=== PATIENT | female | born 1950 | race Caucasian/White ===

== ENCOUNTER → 2022-09-20 | Outpatient (CLI) | payer MEDICARE, SELFPAY ==
[2022-09-22 13:08] LABS: Hepatitis B Core Ab Total Negative (Negative); QNTFERON TB Mitogen Value > 10.00 IU/mL (.); QNTFERON TB Nil Value 0.07 IU/mL (.); QNTFERON TB1+ Ag Value 0.07 IU/mL (.); QNTFERON TB2+ Ag Value 0.08 IU/mL (.); QNTIFERON TB Positive Criteria Negative (Negative)
== END | disposition home or self-care (01) ==
LOC: LAB 13:35
PROVIDERS: PCP Family Medicine; Visit Provider Physician Assistant Medical
DX: L40.0 Psoriasis vulgaris (principal); L40.59 Other psoriatic arthropathy; R53.82 Chronic fatigue, unspecified; L82.1 Other seborrheic keratosis; Z79.899 Other long term (current) drug therapy
CPT/HCPCS: 36415; 86480; 86704

== ENCOUNTER → 2023-09-21 | Outpatient (CLI) | payer MEDICARE, SELFPAY ==
[2023-09-25 12:09] LABS: QNTFERON TB Mitogen Value > 10.00 IU/mL (.); QNTFERON TB Nil Value 0.46 IU/mL (.); QNTFERON TB1+ Ag Value 0.02 IU/mL (.); QNTFERON TB2+ Ag Value 0.02 IU/mL (.); QNTIFERON TB Positive Criteria Negative (Negative)
== END | disposition home or self-care (01) ==
LOC: MTLAB 14:55
PROVIDERS: PCP Family Medicine; Referring Provider Physician Assistant Medical; Visit Provider Physician Assistant Medical
DX: L40.0 Psoriasis vulgaris (principal); Z79.899 Other long term (current) drug therapy; L57.0 Actinic keratosis
CPT/HCPCS: 36415; 86480

== ENCOUNTER → 2024-09-24 | Outpatient (CLI) | payer MEDICARE, SELFPAY ==
--- OUTSIDE RECORDS SUMMARY | 2024-09-24 20:02 | XMS RPT_ITS | CCD ---
Author Organization [facility] Care Team Providers Care Sports Official Name Role Phone Brandon Lowery Unavailable Unavailable Brandon Lowery Unavailable Unavailable Brandon Lowery Unavailable Unavailable Brandon Lowery Unavailable Unavailable Brandon Lowery Unavailable Unavailable Brandon Lowery Unavailable Unavailable Brandon Lowery Unavailable Unavailable Brandon Lowery Unavailable [phone] Brandon Lowery Primary Care Provider Unava ilable Man Brady Unavailable [phone] Brandon Lowery Primary Care Provider Brandon Lowery Primary Care Provider Issac Bray Unavailable Man Brady Unavailable Issac Bray Unavailable Brandon Lowery DO Primary Care Provider Man Brady MD Unavailable Issac Bray MD Unavailable Brandon Lowery DO Primary Care Provider Man Brady MD Unavailable Issac Bray MD Unavailable Brandon Lowery DO Primary Care Provider Jose Antonio GARAY MD, Harold Andrew Unavailable Issac Bray MD Unavailable Tiffani Chisholm MD Unavailable Tiffani Chisholm MD Unavailable [phone] Sebastián DENNEY Brandon Dennise Primary Care Provider Jose Antonio GARAY MD, Man Douglas Unavailable Issac Bray MD Unavailable Tiffani Chisholm MD Unavailable JAYLEN ISAAC Attending Unavailabl e SEBASTIÁNBRANDON Primary Care Unavailable ELAN ANGELO Attending Unavailable COLTON UMAÑA Attending Unavailable BRANDON LOWERY Primary Care Unavailable Edward LINDSEY-C, Rubio Ramey Unavailable Nini Meza CNP Unavailable Vestchristina DENNEY Brandon Dennise Primary Care Provider Jose Antonio GARAY MD, Man Douglas Unavailable Gocornelius LINDSEY-CRubio Unavailable [phone] Nini Meza CNP Unavailable [phone] Issac Bray MD Unavailable Tiffani Chisholm MD Unavailable Sebastián DENNEYBrandone Unavailable [phone] Kimani Simon MD Unavailable [phone] Edward KELLERCRubio Unavailable Rubio Kiran Referring Unavailable Rubio Kiran Attending Unavailable Radhames Loweryel Primary Care Unavailable SEBASTIÁN BRANDON KEVIN Primary Care Unavailable ETELVINA EDGE Attending Unavailable ETELVINA EDGE Referring Unavailable KIMANI SIMON Attending Unavailable SEBASTIÁN BRANDONSHANTA BROWN Primary Care Unavailable KIMANI SIMON Referring Unavailable CORI MARQUEZ Attending Unavailab le SEBASTIÁN, BRANDON KEVIN Primary Care Unavailable CORI MARQUEZ Admitting Unavailab francisca LOWERY, BRANDON KEVIN Primary Care Unavailable ETELVINA EDGE Referring Unavailable ETELVINA EDGE Attending Unavailable SEBASTIÁN, BRANDON KEVIN Primary Care Unavailable ETELVINA EDGE Attending Unavailable ETELVINA EDGE AEvelyn Referring Unavailable SEBASTIÁN, BRANDON KEVIN Primary Care Unavailable ETELVINA EDGE Attending Unavailable ETELVINA EDGE Referring Unavailable BRANDON LOWERY Referring Unavailable RADHAMES LOWERYEL KEVIN Admitting Unavailable SEBASTIÁN BRANDON KEVIN Primary Care Unavailable ETELVINA EDGE Attending Unavailable BRANDON LOWERY Attending Unavailable SEBASTIÁN BRANDON KEVIN Primary Care Unavailable CORI MARQUEZ Attending Unavailab francisca LOWERY BRANDON KEVIN Primary Care Unavailable RADHAMES LOWERYEL KEVIN Primary Care Unavailable KIMANI SIMON Attending Unavailable BRANDON LOWERY Attending Unavailable RADHAMES LOWERYEL KEVIN Primary Care Unavailable BRANDON LOWERY Attending Unavailable SEBASTIÁN BRANDON KEVIN Primary Care Unavailable Allergies Allergy Classification Reported Allergen(s) Allergy Type Date of Onset Reaction(s) Facility [facility]io[facility] (6 sources) HYDROcodone Drug Allergy 10-29-[address] [facility] (20 sources) HYDROcodone; Translations: [HYDROCODONE] Drug Allergy 10-29-[address] [facility] Medications Current Medications Medication Drug Class(es) Dates Sig (Normalized) Sig (Original) acetaminophen 300 mg / codeine phosphate 30 mg oral tablet (16 sources) Opioid Agonist Start: 12-27-2018 End: 01-03-2019 take 1 tablet by mouth every six hours as needed for pain acetaminophen-code ine (Tylenol-Codeine #3) 300-30 mg per tablet Indications: Status post left hip replacement Take 1 (one) tablet by mouth every 6 (six) hours as needed for pain 7 days . 20 tablet 0 12/27/2018 01/03/2019 Active Start: 11-22-2018 End: 12-02-2018 take 1 tablet by mouth once as needed for pain, then take 2 tablets by mouth every four to six hours as needed for pain acetaminophen-codeine (TYLENOL-CODEINE #3) 300-30 mg per tablet Indications: Status post left hip replacement Take 1 (one) tablet to 2 (two) tablets by mouth every 4 to 6 hours as needed for pain . 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 30 tablet 0 11/16/2018 11/23/2018 Start: 11-15-2018 End: 11-16-2018 take 1-2 tablets by mouth every six hours as needed acetaminophen-codeine (TYLENOL #3) 300-30 mg per tablet 1-2 tablet Start: 09-13-2015 End: 12-12-2016 take 1-2 tablets by mouth every four hours as needed for pain acetaminophen-codeine (TYLENOL #3) 300-30 mg per tablet Take 1-2 tablets by mouth every 4 (four) hours as needed for pain. 0 09/13/2015 12/12/2016 Discontinued (Patient's Request) alendronic acid 70 mg oral tablet (12 sources) Bisphosphonate Start: 08-06-2023 alendronate (FOSAMAX) 70 MG tablet Take 1 (one) tablet (70 mg total) by mouth every 7 days . 08/06/2023 Active amoxicillin 500 mg oral capsule (2 sources) Penicillin-class Antibacterial Start: 03-12-2019 End: 03-22-2019 take 1 capsule by mouth three times daily amoxicillin (AMOXIL) 500 MG capsule Indications: Acute non-recurrent maxillary sinusitis Take 1 (one) capsule (500 mg total) by mouth 3 (three) times a day for 10 days . 30 capsule 0 03/12/2019 03/22/2019 Active Start: 12-17-2018 amoxicillin (A MOXIL) 500 MG capsule TAKE 4 CS PO 1 HOUR BEFORE DENTAL APPOINTMENT 1 12/17/2018 Active amoxicillin 875 mg / clavulanate 125 mg oral tablet (1 source) Penicillin-class Antibacterial Start: 12-07-2022 take 1 tablet by mouth twice daily amoxicillin-clavulanate (AUGMENTIN) 875-125 mg per tablet Indications: Bronchitis Take 1 (one) tablet by mouth 2 (two) times a day . 20 tablet 0 12/07/2022 Active aspirin 325 mg delayed release oral tablet (20 sources) Platelet Aggregation Inhibitor, Nonsteroidal Anti-inflammatory Drug Start: 11-14-2018 End: 12-15-2018 take 1 tablet by mouth twice daily aspirin 325 MG EC tablet Take 1 (one) tablet (325 mg total) by mouth 2 (two) times a day . 60 tablet 0 11/15/2018 12/15/2018 Active End: 10-29-2018 take 1 tablet by mouth once daily aspirin 81 MG EC tablet Take 81 mg by mouth daily 0 10/29/2018 Discontinued atorvastatin 40 mg oral tablet (10 sources) HMG-CoA Reductase Inhibitor Start: 08-14-2023 End: 08-13-2024 atorvastatin (LIPITOR) 40 MG tablet Indications: Hypercholesterolemia TAKE 1 TABLET DAILY 90 tablet 3 07/07/2024 Active azithromycin 250 mg oral tablet (5 sources) Macrolide Antimicrobial Start: 01-09-2023 End: 08-13-2023 azithromycin (Zithromax Z-Roc) 250 MG tablet Indications: Subacute cough Take 2 tablets the first day and one daily for four days. With the same meal. . 6 tablet 0 01/09/2023 08/13/2023 Discontinued benzonatate 200 mg oral capsule (12 sources) Non-narcotic Antitussive Start: 02-18-2024 take 1 capsule by mouth three times daily as needed for cough benzonatate (TESSALON) 200 MG capsule Take 1 (one) capsule (200 mg total) by mouth 3 (three) times a day as needed for cough . 30 capsule 3 02/18/2024 Active Start: 01-09-2023 End: 08-13-2023 take 1 capsule by mouth three times daily as needed for cough benzonatate (TESSALON) 200 MG capsule Indications: Subacute cough Take 1 (one) capsule (200 mg total) by mouth 3 (three) times a day as needed for cough . 30 capsule 3 01/09/2023 08/13/2023 Discontinued Start: 12-07-2022 End: 2023 take 1 capsule by mouth three times daily as needed benzonatate (TESSALON) 100 MG capsule Indications: Bronchitis Take 1 (one) capsule (100 mg total) by mouth 3 (three) times a day as needed . 42 capsule 1 12/07/2022 2023 Active Start: 03-12-2019 End: 03-19-2019 take 1 capsule by mouth three times daily as needed for cough benzonatate (TESSALON) 200 MG capsule Indications: Acute non-recurrent maxillary sinusitis Take 1 (one) capsule (200 mg total) by mouth 3 (three) times a day as needed for cough . 20 capsule 0 03/12/2019 03/19/2019 Active cephalexin 500 mg oral capsule (1 source) Cephalosporin Antibacterial Start: 07-22-2018 End: 08-01-2018 take 1 capsule by mouth twice daily cephALEXin (KEFLEX) 500 MG capsule Take 1 (one) capsule (500 mg total) by mouth 2 (two) times a day for 10 days . 20 capsule 0 07/22/2018 08/01/2018 Active Flucelvax Quad 60 McG (15 McG X 4)/0.5 Ml Im Suspension (1 source) Start: 11-23-2017 take 1 mL by intramuscular injection every twenty-four hours as needed FLUCELVAX QUAD injection Inject 1 mL into the shoulder, thigh, or buttocks once as needed. 11/23/2017 Active fluorometholone 1 mg/ml ophthalmic suspension (19 sources) Corticosteroid Start: 04-01-2020 End: 08-11-2021 fluorometholone (FML) 0.1 % ophthalmic suspension 12 hr guaiFENesin 600 mg extended release oral tablet (1 source) Start: 12-07-2022 End: 01-06-2023 take 2 tablets by mouth twice daily guaiFENesin (MUCINEX) 600 mg 12 hr tablet Indications: Bronchitis Take 2 (two) tablets (1,200 mg total) by mouth 2 (two) times a day . 120 tablet 0 12/07/2022 01/06/2023 Active hydroCHLOROthiazide 12.5 mg oral tablet (20 sources) Thiazide Diuretic Start: 04-11-2019 End: 06-02-2024 hydroCHLOROthiazide 12.5 MG tablet TAKE 1 TABLET DAILY 90 tablet 3 06/02/2024 Active Start: 08-07-2015 End: 11-16-2018 take 12.5 mg by mouth once daily 12.5 mg, Oral, Daily, First dose on [facility] 11/14/18 at 1200 Lactobacillus acidophilus (20 sources) take 1 capsule by mo uth once daily in the evening Lactobacillus acidophilus (PROBIOTIC ORAL) Take 1 capsule by mouth daily Digestive Advantage PM . Active take 1 capsule by mo uth once daily in the evening Lactobacillus acidophilus (PROBIOTIC ORA L) Take 1 capsule by mouth daily Digestive Advantage PM . 0 Active Lactobacillus ac idophilus (PROBIOTIC ORAL) Take by mouth Digestive Advantage PM . 0 Suspended Lactobacillus ac idophilus (PROBIOTIC ORAL) Take by mouth Digestive Advantage PM . 0 Active latanoprost 0.05 mg/ml ophthalmic solution (20 sources) Prostaglandin Analog Start: 04-24-2017 End: 11-16-2018 take 1 drop(s) into the eye(s) once daily latanoprost (XALATAN) 0.005 % ophthalmic solution Administer 1 (one) drop to both eyes nightly . 04/24/2017 Active Start: 04-24-2017 take 1 drop(s) into the eye(s) once latanoprost (XALATAN) 0.005 % ophthalmic solution Administer 1 drop to both eyes nightly . 04/24/2017 Active Start: 04-24-2017 latanoprost (X ALATAN) 0.005 % ophthalmic solution End: 06-01-2017 LATANOPROST OPHT Apply 1 ethan p to eye 0 06/01/2017 Discontinued (Duplicate order (Suppress CancelRx Message to Pharmacy)) End: 06-01-2017 LATANOPROST OPHT Apply 1 ethan p to eye 06/01/2017 Discontinued LATANOPROST OPHT Apply 1 drop to eye Active levothyroxine sodium 0.1 mg oral tablet (20 sources) l-Thyroxine Start: 01-02-2020 End: 10-22-2023 levothyroxine (SYNTHROID, LEVOTHROID) 100 MCG tablet Indications: Hypothyroidism, unspecified type TAKE 1 TABLET DAILY 90 tablet 3 10/22/2023 Active Start: 09-10-2019 take 1 tablet by nati th once daily in the morning levothyroxine (SYNTHROID, LEVOTHROID) 125 MCG tablet Indications: Hypothyroidism, unspecified type Take 1 (one) tablet (125 mcg total) by mouth every morning . 90 tablet 3 09/10/2019 Active Start: 05-22-2019 levothyroxine (SYNTHROID, LEVOTHROID) 137 MCG tablet Indications: Hypothyroidism, unspecified type TAKE 1 TABLET DAILY 90 tablet 3 05/22/2019 Active Start: 11-14-2018 End: 11-16-2018 take 137 ug by mouth once daily 137 mcg, Oral, Daily, First dose on [facility] 11/14/18 at 1200 For patients on continuous tube feed: Hold TF from 1 hr before until 1 hr after each dose. TF rate may need adjustment to meet caloric needs. Start: 05-27-2018 levothyroxine (SYNTHROID, LEVOTHROID) 137 MCG tablet Indications: Hypothyroidism, unspecified type TAKE 1 TABLET DAILY 90 tablet 3 05/27/2018 Active Start: 06-01-2017 End: 06-01-2017 take 1 tablet by mouth once daily levothyroxine (SYNTHROID, LEVOTHROID) 137 MCG tablet Indications: Hypothyroidism, unspecified type Take 1 (one) tablet (137 mcg total) by mouth once daily. 90 tablet 3 06/01/2017 Active take 137 ug by mouth once daily levothyroxine (SYNTHROID, LEVOTHROID) 150 MCG tablet Take 137 mcg by mouth daily Active lidocaine 0.05 mg/mg topical ointment (6 sources) Antiarrhythmic, Amide Local Anesthetic Start: 12-31-2023 End: 08-15-2024 lidocaine (XYLOCAINE) 5 % ointment Apply as directed 15 to 30 minutes before bowel movements and up to twice daily additionally as needed for pain . 35.44 g 3 12/31/2023 08/15/2024 Discontinued melatonin 1 mg oral tablet (14 sources) take 1 tablet by mouth once daily melatonin 1 mg Tab Take 1 (one) tablet (1 mg total) by mouth nightly . Active End: 12-12-2016 take 1 tablet by mouth once daily melatonin 3 mg Tab Take 3 mg by mouth nightly. 0 12/12/2016 Discontinued (Patient's Request) multivitamin (THERAGRAN) per tablet (20 sources) take 1 tablet by nati th once daily multivitamin (THERAGRAN) per tablet Take 1 (one) tablet by mouth daily NOON . Active take 1 tablet by mouth once guy y multivitamin (THERAGRAN) per tablet Take 1 (one) tablet by mouth daily NOON . 0 Suspended take 1 tablet by mouth once guy y multivitamin (THERAGRAN) per tablet Take 1 (one) tablet by mouth daily NOON . 0 Active take 1 tablet by mouth once guy y multivitamin (THERAGRAN) per tablet Take 1 (one) tablet by mouth daily . 0 Active take 1 tablet by mouth once guy y multivitamin (THERAGRAN) per tablet Take 1 tablet by mouth daily 0 Active take 1 tablet by mouth once guy y multivitamin (THERAGRAN) per tablet Take 1 tablet by mouth daily Active Multivitamin Tablet (3 sources) take 1 tablet by mouth once daily multivitamin (THERAGRAN) per tablet Take 1 tablet by mouth daily Active pantoprazole 20 mg delayed release oral tablet (14 sources) Proton Pump Inhibitor Start: 9 End: 9 take 1 tablet by mouth once daily pantoprazole (PROTONIX) 20 MG tablet Take 1 (one) tablet (20 mg total) by mouth daily . 30 tablet 0 11/15/2018 12/15/2018 Active predniSONE 20 mg oral tablet (2 sources) Start: 3 End: 3 take 1 tablet by mouth once daily predniSONE (DELTASONE) 20 MG tablet Indications: Bronchitis Take 1 (one) tablet (20 mg total) by mouth daily for 5 days . 5 tablet 0 12/07/2022 12/12/2022 Active Start: 06-19-2022 End: 06-19-2022 take 1 tablet by mouth once daily predniSONE (DELTASONE) 50 MG tablet Take 1 (one) tablet (50 mg total) by mouth daily for 10 days . 10 tablet 0 06/19/2022 06/19/2022 Discontinued risankizumab-rzaa (Skyrizi) 150 mg/mL Pen (20 sources) risankizumab-rza a (Skyrizi) 150 mg/mL Pen Inject under the skin Once every 90 days Last dose 04/19/2022 . Active risankizumab-rza a (Skyrizi) 150 mg/mL Pen Inject under the skin Once every 90 days Last dose 04/19/2022 . 0 Suspended risankizumab-rza a (Skyrizi) 150 mg/mL Pen Inject under the skin Once every 90 days Last dose 04/19/2022 . 0 Active risankizumab-rza a (Skyrizi) 150 mg/mL Pen Inject under the skin . 0 Active Vitamin B Complex (20 sources) take 1 tablet by nati th once daily b complex vitamins tablet Take 1 (one) tablet by mouth daily NOON . Active take 1 tablet by mouth once guy y b complex vitamins tablet Take 1 (one) tablet by mouth daily NOON . 0 Suspended take 1 tablet by mouth once guy y b complex vitamins tablet Take 1 (one) tablet by mouth daily NOON . 0 Active Completed/Discontinued Medications Medication Drug Class(es) Dates Sig (Normalized) Sig (Original) acetaminophen 325 mg oral tablet (20 sources) Start: 11-15-2018 End: 11-25-2018 take 2 tablets by mouth every four hours acetaminophen (TYLENOL) 325 MG tablet Take 2 (two) tablets (650 mg total) by mouth every 4 (four) hours for 10 days . 60 tablet 0 11/15/2018 11/25/2018 Start: 11-14-2018 End: 11-16-2018 take 650 mg by mouth every four hours 650 mg, Oral, Every 4 hours scheduled, First dose on [facility] 11/14/18 at 1200 Start: 08-27-2015 End: 11-16-2018 take 2 tablets by mouth every six hours as needed acetaminophen (TYLENOL) 325 MG tablet Take 650 mg by mouth every 6 (six) hours as needed . 0 08/27/2015 11/16/2018 Discontinued (Stop Taking at Discharge) apremilast 30 mg oral tablet (12 sources) Start: 03-26-2017 End: 10-16-2018 take 1 tablet by mouth every other day OTEZLA 30 mg Tab Take 1 tablet by mouth every other day. 0 03/26/2017 10/16/2018 Discontinued (Patient's Request) calcium chloride 0.0014 meq/ml / potassium chloride 0.004 meq/ml / sodium chloride 0.103 meq/ml / sodium lactate 0.028 meq/ml injectable solution (4 sources) Start: 12-31-2018 End: 12-31-2018 lactated Ringers infusion Start: 11-15-2018 End: 11-15-2018 lactated ringers bolus 1,000 mL Start: 11-14-2018 End: 11-15-2018 take 100 mL intravenous route every hour 100 mL/hr, Intravenous, Continuous, Starting [facility] 11/14/18 at 1100 Saline lock once tolerating oral intake without nausea Start: 11-14-2018 End: 11-14-2018 lactated Ringers infusion ceFAZolin 1000 mg injection (1 source) Cephalosporin Antibacterial Start: 11-14-2018 End: 11-14-2018 take 1000 mg intravenous route every six hours 1,000 mg, Intravenous, at 100 mL/hr, Every 6 hours, First dose on [facility] 11/14/18 at 0900, For 3 doses, PACU to Post Procedure Starting In pacu. Indication (POST PROCEDURE): Ortho cholecalciferol 0.025 mg oral tablet (2 sources) Vitamin D End: 12-12-2016 take 1 tablet by mouth once daily cholecalciferol, vitamin D3, 1,000 unit tablet Take 1,000 Units by mouth daily 0 12/12/2016 Discontinued (Patient's Request) cyclobenzaprine hydrochloride 10 mg oral tablet (2 sources) Muscle Relaxant Start: 09-13-2015 End: 12-12-2016 take 1 tablet by mouth three times daily as needed for muscle spasms cyclobenzaprine (FLEXERIL) 10 MG tablet Take 10 mg by mouth 3 (three) times a day as needed for muscle spasms. 0 09/13/2015 12/12/2016 Discontinued (Patient's Request) dexamethasone (DECADRON) 1 mL, triamcinolone acetonide (KENALOG-40) 40 mg/mL 1 mL (3 sources) Start: 07-25-2018 End: 07-30-2018 dexamethasone (DECADRON) 1 mL, triamcinolone acetonide (KENALOG-40) 40 mg/mL 1 mL Start: 09-20-2017 End: 09-24-2017 dexamethasone (DECADRON) 1 m L, triamcinolone acetonide (KENALOG-40) 40 mg/mL 1 mL Start: 06-04-2017 End: 06-04-2017 dexamethasone (DECADRON) 1 m L, triamcinolone acetonide (KENALOG-40) 40 mg/mL 1 mL Docusate (2 sources) End: 12-12-2016 DOCUSATE SODIUM (COLACE ORAL ) Take by mouth as needed 0 12/12/2016 Discontinued (Patient's Request) End: 12-12-2016 DOCUSATE SODIUM (COLACE ORAL ) Take by mouth as needed 12/12/2016 Discontinued docusate sodium 50 mg / sennosides, prison 8.6 mg oral tablet (1 source) Start: 11-14-2018 End: 11-16-2018 take 1 tablet by mouth twice daily 1 tablet, Oral, 2 times daily, First dose on [facility] 11/14/18 at 1200 NOT for abdominal surgery patients. Hold for loose stools. Do Not Crush or Chew if administering orally due to bitter taste. May be crushed if given via tube. esomeprazole 40 mg delayed release oral capsule (9 sources) Proton Pump Inhibitor Start: 08-04-2021 End: 08-22-2022 take 1 capsule by mouth once daily before breakfast esomeprazole (NEXIUM) 40 MG capsule Indications: Gastroesophageal reflux disease, unspecified whether esophagitis present Take 1 (one) capsule (40 mg total) by mouth every morning before breakfast . 90 capsule 3 08/22/2021 04/12/2022 Discontinued FLUCELVAX QUAD injection (1 source) Start: 11-23-2017 End: 06-03-2018 inject 1 mL by intramuscular injection every twenty-four hours as needed FLUCELVAX QUAD injection Inject 1 mL into the shoulder, thigh, or buttocks once as needed. 0 11/23/2017 06/03/2018 Discontinued 50 ml gentamicin 1.6 mg/ml injection (1 source) Start: 11-14-2018 End: 11-14-2018 gentamicin IVPB 80 mg in 50 ml (premix) 1 ml ketorolac tromethamine 15 mg/ml injection (1 source) Nonsteroidal Anti-inflammator y Drug, Cyclooxygenase Inhibitor Start: 11-14-2018 End: 11-16-2018 15 mg, Intravenous, Every 6 hours scheduled, First dose on Sun11/14/18 at 1200, For 48 hours loratadine 10 mg oral tablet (20 sources) Start: 11-14-2018 End: 11-16-2018 10 mg, Oral, As needed, allergies, Starting [facility] 11/14/18 at 1009 End: 08-09-2020 LORATADINE (CLARITIN ORAL) T rashmi by mouth as needed 0 08/09/2020 Discontinued LORATADINE (CLAR ITIN ORAL) Take by mouth as needed 0 Active LORATADINE (CLAR ITIN ORAL) Take by mouth as needed Active LORATADINE (CLAR ITIN ORAL) Take by mouth as needed Active magnesium hydroxide 80 mg/ml oral suspension (1 source) Start: 11-14-2018 End: 11-16-2018 take 2400 mg by mouth once daily as needed for constipation 2,400 mg (30 mL), Oral, Daily PRN, constipation, contipation, Starting [facility] 11/14/18 at 1009 multivitamin (THERAGRAN) per tablet 1 tablet (1 source) Start: 11-14-2018 End: 11-16-2018 take 1 tablet by mouth once daily 1 tablet, Oral, Daily, First dose on [facility] 11/14/18 at 1200 naloxone (NARCAN) injection 0.1 mg (1 source) Start: 11-14-2018 End: 11-16-2018 naloxone (NARCAN) injection 0.1 mg naproxen 375 mg oral tablet (20 sources) Nonsteroidal Anti-inflammatory Drug End: 04-12-2022 take 1 tablet by mouth twice daily as needed naproxen (NAPROSYN) 375 MG tablet Take 1 (one) tablet (375 mg total) by mouth 2 (two) times a day as needed . 0 04/12/2022 Discontinued ondansetron 4 mg oral tablet (14 sources) Serotonin-3 Receptor Antagonist Start: 11-16-2018 End: 12-16-2018 take 1 tablet by mouth once daily as needed for nausea ondansetron (ZOFRAN) 4 MG tablet Take 1 (one) tablet (4 mg total) by mouth daily as needed for nausea . 10 tablet 0 11/16/2018 12/16/2018 Discontinued (Therapy completed) Start: 11-14-2018 End: 11-16-2018 take 4 mg intravenous route every six hours as needed 4 mg, Intravenous, Every 6 hours PRN, nausea, vomiting, Starting [facility] 11/14/18 at 1009 Start: 09-13-2015 End: 12-12-2016 take 1 tablet by mouth every six hours as needed for nausea ondansetron (ZOFRAN) 4 MG tablet Take 4 mg by mouth every 6 (six) hours as needed for nausea. 0 09/13/2015 12/12/2016 Discontinued (Patient's Request) polyethylene glycol [id number] [id number] mg powder for oral solution (8 sources) Osmotic Laxative Start: 11-15-2018 End: 11-22-2018 polyethylene glycol (MIRALAX) 17 gram powder Take 17 (seventeen) g by mouth daily for 7 days . 255 g 0 11/15/2018 11/22/2018 regadenoson (LEXISCAN) 0.4 mg/5 mL injection - ADS Override Pull (1 source) Start: 10-23-2018 End: 10-23-2018 regadenoson (LEXISCAN) 0.4 mg/5 mL injection - ADS Override Pull sertraline 50 mg oral tablet (20 sources) Serotonin Reuptake Inhibitor Start: 11-14-2018 End: 11-16-2018 take 50 mg by mouth once daily 50 mg, Oral, Daily, First dose on [facility] 11/14/18 at 1200 take 1 tablet by nati th once daily in the evening sertraline (ZOLOFT) 25 MG tablet Take 1 (one) tablet (25 mg total) by mouth daily PM . Active take 0.5 tablet by mouth once da idris sertraline (ZOLOFT) 50 MG tablet Take 0.5 (one-half) tablet (25 mg total) by mouth daily . 0 Active sertraline (ZOLO FT) 50 MG tablet Take 25 mg by mouth daily . 0 Active Sodium Chloride (1 source) Start: 11-14-2018 End: 11-16-2018 sodium chloride (PF) (NS) flush 5 mL technetium (Tc-99m) tetrofosmin (Tc-MYOVIEW) injection 8-25 millicurie (1 source) Start: 10-23-2018 End: 10-23-2018 technetium (Tc-99m) tetrofosmin (Tc-MYOVIEW) injection 8-25 millicurie 24 hr tolterodine tartrate 2 mg extended release oral capsule (1 source) Cholinergic Muscarinic Antagonist Start: 11-14-2018 End: 11-16-2018 take 4 mg by mouth once daily 4 mg, Oral, Daily, First dose on [facility] 11/14/18 at 1200 DO NOT CRUSH OR CHEW. 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 30 tablet 0 11/15/2018 11/22/2018 Start: 11-14-2018 End: 11-15-2018 take 50-100 mg by mouth every six hours as needed traMADol (ULTRAM) tablet 50-100 mg tranexamic acid 650 mg oral tablet (1 source) Antifibrinolytic Agent Start: 11-14-2018 End: 11-14-2018 tranexamic acid (LYSTEDA) tablet 1,950 mg Start: 11-14-2018 End: 11-14-2018 tranexamic acid (LYSTEDA) ta blet 1,950 mg triamcinolone acetonide 40 mg/ml injectable suspension (2 sources) Corticosteroid Start: 12-12-2016 End: 12-12-2016 triamcinolone acetonide (KENALOG-40) injection 20 mg 20 mg, Intra-articular, Once, 12/12/16 at 1915, For 1 dose, [facility] [place] [id number] Given 12/12/2016 18:27 EDT 20 mg Start: 12-12-2016 End: 12-12-2016 triamcinolone acetonide (SHAISTA ALOG-40) injection 20 mg 24 hr trospium chloride 60 mg extended release oral capsule (20 sources) Cholinergic Muscarinic Antagonist Start: 08-27-2018 End: 12-31-2018 take 1 capsule by mouth once daily trospium 60 mg Cp24 Take 1 (one) capsule (60 mg total) by mouth daily . 30 capsule 2 08/27/2018 12/31/2018 Discontinued vitamin b12 1 mg oral tablet (2 sources) Vitamin B12 End: 12-12-2016 take 1 tablet by mouth once daily cyanocobalamin (B-12) 1000 MCG tablet Take 1,000 mcg by mouth daily 0 12/12/2016 Discontinued (Patient's Request) Problems Active Problems Problem Classification Problem Date Documented Date Episodic/Chronic Chronic obstructive pulmonary disease and bronchiectasis (1 source) Bronchitis; Translations: [Bronchitis, not specified as acute or chronic] 12-07-2022 Episodic Complications of surgical procedures or medical care (4 sources) Prolapse of vaginal vault after hysterectomy; Translations: [Prolapse of vaginal vault after hysterectomy] Chronic Disorders of lipid metabolism (4 sources) Hypercholesterolemia; Translations: [Pure hypercholesterolemia, unspecified] Onset: 08-15-2024 07-07-2024 Chronic Esophageal disorders (5 sources) Gastroesophageal reflux disease; Translations: [Gastro-esophageal reflux disease without esophagitis] Chronic Essential hypertension (20 sources) Essential hypertension; Translations: [Hypertensive disorder] Onset: 06-03-2018 06-03-2018 Chronic Fracture of lower limb (4 sources) Closed fracture of distal fibula ; Translations: [Closed fracture of ankle] Episodic Genitourinary symptoms and ill-defined conditions (5 sources) Urge incontinence of urine; Translations: [Overflow incontinence of urine] Chronic Genitourinary symptoms and ill-defined conditions (4 sources) Retention of urine; Translations: [H/O: urinary disease] Episodic Hypertension with complications and secondary hypertension (20 sources) Hypertensive heart disease without heart failure; Translations: [Cardiomegaly - hypertensive] Onset: 02-24-2015 02-24-2015 Chronic Immunizations and screening for infectious disease (1 source) Patient encounter status; Translations: [Encounter for immunization] Episodic Mood disorders (20 sources) Depressive disorder; Translations: [Depression] Onset: 06-07-2022 06-07-2022 Chronic Other aftercare (2 sources) Surgical follow-up; Translations: [Encounter for surgical aftercare following surgery on the digestive system] 07-04-2022 Episodic Other connective tissue disease (20 sources) History of total hip arthroplasty; Translations: [Presence of left artificial hip joint] Onset: 11-14-2018 11-14-2018 Chronic Other connective tissue disease (1 source) Swelling of lower limb; Translations: [Other specified soft tissue disorders] Episodic Other diseases of bladder and urethra (4 sources) Bladder muscle dysfunction - overactive; Translations: [OAB (overactive bladder)] Chronic Other inflammatory condition of skin (1 source) Psoriasis vulgaris; Translations: [Psoriasis vulgaris] Onset: 10-04-2023 Chronic Other injuries and conditions due to external causes (3 sources) At low risk for fall; Translations: [History of falling] 08-07-2022 Episodic Other lower respiratory disease (1 source) Cough; Translations: [Subacute cough] 01-09-2023 Episodic Other lower respiratory disease (5 sources) Dyspnea on exertion; Translations: [Other forms of dyspnea] 08-13-2023 Episodic Other nutritional; endocrine; and metabolic disorders (20 sources) Obese class I; Translations: [Obesity, unspecified] Onset: 06-07-2022 06-07-2022 Chronic Residual codes; unclassified (3 sources) Pain; Translations: [Pain] Episodic Screening and history of mental health and substance abuse codes (1 source) Tobacco use and exposure - finding; Translations: [Personal history of nicotine dependence] Episodic Thyroid disorders (20 sources) Hypothyroidism; Translations: [Hypothyroidism, unspecified] Onset: 03-30-2014 04-24-2017 Chronic Unclassified (20 sources) Arthritis of left hip; Translations: [Arthritis of left hip] Onset: 08-12-2018 08-12-2018 Unclassified (3 sources) Patient encounter status; Translations: [Routine general medical examination at a health care facility] Unclassified (2 sources) History of repair of hip joint; Translations: [Status post left hip replacement] Unclassified (3 sources) Closed fracture of left ankle; Translations: [Closed fracture of left ankle, initial encounter] Urinary tract infections (1 source) Urinary tract infectious disease; Translations: [Urinary tract infection without hematuria, site unspecified] Episodic Past or Other Problems Problem Classification Problem Date Documented Date Episodic/Chronic Abdominal hernia (20 sources) Gastroesophageal reflux disease with hiatal hernia; Translations: [Diaphragmatic hernia without obstruction or gangrene] Onset: 3 Episodic Abdominal pain (1 source) Upper abdominal pain; Translations: [Pain of upper abdomen] Episodic Mood disorders (8 sources) Mood disorders Onset: 3 Resolved: 5 04-12-2022 Nonspecific chest pain (19 sources) Chest pain; Translations: [Chest pain, unspecified] Onset: 3 Resolved: 3 07-25-2022 Episodic Osteoarthritis (20 sources) Unilateral primary osteoarthritis, left hip; Translations: [Arthritis of left hip] Onset: 9 Resolved: 1 08-12-2018 Chronic Other connective tissue disease (20 sources) Trochanteric bursitis; Translations: [Trochanteric bursitis, left hip] Onset: 8 Resolved: 1 06-04-2017 Episodic Other gastrointestinal disorders (20 sources) Heartburn; Translations: [Heartburn] Onset: 3 Resolved: 3 04-26-2022 Episodic Other gastrointestinal disorders (20 sources) Excessive belching; Translations: [Eructation] Onset: 3 Resolved: 3 04-26-2022 Episodic Other gastrointestinal disorders (20 sources) Dysphagia; Translations: [Dysphagia, pharyngoesophageal phase] Onset: 3 04-26-2022 Episodic Other gastrointestinal disorders (20 sources) Abdominal bloating; Translations: [Abdominal distension (gaseous)] Onset: 3 Resolved: 3 04-26-2022 Episodic Other lower respiratory disease (20 sources) Dyspnea; Translations: [Shortness of breath] Onset: 3 Resolved: 3 04-26-2022 Episodic Other lower respiratory disease (4 sources) Other forms of dyspnea; Translations: [Other forms of dyspnea] Onset: 4 Episodic Other nervous system disorders (20 sources) Ataxia; Translations: [Ataxia, unspecified] Onset: 6 Resolved: 1 05-19-2015 Episodic Other upper respiratory disease (20 sources) Hoarse; Translations: [Dysphonia] Onset: 3 Resolved: 3 04-26-2022 Episodic Other upper respiratory infections (20 sources) Acute maxillary sinusitis; Translations: [Acute maxillary sinusitis, unspecified] Onset: 0 Resolved: 1 03-12-2019 Episodic Residual codes; unclassified (20 sources) Family history of cancer of colon; Translations: [Family history of malignant neoplasm of digestive organs] Onset: 9 12-16-2018 Episodic Residual codes; unclassified (4 sources) Family history of malignant neoplasm of digestive organs; Translations: [Family history of malignant neoplasm of digestive organs] Onset: 9 Episodic Unclassified (4 sources) Onset: 4 Resolved: 5 08-06-2023 Results Test Name Value Interpretation Reference Range Facility CBC (INCLUDES DIFF/PLT)on Basophils (Bld) [#/Vol] 0.048 10*3/uL Normal 0-200 [facility] Comment on above: Performed By: #### 6 399 #### [facility] [place] [address] [employer] Worker: Michael Wheeler MD Basophils/100 WBC (Bld) 0.8 % Normal [facility] Comment on above: Performed By: #### 6 399 #### [facility] [place] [address] [employer] Worker: Michael Wheeler MD Eosinophils (Bld) [#/Vol] 0.45 10*3/uL Normal 15-500 [facility] Comment on above: Performed By: #### 6 399 #### [facility] [address] [place] [address] [employer] Worker: Michael Wheeler MD Eosinophils/100 WBC (Bld) 7.5 % Normal [facility] Comment on above: Performed By: #### 6 399 #### [facility] [place] [address] [employer] Worker: Michael Wheeler MD Erythrocyte distribution width (RBC) [Ratio] 13.1 % Normal 11.0-15.0 [facility] Comment on above: Performed By: #### 6 399 #### [facility] [place] [address] [employer] Worker: Michael Wheeler MD Hematocrit (Bld) [Volume fraction] 44.7 % Normal 35.0-45.0 [facility] Comment on above: Performed By: #### 6 399 #### [facility] [place] [address] [employer] Worker: Michael Wheeler MD Hemoglobin (Bld) [Mass/Vol] 14.4 g/dL Normal 11.7-15.5 [facility] Comment on above: Performed By: #### 6 399 #### [facility] [place] [address] [employer] Worker: Michael Wheeler MD Lymphocytes (Bld) [#/Vol] 1.374 10*3/uL Normal 850-3900 [facility] Comment on above: Performed By: #### 6 399 #### [facility] [place] [address] [employer] Worker: Michael Wheeler MD Lymphocytes/100 WBC (Bld) 22.9 % Normal [facility] Comment on above: Performed By: #### 6 399 #### [facility] [place] [address] [employer] Worker: Michael Wheeler MD MCH (RBC) [Entitic mass] 30.3 pg Normal 27.0-33.0 [facility] Comment on above: Performed By: #### 6 399 #### [facility] [place] [address] [employer] Worker: Michael Wheeler MD MCHC (RBC) [Mass/Vol] 32.2 g/dL Normal 32.0-36.0 [facility] Comment on above: Result Comment: For adults, a slight decrease in the calculated MCHC value (in the range of 30 to 32 g/dL) is most likely not clinically significant; however, it should be interpreted with caution in correlation with other red cell parameters and the patient's clinical condition. Performed By: #### 6 399 #### [facility] [place] [address] [employer] Worker: Michael Wheeler MD MCV (RBC) [Entitic vol] 93.9 fL Normal 80.0-100.0 [facility] Comment on above: Performed By: #### 6 399 #### [facility] [place] [address] [employer] Worker: Michael Wheeler MD Monocytes (Bld) [#/Vol] 0.636 10*3/uL Normal 200-950 [facility] Comment on above: Performed By: #### 6 399 #### [facility] [place] [address] [employer] Worker: Michael Wheeler MD Monocytes/100 WBC (Bld) 10.6 % Normal [facility] Comment on above: Performed By: #### 6 399 #### [facility] [place] [address] [employer] Worker: Michael Wheeler MD Neutrophils (Bld) [#/Vol] 3.492 10*3/uL Normal 9929-6759 [facility] Comment on above: Performed By: #### 6 399 #### [facility] [place] [address] [employer] Worker: Michael Wheeler MD Neutrophils/100 WBC (Bld) 58.2 % Normal [facility] Comment on above: Performed By: #### 6 399 #### [facility] of [address] [place] [address] [employer] Worker: Michael Wheeler MD Platelet mean volume (Bld) [Entitic vol] 10.1 fL Normal 7.5-12.5 [facility] Comment on above: Performed By: #### 6 399 #### [facility] [place] [address] [employer] Worker: Michael Wheeler MD Platelets (Bld) [#/Vol] 279 10*3/uL Normal 140-400 [facility] Comment on above: Performed By: #### 6 399 #### [facility] [place] [address] [employer] Worker: Michael Wheeler MD RBC (Bld) [#/Vol] 4.76 10*6/uL Normal 3.80-5.10 [facility] Comment on above: Performed By: #### 6 399 #### [facility] of [address], [address] [place] [address] [employer] Worker: Michael Wheeler MD WBC (Bld) [#/Vol] 6.0 10*3/uL Normal 3.8-10.8 [facility] Comment on above: Performed By: #### 6 399 #### [facility] [place] [address] [employer] Worker: Michael Wheeler MD COMPREHENSIVE METABOLIC PANE L W/ANION GAPon 08-16-2024 Albumin [Mass/Vol] 4.4 g/dL Normal 3.6-5.1 [facility] Comment on above: Performed By: #### 1 6782, 59467 #### [facility] [place] [address] [employer] Worker: Michael Wheeler MD ALP [Catalytic activity/Vol] 122 U/L Normal 37-153 [facility] Comment on above: Performed By: #### 1 022, 54729 #### [facility] [place] [address] [employer] Worker: Michael Wheeler MD ALT [Catalytic activity/Vol] 24 U/L Normal 6-29 [facility] Comment on above: Performed By: #### 1 485, 85236 #### [facility] [place] [address] [employer] Worker: Michael Wheeler MD AST [Catalytic activity/Vol] 29 U/L Normal 10-35 [facility] Comment on above: Performed By: #### 1 485, 80483 #### [facility] [place] [address] [employer] Worker: Michael Wheeler MD Bilirubin [Mass/Vol] 0.4 mg/dL Normal 0.2-1.2 [facility] Comment on above: Performed By: #### 1 485, 79541 #### [facility] [place] [address] [employer] Worker: Michael Wheeler MD Calcium [Mass/Vol] 9.3 mg/dL Normal 8.6-10.4 [facility] Comment on above: Performed By: #### 1 485, 63056 #### [facility] [place] [address] [employer] Worker: Michael Wheeler MD Chloride [Moles/Vol] 104 mmol/L Normal 98-110 [facility] Comment on above: Performed By: #### 1 485, 14811 #### [facility] [place] [address] [employer] Worker: Michael Wheeler MD CO2 [Moles/Vol] 29 mmol/L Normal 20-32 [facility] Comment on above: Performed By: #### 1 485, 31126 #### [facility] [place] [address] [employer] Worker: Michael Wheeler MD Creatinine [Mass/Vol] 0.80 mg/dL Normal 0.60-1.00 [facility] Comment on above: Performed By: #### 1 485, 25975 #### [facility] [place] [address] [employer] Worker: Michael Wheeler MD ELECTROLYTE BALANCE 8 mmol/L (calc) Normal 7-17 [facility] Comment on above: Performed By: #### 1 437, 22498 #### [facility] [place] [address] [employer] Worker: Michael Wheeler MD GFR/1.73 sq M.predicted among non-blacks MDRD (S/P/Bld) [Vol rate/Area] 77 mL/min/{1.73_m2} Normal > OR = 60 [facility] Comment on above: Performed By: #### 1 370, 02581 #### [facility] [place] [address] [employer] Worker: Michael Wheeler MD Glucose [Mass/Vol] 111 mg/dL High 65-99 [facility] Comment on above: Result Comment: Fasting reference interval For someone without known diabetes, a glucose value between 100 and 125 mg/dL is consistent with prediabetes and should be confirmed with a follow-up test. Performed By: #### 1 038, 83997 #### [facility] [place] [address] [employer] Worker: Michael Wheeler MD Potassium [Moles/Vol] 4.1 mmol/L Normal 3.5-5.3 [facility] Comment on above: Performed By: #### 1 564, 30046 #### [facility] [place] [address] [employer] Worker: Michael Wheeler MD Protein [Mass/Vol] 7.1 g/dL Normal 6.1-8.1 [facility] Comment on above: Performed By: #### 1 237, 44151 #### [facility] [place] [address] [employer] Worker: Michael Wheeler MD Sodium [Moles/Vol] 141 mmol/L Normal 135-146 [facility] Comment on above: Performed By: #### 1 527, 23014 #### [facility] [address], [address] [place] [address] [employer] Worker: Michael Wheeler MD Urea nitrogen [Mass/Vol] 18 mg/dL Normal 7-25 [facility] Comment on above: Performed By: #### 1 485, 75709 #### [facility] [place] [address] [employer] Worker: Michael Wheeler MD LIPID PANEL WITH REFLEX TO D IRECT LDLon 08-16-2024 Cholesterol [Mass/Vol] 140 mg/dL Normal <200 [facility] Comment on above: Performed By: #### 1 485, 49799 #### [facility] [place] [address] [employer] Worker: Michael Wheeler MD Cholesterol in HDL [Mass/Vol] 66 mg/dL Normal > OR = 50 [facility] Comment on above: Performed By: #### 1 949, 62877 #### [facility] [place] [address] [employer] Worker: Michael Wheeler MD Cholesterol in LDL [Mass/Vol] 57 mg/dL Normal [facility] Comment on above: Result Comment: Refe rence range: <100 Desirable range <100 mg/dL for primary prevention; <70 mg/dL for patients with CHD or diabetic patients with > or = 2 CHD risk factors. LDL-C is now calculated using the Jacobo calculation, which is a validated novel method providing better accuracy than the Friedewald equation in the estimation of LDL-C. Alfred ADAM et al. ADDI. 2013;310(19): 0594-8330 (http://education.Marbles: [employer].Ion Torrent/faq/ZMO635) Performed By: #### 1 7532, 94981 #### [facility] [place] [address] [employer] Worker: Michael Wheeler MD Cholesterol.total/Ch olesterol in HDL [Mass ratio] 2.1 {ratio} Normal <5.0 [facility] Comment on above: Performed By: #### 1 4852, 11508 #### [facility] [address], [address] [place] [address] [employer] Worker: Michael Wheeler MD NON HDL CHOLESTEROL 74 mg/dL (calc) Normal <130 [facility] Comment on above: Result Comment: For patients with diabetes plus 1 major ASCVD risk factor, treating to a non-HDL-C goal of <100 mg/dL (LDL-C of <70 mg/dL) is considered a therapeutic option. Performed By: #### 1 4852, 32574 #### [facility] [address], [address] [place] [address] [employer] Worker: Michael Wheeler MD Triglyceride [Mass/Vol] 83 mg/dL Normal <150 [facility] Comment on above: Performed By: #### 1 4852, 23194 #### [facility] [place] [address] [employer] Worker: Michael Wheeler MD TSH W/REFLEX TO FT4on 2024 TSH W/REFLEX TO FT4 2.52 mIU/L Normal 0.40-4.50 [facility] Comment on above: Performed By: #### 3 6127 #### [facility] [place] [address] [employer] Worker: Michael Wheeler MD XR ESOPHAGUS/SWALLOW STUDYon 12-18-2023 XR ESOPHAGUS/SWALLOW STUDY EXAMINATION: XR ESOPHAGUS/SWALLOW STUDY HISTORY: ORDERING SYSTEM PROVIDED HISTORY: sensation of heartburn, belching, early satiety; s/p Linx, TECHNOLOGIST PROVIDED HISTORY: Illness/Other Reason for exam: sensation of heartburn, belching, early satiety; s/p Linx Encounter Type: Subsequent/Follow-up Additional signs and symptoms: . Fluoro dose in mGy: 46.59 ORDERING SYSTEM PROVIDED DIAGNOSIS CODES: COMPARISON: None. TECHNIQUE: RADIATION EXPOSURE: Fluoro dose in Ka,r mGy: 46.59 Esophageal swallow study. The patient was administered barium contrast, barium coated marshmallow and barium coated bagel pieces. Images were obtained in the standing position. FINDINGS: LINX reflux management ring in place. Single swallow of barium contrast shows adequate passage through the esophagus and GE channel with no esophageal dilatation. Trials with both the marshmallow and bagel consistencies showed the majority of the food material to be retained within the nondilated esophagus after the initial swallows. With subsequent dry swallows, most of the food material passes through the esophagus. Small amount of residual within the distal esophagus clears with a liquid barium wash. Swallowing views of the pharynx and cervical esophagus in AP and lateral projections showed adequate passage of the contrast with no esophageal webs or diverticula. There are postoperative changes of posterior cervical decompression and fusion C3 through C6. IMPRESSION: 1. Adequate passage of liquid barium through the esophagus. 2. Majority of the food material was retained within the esophagus following the initial swallows but subsequently cleared with additional dry swallows and single liquid barium wash. [employer] Workstation ID: [id number] Dictated by: RAAD IBARRA on SunDec 18, 2023 11:05:21 AM EDT Transcribed by: AIDE SOTELO on SunDec 18, 2023 11:21:19 AM EDT Finalized by: RAAD IBARRA on SunDec 18, 2023 1:03:51 PM EDT Normal [facility] Comment on above: Order Comment: Monte mallow and bagel Injury/Trauma or Illness?:Illness/Other How long have you had these symptoms (acute/chronic)?:Unknown Reason for exam?:sensation of heartburn, belching, early satiety; s/p Linx Type of Exam?:Subsequent/Follow-up Additional signs and symptoms?:. Fluoro time in minutes:2.26 Fluoro dose in mGy?:46.59 Quantiferon TB-Gold+on 09-24 QFT MITOGEN FERNANDA > 10.00 Normal . [facility] Comment on above: Performed By: #### L [id number] #### [facility] [address] [place], [address] QFT NIL VALUE 0.46 IU/mL Normal . [facility] Comment on above: Performed By: #### L [id number] #### [facility] [address] [place], [address] QFT TB GOLD+ Comment Normal . [facility] Comment on above: Result Comment: Anthony tiFERON-TB Gold Plus is a qualitative indirect test for M tuberculosis infection (including disease) and is intended for use in conjunction with risk assessment, radiography, and other medical and diagnostic evaluations. The QuantiFERON-TB Gold Plus result is determined by subtracting the Nil value from either TB antigen (Ag) value. The Mitogen tube serves as a control for the test. Performed By: #### L [id number] #### [facility] [address] [place], [place], [id number] (132) QFT TB POS CRIT Negative Normal Negative [facility] Comment on above: Result Comment: No r esponse to M tuberculosis antigens detected. Infection with M tuberculosis is unlikely, but high risk individuals should be considered for additional testing (ATS/IDSA/CDC Clinical Practice Guidelines, 2017). The reference range is an Antigen minus Nil result of <0.35 IU/mL. The specimen received for QuantiFERON testing was incubated by the ordering institution. Specific procedures outlined in our Directory of Services and in the package insert for the QuantiFERON Gold (In Tube) test must be followed to enable for proper stimulation of cells for the production of interferon gamma. Chemiluminescence immunoassay methodology Performed at: [facility] [id number] Instrumentation And Controls Designer: Jorge Alberto Rodney PhD, Phone: [phone] Performed By: #### L [id number] #### [facility] [address] [place], [place], [phone] ([phone] QFT TB1+ AG FERNANDA 0.02 IU/mL Normal . [facility] Comment on above: Performed By: #### L [id number] #### [facility] [address] [place], [place], [id number] (260) QFT TB2+ AG FERNANDA 0.02 IU/mL Normal . [facility] Comment on above: Performed By: #### L [id number] #### [facility] [address] [place], [place], [id number] ([phone] NM MYOCARDIAL PERFUSION SING LE - STRESS ONLYon 09-17-2023 NM MYOCARDIAL PERFUSION SINGLE - STRESS ONLY Patient Info Name: SANDY PRADHAN Age: 73 years : 1950 Gender: Female Ht: 155 cm Wt: 71 kg BSA: 1.78 m2 HR: 63 bpm Exam Date: 09/17/2023 9:30 AM Patient Status: Outpatient BP unable to obtain due to: Other Any Known Allergies: Hydrocodone Plater [employer] Panels: Liudmila Kimble RT(N), SARA LARIOS, Amaury Kimble RT(N), NCT Exam Type: NM MYOCARDIAL PERFUSION SINGLE - STRESS ONLY Study Info Indications - Dyspnea Nuclear Physician: Ion Barron MD Referring Physician: SEBASTIÁN; [id number] Primary Nurse: Ismael Dodson RN Supervising Stress Physician: Ion Barron MD BMI: 29.64 kg/m2 Summary 1. Overall this is a normal pharmacologic stress SPECT myocardial perfusion imaging study. 2. No abnormal ST/T wave changes with injection of Lexiscan. 3. SPECT images demonstrate homogeneous tracer distribution throughout the myocardium. 4. The stress nuclear myocardial perfusion imaging was normal. No resting imaging was performed. 5. Overall left ventricular systolic function was normal without regional wall motion abnormalities. Gated SPECT imaging reveals normal myocardial wall thickening. Post stress left ventricular ejection fraction is normal, 64 %. Left ventricular cavity size is normal. 6. Overall low-risk study based on SCAI criteria (<1% predicted annual cardiac mortality). History/Risk Factors Hypertension: Yes Dyslipidemia: Yes Myocardial Infarction ([place]): No Renal Disease: Yes Date of Last Tobacco Use: 02/02/1999 Diabetes Mellitus: No COPD: No Tobacco Use: Former Family History: Coronary Artery Disease History/Risk Factors Patient off home medications prior to study. Asthma: NO Caffeine in Last 24 Hours: No Seizure Disorder: No Prior Interventions Pacemaker: No PCI: No CABG: No ICD: No Radiopharmaceutical: Tc-99m Tetrofosmin Administration Site: IV - right antecubital Administered By: Liudmila Kimble RT(N), SARA LARIOS Camera Used: Midokura D-SPECT Image Protocol Protocol: Selective Stress Only Stress Radiopharmaceutical Dose: 6.5 mCi Imaging Date AND Time: 09/17/2023 11:00 AM Patient Position: upright and supine Injection to Imaging Time: 60 min Total Radiation Dose: 1.4 mSv Injection Date AND Time: 09/17/2023 10:00 AM Procedure(s): Gated SPECT images acquired upright and supine post Tetrofosmin injection at peak stress. Resting images were not required. [facility] [email or web address] application was utilized for processing and interpretation. SPECT Results Perfusion Findings SPECT images demonstrate homogeneous tracer distribution throughout the myocardium. The stress nuclear myocardial perfusion imaging was normal. No resting imaging was performed. Summed Stress Score: 0 Functional Results ---- Name Value Normal ---- Stress ---- Stress LV Ejection Fraction 64 % 55-70 Stress LV End Diastolic Volume Index 36.40 ml/m2 Stress LV End Systolic Volume Index 10.60 ml/m2 Stress LV End Diastolic Volume 50.00 ml Stress LV End Systolic Volume 18.00 ml Nuclear Stress Myocardial Mass 105.00 g Functional Findings Overall left ventricular systolic function was normal without regional wall motion abnormalities. Gated SPECT imaging reveals normal myocardial wall thickening. Post stress left ventricular ejection fraction is normal, 64 %. Left ventricular cavity size is normal. Stress ECG Details Protocol: LEXISCAN Rest HR: 62 bpm Peak HR: 86 bpm Peak Sys BP: 136 mmHg Max Pred HR: 147 bpm % Max Pred HR: 59 % Target HR: 125 bpm Max RPP: 11,696 bpm*mmHg Target HR Summary: Appropriate Heart Rate Response to Lexiscan Termination Reason: At the end of vasodilator infusion Cardiac Symptoms: None Total Time: 5 min : 0 sec Peak Mcleod BP: 54 mmHg Total Dose: 0.4 mg Resting ECG Normal sinus rhythm cannot rule out anterior infarct age undetermined. Stress ECG No abnormal ST/T wave changes with injection of Lexiscan. Arrhythmias No arrhythmias were observed during the examination. Exercise Tolerance Unable to exercise due to difficulty walking. Stress Summary Normal stress electrocardiogram. Report Signatures MPI SPECT Finalized by Marlon Barron MD on 09/17/2023 12:03 PM Stress Finalized by Marlon Barron MD on 09/17/2023 12:03 PM Dictated by: ION BARRON on SunSep 17, 2023 12:05:18 PM EDT Transcribed by: ION BARRON on SunSep 17, 2023 12:05:18 PM EDT Finalized by: ION BARRON on SunSep 17, 2023 12:05:18 PM EDT Normal [facility] Comment on above: Order Comment: Injur y/Trauma or Illness?:Illness/Other How long have you had these symptoms (acute/chronic)?:Unknown Reason for exam?:kiran Type of Exam?:Unknown Additional signs and symptoms?:kiran ECG 12 Leadon 08-31-[address] [facility] P [facility] P-R Interval [facility] Q-T Interval [facility] Q-T Interval (corrected) [facility] QRS Duration [facility] QTC Calculation (Bezet) [facility] R [facility] T [facility] Ventricular Rate [facility] th Result approved by Etelvina Edge MD on 08/31/23 [facility] CBC Auto Differentialon 08-03 Basophils (Bld) [#/Vol] 0.04 10*3/uL [facility] Basophils/100 WBC (Bld) 0.6 % [facility] Eosinophils (Bld) [#/Vol] 0.18 10*3/uL [facility] Eosinophils/100 WBC (Bld) 2.9 % [facility] Erythrocyte distribution width (RBC) [Entitic vol] 13.1 % 11.6 - 14.8 % [facility] Hematocrit (Bld) [Volume fraction] 43.5 % 36.0 - 46.0 % [facility] Hemoglobin (Bld) [Mass/Vol] 14.5 g/dL 12.0 - 16.0 g/dL [facility] Immature granulocytes (Bld) [#/Vol] 0.02 10*3/uL [facility] Immature granulocytes/100 WBC (Bld) 0.30 % [facility] Comment on above: The IG parameter is the percentage of metamyelocytes, myelocytes and promyelocytes. An immature granulocyte count (IG) of 1% or more suggests the possibility of infection, an IG count of 3% is very likely related to an infection. Lymphocytes (Bld) [#/Vol] 1.47 10*3/uL [facility] Lymphocytes/100 WBC (Bld) 23.8 % [facility] MCH (RBC) [Entitic mass] 30.3 pg 26.0 - 34.[address] [facility] MCHC (RBC) [Mass/Vol] 33.3 g/dL 31.0 - 37.0 g/dL [facility] MCV (RBC) [Entitic vol] 91.0 fL 80.0 - 100.[address] [facility] Monocytes (Bld) [#/Vol] 0.56 10*3/uL [facility] Monocytes/100 WBC (Bld) 9.1 % [facility] Neutrophils (Bld) [#/Vol] 3.91 10*3/uL [facility] Neutrophils/100 WBC (Bld) 63.3 % [facility] Nucleated RBC (Bld) [#/Vol] 0.00 10*3/uL [facility] Nucleated RBC/100 WBC (Bld) [Ratio] 0.0 % [facility] Platelet mean volume (Bld) [Entitic vol] 10.0 fL 9.4 - 12.[address] [facility] Platelets (Bld) [#/Vol] 308 10*3/uL [facility] RBC (Bld) [#/Vol] 4.78 10*6/uL [facility] WBC (Bld) [#/Vol] 6.18 10*3/uL [facility] Comprehensive metabolic 2000 panelon 08-13-2023 Albumin [Mass/Vol] 4.6 g/dL 3.2 - 5.2 g/dL [facility] ALP [Catalytic activity/Vol] 127 U/L 40 - 150 U/L [facility] ALT [Catalytic activity/Vol] 17 U/L 0-35 U/L [facility] Anion gap [Moles/Vol] 17 mmol/L 10 - 20 mmol/L [facility] AST [Catalytic activity/Vol] 24 U/L 0-35 U/L [facility] Bilirubin [Mass/Vol] 0.4 mg/dL 0.0 - 1 .3 mg/dL [facility] Calcium [Mass/Vol] 9.5 mg/dL 8.4 - 10. 2 mg/dL [facility] Chloride [Moles/Vol] 102 mmol/L 98 - 10 8 mmol/L [facility] Creatinine [Mass/Vol] 0.89 mg/dL 0.60 - 1.10 mg/dL [facility] GFR/1.73 sq M.predicted CKD-EPI (S/P/Bld) [Vol rate/Area] 69 - PINF [facility] Comment on above: Estimated GFR was ca lculated using the 2020 CKD-EPI creatinine equation. Glucose [Mass/Vol] 102 mg/dL High 65 - 99 mg/dL [facility] HCO3 [Moles/Vol] 26 mmol/L 21 - 32 mmol/L [facility] Potassium [Moles/Vol] 4.3 mmol/L 3.5 - 5.1 mmol/L [facility] Protein [Mass/Vol] 7.4 g/dL 6.0 - 8.0 g/dL [facility] Sodium [Moles/Vol] 141 mmol/L 135 - 145 mmol/L [facility] Urea nitrogen [Mass/Vol] 14 mg/dL 8 - 25 mg/dL [facility] Urea nitrogen/Creatinine [Mass ratio] 15.7 mg/mg 10.0 - 20.0 [facility] Labor[facility] y Services has implemented the eGFR calculation approach that does not have a coefficient for race that conforms to the NKF-ASN Task Force Recommendations. [facility] Lipid 1996 panelon 4 Cholesterol [Mass/Vol] 221 mg/dL High 100 - 199 mg/dL [facility] Cholesterol in HDL [Mass/Vol] 62 mg/dL 40 - 59 mg/dL [facility] Cholesterol in LDL [Mass/Vol] 136 mg/dL High 10 - 130 mg/dL [facility] Comment on above: National Cholesterol Education Program Guidelines: LDL Cholesterol Optimal: <100 mg/dL Near Optimal/above Optimal: 100-129 mg/dL Borderline High: 130-159 mg/dL High: 160-189 mg/dL Very High: greater than or equal to 190 mg/dL Cholesterol non HDL [Mass/Vol] 159 mg/dL [facility] Comment on above: National Cholesterol Education Program Guidelines: NON HDL Cholesterol Desirable: <130 mg/dL Borderline High: 130-159 mg/dL High: 160-189 mg/dL Very High: > or = 190 mg/dL Cholesterol.total/Ch olesterol in HDL [Mass ratio] 3.6 {ratio} ratio [facility] Comment on above: Female Cholesterol/H DL Ratio: Average risk: 4.4 1/2 average risk: 3.3 2 x average risk: 7.1 Triglyceride [Mass/Vol] 116 mg/dL 30 - 150 mg/dL [facility] No Panel Informationon 08-12 Interpretation and review of laboratory results Abnormal [facility] TSH DL <= 0.005 mIU/L Qnon 0 08-13-2023 Interpretation and review of laboratory results Normal [facility] TSH Qn 3.25 m[IU]/L [facility] XR ANKLE LEFT 3+ VIEWS (TONEY NGUYEN)on 06-04-2020 No change in alignme nt of partially healed distal fibular fracture. PRL/lab Workstation ID: [id number] [facility] EXAMINATION: XR ANKL E LEFT 3+ VIEWS (STANDARD) 06/04/2020 9:52 AM HISTORY: ORDERING SYSTEM PROVIDED HISTORY: Closed fracture of left ankle, initial encounter, TECHNOLOGIST PROVIDED HISTORY: Injury/Trauma Reason for exam: F\\U LT ANKLE FX DOI:04/20/20 Cancer History: u Surgery, RadiationHistory: u Encounter Type: Subsequent/Follow-up Mechanism of injury: fall ORDERING SYSTEM PROVIDED DIAGNOSIS CODES: S82.892A Closed fracture of left ankle, initial encounter COMPARISON: 04/23/2020. FINDINGS: Standing three views. Partially healed distal fibular fracture is unchanged in alignment. Separation of visible fracture fragments does not exceed 1 mm. Ankle mortise is normally. [facility] Interface, Rad In Fu ji Speechq - 06/04/2020 12:46 PM EDT EXAMINATION: XR ANKLE LEFT 3+ VIEWS (STANDARD) 06/04/2020 9:52 AM HISTORY: ORDERING SYSTEM PROVIDED HISTORY: Closed fracture of left ankle, initial encounter, TECHNOLOGIST PROVIDED HISTORY: Injury/Trauma Reason for exam: F\\U LT ANKLE FX DOI:04/20/20 Cancer History: u Surgery, RadiationHistory: u Encounter Type: Subsequent/Follow-up Mechanism of injury: fall ORDERING SYSTEM PROVIDED DIAGNOSIS CODES: S82.892A Closed fracture of left ankle, initial encounter COMPARISON: 04/23/2020. FINDINGS: Standing three views. Partially healed distal fibular fracture is unchanged in alignment. Separation of visible fracture fragments does not exceed 1 mm. Ankle mortise is normally. IMPRESSION: No change in alignment of partially healed distal fibular fracture. PRL/lab Workstation ID: [id number] [facility] Otheron 04-23-2020 Nondisplaced distal fibular fracture with associated lateral ankle swelling. Workstation ID: [id number] [facility] EXAMINATION: XR ANKL E LEFT 2 VIEWS 04/23/2020 9:49 am HISTORY: ORDERING SYSTEM PROVIDED HISTORY: pain, TECHNOLOGIST PROVIDED HISTORY: Injury/Trauma Reason for exam: left ankle pain Cancer History: u Surgery, RadiationHistory: u Encounter Type: Initial Mechanism of injury: fall on ice ORDERING SYSTEM PROVIDED DIAGNOSIS CODES: R52 Pain COMPARISON: Ankle radiographs from 04/20/2020. PROCEDURE: Standing AP, and oblique radiographs of the left ankle. No lateral view submitted. FINDINGS: Soft tissue swelling about the left ankle most notably laterally. Nondisplaced distal fibular fracture extending above the joint line. No discrete periosteal reaction or callus formation at this time. The medial malleolar clear space is not widened. The talar dome is intact. [facility] Interface, Rad In Fu ji Speechq - 04/23/2020 12:01 PM EST EXAMINATION: XR ANKLE LEFT 2 VIEWS 04/23/2020 9:49 am HISTORY: ORDERING SYSTEM PROVIDED HISTORY: pain, TECHNOLOGIST PROVIDED HISTORY: Injury/Trauma Reason for exam: left ankle pain Cancer History: u Surgery, RadiationHistory: u Encounter Type: Initial Mechanism of injury: fall on ice ORDERING SYSTEM PROVIDED DIAGNOSIS CODES: R52 Pain COMPARISON: Ankle radiographs from 04/20/2020. PROCEDURE: Standing AP, and oblique radiographs of the left ankle. No lateral view submitted. FINDINGS: Soft tissue swelling about the left ankle most notably laterally. Nondisplaced distal fibular fracture extending above the joint line. No discrete periosteal reaction or callus formation at this time. The medial malleolar clear space is not widened. The talar dome is intact. IMPRESSION: Nondisplaced distal fibular fracture with associated lateral ankle swelling. Workstation ID: [id number] [facility] XR ANKLE LEFT 3+ VIEWS (TONEY DAREstella)on 04-20-2020 Acute minimally displaced oblique fractures of the distal left fibula with significant adjacent soft tissue swelling. Workstation ID: [id number] [facility] EXAMINATION: XR ANKL E LEFT 3+ VIEWS (STANDARD) 04/20/2020 4:10 pm HISTORY: ORDERING SYSTEM PROVIDED HISTORY: fall; ankle pain, TECHNOLOGIST PROVIDED HISTORY: Injury/Trauma Reason for exam: Lt ankle pain. fell on ice 4 hrs ago Cancer History: u Surgery, RadiationHistory: u Encounter Type: Initial Mechanism of injury: fall ORDERING SYSTEM PROVIDED DIAGNOSIS CODES: COMPARISON: None FINDINGS: Acute mild displaced oblique fractures of the distal left fibula is seen. Joint alignment is normal. The ankle mortise appears grossly intact on the images provided. Significant soft tissue swelling is seen about the lateral ankle. [facility] Interface, Rad In Fu ji Speechq - 04/20/2020 4:24 PM EST EXAMINATION: XR ANKLE LEFT 3+ VIEWS (STANDARD) 04/20/2020 4:10 pm HISTORY: ORDERING SYSTEM PROVIDED HISTORY: fall; ankle pain, TECHNOLOGIST PROVIDED HISTORY: Injury/Trauma Reason for exam: Lt ankle pain. fell on ice 4 hrs ago Cancer History: u Surgery, RadiationHistory: u Encounter Type: Initial Mechanism of injury: fall ORDERING SYSTEM PROVIDED DIAGNOSIS CODES: COMPARISON: None FINDINGS: Acute mild displaced oblique fractures of the distal left fibula is seen. Joint alignment is normal. The ankle mortise appears grossly intact on the images provided. Significant soft tissue swelling is seen about the lateral ankle. IMPRESSION: Acute minimally displaced oblique fractures of the distal left fibula with significant adjacent soft tissue swelling. Workstation ID: [id number] [facility] Basic Metabolic Panelon - Anion gap [Moles/Vol] 10 mmol/L 10 - 20 mmol/L [facility] Calcium [Mass/Vol] 8.5 mg/dL 8.4 - 10. 2 mg/dL [facility] Chloride [Moles/Vol] 108 mmol/L 98 - 10 8 mmol/L [facility] Creatinine [Mass/Vol] 0.84 mg/dL 0.6 - 1.2 mg/dL [facility] GFR/1.73 sq M predicted among non-blacks MDRD (S/P/Bld) [Vol rate/Area] The eGFR should be used for monitoring renal function only and not for medication dosing. [facility] GFR/1.73 sq M.predicted CKD-EPI (S/P/Bld) [Vol rate/Area] 72 >=60 mL/min/1.[address] [facility] Glucose [Mass/Vol] 97 mg/dL 65 - 99 mg/dL [facility] HCO3 [Moles/Vol] 29 mmol/L 21 - 32 mmol/L [facility] Interpretation and review of laboratory results Normal [facility] Potassium [Moles/Vol] 4.5 mmol/L 3.5 - 5.1 mmol/L [facility] Sodium [Moles/Vol] 142 mmol/L 135 - 145 mmol/L [facility] Urea nitrogen [Mass/Vol] 14 mg/dL 8 - 25 mg/dL [facility] Urea nitrogen/Creatinine [Mass ratio] 16.7 mg/mg [facility] Hemoglobin and Hematocriton 11-16-2018 Hematocrit (Bld) [Volume fraction] 32.3 % Low 36 - 46 % [facility] Hemoglobin (Bld) [Mass/Vol] 10.1 g/dL Low 12 - 16 g/dL [facility] Interpretation and review of laboratory results Abnormal [facility] Basic Metabolic Panelon 11-03 Anion gap [Moles/Vol] 11 mmol/L 10 - 20 mmol/L [facility] Calcium [Mass/Vol] 8.6 mg/dL 8.4 - 10. 2 mg/dL [facility] Chloride [Moles/Vol] 106 mmol/L 98 - 10 8 mmol/L [facility] Creatinine [Mass/Vol] 0.84 mg/dL 0.6 - 1.2 mg/dL [facility] GFR/1.73 sq M predicted among non-blacks MDRD (S/P/Bld) [Vol rate/Area] The eGFR should be used for monitoring renal function only and not for medication dosing. [facility] GFR/1.73 sq M.predicted CKD-EPI (S/P/Bld) [Vol rate/Area] 72 >=60 mL/min/1.[address] [facility] Glucose [Mass/Vol] 117 mg/dL High 65 - 99 mg/dL [facility] HCO3 [Moles/Vol] 25 mmol/L 21 - 32 mmol/L [facility] Interpretation and review of laboratory results Abnormal [facility] Potassium [Moles/Vol] 4.1 mmol/L 3.5 - 5.1 mmol/L [facility] Sodium [Moles/Vol] 138 mmol/L 135 - 145 mmol/L [facility] Urea nitrogen [Mass/Vol] 17 mg/dL 8 - 25 mg/dL [facility] Urea nitrogen/Creatinine [Mass ratio] 20.2 mg/mg High [facility] Hemoglobin and Hematocriton 11-15-2018 Hematocrit (Bld) [Volume fraction] 31.1 % Low 36 - 46 % [facility] Hemoglobin (Bld) [Mass/Vol] 10.5 g/dL Low 12 - 16 g/dL [facility] Interpretation and review of laboratory results Abnormal [facility] TISSUE EXAMon 11-15-2018 Case Report Surgical Pathology Report Case: [id number] Authorizing Provider: Issac Bray MD Collected: 11/14/2018 07:58 AM Ordering Location: [facility] Peri Received: 11/14/2018 12:23 PM Pathologist: Dionte Sheffield MD Specimen: Femoral Head, Left, Left Femoral Head [facility] Clinical information [id number] yMD UaRFRah4owSLJdcFAoKjBs MzNcZnRuYmpcdWMxXGRlZm Cye9bav014oHInk9hnDVFt ZaG3iMBgWOWulIDvI063z4 srw2ilgiOaaEX1WQDgIBR2 TVxozaLypbB9CHthaZTaCt Y3NKgjkiRbFDuutfUyqnUn Tbb7WSMgF536WWI1wPyyq1 enCHW3SKZxCUDmVmOyOx3d mFSzV107CDYwPAYJHCLerC h3ZWRndaKrtjPvbHWTf635 N218n5sjYJPxdtLjkCdFei pox6zzM354ROKjhUGtamHp QqVeEDYyfRWhhSZ6NQLzVD 4ibrkrZpFjQJ6pemscWxNs FR4fmdb8MKT7TAtgSPStWj J1XLAjpYGjLAWhxEmlPUuk m337UVL4CXlzm6aqu5qbxQ ItRlu3FTIaZgVoMarkTYym o6Hbv2ceMENhhn1nQMP8hP CjwUeeb4M7jUTlRWVppPXt kpRlFJAeHvI1XEoxVP0hxv 42AIDqMCI2yi7vfEVmfGit thQpuOWgQNbbE3KlMJTue8 37VLVxF1OfKBHjw5T9tlOp MaZqZVSxgHZ5dxI0BYKtXI z4bJRtgdG2pfDesWNzK7uc eW27DdWyfNHyJ6NscY35Qe NwePRiL6XfcH5oXJIeCM5g inspo6vfHTE3CNtrBBFpKE N9ZfLfXSFwx0AcmufiMPKd q5BtL7QqiIyqZ32vtSguZ5 6sNTXbeGecmK2egSsyyH5y ZjBcZnMyNFxxbFxwbGFpbl xmMFxmczIwXGxhbmcxMDMz HCweL4gjKiBuYZNjaFutGH kho1MaDBJaJURcLyQkIZX8 qOEicWgxAF4lMEduNrFgpB lwXHBhcn0= [facility] Pathology report final diagnosis Narrative u8qpnTMvKAWmxAGaHxSfVM LgBDUup0hyBLJyjUFlMfYc MzNcZnRuYmpcdWMxXGRlZm Bbp3tse796uXAhj3drGMGc UjI0xXZcMROtqCVgK417LK SfDCmsn9zlt4TrRMCrwZBd f0Q1QVUWtupowAu6lLisE5 7ak0S9GqsuV2oqXUQcUBKb B1XrSV6dKSCaVyg7OKL7QV O4AZWyMPJzK6HnXR5fJNPi fJBxLVcegkWtGfK8GRetHQ TtCmY9XMNfvQHkRRrwT120 MYX2bBgjx1zcVGJ9XCRmAJ ZeScRqBw4ssDLuI628FZEt XOQXBJJpfUg3DRNcikXcjq QdfQMSg023A263t5vvGWHi icXraRlIhrhlv0ovJ396GZ BhcGVydzEyMjQwXHBhcGVy qAC6BUTiFZ4ualpvZsPjVO 6bqaxcEjXwOT6umjx6NSI1 LTamBLAtVmY0VFFfwACmFT VlqIavQGyvw123EOB4VNbp z1jba8gizCHxHeu9HIHpTx VvGpwaZRvff2Cis4fbKVZj qt5kIKB5gYBpqTusl5P6gS UxXGRudGJsbnNiZGJcZmV0 DKakKX6vhr70RECzBFW2wj 5ybGNccGdicmRyaGVhZFxw Q3EtWVBrg080VUFkO1DpEV Tya3G6ivByFaPuJWKypKX8 uyT1LPJrLMk5pICatwP8vx ShaJFcL6zihV41CuEchHWw X7EspJ01NdSwkYAnT3NqmR 2yIUGqUM7hyjelz4koFDD1 GUgcYKIqUBA2GwTyLIEls2 ZpioptBGOvi4CoL8HhkYqb H96ymDqwY08iTXWobFppaK 5rjEmjcY5cAkUmIjUuJYeh bFxwbGFpblxmMVxmczIwXG xlyhmkAXBwBEjiS8khAbTl NEGsuLtmCFvow6OyPKMyGI XbJmrxnzYrEQFdSD1oBNxh bGFpblxmMVxmczIwXGxhbm nbTELaOHklM5tePvErMPEs qPujTAnxd0HsXQCsSCMcDx xmczIwXGJccHJvdGVjdHtc BuknhIW0MJeaWovpiZ3rmQ RKGBYYSctILwhychZhDX3H JGXCClAXCI52UoHbDGY0VN wwfXtcZmxkcnNsdCBcJzFj bN6ifPgzxD4rOmKbNgXlRA jaKM6yESKeO3eldDOwXHCi ORJdH8vyXlYmuW2yzNkgFI kdAiOiPcRjXTnyZLEnb0Fj L0YgEUxtJRCMCGD3LEZ4d5 OghYYpfxEisz0afBCraCx8 XHBsYWluXGYxXGZzMjBcbG FuZzEwMzNcaGljaFxmMVxk NbAsOLOaHYmhW7gtUoAnX7 GdVPTcCjCdIurcfr33WVF4 m1ypoQKyJEgfQvajdLRsul Q7ZEtXIJLFXDcFCvSzPM6p GWkIV0BASiL8SeVdZZO3AK wwfXtcZmxkcnNsdCBcJzFj eD4izRzrxW1iKxNwSzEuRE mlUA3zNUJbK0zfhYJpXFCi COBqE1jfKfFfkV4oyHslET xmczIwXHBhclxsaTcyMFxw yKOhuyvhPJhmqyH1CONyLM luXGYxXGZzMjBcbGFuZzEw MzNcaGljaFxmMVxkYmNoXG DpOAfuJ7fvPjUqNlDgJJCH g7UdsLAdrSXiAZI5gVEbrZ gjf5T1VBwfyZvlfSG8lT3a j2dsNvSfuB1sqP8sqzGqr9 3aiJM6FK46JRiltXwcRHXe TM7awoE9aOJvLHuoeA85VK Aqm3Evx4QuWPSmWJlvYCVj XGZzMjJcbGFuZzEwMzNcaG ljaFxmMVxkYmNoXGYxXGxv F5tfObGcJ8WpTNKqTkRlqC FyXGxpMFxwbGFpblxmMFxm haN7YIWnQVurKNNnERCfQx BcbGFuZzEwMzNcaGljaFxm TCqpXvAnYQWcJCilS6voFm FcZnMyMFxwYXJcdiBTTUFS ILdIN8NsKCAXNMGSDSZsYx ZNYR8vHtHfMQV9KJ79FHv8 EDPCOOXHYNuSXF2TKNLBBZ IGBH9ERaMaU1xHEAXQPuMl RSJWXNUXJGXpRhANFG8nP7 lMRENBUkRfTUVUQURBVEFf ZN7RWIDUODELLU1JSRGQD9 9MKOQOGBAXA8BLX7oZDFBv k0NPlSYhyDW1NwGyHATieW QSSKOAEPtAMMMTMp8XBCUT XQVHMO6BSkAiO8SLPM9JVw 7GDGCIWNGQLC1TPQcDFuJz L9KELN5PSf6YJTOBELWRDZ 3ONzArSNMFT3MIRjLPZ3sr QQGQTBCOMICeHsXVWQ1xDR AVMD0UTPGXJZZAK20EJHRX GSPBK8LRKY3= [facility] Pathology report gross observation Narrative d8hkeYEvKCQgzYTkDtSkVL SnVDVot7dgGYCyiJQgPkUd MzNcZnRuYmpcdWMxXGRlZm Ijk7xuu510oLLbp4imCQGe DpQ8eULrNGMupIAoG550BS YhZCzab1hgx1GoIURtiYPg y7P8YEWNxxgkoVo4qChiX6 7uu4L9FnzbZ6mkWKUnUSIl C2HpXR0lOUCgQdv7OWV2BE G3IBUfGHD1UZkadkVbflWd Kho4UTRiV5ezBZOkIWqzAA RpTVboeJIkGQR9uNmfd3R4 bGVzaGVldHtcZjBcZnMyMi UUc5TkYOu3fEddE9WrZJJm WiX2wOKdDNKbSOgdFAJvEX ZxdfU3oB97QIdwdcS0dQTl o1Mmb23hh918rK5dkMQiGI B4VDLgSXEcoROzTOIvUWY1 HNWhlOWmS1o3KrQjxRTwS5 Z2FmJobPFpL5SbZAWeAD3u njqiLTM0UNwlTBNqDKY2Qi EcAFXnp5PyqwpbOK6kK6Wa g5K9aF9ylHPxOHTdjMBtKu AfCVQnfg3qaKHqDIvud6Kf MVP0bnY0aSVjlBJsYTJuTZ 23Nzzem5BuTtzpAFB3GDCa rdTge7Vnz7fpXfFlmjVwV7 xgI3JaFYMxEHJjOUNmKdHe mhLhl7Ynw1WkyCFvvWg9j7 ueVUFkLGJppAjuc1vuSDI2 JEUeX2D8cHZoe6jkCVgvCN GpsZL9xxghHTgyVFFgomZ0 eeeeFIeaBAQkcWR9liW0DW EihTVsE6KquK5uILCjQRxw ZYPetag4IuRcKt7seAZppG Efy2NgoYVwNGooC67sq667 CHCgdjNtQ7szbPDdhskarQ XtobhhTYnorsN1JCDfFCBp YWluXGYxXGZzMjBcbGFuZz EwMzNcaGljaFxmMVxkYmNo TVYaWUsvS2fmRuXwSqOxCN MNABOvmQXpJIYjkmQzi1Vx DGsebiJeUZNhgXXoMFK5f4 BltWHibWSoSWM1bTVtfEah k3C5IvDbjjOoOSAheG6wOY phrAPqZRZ7aZEmJEU7wZLd aPNpHGXsxE6xFBkigxCbtp 7jOFpfWGJrpH1lFHxboMUt AXAdcZTftPEqoYXns0YkUX ItNK29AZmeRK99NPwpFw87 IGNtLCBhbmQgdGhlIHBvcn Ghz06ng9DqIXF6PYUsVJBz PdSlw1AroOCmSROsPB8iAZ D5jtGbJIIhN28xlK7bcRWf K6HzYFVtGLGnJvWkM22fiQ 9dXKibmRN6UVYaCWEnm54i WYHuWCKksSJlEYBfSP0zED YzUEPqCK7nwrInKWtzZNNs IHRoZXJlIGFyZSBleHRlbn ShpcBmXPUtSUAdzLgbxL8x EiHtBvQsKNqxAC4dMOAkF8 zqyHOsARSqEIYxZ2hmEeEz gO0enToiCBksLwHtJzExOY AgXHBsYWluXGYxXGZzMjBc bGFuZzEwMzNcaGljaFxmMV bvPzZaZCRrHYukK8kwAgGv ZnMyMCBvZlxwbGFpblxmMV xmczIwXGxhbmcxMDMzXGhp I4yjYaCeTFUuzLpgNAjsq5 NoXGYxXGNmMlxmczIwICBc nHpzkS0jGlYxEvFjAWsfFE 5gHFKlK6mlbVKvWIUlHJVc J7enTyFmyQ0ekGybRWqrzj IwIGNhcnRpbGFnZSBlYnVy fpL9zL7zVVNaXSQil9GdwE OdoY7wNIEcwxVkz2G5CM1z lGd8TUOoPXMpIVobDC19aB KyEIVeFDIoAGKmQA6jmwKr VQ1mC9gngSGvhZ59ISJ6CL lpvMzjnBMvMGNiFPIlC7Db l2SfFrIdY6O4ghMpRHYCCW FkRHFlohIxwGi5UEOcFBW3 gA8exeMtgsWrs4LgqQd3tV ZpWSZhriSmpWV6n7njK1by KIB4LY7zKi8ppI66aV4xEC EyiFIqwU9fSR3wFEJfQ8Wd T6grsRUczXunbs6cZCBnoy xwYXIgSFcvYXJqIFxwYXJc eYRrLNfpz5MwCEJ2XG9bdj E2vF1qFDUhkdSqgi0oYMEz mZriLHOtt6JeUUvsBHtsz4 IxjQIhDH9jGjC7UWpuCZXf gcVeTNT7HL19FQDDIZ3lTa diiNThHY2EJHK7DDApMMAn cn0= [facility] Pathology report microscopic observation Narrative Other stain m7mvaAWqBFMrfXKjRyDqBR AiISXte0wyMZCywCKsKhGl MzNcZnRuYmpcdWMxXGRlZm Jar1qfi404fMCwj6pdEFIc QoL2oLClNGHnqUOpX999FF RcEVsxs3wll0AcAJSwkMCp e0E7FBHAqxwnuBf9gGrkV1 3xx1Y6XojwG2igTCKfXZMt V7PtAU7sFGEcSzf6ELY2JM Y1YIIvUCGvQ8TxBA8jXFUo kHBjHTo4b8feuArdMFApLM J5l6qiEMjbkcLaMG3ppl8p pLk3x2rndyLoUHCkTNDffE NNGEMsV6ZynBxiGe0znXa4 qHtyNpomSFK8Jos9VX1cet 11gew5aAkpDTVbfjbmMeZ1 JNghCXXpjauqBZv9ZPplTD UwnPE8HWNpoYIaX8RrHMGm SS5kbhr8GHM4THbsASWsYc H5CXOaoYWmIDSnsWejLRen c427OXC9VgSfCJ4kU0Ljv1 Y9fL8xkVBvCCFwsEBcKdQp NIVkjg3ewUSsKNmol0FaHU E5dvE4mJPiaJUeEPIlMR76 Vvxar6YrHzfpJRG2LNUfap Eui7Ssd2ktQfDqeiJqL1gd E3HtRGTvJNQuQIHuBtRtrm Lar5Axq7FstAMriQu5q7bf MPMiQXPwdLqld1ebDTK1LY NbN0L7nOSeo6fnOOciEJJs wZX1uzM5LCPokRGvY3DmtD 9nEYHsSU5jbeo3w1gdDOA4 QFvvXMBfLbM6ykU2KCBnmC EgCIVjtDyiPOifn660TUK8 XsLvMXPiu5KiV2NxwMicQ4 8uuZcvM20fWNHfzLejqX7x bLntpW1gDaWqZeJuREfbhI xwbGFpblxmMVxmczIwXGxh kwrhUWZmDDkbI9jnEgAmOJ GerKsxJGdtz3NcKRDkXBCi GnVsCAccbr0yA52pkBHqQX txsMhiGZLkb23osPMfcSDt Ym4hvNCkEqvjVSP8 [facility] XR Hip Left 2-3 Views (Marialuisa richardson)on 11-14-2018 Interface, Rad In ji Speech - 11/14/2018 4:19 PM EDT EXAMINATION: 2 STANDARD INTRAOPERATIVE VIEWS OF THE LEFT HIP, 11/14/2018 COMPARISON: Left hip, 08/06/2018. HISTORY: DR Morales/ KAMALA Injury/Trauma or Illness?:Illness/Other ARTHOPLASTY DR Yane WRAY Injury/Trauma or Illness?:Illness/Other How long have you had these symptoms (acute/chronic)?:Chron ic Reason for exam?:left hip replacement in OR with portable for chronic left hip pain History of cancer?:u M16.12 Arthritis of left hipARTHOPLASTY IMPRESSION: 1. New left total hip prostheses are present with open surgical wound seen laterally with some adjacent postoperative edema. A hemostatic overlies the right lower hemipelvic region. 2. No acute osseous abnormality. 3. Intermediate interpretation was not requested. GJT/pji Workstation ID: [id number] [facility] EXAMINATION: 2 STANDARD INTRAOPERATIVE VIEWS OF THE LEFT HIP, 11/14/2018 COMPARISON: Left hip, 08/06/2018. HISTORY: DR Yane WRAY Injury/Trauma or Illness?:Illness/Other ARTHOPLASTY DR Yane WRAY Injury/Trauma or Illness?:Illness/Other How long have you had these symptoms (acute/chronic)?:Chron ic Reason for exam?:left hip replacement in OR with portable for chronic left hip pain History of cancer?:u M16.12 Arthritis of left [address]TH[address]LASTY [facility] 1. New left total hi p prostheses are present with open surgical wound seen laterally with some adjacent postoperative edema. A hemostatic overlies the right lower hemipelvic region. 2. No acute osseous abnormality. 3. Intermediate interpretation was not requested. GJT/pji Workstation ID: [id number] [facility] CT Hip Left Without Contrast on 10-29-2018 There is severe degenerative throughout is in the left hip joint with prominent degenerative subchondral cysts in the superior margin of the left femoral head and adjacent acetabulum, also seen on hip x-rays 08/06/2018. PD/trn Workstation ID: [id number] [facility] EXAMINATION: CT HIP LEFT WITHOUT CONTRAST HISTORY: ORDERING SYSTEM PROVIDED HISTORY: Arthritis of left hip, TECHNOLOGIST PROVIDED HISTORY: Illness/Other Reason for exam: pre op scan for left hip replacement Encounter Type: Ongoing Additional signs and symptoms: pre op scan for left hip replacement ORDERING SYSTEM PROVIDED DIAGNOSIS CODES: M16.12 Arthritis of left hip COMPARISON: Hip x-rays 08/06/2018. TECHNIQUE: Dose reduction techniques were achieved by using automated exposure control and/or adjustment of mA and/or kV according to patient size and/or use of iterative reconstruction technique. Coronal and sagittal MIP (maximum intensity projection) images were performed. Multiplanar reformatted images of the pelvis and knees. FINDINGS: There is severe degenerative arthritis in the left hip joint with prominent degenerative subchondral cysts in the superior margin of the left femoral head and adjacent acetabulum. There is at least moderate osteoarthritis in the right hip joint. Limited images through the knees demonstrate bilateral total knee arthroplasties. Advanced facet arthropathy in the lower lumbar spine noted. SI joint degeneration seen. [facility] Interface, Rad In Fu ji Speechq - 10/29/2018 3:55 PM EDT EXAMINATION: CT HIP LEFT WITHOUT CONTRAST HISTORY: ORDERING SYSTEM PROVIDED HISTORY: Arthritis of left hip, TECHNOLOGIST PROVIDED HISTORY: Illness/Other Reason for exam: pre op scan for left hip replacement Encounter Type: Ongoing Additional signs and symptoms: pre op scan for left hip replacement ORDERING SYSTEM PROVIDED DIAGNOSIS CODES: M16.12 Arthritis of left hip COMPARISON: Hip x-rays 08/06/2018. TECHNIQUE: Dose reduction techniques were achieved by using automated exposure control and/or adjustment of mA and/or kV according to patient size and/or use of iterative reconstruction technique. Coronal and sagittal MIP (maximum intensity projection) images were performed. Multiplanar reformatted images of the pelvis and knees. FINDINGS: There is severe degenerative arthritis in the left hip joint with prominent degenerative subchondral cysts in the superior margin of the left femoral head and adjacent acetabulum. There is at least moderate osteoarthritis in the right hip joint. Limited images through the knees demonstrate bilateral total knee arthroplasties. Advanced facet arthropathy in the lower lumbar spine noted. SI joint degeneration seen. IMPRESSION: There is severe degenerative throughout is in the left hip joint with prominent degenerative subchondral cysts in the superior margin of the left femoral head and adjacent acetabulum, also seen on hip x-rays 08/06/2018. PD/trn Workstation ID: [id number] [facility] 10-23-2018 Nuclear Report ____ Patient: LORNE Elizabeth Med Rec#: [id number] (Age): 1950(68y) Height: 153.7(cm)/60(in Study Date: 10/23/2018 Weight: 69.4(kg)/153(lb Room#: BSA: 1.68 Type: Outpatient Loc: Sex: F ____ Indications: -Pre-op Cardiovascular Exam - Checklists: -Patient verbally identified self -Consent signed and placed in chart -Procedure verified and explained to patient -Medication Reconciliation completed. -Discharge instructions given Nuclear Cardiology Conclusion: Overall intermediate-risk study based on SCAI criteria (1-3% predicted annual cardiac mortality). Normal stress regadenoson myocardial perfusion study. Normal LV size. Global left ventricular systolic function was normal, with an EF of 59%. Stress ECG Conclusion: Normal pharmacologic Regadenoson Stress Test with no ECG changes consistent with ischemia. HR Response to stress: normal BP response to stress: normal The patient experienced no chest pain. The test was terminated due to completion of vasodilator infusion. Baseline ECG: Normal ECG. Pharmacologic Protocol: - Regadenoson 0.4mg IV Bolus was given over 10-20 seconds. - Tolerated Medication Infusion. Stress ECG : No ST-segment depression under pharmacologic stress. Recovery ECG: No significant ST changes. No chest pain. Rare PVC. Normal blood pressure response. Hemodynamics REST STRESS RECOVERY SBP 154 mmHg 196 mmHg 173 mmHg DBP 86 mmHg 83 mmHg 80 mmHg HR 68 bpm 97 bpm 84 bpm %MPHR 63 % Imaging Protocol: This was a gated SPECT myocardial perfusion imaging study. A stress only imaging protocol was followed using Tc-99m tetrofosmin (Myoview) injected intravenously. For the stress portion of the study, 8.6 mCi was administered at 10/23/2018 08:07:21. Stress imaging was performed at 09:10:00. Perfusion Interpretation: Stress nuclear myocardial perfusion imaging was normal. No rest imaging was performed. The stress nuclear myocardial perfusion imaging was normal. No resting imaging was performed. Wall Motion Interpretation: The patient's calculated post stress LVEF was 59%. Gated imaging under post-stress conditions demonstrated normal wall motion. Nuclear Doctor Interpreted Study and Electronically signed at 10/23/2018 10:21:18 by: Africa Fernandez MD, PI [facility] Interface, Rad In Heartlab Xper Echopacs - 10/23/2018 10:22 AM EDT Nuclear Report ____ Patient: LORNE Elizabeth [facility] Rec#: [id number] (Age): 1950(68y) Height: 153.7(cm)/60(in Study Date: 10/23/2018 Weight: 69.4(kg)/153(lb Room#: BSA: 1.68 Type: Outpatient Loc: Sex: F ____ Indications: -Pre-op Cardiovascular Exam - Checklists: -Patient verbally identified self -Consent signed and placed in chart -Procedure verified and explained to patient -Medication Reconciliation completed. -Discharge instructions given Nuclear Cardiology Conclusion: Overall intermediate-risk study based on SCAI criteria (1-3% predicted annual cardiac mortality). Normal stress regadenoson myocardial perfusion study. Normal LV size. Global left ventricular systolic function was normal, with an EF of 59%. Stress ECG Conclusion: Normal pharmacologic Regadenoson Stress Test with no ECG changes consistent with ischemia. HR Response to stress: normal BP response to stress: normal The patient experienced no chest pain. The test was terminated due to completion of vasodilator infusion. Baseline ECG: Normal ECG. Pharmacologic Protocol: - Regadenoson 0.4mg IV Bolus was given over 10-20 seconds. - Tolerated Medication Infusion. Stress ECG : No ST-segment depression under pharmacologic stress. Recovery ECG: No significant ST changes. No chest pain. Rare PVC. Normal blood pressure response. Hemodynamics REST STRESS RECOVERY SBP 154 mmHg 196 mmHg 173 mmHg DBP 86 mmHg 83 mmHg 80 mmHg HR 68 bpm 97 bpm 84 bpm %MPHR 63 % Imaging Protocol: This was a gated SPECT myocardial perfusion imaging study. A stress only imaging protocol was followed using Tc-99m tetrofosmin ([employer]) injected intravenously. For the stress portion of the study, 8.6 mCi was administered at 10/23/2018 08:07:21. Stress imaging was performed at 09:10:00. Perfusion Interpretation: Stress nuclear myocardial perfusion imaging was normal. No rest imaging was performed. The stress nuclear myocardial perfusion imaging was normal. No resting imaging was performed. Wall Motion Interpretation: The patient's calculated post stress LVEF was 59%. Gated imaging under post-stress conditions demonstrated normal wall motion. Nuclear Doctor Interpreted Study and Electronically signed at 10/23/2018 10:21:18 by: Africa Fernandez MD, RVPI [facility] ECG 12-LEADon 10-16-[address] [facility] P [place] [facility] P-R Interval [facility] Q-T Interval [facility] Q-T Interval (corrected) [facility] QRS Duration [facility] QTC Calculation (Be[facility]) [facility] T [facility] Ventricular Rate [facility] ORT LARGE JOINT ARTHROCEN TESISon 07-30-2018 Janneth Castaneda NP 07/30/2018 10:45 AM LG Jt Injection/Arthrocentes is: L greater trochanteric bursa Performed by: Marycruz Mistry CNP Authorized by: Marycruz Mistry CNP CPT 65816 - Large Joint Arthrocentesis: Consent given by: Patient Time out: Immediately prior to the procedure a time out was called Physician or proceduralist has discussed critical or nonroutine steps, procedure duration and anticipated blood loss: Yes Supporting Documentation: Indications: Pain Procedure Details: Location: Hip Site: L greater trochanteric bursa Prep: patient was prepped and draped in usual sterile fashion Needle size: 22 G Approach: Lateral Medications: 1 mL dexamethasone 4 mg/mL, 1 mL triamcinolone acetonide 40 mg/mL Anesthetic used: Bupivacaine 0.5% and Lidocaine 1% Anesthetic amount (mL): 4 Patient tolerance: Patient tolerated the procedure well with no immediate complications [facility] POC Urinalysis Dipstick,Non- autoon 07-16-2018 Bilirubin Ql (U) Negative Negative [facility] Glucose Ql (U) Negative Normal, Negative mg/dL [facility] Hemoglobin Ql (U) Negative Negative [facility] Interpretation and review of laboratory results Abnormal [facility] Ketones Ql (U) Negative Negative mg/dL [facility] Leukocyte esterase Test strip Ql (U) ++ Abnormal Negative [facility] Nitrite Ql (U) Negative Negative [facility] pH (U) 5.0 [pH] [facility] Protein Ql (U) Negative Negative mg/dL [facility] Specific gravity Relative Density (U) 1.015 [facility] Urobilinogen Qn (U) Negative <2.0, 0. 2, Normal, Negative, 1.0, 2.0, <1.0 mg/dL [facility] URINALYSISon 07-16-2018 Bacteria Auto Ql (U) Few Abnormal None Se en /hpf [facility] Bilirubin Ql (U) Negative Negative [facility] Clarity Refractometry automated Nom (U) Hazy Abnormal Clear [facility] Color Nom (U) Yellow Colorless, Yellow [facility] Glucose Automated test strip mass conc (U) Negative Negative mg/dL [facility] Hemoglobin Automated test strip Ql (U) Negative Negative [facility] Interpretation and review of laboratory results Abnormal [facility] Ketones mass conc (U) Negative Negative mg/dL [facility] Leukocyte clumps Auto #/area (Urine sed) Rare Abnormal None Seen /hpf [facility] Leukocyte esterase Automated test strip Ql (U) Large Abnormal Negative [facility] Nitrite Automated test strip Ql (U) Negative Negative [facility] pH (U) 6.0 [pH] [facility] Protein mass conc (U) Negative Negative mg/dL [facility] RBC Auto #/area (Urine sed) <1 [facility] Specific gravity Relative Density (U) 1.011 [facility] Urobilinogen mass conc (U) <2.0 <2.0 mg/dL [facility] WBC Auto #/area (Urine sed) [address] [facility] Microscopic examination is performed on all urinalysis samples and only positive findings are reported. The test for blood on the chemical analytic portion of urinalysis may also be positive due to hemoglobinuria and myoglobinuria and if red blood cells are present they are quantified by microscopic examination. [facility] Joint Injection/Arthrocentes alejandro 09-20-2017 Joint Injection/Arthrocent esis Marycruz Mistry CNP 09/24/2017 1:06 PM LG Jt Injection/Arthrocentes is Performed by: MARYCRUZ MISTRY Authorized by: MARYCRUZ MISTRY CPT 92783 - Large Joint Arthrocentesis: Consent given by: Patient Time out: Immediately prior to the procedure a time out was called Timeout performed at: 09/24/2017 10:13 AM Physician or proceduralist has discussed critical or nonroutine steps, procedure duration and anticipated blood loss: Yes Supporting Documentation: Indications: Pain Procedure Details: Location: Hip Site: L greater trochanteric bursa Prep: patient was prepped and draped in usual sterile fashion Needle size: 22 G Approach: Lateral Medications: 1 mL dexamethasone 4 mg/mL, 1 mL triamcinolone acetonide 40 mg/mL Anesthetic used: Bupivacaine 0.5% and Lidocaine 1% Anesthetic amount (mL): 4 Patient tolerance: Patient tolerated the procedure well with no immediate complications Invalid Interpretation Code [facility] Joint Injection/Arthrocentes alejandro 06-04-2017 Joint Injection/Arthrocent esis Marycruz Mistry CNP 06/04/2017 12:40 PM LG Jt Injection/Arthrocentes is Performed by: MARYCRUZ MISTRY Authorized by: MARYCRUZ MISTRY CPT 45947 - Large Joint Arthrocentesis: Consent given by: Patient Time out: Immediately prior to the procedure a time out was called Timeout performed at: 06/04/2017 8:52 AM Physician or proceduralist has discussed critical or nonroutine steps, procedure duration and anticipated blood loss: Yes Supporting Documentation: Indications: Pain Procedure Details: Location: Hip Site: L greater trochanteric bursa Needle size: 22 G Approach: Lateral Medications: 1 mL dexamethasone 4 mg/mL, 1 mL triamcinolone acetonide 40 mg/mL Anesthetic used: Bupivacaine 0.5% and Lidocaine 1% Anesthetic amount (mL): 4 Patient tolerance: Patient tolerated the procedure well with no immediate complications Invalid Interpretation Code [facility] Metabolic Pane caron 06-01-2017 Alanine aminotransferase (ALT) 36 U/L Normal 14-65 [facility] Comment on above: Result Comment: This test result might be falsely depressed or falsely elevated onsamples drawn from patients taking Sulfasalazine and Sulfapyridine.Venipuncture should occur prior to taking either of these drugs. Performed By: #### L IPID, TSH, CMET ####Unless otherwise noted, all testing performed by [address] [phone]: [id number] Director: Garrick Gracia M.D. Albumin 4.2 g/dL Normal 3.2-5.2 [facility] Comment on above: Performed By: #### L IPID, TSH, CMET ####Unless otherwise noted, all testing performed by [address] [phone]: [id number] Director: Garrick Gracia M.D. Alkaline phosphatase (ALP) 146 U/L Normal 40-150 [facility] Comment on above: Performed By: #### L IPID, TSH, CMET ####Unless otherwise noted, all testing performed by [address] [phone]: [id number] Director: Garrick Gracia M.D. Aspartate aminotransferase (AST) 28 U/L Normal 0-45 [facility] Comment on above: Result Comment: This test result might be falsely depressed or falsely elevated onsamples drawn from patients taking Sulfasalazine and Sulfapyridine.Venipuncture should occur prior to taking either of these drugs. Performed By: #### L IPID, TSH, CMET ####Unless otherwise noted, all testing performed by [place] [phone]: [id number] Director: Garrick Gracia M.D. Bilirubin mass conc 0.3 mg/dL Normal 0.3-1.2 [facility] Comment on above: Performed By: #### L IPID, TSH, CMET ####Unless otherwise noted, all testing performed by [place] [phone]: [id number] Director: Garrick Gracia M.D. Calcium 9.4 mg/dL Normal 8.4-10.2 [facility] Comment on above: Performed By: #### L IPID, TSH, CMET ####Unless otherwise noted, all testing performed by [address] [phone]: [id number] Director: Garrick Gracia M.D. Chloride 105 mmol/L Normal 98-108 [facility] Comment on above: Performed By: #### L IPID, TSH, CMET ####Unless otherwise noted, all testing performed by [address] [phone]: [id number] Director: Garrick Gracia M.D. CO2 30 mmol/L Normal 21-32 [facility] Comment on above: Performed By: #### L IPID, TSH, CMET ####Unless otherwise noted, all testing performed by [address] [phone]: [id number] Director: Garrick Gracia M.D. Creatinine 0.75 mg/dL Normal 0.60-1.20 [facility] Comment on above: Performed By: #### L IPID, TSH, CMET ####Unless otherwise noted, all testing performed by [place] [phone]: [id number] Director: Garrick Gracia M.D. eGFR (black) mL/min/{1.73_m2} Normal [facility] Comment on above: Result Comment: Afri can [place] GFR Calc Performed By: #### L ALBERTO CONNORS, CMET ####Unless otherwise noted, all testing performed by [address]: [id number] Director: Garrick Gracia M.D. eGFR (non-black) mL/min/{1.73_m2} Normal [facility] Comment on above: Result Comment: Non- GFR CalceGFR is an estimated Glomerular Filtration Rate based on the valueof the patient's serum creatinine. In outpatients, eGFR should be usedas a helpful tool in screening for CKD. In inpatients or patients withacute renal failure, eGFR represents the GFR at the moment of the drawand should be used with caution. Performed By: #### L IPID, TSH, CMET ####Unless otherwise noted, all testing performed by [address] [phone]: [id number] Director: Garrick Gracia M.D. Glucose 103 mg/dL High 70 - 99 mg/dL [facility] Glucose mass conc 103 mg/dL High 70-99 [facility] Comment on above: Result Comment: This test result might be falsely depressed or falsely elevated onsamples drawn from patients taking Sulfasalazine and Sulfapyridine.Venipuncture should occur prior to taking either of these drugs. Performed By: #### L IPID, TSH, CMET ####Unless otherwise noted, all testing performed by [address] [phone]: [id number] Director: Garrick Gracia M.D. Interpretation and review of laboratory results Abnormal Invalid Interpretation Code [facility] Potassium 4.5 mmol/L Normal 3.5-5.1 [facility] Comment on above: Performed By: #### L IPID, TSH, CMET ####Unless otherwise noted, all testing performed by [address] [phone]: [id number] Director: Garrick Gracia M.D. Protein 7.3 g/dL Normal 6.0-8.0 [facility] Comment on above: Performed By: #### L IPID, TSH, CMET ####Unless otherwise noted, all testing performed by [address] [phone]: [id number] Director: Garrick Gracia M.D. Sodium 140 mmol/L Normal 135-145 [facility] Comment on above: Performed By: #### L IPID, TSH, CMET ####Unless otherwise noted, all testing performed by [address] [phone]: [id number] Director: Garrick Gracia M.D. Urea nitrogen 14 mg/dL Normal 8-25 [facility] Comment on above: Performed By: #### L IPID, TSH, CMET ####Unless otherwise noted, all testing performed by [address] [phone]: [id number] Director: Garrick Gracia M.D. Urine, bilirubin presence 0.3 mg/dL Invalid Interpretation Code 0.3 - 1.2 mg/dL [facility] Lipid Panelon 06-01-2017 Cholesterol 183 mg/dL Normal 100-199 [facility] Comment on above: Performed By: #### L IPID, TSH, CMET ####Unless otherwise noted, all testing performed by [place] [phone]: [id number] Director: Garrick Gracia M.D. Cholesterol in LDL mass conc 99 mg/dL Normal 10-150 [facility] Comment on above: Performed By: #### L IPID, TSH, CMET ####Unless otherwise noted, all testing performed by [place] [phone]: [id number] Director: Garrick Gracia M.D. Cholesterol in VLDL mass conc 20 mg/dL Normal 5-40 [facility] Comment on above: Performed By: #### L IPID, TSH, CMET ####Unless otherwise noted, all testing performed by [phone]: [id number] Director: Garrick Gracia M.D. Cholesterol to HDL Ratio 2.8 {ratio} Low 3.2-5.0 [facility] Comment on above: Result Comment: Funmilayo espinosa Coronary Heart Disease Risk Factor (CHDRF):Average risk= 4.41/2 Average risk= 3.32 times Average risk= 7.1 Performed By: #### L IPID, TSH, CMET ####Unless otherwise noted, all testing performed by [address] [phone]: [id number] Director: Garrick Gracia M.D. HDL Cholesterol 65 mg/dL High 40-59 [facility] Comment on above: Performed By: #### L IPID, TSH, CMET ####Unless otherwise noted, all testing performed by [address] [phone]: [id number] Director: Garrick Gracia M.D. LDL Cholesterol 99 mg/dL Invalid Interpretation Code 10 - 150 mg/dL [facility] Triglyceride 98 mg/dL Normal 25-120 [facility] Comment on above: Performed By: #### L IPID, TSH, CMET ####Unless otherwise noted, all testing performed by [address] [phone]: [id number] Director: Garrick Gracia M.D. VLDL 20 mg/dL Invalid Interpretation Code 5 - 40 mg/dL [facility] TSHon 06-01-2017 Thyroid stimulating hormone (TSH) 1.69 uIU/mL Invalid Interpretation Code 0.320 - 5.000 [facility] Thyrotropin Qn 1.69 uIU/mL Normal 0.320-5.000 [facility] Comment on above: Result Comment: Samp les from patients routinely receiving high dose biotin therapy(100-300 mg/day) may show falsely decreased results. Please correlateclinically. Performed By: #### L IPID, TSH, CMET ####Unless otherwise noted, all testing performed by [address] [phone]: [id number] Director: Garrick Gracia M.D. Vital Signs Date Time Vital Sign Value Performing Clinician [facility] 08-15-2024 06:59-0400 Body height 154.9 cm Brandon Lowery DO Work Phone: [facility] 08-15-2024 06:59-0400 Body mass index (BMI) [Ratio] 29.48 kg/m2 Brandon Vest Work Phone: [facility] 08-15-2024 06:59-0400 Body temperature 98.4 [degF] Brandon Sebastián Work Phone: [facility] 08-15-2024 06:59-0400 Body weight 70.76 kg Brandon Gonsalveswell Work Phone: [facility] 08-15-2024 06:59-0400 Diastolic blood pressure 64 mm[Hg] Brandon Sebastián DO Work Phone: [facility] 08-15-2024 06:59-0400 Heart rate 65 /min Brandon Lowery DO Work Phone: [facility] 08-15-2024 06:59-0400 SaO2% (BldA) [Mass fraction] 95 % Brandon Lowery DO Work Phone: [facility] 08-15-2024 06:59-0400 Systolic blood pressure 130 mm[Hg] Brandon Lowery DO Work Phone: [facility] 12-31-2023 13:26-0400 Body height 154.9 cm Cori Marquez MD Work Phone: [facility] 12-31-2023 13:26-0400 Body mass index (BMI) [Ratio] 30.04 kg/m2 Cori Marquez MD Work Phone: [facility] [facility] 12-31-2023 13:26-0400 Body weight 72.12 kg Cori Marquez MD Work Phone: [facility] 12-31-2023 13:26-0400 Diastolic blood pressure 84 mm[Hg] Cori Marquez MD Work Phone: [facility] 12-31-2023 13:26-0400 Heart rate 76 /min Cori Marquez MD Work Phone: [facility] 12-31-2023 13:26-0400 SaO2% (BldA) [Mass fraction] 96 % Cori Marquez MD Work Phone: [facility] 12-31-2023 13:26-0400 Systolic blood pressure 144 mm[Hg] Cori Marquez MD Work Phone: [facility] 08-31-2023 11:25-0400 Diastolic blood pressure 77 mm[Hg] Etelvina Edge MD Work Phone: [facility] 08-31-2023 11:25-0400 Heart rate 65 /min Etelvina Edge MD Work Phone: [facility] 08-31-2023 11:25-0400 Systolic blood pressure 137 mm[Hg] Etelvina Edge MD Work Phone: [facility] 08-31-2023 11:23-0400 Body height 154.9 cm Etelvina Edge MD Work Phone: [facility] 08-31-2023 11:23-0400 Body mass index (BMI) [Ratio] 29.66 kg/m2 Etelvina Edge MD Work Phone: [facility] 08-31-2023 11:23-0400 Body weight 71.22 kg Etelvina Edge MD Work Phone: [facility] 08-31-2023 11:23-0400 SaO2% (BldA) [Mass fraction] 95 % Etelvina Edge MD Work Phone: [facility] 08-13-2023 07:37-0400 Body height 154.9 cm Brandon Lowery DO Work Phone: [facility] 08-13-2023 07:37-0400 Body mass index (BMI) [Ratio] 29.49 kg/m2 Brandon Lowery DO Work Phone: [facility] 08-13-2023 07:37-0400 Body temperature 97.7 [degF] Brandon Lowery DO Work Phone: [facility] 08-13-2023 07:37-0400 Body weight 70.81 kg Brandon Gonsalveswell DO Work Phone: [facility] 08-13-2023 07:37-0400 Diastolic blood pressure 70 mm[Hg] Brandon Gonsalveswell DO Work Phone: [facility] 08-13-2023 07:37-0400 Heart rate 80 /min Brandon Sebastián DO Work Phone: [facility] 08-13-2023 07:37-0400 Respiratory rate 16 /min Brandon Vest DO Work Phone: [facility] 08-13-2023 07:37-0400 SaO2% (BldA) [Mass fraction] 97 % Brandon Gonsalveswell DO Work Phone: [facility] 08-13-2023 07:37-0400 Systolic blood pressure 122 mm[Hg] Brandon Sebastián DO Work Phone: [facility] 01-09-2023 07:17-0500 Body height 154.9 cm Brandon Lowery DO Work Phone: [facility] 01-09-2023 07:17-0500 Body mass index (BMI) [Ratio] 29.91 kg/m2 Brandon Gonsalveswell DO Work Phone: [facility] 01-09-2023 07:17-0500 Body temperature 98.2 [degF] Brandon Vest DO Work Phone: [facility] 01-09-2023 07:17-0500 Body weight 71.8 kg Brandon Gonsalveswell DO Work Phone: [facility] 01-09-2023 07:17-0500 Diastolic blood pressure 80 mm[Hg] Brandon Sebastián DO Work Phone: [facility] 01-09-2023 07:17-0500 Heart rate 72 /min Brandon Lowery DO Work Phone: [facility] 01-09-2023 07:17-0500 Respiratory rate 16 /min Brandon Lowery DO Work Phone: [facility] 01-09-2023 07:17-0500 Systolic blood pressure 132 mm[Hg] Brandon Lowery DO Work Phone: [facility] 12-07-2022 15:07-0400 Diastolic blood pressure 80 mm[Hg] Chas Huitron MD Work Phone: [facility] 12-07-2022 15:07-0400 Systolic blood pressure 160 mm[Hg] Chas Huitron MD Work Phone: [facility] 12-07-2022 14:38-0400 Body height 154.9 cm Chas Huitron MD Work Phone: [facility] 12-07-2022 14:38-0400 Body mass index (BMI) [Ratio] 29.53 kg/m2 Chas Huitron MD Work Phone: [facility] 12-07-2022 14:38-0400 Body temperature 97.7 [degF] Chas Huitron MD Work Phone: [facility] 12-07-2022 14:38-0400 Body weight 70.9 kg Chas Huitron MD Work Phone: [facility] 12-07-2022 14:38-0400 Heart rate 74 /min Chas Huitron MD Work Phone: [facility] 12-07-2022 14:38-0400 Respiratory rate 16 /min Chas Huitron MD Work Phone: [facility] 12-07-2022 14:38-0400 SaO2% (BldA) [Mass fraction] 98 % Chas Huitron MD Work Phone: [facility] 08-07-2022 14:03-0400 Body height 154.9 cm Brandon Lowery DO Work Phone: [facility] 08-07-2022 14:03-0400 Body mass index (BMI) [Ratio] 28.72 kg/m2 Brandon Lowery DO Work Phone: [facility] 08-07-2022 14:03-0400 Body temperature 97.59 [degF] Brandon Lowery DO Work Phone: [facility] 08-07-2022 14:03-0400 Body weight 68.95 kg Brandon Lowery DO Work Phone: [facility] 08-07-2022 14:03-0400 Diastolic blood pressure 82 mm[Hg] Brandon Lowery DO Work Phone: [facility] 08-07-2022 14:03-0400 Heart rate 63 /min Brandon Lowery DO Work Phone: [facility] 08-07-2022 14:03-0400 Respiratory rate 16 /min Brandon Lowery DO Work Phone: [facility] 08-07-2022 14:03-0400 SaO2% (BldA) [Mass fraction] 98 % Brandon Lowery DO Work Phone: [facility] 08-07-2022 14:03-0400 Systolic blood pressure 138 mm[Hg] Brandon Lowery DO Work Phone: [facility] 08-02-2022 09:09-0400 Body height 154.9 cm Kimani Simon MD Work Phone: [facility] 08-02-2022 09:09-0400 Body mass index (BMI) [Ratio] 28.91 kg/m2 Kimani Simon MD Work Phone: [facility] 08-02-2022 09:09-0400 Body weight 69.4 kg Kimani Simon MD Work Phone: [facility] 08-02-2022 09:09-0400 Diastolic blood pressure 84 mm[Hg] Kimani Smion MD Work Phone: [facility] 08-02-2022 09:09-0400 Heart rate 67 /min Kimani Simon MD Work Phone: [facility] 08-02-2022 09:09-0400 SaO2% (BldA) [Mass fraction] 94 % Kimani Simon MD Work Phone: [facility] 08-02-2022 09:09-0400 Systolic blood pressure 133 mm[Hg] Kimani Simon MD Work Phone: [facility] 07-04-2022 09:44-0400 Body height 154.9 cm Claudia Roa [employer]GER [employer] Work Phone: [facility] 07-04-2022 09:44-0400 Body mass index (BMI) [Ratio] 29.29 kg/m2 Claudia Janina [employer]GER [employer] Work Phone: [facility] 07-04-2022 09:44-0400 Body weight 70.31 kg Claudia Roa [employer]GER [employer] Work Phone: [facility] 07-04-2022 09:44-0400 Diastolic blood pressure 81 mm[Hg] Claudia Roa [employer] Work Phone: [facility] 07-04-2022 09:44-0400 Heart rate 67 /min Claudia Roa [employer]GER [employer] Work Phone: [facility] 07-04-2022 09:44-0400 SaO2% (BldA) [Mass fraction] 94 % Claudia Roa CNP Work Phone: [facility] 07-04-2022 09:44-0400 Systolic blood pressure 119 mm[Hg] Claudia Roa CNP Work Phone: [facility] 05-24-2022 11:19-0400 Body height 154.9 cm iKmani Simon MD Work Phone: [facility] 05-24-2022 11:19-0400 Body mass index (BMI) [Ratio] 30.04 kg/m2 Kimani Simon MD Work Phone: [facility] 05-24-2022 11:19-0400 Body weight 72.12 kg Kimani Simon MD Work Phone: [facility] 05-24-2022 11:19-0400 Diastolic blood pressure 79 mm[Hg] Kimani Simon MD Work Phone: [facility] 05-24-2022 11:19-0400 Heart rate 71 /min Kimani Simon MD Work Phone: [facility] 05-24-2022 11:19-0400 SaO2% (BldA) [Mass fraction] 91 % Kimani Simon MD Work Phone: [facility] 05-24-2022 11:19-0400 Systolic blood pressure 138 mm[Hg] Kimani Simon MD Work Phone: [facility] 04-12-2022 13:38-0500 Body height 154.9 cm Brandon Lowery DO Work Phone: [facility] 04-12-2022 13:38-0500 Body mass index (BMI) [Ratio] 29.74 kg/m2 Brandon Lowery DO Work Phone: [facility] 04-12-2022 13:38-0500 Body temperature 97.7 [degF] Brandon Lowery DO Work Phone: [facility] 04-12-2022 13:38-0500 Body weight 71.4 kg Brandon Sebastián DO Work Phone: [facility] 04-12-2022 13:38-0500 Diastolic blood pressure 80 mm[Hg] Brandon Lowery DO Work Phone: [facility] 04-12-2022 13:38-0500 Heart rate 73 /min Brandon Lowery DO Work Phone: [facility] 04-12-2022 13:38-0500 Respiratory rate 18 /min Brandon Lowery DO Work Phone: [facility] 04-12-2022 13:38-0500 SaO2% (BldA) [Mass fraction] 97 % Brandon Lowery DO Work Phone: [facility] 04-12-2022 13:38-0500 Systolic blood pressure 118 mm[Hg] Brandon Lowery DO Work Phone: [facility] 08-11-2021 08:03-0400 Body height 154.9 cm Brandon Lowery DO Work Phone: [facility] 08-11-2021 08:03-0400 Body mass index (BMI) [Ratio] 29.4 kg/m2 Brandon Lowery DO Work Phone: [facility] 08-11-2021 08:03-0400 Body temperature 98.01 [degF] Brandon Lowery DO Work Phone: [facility] 08-11-2021 08:03-0400 Body weight 70.58 kg Brandon Lowery DO Work Phone: [facility] 08-11-2021 08:03-0400 Diastolic blood pressure 86 mm[Hg] Brandon Lowery DO Work Phone: [facility] 08-11-2021 08:03-0400 Heart rate 62 /min Brandon Lowery DO Work Phone: [facility] 08-11-2021 08:03-0400 Respiratory rate 16 /min Brandon Lowery DO Work Phone: [facility] 08-11-2021 08:03-0400 Systolic blood pressure 120 mm[Hg] Brandon Lowery DO Work Phone: [facility] 08-04-2021 12:04-0400 Body height 154.9 cm Elicia Martinez [employer]GER [employer] Work Phone: [facility] 08-04-2021 12:04-0400 Body mass index (BMI) [Ratio] 29.12 kg/m2 Elicia Martinez [employer] Work Phone: [facility] 08-04-2021 12:04-0400 Body temperature 98.1 [degF] Elicia Martinez [employer]GER [employer] Work Phone: [facility] 08-04-2021 12:04-0400 Body weight 69.9 kg Elicia Martinez [employer] Work Phone: [facility] 08-04-2021 12:04-0400 Diastolic blood pressure 77 mm[Hg] Elicia Martinez [employer] Work Phone: [facility] 08-04-2021 12:04-0400 Heart rate 62 /min Elicia Martinez [employer] Work Phone: [facility] 08-04-2021 12:04-0400 Respiratory rate 14 /min Elicia Martinez [employer] Work Phone: [facility] 08-04-2021 12:04-0400 SaO2% (BldA) [Mass fraction] 95 % Elicia Martinez [employer] Work Phone: [facility] 08-04-2021 12:04-0400 Systolic blood pressure 123 mm[Hg] Elicia Martinez [employer]GER [employer] Work Phone: [facility] 12-07-2020 11:43-0400 Body height 154.9 cm Elicia Martinez [employer] Work Phone: [facility] 12-07-2020 11:43-0400 Body mass index (BMI) [Ratio] 28.27 kg/m2 Elicia Martinez [employer] Work Phone: [facility] 12-07-2020 11:43-0400 Body temperature 97.81 [degF] Elicia Martinez [employer] Work Phone: [facility] 12-07-2020 11:43-0400 Body weight 67.86 kg Elicia Martinez [employer] Work Phone: [facility] 12-07-2020 11:43-0400 Diastolic blood pressure 75 mm[Hg] Elicia Martinez [employer] Work Phone: [facility] 12-07-2020 11:43-0400 Heart rate 68 /min Elicia Martinez [employer] Work Phone: [facility] 12-07-2020 11:43-0400 SaO2% (BldA) [Mass fraction] 96 % Elicia Martinez [employer] Work Phone: [facility] 12-07-2020 11:43-0400 Systolic blood pressure 115 mm[Hg] Elicia Martinez [employer] Work Phone: [facility] 08-09-2020 08:01-0400 Body height 154.9 cm Brandon Lowery DO Work Phone: [facility] 08-09-2020 08:01-0400 Body mass index (BMI) [Ratio] 29.36 kg/m2 Brandon Lowery DO Work Phone: [facility] 08-09-2020 08:01-0400 Body temperature 97.81 [degF] Brandon Lowery DO Work Phone: [facility] 08-09-2020 08:01-0400 Body weight 70.49 kg Brandon Lowery DO Work Phone: [facility] 08-09-2020 08:01-0400 Diastolic blood pressure 70 mm[Hg] Brandon Lowery DO Work Phone: [facility] 08-09-2020 08:01-0400 Heart rate 80 /min Brandon Lowery DO Work Phone: [facility] 08-09-2020 08:01-0400 Respiratory rate 16 /min Brandon Lowery DO Work Phone: [facility] 08-09-2020 08:01-0400 Systolic blood pressure 130 mm[Hg] Brandon Lowery DO Work Phone: [facility] 07-19-2020 09:07-0400 Body height 154.9 cm Tiffani Chisholm MD Work Phone: [facility] 07-19-2020 09:07-0400 Body mass index (BMI) [Ratio] 29.1 kg/m2 Tiffani Chisholm MD Work Phone: [facility] 07-19-2020 09:07-0400 Body weight 69.85 kg Tiffani Chisholm MD Work Phone: [facility] 07-19-2020 09:07-0400 Diastolic blood pressure 85 mm[Hg] Tiffani Chisholm MD Work Phone: [facility] 07-19-2020 09:07-0400 Heart rate 78 /min Tiffani Chisholm MD Work Phone: [facility] 07-19-2020 09:07-0400 Systolic blood pressure 147 mm[Hg] Tiffani Chisholm MD Work Phone: [facility] 06-04-2020 09:43-0400 BMI (Body Mass Index) 29.1 kg/m2 Tiffani Chisholm [facility] 06-04-2020 09:43-0400 Body weight 69.[address] [facility] 06-04-2020 09:43-0400 BP Diastolic 73 mm[Hg] Tiffani Chisholm [facility] 06-04-2020 09:43-0400 BP Systolic 108 mm[Hg] Tiffani Chisholm [facility] 06-04-2020 09:43-0400 Height 154.[address] [facility] 06-04-2020 09:43-0400 Pulse (Heart Rate) 68 /min Tiffani Chisholm [facility] 04-23-2020 09:22-0500 BMI (Body Mass Index) 29.1 kg/m2 Tiffani Chisholm [facility] 04-23-2020 09:22-0500 Body weight 69.[address] [facility] 04-23-2020 09:22-0500 BP Diastolic 76 mm[Hg] Tiffani Chisholm [facility] 04-23-2020 09:22-0500 BP Systolic 143 mm[Hg] Tiffani Chisholm [facility] 04-23-2020 09:22-0500 Height 154.[address] [facility] 04-23-2020 09:22-0500 Pulse (Heart Rate) 77 /min Tiffani Chisholm [facility] 04-20-2020 16:03-0500 BMI (Body Mass Index) 29.1 kg/m2 Coltonkodi Umaña [facility] 04-20-2020 16:03-0500 Body Temperature 97.7 [degF] Colton Chasidy [facility] 04-20-2020 16:03-0500 Body weight 69.[address] [facility] 04-20-2020 16:03-0500 BP Diastolic 77 mm[Hg] Colton Rings [facility] 04-20-2020 16:03-0500 BP Systolic 160 mm[Hg] Colton Rings [facility] 04-20-2020 16:03-0500 Height 154.[address] [facility] 04-20-2020 16:03-0500 Pulse (Heart Rate) 80 /min Colton Chasidy [facility] 04-20-2020 16:03-0500 Pulse Oximetry 95 % Colton Chasidy [facility] 04-20-2020 16:03-0500 Respiratory Rate 16 /min Colton Umaña [facility] 09-01-2019 15:30-0400 BMI (Body Mass Index) 30.01 kg/m2 Brandon Lowery [facility] 09-01-2019 15:30-0400 Body Temperature 97.7 [degF] Brandon Lowery [facility] 09-01-2019 15:30-0400 Body weight 69.[address] [facility] 09-01-2019 15:30-0400 BP Diastolic 70 mm[Hg] Brandon Lowery [facility] 09-01-2019 15:30-0400 BP Systolic 124 mm[Hg] Brandon Lowery [facility] 09-01-2019 15:30-0400 Height 151.[address] [facility] 09-01-2019 15:30-0400 Pulse (Heart Rate) 76 /min Brandon Sebastián [facility] 09-01-2019 15:30-0400 Respiratory Rate 16 /min Brandon Vest [facility] 03-12-2019 17:20-0500 BP Diastolic 68 mm[Hg] [facility] 03-12-2019 17:20-0500 BP Systolic 150 mm[Hg] [facility] 03-12-2019 17:02-0500 BMI (Body Mass Index) 29.36 kg/m2 [facility] 03-12-2019 17:02-0500 Body Temperature 98.1 [degF] [facility] 03-12-2019 17:02-0500 Body weight 70.49 kg [facility] 03-12-2019 17:02-0500 Height 154.9 cm [facility] 03-12-2019 17:02-0500 Pulse (Heart Rate) 80 /min [facility] 03-12-2019 17:02-0500 Respiratory Rate 16 /min [facility] 12-31-2018 11:32-0400 BP Diastolic 69 mm[Hg] Cori Marquez [facility] 12-31-2018 11:32-0400 BP Systolic 110 mm[Hg] Cori [facility] 12-31-2018 11:30-0400 [facility] ([facility] Rate) 76 /[facility] 11:30-0400 Pulse Oximetry 98 % Cori [facility] 12-31-2018 11:30-0400 Respiratory Rate 12 /min [facility] 12-31-2018 11:11-0400 Body Temperature 97.2 [degF] [facility] 12-31-2018 09:57-0400 BMI (Body Mass Index) 27.59 kg/m2 [facility] 12-31-2018 09:57-0400 Body weight 66.22 kg [facility] 12-31-2018 09:57-0400 Height 154.9 cm [facility] 12-16-2018 10:21-0400 BMI (Body Mass Index) 29.25 kg/m2 [facility] 12-16-2018 10:21-0400 Body Temperature 98.1 [degF] [facility] 12-16-2018 10:21-0400 Body weight 70.22 kg [facility] 12-16-2018 10:21-0400 BP Diastolic 78 mm[Hg] [facility] 12-16-2018 10:21-0400 BP Systolic 125 mm[Hg] [facility] 12-16-2018 10:21-0400 Height 154.9 cm [facility] 12-16-2018 10:21-0400 Pulse (Heart Rate) 80 /min [facility] 12-16-2018 10:21-0400 Pulse Oximetry 96 % [facility] 11-28-2018 10:57-0400 BP Diastolic 72 mm[Hg] Jaylen Isaac [facility] 11-28-2018 10:57-0400 BP Systolic 126 mm[Hg] Jaylen Isaac [facility] 11-28-2018 10:57-0400 Respiratory Rate 18 /min Jaylen Isaac [facility] 11-26-2018 09:54-0400 Body Temperature 97.5 [degF] Marielos Stein [facility] 11-26-2018 09:54-0400 BP Diastolic 74 mm[Hg] Marielos Stein [facility] 11-26-2018 09:54-0400 BP Systolic 128 mm[Hg] Marielos Stein [facility] 11-26-2018 09:54-0400 Pulse (Heart Rate) 50 /min Marielos Stein [facility] 11-26-2018 09:54-0400 Pulse Oximetry 98 % Marielos Stein [facility] 11-26-2018 09:54-0400 Respiratory Rate 18 /min Marielos Stein [facility] 11-25-2018 09:31-0400 BP Diastolic 70 mm[Hg] Cori Rivera [facility] 11-25-2018 09:31-0400 BP Systolic 116 mm[Hg] Cori Rivera [facility] 11-25-2018 09:31-0400 Pulse (Heart Rate) 72 /min Cori Rivera [facility] 11-25-2018 09:31-0400 Pulse Oximetry 97 % Cori Rivera [facility] 11-21-2018 10:27-0400 Body Temperature 97.2 [degF] Marielos Stein [facility] 11-21-2018 10:27-0400 BP Diastolic 66 mm[Hg] Marielos Stein [facility] 11-21-2018 10:27-0400 BP Systolic 120 mm[Hg] Marielos Stein [facility] 11-21-2018 10:27-0400 Pulse (Heart Rate) 65 /min Marielos Stein [facility] 11-21-2018 10:27-0400 Pulse Oximetry 99 % Marielos Stein [facility] 11-21-2018 10:27-0400 Respiratory Rate 18 /min Marielos Stein [facility] 11-21-2018 09:37-0400 BP Diastolic 74 mm[Hg] Cori Rivera [facility] 11-21-2018 09:37-0400 BP Systolic 140 mm[Hg] Cori Rivera [facility] 11-21-2018 09:37-0400 Pulse (Heart Rate) 70 /min Cori Rivera [facility] 11-21-2018 09:37-0400 Pulse Oximetry 97 % oCri Rivera [facility] 11-18-2018 11:08-0400 Body Temperature 97.9 [degF] [facility] 11:08-0400 BP Diastolic 72 mm[Hg] Vivian [facility] 11-18-2018 11:08-0400 BP Systolic 118 mm[Hg] Vivian [facility] 11-18-2018 11:08-0400 Pulse (Heart Rate) 69 /min Vivian [facility] 11-18-2018 11:08-0400 Pulse Oximetry 92 % [facility] 11-17-2018 12:02-0400 Body Temperature 98.8 [degF] Jaylen Isaac [facility] 11-17-2018 12:02-0400 BP Diastolic 65 mm[Hg] Jaylen Isaac [facility] 11-17-2018 12:02-0400 BP Systolic 116 mm[Hg] Jaylen Isaac [facility] 11-17-2018 12:02-0400 Pulse (Heart Rate) 72 /min Jaylen Isaac [facility] 11-17-2018 12:02-0400 Pulse Oximetry 96 % Jaylen Isaac [facility] 11-17-2018 12:02-0400 Respiratory Rate 18 /min Jaylen Isaac [facility] 11-16-2018 14:33-0400 Respiratory Rate 16 /min Issac Bray [facility] 11-15-2018 23:03-0400 Body Temperature 98.1 [degF] Issac Bray [facility] 11-15-2018 23:03-0400 BP Diastolic 70 mm[Hg] Issac Bray [facility] 11-15-2018 23:03-0400 BP Systolic 128 mm[Hg] Issac Bray [facility] 11-15-2018 23:03-0400 Pulse (Heart Rate) 76 /min Issac Bray [facility] 11-15-2018 23:03-0400 Pulse Oximetry 90 % Issac Bray [facility] 11-14-2018 05:56-0400 BMI (Body Mass Index) 28.66 kg/m2 Issac Bray [facility] 11-14-2018 05:56-0400 Body weight 68.[address] [facility] 11-14-2018 05:56-0400 Height 154.[address] [facility] 10-23-2018 15:01-0400 Body Temperature 98.29 [degF] [facility] 10-23-2018 15:01-0400 BP Diastolic 82 mm[Hg] Jak [facility] 10-23-2018 15:01-0400 BP Systolic 152 mm[Hg] Jak [facility] 10-23-2018 15:01-0400 Pulse (Heart Rate) 70 /min Jak [facility] 10-23-2018 15:01-0400 Respiratory Rate 18 /min Jak [facility] 10-23-2018 08:05-0400 BMI (Body Mass Index) 29.38 kg/m2 [facility] 10-23-2018 08:05-0400 Body [facility]2018 08:05-0400 BP Diastolic 86 mm[Hg] [facility] 10-23-2018 08:05-0400 BP Systolic 154 mm[Hg] [facility] 10-23-2018 08:05-0400 Height 153.7 cm [facility] 10-23-2018 08:05-0400 Pulse (Heart Rate) 68 /min [facility] 10-16-2018 09:54-0400 BP Diastolic 83 mm[Hg] [facility] 10-16-2018 09:54-0400 BP Systolic 149 mm[Hg] [facility] 10-16-2018 09:51-0400 BMI (Body Mass Index) 29.39 kg/m2 [facility] 10-16-2018 09:51-0400 Body weight 69.4 kg [facility] 10-16-2018 09:51-0400 Height 153.7 cm [facility] 10-16-2018 09:51-0400 Pulse (Heart Rate) 65 /min [facility] 10-16-2018 09:51-0400 Pulse Oximetry 95 % [facility] 08-27-2018 15:48-0400 Body Temperature 98.01 [degF] [facility] 08-27-2018 15:48-0400 BP Diastolic 82 mm[Hg] [facility] 08-27-2018 15:48-0400 BP Systolic 166 mm[Hg] [facility] 08-27-2018 15:48-0400 Pulse (Heart Rate) 68 /min [facility] 08-27-2018 15:48-0400 Respiratory Rate 18 /min [facility] 08-07-2018 15:07-0400 Body Temperature 98.49 [degF] [facility] 08-07-2018 15:07-0400 BP Diastolic 80 mm[Hg] [facility] 08-07-2018 15:07-0400 BP Systolic 134 mm[Hg] [facility] 08-07-2018 15:07-0400 Pulse (Heart Rate) 68 /min [facility] 08-07-2018 15:07-0400 Respiratory Rate 18 /min [facility] 08-06-2018 15:16-0400 BMI (Body Mass Index) 29 kg/m2 Issac Bray [facility] 08-06-2018 15:16-0400 Height 153.[address] [facility] 08-06-2018 15:16-0400 Weight 68.[address] [facility] 07-16-2018 11:03-0400 BMI (Body Mass Index) 29 kg/m2 Jak [facility] 07-16-2018 11:03-0400 Body Temperature 98.2 [degF] [facility] 07-16-2018 11:03-0400 BP Diastolic 82 mm[Hg] [facility] 07-16-2018 11:03-0400 BP Systolic 164 mm[Hg] [facility] 07-16-2018 11:03-0400 Height 153.7 cm [facility] 07-16-2018 11:03-0400 Pulse (Heart Rate) 74 /min [facility] 07-16-2018 11:03-0400 Respiratory Rate 20 /min [facility] 07-16-2018 11:03-0400 Weight 68.49 kg Jak [facility] 06-03-2018 08:13-0400 BMI (Body Mass Index) 28.12 kg/m2 Brandon Lowery [facility] 06-03-2018 08:13-0400 Body Temperature 97.81 [degF] Brandon Lowery [facility] 06-03-2018 08:13-0400 BP Diastolic 80 mm[Hg] Brandon Lowery [facility] 06-03-2018 08:13-0400 BP Systolic 110 mm[Hg] Brandon Lowery [facility] 06-03-2018 08:13-0400 Height 154.[address] [facility] 06-03-2018 08:13-0400 Pulse (Heart Rate) 64 /min Brandon Lowery [facility] 06-03-2018 08:13-0400 Respiratory Rate 16 /min Brandon Lowery [facility] 06-03-2018 08:13-0400 Weight 67.[address] [facility] 06-04-2017 12:41-0400 BMI (Body Mass Index) 27.59 kg/m2 Marycruz Mistry [facility] 06-04-2017 12:41-0400 Height 154.[address] [facility] 06-04-2017 12:41-0400 Weight 66.[address] [facility] 06-01-2017 08:57-0400 BP Diastolic 72 mm[Hg] Brandon Lowery [facility] 06-01-2017 08:57-0400 BP Systolic 138 mm[Hg] Brandon Lowery [facility] 06-01-2017 08:57-0400 Pulse (Heart Rate) 75 /min Brandon Lowery [facility] 06-01-2017 08:41-0400 BMI (Body Mass Index) 27.74 kg/m2 Brandon Lowery [facility] 06-01-2017 08:41-0400 Body Temperature 97.5 [degF] Brandon Lowery [facility] 06-01-2017 08:41-0400 Height 154.[address] [facility] 06-01-2017 08:41-0400 Respiratory Rate 17 /min Brandon Lowery [facility] 06-01-2017 08:41-0400 Weight 66.59 kg Brandon [facility] 12-12-2016 14:58-0400 BMI (Body Mass Index) 27.78 kg/m2 Issac Bray [facility] Work Phone: 12-12-2016 14:58-0400 Height 154.[address] [facility] Work Phone: 12-12-2016 14:58-0400 Weight 66.[address] [facility] Work Phone: Encounters Encounter Date Encounter Type Care Provider Facility Start: 08-18-2024 End: 08-18-2024 Follow-up encounter Brandon Lowery DO Work Phone: [facility] Comment on above: TSH with Reflex Free T4, Comprehensive Metabolic Panel, Lipid Panel, CBC Auto Differential Start: 08-15-2024 End: 08-15-2024 Office outpatient visit 15 minutes Brandon Lowery DO Work Phone: [facility] Comment on above: Hypertension, essent ial (Primary Dx); Routine general medical examination at a health care facility; Hypercholesterolemia; Hypothyroidism, unspecified type Start: 08-15-2024 End: 08-15-2024 Patient encounter status Brandon Lowery DO Work Phone: [facility] Work Phone: Start: 08-15-2024 End: 08-15-2024 ambulatory BRANDON LOWERY [facility] Start: 08-15-2024 End: 08-15-2024 Encounter for general adult medical examination without abnormal findings BRANDON LOWERY [facility] Start: 07-07-2024 End: 07-07-2024 Refill Brandon Lowery DO Work Phone: [facility] Comment on above: Hypercholesterolemia Start: 06-02-2024 End: 06-02-2024 Refill Brandon Lowery DO Work Phone: [facility] Start: 03-10-2024 ambulatory BRANDONSHANTA LOWERY [facility] [place] Start: 02-18-2024 End: 02-18-2024 Refill Brandon Lowery DO Work Phone: [facility] Start: 01-23-2024 End: 01-23-2024 ambulatory [facility] Start: 01-02-2024 End: 01-02-2024 Documentation procedure Maya Fontaine RN [facility] Comment on above: Linx card Start: 12-31-2023 End: 12-31-2023 Office outpatient new 30 minutes Cori Marquez MD Work Phone: [facility] Comment on above: Family history of co caron cancer (Primary Dx) Start: 12-31-2023 End: 12-31-2023 ambulatory [facility] Start: 12-27-2023 End: 12-27-2023 ambulatory BRANDON LOWERY [facility] Start: 12-18-2023 End: 12-18-2023 ambulatory [facility] Start: 10-22-2023 End: 10-22-2023 Refill Brandon Lowery DO Work Phone: [facility] Comment on above: Hypothyroidism, unsp ecified type Start: 09-25-2023 ambulatory BRANDONSHANTA LOWERY [facility] Start: 09-21-2023 End: 09-21-2023 ambulatory Rubio LINDSEY Facility:[facility] Start: 09-17-2023 End: 09-17-2023 ambulatory BRANDONSHANTA LOWERY [facility] Start: 08-31-2023 End: 08-31-2023 Office outpatient new 45 minutes Brandon Lowery DO Work Phone: [facility] Comment on above: KIRAN (dyspnea on exer tion) (Primary Dx); Dyspnea on exertion Start: 08-31-2023 End: 08-31-2023 ambulatory BRANDON KEVIN LOWERY [facility] Start: 08-13-2023 End: 08-13-2023 Office outpatient visit 15 minutes Brandon Lowery DO Work Phone: [facility] Comment on above: Dyspnea on exertion (Primary Dx); Routine general medical examination at a health care facility; Hypertension, essential; Hypothyroidism, unspecified type Start: 08-13-2023 End: 08-13-2023 Patient encounter status Brandon Lowery DO Work Phone: [facility] Work Phone: Start: 06-08-2023 Refill Brandon Lowery DO Work Phone: [facility] Start: 01-09-2023 End: 01-09-2023 Office outpatient visit 25 minutes Brandon Lowery DO Work Phone: [facility] Comment on above: Subacute cough (Prim mary carmen Dx) Start: 12-07-2022 End: 12-07-2022 Office outpatient visit 15 minutes Chas Huitron MD Work Phone: [facility] Comment on above: Bronchitis (Primary Dx) Start: 10-25-2022 Refill Brandon Lowery DO Work Phone: [facility] Comment on above: Hypothyroidism, unsp ecified type Start: 08-07-2022 End: 08-07-2022 Patient encounter procedure Brandon Lowery DO Work Phone: [facility] Comment on above: Routine general medi david examination at a health care facility (Primary Dx); Hypothyroidism, unspecified type; Hypertension, essential; At low risk for fall Start: 08-07-2022 End: 08-07-2022 Patient encounter status Brandon Lowery DO Work Phone: [facility] Work Phone: Start: 08-02-2022 End: 08-02-2022 Postop follow up visit related to original px Kimani Simon MD Work Phone: [facility] Comment on above: Postoperative follow -up (Primary Dx) Start: 07-04-2022 End: 07-04-2022 Postop follow up visit related to original px Claudia Pruett Zaidaon MANAGER [employer] Work Phone: [facility] Comment on above: Encounter for surgic al aftercare following surgery of digestive system (Primary Dx) Start: 06-19-2022 Orders Only Claudia Pruett Mitra hagen MANAGER [employer] Work Phone: [facility] Start: 06-13-2022 Refill Brandon Lowery DO Work Phone: [facility] Start: 06-07-2022 End: 08-07-2022 Preprocedural examination done Brandon Lowery DO Work Phone: [facility] Start: 05-24-2022 End: 05-24-2022 Office outpatient visit 25 minutes Kimani Simon MD Work Phone: [facility] Comment on above: Hiatal hernia with G ERD without esophagitis (Primary Dx) Start: 04-12-2022 End: 04-12-2022 Office outpatient visit 25 minutes Brandon Lowery DO Work Phone: [facility] Comment on above: Gastroesophageal ref lux disease, unspecified whether esophagitis present (Primary Dx) Start: 12-05-2021 Orders Only Brandon Lowery DO Work Phone: [facility] Comment on above: Hypothyroidism, unsp ecified type Start: 12-05-2021 Refill Elicia willett MANAGER [employer] Work Phone: [facility] Comment on above: Hypothyroidism, unsp ecified type Start: 08-22-2021 Refill Annie Soto MA [facility] Comment on above: Gastroesophageal ref lux disease, unspecified whether esophagitis present Start: 08-11-2021 End: 08-11-2021 Patient encounter procedure Brandon Kevin Lowery DO Work Phone: [facility] Comment on above: Routine general medi david examination at a health care facility (Primary Dx); Hypothyroidism, unspecified type; Hypertension, essential; General medical exam; Personal history of tobacco use Start: 08-11-2021 End: 08-11-2021 Patient encounter status Brandon Kevin Lowery DO Work Phone: [facility] Start: 08-04-2021 End: 08-04-2021 Office outpatient visit 25 minutes Elicia Martinez MANAGER [employer] Work Phone: [facility] Comment on above: Gastroesophageal ref lux disease, unspecified whether esophagitis present (Primary Dx) Start: 06-28-2021 Refill Brandonshanta Gonsalveswell DO Work Phone: [facility] Start: 12-09-2020 Refill Brandonshanta Brown Sebastián DO Work Phone: [facility] Comment on above: Hypothyroidism, unsp ecified type Start: 12-07-2020 End: 12-07-2020 Office outpatient visit 15 minutes Elicia Martinez MANAGER [employer] Work Phone: [facility] Comment on above: Encounter for vaccin ation (Primary Dx); Leg swelling Start: 08-09-2020 End: 08-09-2020 Patient encounter procedure Brandon Kevin Lowery DO Work Phone: [facility] Comment on above: Routine general medi david examination at a health care facility (Primary Dx); Hypothyroidism, unspecified type; Hypertension, essential Start: 08-09-2020 End: 08-09-2020 Patient encounter status Brandon Lowery DO Work Phone: [facility] Start: 07-19-2020 End: 07-19-2020 Office outpatient visit 15 minutes Tiffani Chisholm MD Work Phone: [facility] Comment on above: Closed fracture of l eft ankle with routine healing, subsequent encounter (Primary Dx) Start: 07-13-2020 End: 07-13-2020 Orders Only Tiffani Chisholm MD Work Phone: [facility] Comment on above: Closed fracture of l eft ankle with routine healing, subsequent encounter (Primary Dx) Start: 07-04-2020 End: 07-04-2020 Refill Brandon Lowery DO Work Phone: [facility] Start: 06-04-2020 End: 06-04-2020 Subsequent hospital visit by physician Tiffani Chisholm Work Phone: [facility] Comment on above: Arrived Start: 06-04-2020 End: 06-04-2020 Office outpatient visit 15 minutes Tiffani Chisholm Work Phone: [facility] Comment on above: Closed fracture of l eft ankle with routine healing, subsequent encounter (Primary Dx) Start: 06-01-2020 End: 06-01-2020 Orders Only Tiffani Chisholm Work Phone: [facility] Comment on above: Closed fracture of l eft ankle, initial encounter (Primary Dx) Start: 04-23-2020 End: 04-23-2020 Orders Only Tiffani Chisholm Work Phone: [facility] Comment on above: Pain (Primary Dx) Pain Start: 04-23-2020 End: 04-23-2020 Office outpatient new 30 minutes Tiffani Chisholm Work Phone: [facility] Comment on above: Closed fracture of l eft ankle, initial encounter (Primary Dx) Start: 04-20-2020 End: 04-20-2020 Emergency department patient visit Colton Umaña Work Phone: [facility] Comment on above: Closed torus fractur e of distal end of left fibula, initial encounter (Primary Dx) Start: 11-20-2019 End: 11-20-2019 Office outpatient visit 10 minutes Issac Hernan Bray Work Phone: [facility] Comment on above: Status post left hip replacement (Primary Dx) Start: 09-01-2019 End: 09-01-2019 Office outpatient visit 25 minutes Brandon Lowery Work Phone: [facility] Comment on above: Hypertension, essent ial (Primary Dx); Hypothyroidism, unspecified type; At low risk for fall Start: 03-12-2019 End: 03-12-2019 Office outpatient visit 25 minutes America Rios Work Phone: [facility] Comment on above: Acute non-recurrent maxillary sinusitis (Primary Dx) Start: 12-31-2018 End: 12-31-2018 Subsequent hospital visit by physician Cori Marquez Work Phone: [facility] Comment on above: Family history of co caron cancer Start: 12-27-2018 End: 12-27-2018 Postop follow up visit related to original px Issac Hernan Bray Work Phone: [facility] Comment on above: Status post left hip replacement (Primary Dx) Start: 12-16-2018 End: 12-16-2018 Office outpatient new 30 minutes Cori Marquez Work Phone: [facility] Comment on above: Family history of co caron cancer (Primary Dx); Pain of upper abdomen; Heartburn Start: 11-28-2018 End: 11-28-2018 Home visit Jaylen Isaac [facility] Comment on above: SN HH OASIS DISCHARG E Start: 11-26-2018 End: 11-26-2018 Home visit Marielos Stein [facility] Comment on above: BUS AIDE HH ROUTINE Start: 11-25-2018 End: 11-25-2018 Home visit [facility] Comment on above: MAJOR CASE DETECTIVE ROUTINE VISIT Start: 11-21-2018 End: 11-21-2018 Documentation procedure Brittaney Chung [facility] Start: 11-21-2018 End: 11-21-2018 Home visit [facility] Comment on above: MAJOR CASE DETECTIVE ROUTINE VISIT BUS AIDE HH ROUTINE Start: 11-18-2018 End: 11-18-2018 Home visit Vivian Garcial [facility] Comment on above: PT INITIAL EVALUATIO N Transition Of Care ( chart review) Start: 11-18-2018 End: 11-18-2018 Patient encounter procedure Fanta Mor Bang [facility] Start: 11-17-2018 End: 11-28-2018 ambulatory JAYLEN ISAAC [facility] Start: 11-17-2018 End: 11-17-2018 Home visit [place] Isaac [facility] Comment on above: SN HH OASIS START OF CARE Start: 11-16-2018 End: 11-16-2018 Home visit Jaylen J Isaac [facility] Comment on above: SN OASIS START OF CARE Start: 11-14-2018 End: 11-14-2018 [facility] Start: 11-14-2018 End: 11-16-2018 Evaluation and management of inpatient Issac Bray Work Phone: [facility] Comment on above: Status post total re placement of left hip (Primary Dx); Arthritis of left hip; Arthritis of left hip Start: 10-29-2018 End: 10-29-2018 Subsequent hospital visit by physician Issac Bray Work Phone: [facility] CT Scan Comment on above: Arthritis of left hi p Start: 10-23-2018 End: 10-23-2018 Office outpatient visit 15 minutes Jak Pepe Work Phone: [facility] Comment on above: Urge incontinence (P rimary Dx); OAB (overactive bladder); History of urinary retention; Prolapse of vaginal vault after hysterectomy Start: 10-23-2018 End: 10-23-2018 Subsequent hospital visit by physician Anders Melo Work Phone: [facility] Comment on above: Arrived Preop cardiovascular exam Start: 10-16-2018 End: 10-16-2018 Office outpatient new 45 minutes Issac Bray Work Phone: [facility] Comment on above: Preop cardiovascular exam (Primary Dx); Arthritis of left hip; Hypertension, unspecified type Start: 08-27-2018 End: 08-27-2018 Office outpatient visit 15 minutes Jak Pepe Work Phone: 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 Comment on above: History of urinary r etention (Primary Dx); Urge incontinence; OAB (overactive bladder); Prolapse of vaginal vault after hysterectomy Start: 08-06-2018 End: 08-06-2018 Office outpatient visit 10 minutes Issac Bray Work Phone: [facility] Comment on above: Arthritis of left hi p (Primary Dx) Start: 07-30-2018 End: 07-30-2018 Patient encounter procedure Marycruz Mistry Work Phone: [facility] Comment on above: Greater trochanteric bursitis of left hip (Primary Dx) Start: 07-16-2018 End: 07-16-2018 Office outpatient new 60 minutes Jak Urbinastephon Pepe Work Phone: [facility] Comment on above: Urinary tract infect ion without hematuria, site unspecified (Primary Dx); Overflow stress urinary incontinence in female; Prolapse of vaginal vault after hysterectomy; Urinary retention; Urge incontinence; OAB (overactive bladder) Start: 06-03-2018 End: 06-03-2018 Periodic preventive med est patient 65yrs& older Brandon Lowery Work Phone: [facility] Comment on above: Routine general medi david examination at a health care facility (Primary Dx); Hypertension, essential; Hypothyroidism, unspecified type Start: 12-31-2017 Patient encounter procedure Brandon D Sebastián Facility:[facility] Start: 12-12-2017 End: 12-12-2017 Patient encounter Brandon Gonsalveswell Work Phone: [facility] Start: 09-24-2017 End: 09-24-2017 Patient encounter Marycruz Mistry Work Phone: [facility] Start: 06-04-2017 Patient encounter Marycruz hearn Work Phone: [facility] Start: 06-01-2017 Patient encounter procedure Brandon D Sebastián Facility:[facility] Start: 06-01-2017 End: 06-01-2017 Ambulatory Brandon Lowery Work Phone: [facility] Start: 06-01-2017 Patient encounter Brandon Brown Sebastián Work Phone: [facility] Start: 04-30-2017 Patient encounter procedure Brandon D Sebastián Facility:[facility] Start: 12-12-2016 End: 12-12-2016 Postop follow up visit related to original px Issac Bray Work Phone: [facility] Comment on above: Arthritis of left hi p (Primary Dx) Start: 04-12-2016 Refill Halima Davison lorie MANAGER [employer]CING Work Phone: [facility] Comment on above: Medication Refill Start: 09-28-2014 End: 09-29-[address] [facility] Procedures Date Procedure Procedure Detail Performing Clinician Start: 08-15-2024 Lipid 1996 panel - S shen or Plasma Brandon Lowery DO Work Phone: Start: 02-29-2024 Mammography Brandon vasquez DO Work Phone: Start: 01-23-2024 Colonoscopy Brandon vasquez DO Work Phone: Start: 12-27-2023 Follow-up visit Follow-up KIMANI SIMON Start: 08-31-2023 Ecg routine ecg w/le ast 12 lds w/i&r Etelvina Edge MD Work Phone: Start: 08-13-2023 Comprehensive metabo lic panel Brandon Lowery DO Work Phone: Start: 08-13-2023 Lipid panel Brandon Billings DO Work Phone: Start: 08-13-2023 Lipid 1996 panel - S shen or Plasma Brandon Gonsalveswell DO Work Phone: Start: 02-21-2023 Mammography Brandon vasquez DO Work Phone: Start: 10-03-2022 Microscopic observat ion [Identifier] in Cervix by Cyto stain Brandon Gonsalveswell DO Work Phone: Start: 08-07-2022 Lipid 1996 panel - S shen or Plasma Brandon Sebastián DO Work Phone: Start: 04-12-2022 Adult depression scr eening assessment Brandon Gonsalveswell DO Work Phone: Start: 02-20-2022 Mammography Elicia givens MANAGER [employer] Work Phone: Start: 08-12-2021 Lipid 1996 panel - S shen or Plasma Annie Soto MA Start: 02-14-2021 Mammography Brandon vasquez DO Work Phone: Start: 12-07-2020 Adult depression scr eening assessment Elicia Martinez MANAGER [employer]ING Work Phone: Start: 08-09-2020 Lipid 1996 panel - S shen or Plasma Elicia Martinez MANAGER [employer] Work Phone: Start: 06-04-2020 X-ray of left ankle Zulma kitty Ureña Exten Work Phone: Start: 04-23-2020 Radiologic examinati on ankle 2 views Tiffaniidris Frankse Exten Work Phone: Start: 04-20-2020 X-ray of left ankle Rangel hakar Rings Work Phone: Start: 02-12-2020 Mammography Colton Juares ingmary beth Start: 09-02-2019 Lipid 1996 panel - S shen or Plasma Issac Bray Start: 03-12-2019 Adult depression scr eening assessment America Rios Start: 02-10-2019 Mammography America stephens Start: 12-31-2018 End: 12-31-2018 Colonoscopy Cori Elijah Jonah elizabeth Work Phone: Start: 12-31-2018 Endoscopy of esophagus Cori Nava Donell Work Phone: Start: 11-16-2018 Basic metabolic 2000 panel - Serum or Plasma Issac Bray Work Phone: Start: 11-16-2018 Hemoglobin and Hemat ocrit panel - Blood Issac Bray Work Phone: Start: 11-15-2018 Basic metabolic 2000 panel - Serum or Plasma Issacjosé luis Bray Work Phone: Start: 11-15-2018 Hemoglobin and Hemat ocrit panel - Blood Issac Hernan Alex Work Phone: Start: 11-14-2018 Radex hip unilateral with pelvis 2-3 views Issac Bray Work Phone: Start: 11-14-2018 Procedure on tissue specimen Issac Bray Work Phone: Start: 11-14-2018 End: 11-14-2018 ARTHROPLASTY HIP ROBOTIC Issacjosé luis omalley Work Phone: Start: 10-29-2018 Ct lower extremity w /o contrast material Issacjosé luis Bray Work Phone: Start: 10-23-2018 Myocardial spect sin gle study at rest or stress Anders Kameron Work Phone: Start: 10-16-2018 12 lead ECG Anders Si ngla Work Phone: Start: 07-30-2018 Arthrocentesis Marycruzyobani Villela Work Phone: Start: 07-16-2018 Urinalysis macro (di pstick) panel - Urine Jak Pepe Work Phone: Start: 07-16-2018 Urinalysis Jak Pepe Work Phone: Start: 06-03-2018 Adult depression scr eening assessment Issac Bray Start: 06-03-2018 Lipid 1996 panel - S shen or Plasma Jak Pepe Start: 05-29-2018 Microscopic observat ion [Identifier] in Cervix by Cyto stain Jak Sarah Start: 01-28-2018 Mammography Brandon vasquez Start: 06-01-2017 Lipid 1996 panel - S shen or Plasma Brandon Lowery Plan of Treatment Date Care Activity Detail Author Start: 01-22-2029 Screening for malignant neoplasm of colon [facility] Start: 12-31-2028 Screening for malignant neoplasm of colon [facility] Start: 10-03-2025 Screening for malignant neoplasm of cervix Pap Smear [facility] Start: 08-20-2025 End: 08-20-2025 Patient encounter procedure 08/20/2025 7:00 AM EDT Office Visit [facility] [address] [place] [address] Brandon Lowery DO [address] [place] [address] [facility] Start: 08-15-2025 Depression screening using PHQ-9 (Patient Health Questionnaire 9) score Depression Screening/Follow-Up (PHQ-2/9) [facility] Start: 08-15-2025 Lipid panel Lipid Panel [facility] Start: 08-13-2025 Fall risk assessment Falls Risk Assessment [facility] Start: 02-28-2025 Screening for malignant neoplasm of breast Mammogram [facility] Start: 08-15-2024 End: 08-15-2024 Patient encounter procedure 08/15/2024 7:00 AM EDT Office Visit [facility] [address] [place] [address] Brandon Lowery DO [address] [place] [address] [facility] Start: 08-12-2024 Lipid panel Lipid Panel [facility] Start: 08-12-2024 Medicare Wellness Visit Medicare Wellness Visit [facility] Start: 08-05-2024 Fall risk assessment Falls Risk Assessment [facility] Start: 06-14-2024 COVID-19 Vaccine ( season) COVID-19 [address] () [facility] Start: 02-22-2024 Screening for malignant neoplasm of breast Mammogram [facility] Start: 01-23-2024 End: 01-23-2024 Admission to same day surgery center 01/23/2024 8:50 AM EST - 01/23/2024 9:35 AM EST Surgery [facility] [address] [place] [id number] Cori Marquez MD [address] [place] [address] COLONOSCOPY [facility] Comment on above: COLONOSCOPY Start: 01-23-2024 End: 01-23-2024 Colonoscopy flx dx w/collj spec when pfrmd COLONOSCOPY Family history of colon cancer 01/23/2024 8:50 AM EST [facility] Start: 01-23-2024 Subsequent hospital visit by physician 01/23/2024 8:50 AM EST Hospital Encounter [facility] [address] [place] [id number] Cori Marquez MD [address] [place] [address] [facility] Start: 01-01-2024 Screening for malignant neoplasm of colon [facility] Start: 11-04-2023 Influenza vaccination Influenza Vaccine (#1) [facility] Start: 10-08-2023 Administration of herpes zoster vaccine Zoster Vaccines (3 of 3) [facility] Start: 10-04-2023 History and physical examination, annual for health maintenance Wellness Visit [facility] Start: 09-17-2023 End: 09-17-2023 Patient encounter procedure 09/17/2023 10:[address] [facility] [address] [place] [address] Etelvina Edge MD [address] [place] [address] [facility] Start: 09-17-2023 End: 09-17-[address] [facility] Start: 08-13-2023 End: 08-13-2023 Patient encounter procedure 08/13/2023 7:30 AM EDT Office Visit [facility] [address] [place] [address] Brandon Lowery DO [address] [place] [address] [facility] Start: 08-08-2023 History and physical examination, annual for health maintenance Wellness Visit [facility] Start: 08-08-2023 Lipid panel Lipid Panel [facility] Start: 08-07-2023 Fall risk assessment Falls Risk Assessment [facility] Start: 05-31-2023 COVID-19 Vaccine () COVID-19 Vaccine () [facility] Start: 04-12-2023 Depression screening using PHQ-9 (Patient Health Questionnaire 9) score [facility] Comment on above: Postponed from 12/07/2021 (Per Other [facility] Practice Guidelines) Start: 02-20-2023 Screening for malignant neoplasm of breast Mammogram [facility] Start: 11-03-2022 COVID-19 Vaccine ( season) COVID-19 Vaccine () [facility] Start: 11-03-[address] [facility] Start: 08-16-2022 End: 08-16-2022 Patient encounter procedure 08/16/2022 Office Visit Primary Care Brandon Lowery DO [address] [place] [address] [facility] Start: 08-12-2022 Lipid panel Lipid Panel [facility] Start: 08-11-2022 History and physical examination, annual for health maintenance Wellness Visit [facility] Start: 08-08-2022 Fall risk assessment Falls Risk Assessment [facility] Start: 08-07-2022 End: 08-07-[address] [facility] Start: 08-02-2022 End: 08-02-2022 Patient encounter procedure 08/02/2022 9:15 AM EDT Office Visit [facility] [address] [facility] [address] [place] [address] Kimani Simon MD [address] [address] [facility] Start: 07-04-2022 End: 07-04-2022 Patient encounter procedure 07/04/2022 9:45 AM EDT Office Visit [facility] [address] [facility] [address] [facility] [address] [place] [address] Claudia Roa, MANAGER [employer]ATE[employer]CING [facility] [address] [address] [facility] Start: 06-19-2022 End: 06-19-2022 Admission to same day surgery center 06/19/2022 9:51 AM EDT - 06/19/2022 11:54 AM EDT Surgery [facility] [address] [place] [address] Kimani Simon MD [address] [address] REPAIR HERNIA HIATAL WITH MESH AND LINX SPHINCTER AUGMENTATION ROBOTIC [facility] Comment on above: REPAIR HERNIA HIATAL WITH MESH AND LINX SPHINCTER AUGMENTATION ROBOTIC XI Start: 06-19-2022 End: 06-19-2022 REPAIR HERNIA HIATAL WITH SPHINCTER AUGMENTATION ROBOTIC XI [facility] Start: 06-19-2022 Subsequent hospital visit by physician 06/19/2022 9:51 AM EDT Hospital Encounter [facility] [address] [place] [address] Kimani Simon MD [address] [place] [address] [facility] Start: 06-06-2022 End: 06-06-2022 Patient encounter procedure 06/06/2022 Office Visit Pre-Admission Testing [facility] Preadmission Testing Start: 04-12-2022 End: 04-12-2022 Patient encounter procedure 04/12/2022 Office Visit Primary Care Brandon Lowery, [address] [place] [address] [facility] Start: 02-14-2022 Screening for malignant neoplasm of breast Mammogram [facility] Start: 12-07-2021 Depression screening using PHQ-9 (Patient Health Questionnaire 9) score Depression Screening (PHQ-2/9) [facility] Start: 12-07-2021 Fall risk assessment Falls Risk Assessment [facility] Start: 11-03-2021 Influenza vaccination Sequential Influenza Vaccine (#1) [facility] Start: 08-12-2021 End: 08-12-2021 Patient encounter procedure 08/12/2021 Office Visit Primary Care [facility] Start: 08-11-2021 End: 08-11-[address] [facility] Start: 08-09-2021 Administration of herpes zoster vaccine Zoster Vaccines (2 of 3) [facility] Comment on above: Postponed from 05/24/2014 (Insurance / F inancial) Start: 08-09-2021 History and physical examination, annual for health maintenance Wellness Visit [facility] Start: 08-09-2021 Lipid [address] Lipid Panel [facility] Start: 08-09-2021 Tetanus vaccination Tetanus: Every 10yrs [facility] Comment on above: Postponed from 1950 (Patient Refus ed) Start: 08-03-2021 Fall risk assessment Falls Risk Assessment [facility] Start: 05-29-2021 Screening for malignant neoplasm of cervix PAP SMEAR [facility] Start: 05-03-2021 COVID-19 Vaccine (4 - Booster for Moderna series) COVID-19 Vaccine (4 - Booster for Moderna series) [facility] Start: 02-28-2021 COVID-19 Vaccine (4 - Booster for Moderna series) COVID-19 Vaccine (4 - Booster for Moderna series) [facility] Start: 02-11-2021 Screening for malignant neoplasm of breast Mammogram [facility] Start: 02-11-[address] [facility] Start: 11-19-2020 Fall risk assessment Falls Risk Assessment [facility] Start: 11-03-2020 Influenza vaccination Sequential Influenza Vaccine (Season Ended) [facility] Start: 09-01-2020 Fasting lipid profile Lipid Panel [facility] Start: 09-01-2020 Lipid [address] Lipid Panel [facility] Start: 08-31-2020 Fall risk assessment Falls Risk Assessment [facility] Start: 08-10-2020 Depression screening using PHQ-9 (Patient Health Questionnaire 9) score Depression Screening (PHQ9) [facility] Comment on above: Postponed from 03/12/2020 (Patient Refus ed) Start: 08-09-2020 End: 08-09-2020 Office Visit 08/09/2020 Office Visit Primary Care Brandon Lowery, [address] [place] [address] [phone] [facility] Start: 07-19-2020 End: 07-19-2020 Office Visit 07/19/2020 Office Visit Orthopedic Surgery Tiffani Chisholm MD [address] [place] [address] [phone] [facility] Start: 06-04-2020 End: 06-04-2020 Office Visit 06/04/2020 Office Visit Orthopedic Surgery Tiffani Chisholm MD [address] [facility] [place] [address] [phone] [facility] Start: 05-04-2020 COVID-19 Vaccine (2 - Moderna 2-dose series) COVID-19 Vaccine (2 - Moderna 2-dose series) [facility] Start: 05-04-2020 COVID-19 Vaccine (2 of 2 - Moderna series) COVID-19 Vaccine (2 of 2 - Moderna series) [facility] Start: 03-12-2020 Administration of herpes zoster vaccine Zoster Vaccines (2 of 3) [facility] Comment on above: Postponed from 05/24/2014 (Patient Refus ed) Start: 03-12-2020 Depression screening using PHQ-9 (Patient Health Questionnaire 9) score DEPRESSION SCREENING (PHQ9) [facility] Start: 03-12-2020 Fall risk assessment Falls Risk [facility] Start: 03-02-2020 Tetanus vaccination Tetanus: Every 10yrs [facility] Comment on above: Postponed from 1950 (Insurance / F inancial) Start: 02-11-2020 Screening mammography [facility] Start: 11-18-2019 End: 11-18-2019 Office Visit 11/18/2019 Office Visit Sports Medicine Issac Bray MD [address] [place] [address] [phone] [facility] Start: 11-15-2019 Screening for substance abuse SUBSTANCE ABUSE SCREENING (AUDIT-C) [facility] Start: 11-04-2019 Influenza vaccination Sequential Influenza Vaccine (#1) [facility] Start: 11-04-2019 Influenza vaccination given Sequential Influenza Vaccine (#1) [facility] Start: 06-15-2019 Tetanus vaccination TETANUS EVERY [address] [facility] Comment on above: Postponed from 1950 (Patient Ill T moi) Start: 06-09-2019 End: 06-09-2019 Office Visit 06/09/2019 Office Visit Primary Care Brandon Lowery, [address] [place] [address] [phone] [facility] Start: 06-04-2019 Depression screening using PHQ-9 (Patient Health Questionnaire 9) score DEPRESSION SCREENING (PHQ9) [facility] Start: 06-04-2019 Fasting lipid profile Lipid Panel [facility] Start: 06-04-2019 History and physical examination, annual for health maintenance Wellness Visit [facility] Start: 02-04-2019 End: 02-04-2019 Office Visit 02/04/2019 Office Visit Urogynecology Sravanthi Dick PA-C [address] [place] [address] [address] [facility] Start: 01-28-2019 Protein mass conc Mammogram [facility] Start: 01-28-[address] [facility] Start: 12-31-2018 End: 12-31-2018 Hospital Encounter [facility] Comment on above: Family history of colon cancer COLONOSCOPY Start: 12-27-2018 End: 12-27-2018 Follow-Up 12/27/2018 Follow-Up Sports Medicine Issac rBay MD [address] [place] [address] [phone] [facility] Start: 12-16-2018 End: 12-16-2018 Office Visit 12/16/2018 Office Visit General Surgery Cori Marquez MD [address] [place] [address] [phone] [facility] Start: 11-29-2018 End: 11-29-2018 Follow-Up 11/29/2018 Follow-Up Sports Medicine Issac Bray MD [address] [place] [address] [phone] [facility] Start: 11-28-2018 End: 11-28-2018 Appointment [facility] Start: 11-26-2018 End: 11-26-2018 Home Care Visit 11/26/2018 Home Care Visit Home Health Services Jaylen Isaac RN [facility] Start: 11-25-2018 End: 11-25-2018 Home Care Visit 11/25/2018 Home Care Visit Home Health Services Cori Rivera PTA [facility] Start: 11-21-2018 End: 11-21-2018 Home Care Visit 11/21/2018 Home Care Visit Home Health Services Jaylen Isaac RN [facility] Start: 11-14-2018 End: 11-14-[address] [facility] Comment on above: Arthritis of left hip Left Total Hip Repla cement Robotic Start: 11-05-2018 End: 11-05-2018 Surgical Consult 11/05/2018 Surgical Consult Sports Medicine Issac Bray MD [address] [place] [address] [phone] [facility] Start: 11-03-2018 Influenza vaccination given SEQUENTIAL INFLUENZA VACCINE (#1) [facility] Start: 10-29-2018 End: 10-29-2018 Office Visit [facility] Preadmission Testing Start: 10-23-2018 End: 10-23-[address] [facility] Start: 10-16-2018 End: 10-16-2018 Office Visit 10/16/2018 Office Visit Cardiology Issac Bray MD [address] [place] [address] [phone] America Lutz MD [address] [place] [address] [phone] [facility] Start: 09-23-[address] [facility] Start: 09-23-2018 Screening for malignant neoplasm of colon Colorectal Cancer Screening: Colonoscopy [facility] Start: 08-27-2018 End: 08-27-2018 Office Visit 08/27/2018 Office Visit Urogynecology Jak Pepe MD [address] [place] [address] [place] [address] [phone] [facility] Start: 08-07-2018 End: 08-07-2018 Office Visit 08/07/2018 Office Visit Urogynecology Jak Pepe MD [address] [place] [address] [place] [address] [phone] [facility] Start: 08-06-2018 End: 08-06-2018 Office Visit 08/06/2018 Office Visit Sports Medicine Issac Bray MD [address] [place] [address] [phone] [facility] Start: 07-22-2018 End: 07-22-2018 Office Visit 07/22/2018 Office Visit Sports Medicine Issac Bray MD [address] [place] [address] [phone] [facility] Start: 06-03-2018 End: 06-03-[address] [facility] Start: 06-01-2018 Fall risk assessment Steadi Fall Risk Assessment [facility] Start: 06-01-2018 Fasting lipid profile LIPID PANEL [facility] Start: 12-31-2017 End: 12-31-2017 Ambulatory 12/31/2017 Clinical Support Sports Medicine Marycruz Mistry, MANAGER STRATE[employer]OURCING [address] [place] [address] [phone] [facility] Start: 11-03-2017 Influenza vaccination SEQUENTIAL INFLUENZA VACCINE (#1) [facility] Start: 06-04-2017 Ambulatory 06/04/2017 Office Visit Sports Marycruz Frazier CNP [address] [place] [address] [phone] [facility] Start: 04-24-2017 Pneumococcal vaccination PNEUMOCOCCAL VACCINE AGE 65+ (2 of 2 - PPSV23) [facility] Start: 11-03-2016 Influenza vaccination SEQUENTIAL INFLUENZA VACCINE (#1) [facility] Work Phone: Start: 2015 Fall risk assessment Steadi Fall Risk Assessment [facility] Start: 2015 Pneumococcal vaccination PNEUMOCOCCAL VACCINE AGE 65+ (1 of 2 - PCV13) [facility] Work Phone: Start: 05-24-2014 Administration of herpes zoster vaccine [facility] Start: 2010 Zoster vacc, sc ZOSTER VACCINE [facility] Work Phone: Start: 01-05-2000 Administration of herpes zoster vaccine ZOSTER VACCINES (1 of 2) [facility] Start: 01-05-2000 Screening for malignant neoplasm of colon [facility] Start: 01-05-2000 ZOSTER VACCINES (1 of 2) ZOSTER VACCINES (1 of 2) [facility] Start: 1962 Adolescent depression screening assessment Depression Screening (PHQ9) [facility] Start: 1962 Depression screening using PHQ-9 (Patient Health Questionnaire 9) score Depression Screening (PHQ9) [facility] Start: 01-05-1960 Urine screening for protein Urine Microalbumin [facility] Start: 1950 Fall risk assessment Falls Risk Assessment [facility] Start: 1950 Screening for malignant neoplasm of colon [facility] Start: 1950 HEPATITIS C SCREENING HEPATITIS C SCREENING [facility] Work Phone: Start: 1950 Scre[address]oscopy [address]COPY [facility] Work Phone: Start: 1950 Screening for osteoporosis DEXA SCAN [facility] Work Phone: Start: 1950 End: [address] [facility] Bacteria identified Aer cx Nom (Unsp spec) Urine Aerobic Culture Routine Urinary tract infection without hematuria, site unspecified 07/16/2018 12:[address] [facility] Complete blood count with white cell differential, automated CBC Auto Differential Lab Panel Routine Gastroesophageal reflux disease, unspecified whether esophagitis present Ordered: 04/12/2022 [facility] Comment on above: Ordered: 04/12/2022 Complete blood count with white cell differential, automated CBC Auto Differential Lab Panel Routine Hypertension, essential Ordered: 08/13/2023 [facility] Comment on above: Ordered: 08/13/2023 Complete blood count with white cell differential, automated CBC Auto Differential Lab Panel Routine Hypertension, essential 08/15/2024 7:[address] [facility] End: 04-12-2023 Complete blood count with white cell differential, manual CBC and Differential Lab Routine Gastroesophageal reflux disease, unspecified whether esophagitis present 1 Occurrences starting 04/12/2022 until 04/12/2023 [facility] Comment on above: 1 Occurrences starting 04/12/2022 until 04/12/2023 End: 08-12-2024 Complete blood count with white cell differential, manual CBC and Differential Lab Routine Hypertension, essential 1 Occurrences starting 08/13/2023 until 08/12/2024 [facility] Comment on above: 1 Occurrences starting 08/13/2023 until 08/12/2024 Complete blood count with white cell differential, manual CBC and Differential Lab Routine Hypertension, essential 08/15/2024 7:[address] [facility] End: 08-31-2020 Comprehensive metabolic 2000 panel Comprehensive Metabolic Panel Lab Routine Hypertension, essential 1 Occurrences starting 09/01/2019 until 08/31/2020 [facility] Comment on above: 1 Occurrences starting 09/01/2019 until 08/31/2020 End: 08-09-2021 Comprehensive metabolic 2000 panel - Serum or Plasma Comprehensive Metabolic Panel Lab Routine Hypertension, essential 1 Occurrences starting 08/09/2020 until 08/09/2021 [facility] Comment on above: 1 Occurrences starting 08/09/2020 until 08/09/2021 End: 08-11-2022 Comprehensive metabolic 2000 panel - Serum or Plasma Comprehensive Metabolic Panel Lab Routine Hypertension, essential 1 Occurrences starting 08/11/2021 until 08/11/2022 [facility] Work Phone: Comment on above: 1 Occurrences starting 08/11/2021 until 08/11/2022 End: 04-12-2023 Comprehensive metabolic 2000 panel - Serum or Plasma Comprehensive Metabolic Panel Lab Routine Gastroesophageal reflux disease, unspecified whether esophagitis present 1 Occurrences starting 04/12/2022 until 04/12/2023 [facility] Work Phone: Comment on above: 1 Occurrences starting 04/12/2022 until 04/12/2023 End: 08-12-2024 Comprehensive metabolic 2000 panel - Serum or Plasma Comprehensive Metabolic Panel Lab Routine Hypertension, essential 1 Occurrences starting 08/13/2023 until 08/12/2024 [facility] Work Phone: Comment on above: 1 Occurrences starting 08/13/2023 until 08/12/2024 Comprehensive metabolic 2000 panel - Serum or Plasma Comprehensive Metabolic Panel Lab Routine Hypertension, essential 08/15/2024 7:[address] [facility] Comprehensive metabolic panel [AGGREGATE] [facility] Comment on above: Ordered: 06/03/[address] [facility] Comment on above: Ordered: 06/03/2018 End: 08-31-2020 Lipid 1996 panel Lipid Panel Lab Routine Hypertension, essential 1 Occurrences starting 09/01/2019 until 08/31/2020 [facility] Comment on above: 1 Occurrences starting 09/01/2019 until 08/31/2020 End: 08-09-2021 Lipid 1996 panel - Serum or Plasma Lipid Panel Lab Routine Hypertension, essential 1 Occurrences starting 08/09/2020 until 08/09/2021 [facility] Comment on above: 1 Occurrences starting 08/09/2020 until 08/09/2021 End: 08-11-2022 Lipid 1996 panel - Serum or Plasma Lipid Panel Lab Routine Hypertension, essential 1 Occurrences starting 08/11/2021 until 08/11/2022 [facility] Comment on above: 1 Occurrences starting 08/11/2021 until 08/11/2022 End: 08-08-2023 Lipid 1996 panel - Serum or Plasma Lipid Panel Lab Routine Hypertension, essential 1 Occurrences starting 08/07/2022 until 08/08/2023 [facility] Work Phone: Comment on above: 1 Occurrences starting 08/07/2022 until 08/08/2023 End: 08-12-2024 Lipid 1996 panel - Serum or Plasma Lipid Panel Lab Routine Hypertension, essential 1 Occurrences starting 08/13/2023 until 08/12/2024 [facility] Comment on above: 1 Occurrences starting 08/13/2023 until 08/12/2024 Lipid 1996 panel - Serum or Plasma Lipid Panel Lab Routine Hypercholesterolemia 08/15/2024 7:[address] [facility] Lipid panel Lipid Panel Rout ine Hypertension, benign Ordered: 06/01/2017 [facility] End: 10-17-2019 Radionuclide myocardial perfusion study NM Myocardial Perfusion Multiple SPECT Imaging Routine Preop cardiovascular exam 1 Occurrences starting 10/16/2018 until 10/17/2019 [facility] Comment on above: 1 Occurrences starting 10/16/2018 until 10/17/2019 REPAIR HERNIA HIATAL WITH SPHINCTER AUGMENTATION ROBOTIC XI REPAIR HERNIA HIATAL WITH SPHINCTER AUGMENTATION ROBOTIC XI Hiatal hernia with GERD without esophagitis [facility] End: 08-30-2024 SPECT Heart perfusion NM Myocardial Perfusion Multiple SPECT Imaging Routine Dyspnea on exertion 1 Occurrences starting 08/31/2023 until 08/30/2024 [facility] Work Phone: Comment on above: 1 Occurrences starting 08/31/2023 until 08/30/2024 End: 08-09-2021 Thyrotropin [Units/volume] in Serum or Plasma TSH Lab Routine Hypothyroidism, unspecified type 1 Occurrences starting 08/09/2020 until 08/09/2021 [facility] Comment on above: 1 Occurrences starting 08/09/2020 until 08/09/2021 End: 08-11-2022 Thyrotropin [Units/volume] in Serum or Plasma TSH with Reflex Free T4 Lab Routine Hypothyroidism, unspecified type 1 Occurrences starting 08/11/2021 until 08/11/2022 [facility] Comment on above: 1 Occurrences starting 08/11/2021 until 08/11/2022 End: 08-08-2023 Thyrotropin [Units/volume] in Serum or Plasma TSH with Reflex Free T4 Lab Routine Hypothyroidism, unspecified type 1 Occurrences starting 08/07/2022 until 08/08/2023 [facility] Comment on above: 1 Occurrences starting 08/07/2022 until 08/08/2023 End: 08-12-2024 Thyrotropin [Units/volume] in Serum or Plasma TSH with Reflex Free T4 Lab Routine Hypothyroidism, unspecified type 1 Occurrences starting 08/13/2023 until 08/12/2024 [facility] Comment on above: 1 Occurrences starting 08/13/2023 until 08/12/2024 Thyrotropin [Units/volume] in Serum or Plasma TSH with Reflex Free T4 Lab Routine Hypothyroidism, unspecified type 08/15/2024 7:[address] [facility] Work Phone: Thyrotropin Qn TSH Routine Hypo thyroidism, unspecified type Ordered: 06/03/2018 [facility] Comment on above: Ordered: 06/03/2018 TSH TSH Routine Hypo thyroidism, unspecified type Ordered: 06/01/2017 [facility] End: 08-31-2020 TSH Qn TSH Lab Routine Hypothyroidism, unspecified type 1 Occurrences starting 09/01/2019 until 08/31/2020 [facility] Comment on above: 1 Occurrences starting 09/01/2019 until 08/31/2020 End: 06-01-2021 X-ray of left ankle XR Ankle Left 3+ Views (Standard) Imaging Routine Closed fracture of left ankle, initial encounter 1 Occurrences starting 06/01/2020 until 06/01/2021 [facility] Comment on above: 1 Occurrences starting 06/01/2020 until 06/01/2021 End: 07-13-2021 X-ray of left ankle XR Ankle Left 3+ Views (Standard) Imaging Routine Closed fracture of left ankle with routine healing, subsequent encounter 1 Occurrences starting 07/13/2020 until 07/13/2021 [facility] Comment on above: 1 Occurrences starting 07/13/2020 until 07/13/2021 Immunizations Immunization Date Immunization Notes Care Provider Hugo charles 01-30-2023 Respiratory Syncytia l Virus Vaccine, Adjuvanted (Arexvy/RSV), Historical Brandon Sebastián DO Work Phone: [facility] 12-05-2022 Influenza IIV4 high dose 65 and Older Chas Huitron MD Work Phone: [facility] 12-05-2022 influenza virus vacc ine, unspecified formulation Brandon Sebastián DO Work Phone: [facility] 01-03-2021 Moderna SARS-CoV-2 Vaccination Brandon Sebastián DO Work Phone: [facility] 12-07-2020 Influenza IIV4 high dose 65 and Older Brandonshanta Lowery DO Work Phone: [facility] 12-07-2020 influenza, high dose seasonal, preservative-free Elicia Martinez MANAGER [employer]ING Work Phone: [facility] [facility] 12-07-2020 flu vacc [id number] 5yr up,-PF (FLUZONE HIGH-DOSE) syringe Elicia Martinez MANAGER STRATEGIC SOURCING Work Phone: [facility] Work Phone: 05-03-2020 Moderna SARS-CoV-2 Vaccination Brandon Gonsalveswell DO Work Phone: [facility] 04-06-2020 Moderna SARS-CoV-2 Vaccination Brandon Gonsalveswell DO Work Phone: [facility] 12-22-2019 Influenza IIV4 high dose 65 and Older Brandon Lowery DO Work Phone: [facility] 12-22-2019 influenza, high dose seasonal, preservative-free Brandon Lowery DO Work Phone: [facility] 12-11-2018 Seasonal trivalent influenza vaccine, adjuvanted, preservative free America Rios [facility] 11-23-2017 Influenza, injectabl e, Madin Giulia Canine Kidney, quadrivalent with preservative Brandon Lowery [facility] 11-13-2017 influenza, seasonal, injectable Brandon Lowery [facility] 01-01-2017 influenza, injectabl e, quadrivalent, preservative [facility]2016 pneum[facility]a te [facility], 13 [facility]ent [facility]2015 pneumococcal polysaccharide vaccine, [address] [facility] 03-29-2014 zoster vaccine, live Jak Dillardkaron [facility] 12-17-2012 influenza virus vacc ine, unspecified formulation Brandon Lowery [facility] 12-29-2011 influenza virus vacc ine, whole virus [facility] 12-23-2010 influenza virus vacc ine, whole virus Brandon [facility] 03-03-2009 novel influenza-H1N1 -09, preservative-free, injectable Brandon [facility] Payers Date Payer Category Payer Self-pay 2021 Medicare PPO [employer] MEDICARE P STEVEN (PPO) [id number] 2021 Private Health Insurance [id number] 2019 Medicare [id number] 2019 Medicare [id number] 2015 Medicare MEDICARE MEDICAR E PART A xxxxxxxxxxx 2015-Present [place] xxxxxxxxxxx [id number] 2015 Medicare [id number] [id number]. [id number] 2015 Medicare [id number] 2013 Unknown [id number] 2013 Unknown MMO MED MUTUAL S UPERMED PPO [id number] 2013-[address] [place] [address] [id number]. [id number] 2013 Unknown [id number] 1950 Unknown [id number] 2.16.840.1.651215.3.579.2. 903 1950 Unknown [id number] 2.16.840.1.275411.3.579.2. 900 1950 Unknown [id number] 2.16.840.1.280934.3.579.2. 902 1950 Unknown [id number] 2.16.840.1.046674.3.579.2. 903 1950 Unknown [id number] 2.16.840.1.468305.3.579.2. 903 1950 Unknown [id number] 2.16.840.1.244288.3.579.2. 903 1950 Unknown [id number] 2.16.840.1.953935.3.579.2. 903 1950 Unknown [id number] 2.16.840.1.785595.3.579.2. 903 1950 Unknown [id number] 2.16.840.1.145557.3.579.2. 903 1950 Unknown [id number] 2.16.840.1.382709.3.579.2. 903 1950 Unknown [id number] 2.16.840.1.520936.3.579.2. 903 1950 Unknown [id number] 2.16.840.1.023872.3.579.2. 903 1950 Unknown [id number] 2.16.840.1.910049.3.579.2. 903 1950 Unknown [id number] 2..840.1.904219.3.579.2. 903 1950 Unknown [id number] 2..840.1.521716.3.579.2. 903 Medicare xxxxxxxxxx 2..[id number] Medicare [id number] Unknown [id number] 2..840.1.124110.3.579.2. 462 Social History Date Type Detail Facility Start: 06-04-2017 End: 12-31-2023 Tobacco smoking status NVIS Former smoker [facility] Start: 02-02-1969 End: 02-02-1999 History of tobacco use Current smoker [facility] Work Phone: Start: 02-02-1969 End: 02-02-1999 History of tobacco use Cigarette Smoker [facility] Start: 06-04-2017 End: 04-12-2022 Cigarettes smoked current (pack per day) - Reported [facility] Start: 1950 Sex Assigned At Not on file [facility] Work Phone: Start: 06-03-2018 End: 04-12-2022 History SDOH Social Connections Get Together 2 [facility] Start: 06-03-2018 End: 04-12-2022 History SDOH Food Worry 1 [facility] Start: 10-23-2018 End: 08-15-2024 Alcohol intake Current non-drinker of alcohol (finding) [facility] Start: 07-25-2021 End: 08-02-2022 Exposure to SARS-CoV-2 (event) Not sure [facility] Start: 11-20-2019 End: 12-31-2023 Tobacco use and exposure Never used [facility] Start: 08-11-2021 History SDOH Alcohol Std Drinks 0 [facility] Start: 04-12-2022 History SDOH Financial 4 [facility] Start: 12-07-2020 End: 04-12-2022 Social connection and isolation panel [facility] Frequency of Communication with Friends and Family Not on file [facility] How often to you hav e a drink containing alcohol? Never [facility] How hard is it for y ou to pay for the very basics like food, housing, medical care, and heating Not very hard [facility] (I/We) worried wheth er (my/our) food would run out before (I/we) got money to buy more. Never true [facility] Start: 11-27-2017 Gender identity Identifies as female gender (finding) [facility] Start: 11-27-2017 Sexual orientation Heterosexual (finding) [facility] Medical Equipment Procedure Code Equipment Code Equipment Origin al Text Equipment Identifier Dates Cup 46mm Cluster Abreu Trident Psl - [id number], [id number] FDA Start: 11-14-2018 Insert 32mm Szd 10deg Trident X3 - [id number], [id number] FDA Start: 11-14-2018 Stem 127deg Sz2 Fem Accolade Ii - [id number], [id number] FDA Start: 11-14-2018 Head 32mm/-4 Fem V40 Biolox Delta - [id number], [id number] FDA Start: 11-14-2018 Junior Cf Capsule [id number], [id number]_[facility] FDA Start: 05-09-2022 Comment on above: Description: Placed at 28 Mesh 7 X 10cm Resorbable Phasix St - Sna ()[id number](21)[id number], [id number]_[facility] FDA Start: 06-19-2022 Band 16 Esophage al Magnetic - Sna [id number](21)[id number], [id number]_[facility] FDA Start: 06-19-2022 Clinical Notes 04-12-2016 to 08-18-2024 Telephone Encounter - Catherine Lainez CMA - 08/18/2024 6:55 AM EDTTelephone Encounter - Catherine Lainez CMA - 08/18/2024 6:55 AM EDTBBrandon teran DO - 08/18/2024 6:48 AM EDT Note Date & Type Note Facility 08-18-2024 Telephone encounter Note Sent my chart message with results. [facility] 08-18-2024 Miscellaneous Notes Sent my chart message with results. documented in this encounter [facility] 08-18-2024 Note Cbc,cmp,lipids and t hyroid are normal thanks. AUTHENTICATED BY BRANDON LOWERY, ON 08/18/2024 06:48:15 [facility] 08-18-2024 History of Present illness Narrative Cbc,cmp,lipids and thyroid are normal thanks. documented in this encounter [facility] 08-15-2024 Instructions Brandon Lowery DO - 08/15/2024 7:21 AM EDT Images from the original note were not included. Thank you for choosing our office for your Medicare Wellness Visit. Below you will find the plans we discussed today for your future medical treatments. Please keep this plan in a visible location so you can refer to it often and let our office know if you have any questions. 5-Year Plan Health Maintenance Topic Date Due Tetanus: Every 10yrs Never done COVID-19 Vaccine ( season) 2024 Medicare Wellness Visit 08/12/2024 Lipid Panel 08/12/2024 Depression Screening/Follow-Up (PHQ-2/9) 08/16/2024 (Originally 04/12/2023) Mammogram 02/28/2025 Falls Risk Assessment 08/13/2025 Pap Smear 10/03/2025 Colorectal Cancer Screening/Monitoring 01/22/2029 Hepatitis C Screening Completed Respiratory Syncytial Virus Immunization: Risk, 60-74 Risk, or 75+ Completed Pneumococcal Vaccine: Age 50+ Completed Dexa Scan Completed Zoster Vaccines Completed Influenza Vaccine Completed Learning About Living Munoz What is a living will? A living will, also called a declaration, is a legal form. It tells your family and your doctor your wishes when you can't speak for yourself. It's used by the health professionals who will treat you as you near the end of your life or if you get seriously hurt or ill. If you put your wishes in writing, your loved ones and others will know what kind of care you want. They won't need to guess. This can ease your mind and be helpful to others. And you can change or cancel your living will at any time. A living will is not the same as an estate or property will. An estate will explains what you want to happen with your money and property after you . How do you use it? Keep these facts in mind about how a living will is used. Your living will is used only if you can't speak or make decisions for yourself. Most often, one or more doctors must certify that you can't speak or decide for yourself before your living will takes effect. If you get better and can speak for yourself again, you can accept or refuse any treatment. It doesn't matter what you said in your living will. Some states may limit your right to refuse treatment in certain cases. For example, you may need to clearly state in your living will that you don't want artificial hydration and nutrition, such as being fed through a tube. Is a living will a legal document? A living will is a legal document. Each state has its own laws about living munoz. And a living will may be called something else in your state. Here are some things to know about living munoz. You don't need an workers compensation defense attorney to complete a living will. But legal advice can be helpful if your state's laws are unclear. It can also help if your health history is complicated or your family can't agree on what should be in your living will. You can change your living will at any time. Some people find that their wishes about end-of-life care change as their health changes. If you make big changes to your living will, complete a new form. If you move to another state, make sure that your living will is legal in the state where you now live. In most cases, doctors will respect your wishes even if you have a form from a different state. You might use a universal form that has been approved by many states. This kind of form can sometimes be filled out and stored online. Your digital copy will then be available wherever you have a connection to the internet. The doctors and nurses who need to treat you can find it right away. Your state may offer an online registry. This is another place where you can store your living will online. It's a good idea to get your living will notarized. This means using a person called a Bringme to watch two people sign, or witness, your living will. What should you know when you create a living will? Here are some questions to ask yourself as you make your living will. Do you know enough about life support methods that might be used? If not, talk to your doctor so you know what might be done if you can't breathe on your own, your heart stops, or you can't swallow. What things would you still want to be able to do after you receive life-support methods? Would you want to be able to walk? To speak? To eat on your own? To live without the help of machines? Do you want certain pentecostal practices performed if you become very ill? If you have a choice, where do you want to be cared for? In your home? At a hospital or senior living? If you have a choice at the end of your life, where would you prefer to ? At home? In a hospital or senior living? Somewhere else? Would you prefer to be buried or cremated? Do you want your organs to be donated after you ? What should you do with your living will? Make sure that your family members and your health care agent have copies of your living will (also called a declaration). Give your doctor a copy of your living will. Ask to have it kept as part of your medical record. If you have more than one doctor, make sure that each one has a copy. Put a copy of your living will where it can be easily found. For example, some people may put a copy on their refrigerator door. If you are using a digital copy, be sure your doctor, family members, and health care agent know how to find and access it. Where can you learn more? Scan the Langtice code or Log into your personal health record on [email or web address] Ratings /inside.asp?mode=crr and enter K356 in the [employer] Library Search box and click the green Search button to learn more about "Learning About Living Munoz." Current as of: May 04, 2023 Content Version: 14.4 Locappy. Care instructions adapted under license by your healthcare professional. If you have questions about a medical condition or this instruction, always ask your healthcare professional. [employer] disclaims any warranty or liability for your use of this information. Learning About Being Physically Active What is physical activity? Being physically active means doing any kind of activity that gets your body moving. The types of physical activity that can help you get fit and stay healthy include: Aerobic or "cardio" activities. These make your heart beat faster and make you breathe harder, such as brisk walking, riding a bike, or running. They strengthen your heart and lungs and build up your endurance. Strength training activities. These make your muscles work against, or "resist," something. Examples include lifting weights or doing push-ups. These activities help tone and strengthen your muscles and bones. Stretches. These let you move your joints and muscles through their full range of motion. Stretching helps you be more flexible. Reaching a balance between these three types of physical activity is important because each one contributes to your overall fitness. What are the benefits of being active? Being active is one of the best things you can do for your health. It helps you to: Feel stronger and have more energy to do all the things you like to do. Focus better at school or work. Feel, think, and sleep better. Reach and stay at a healthy weight. Lose fat and build lean muscle. Lower your risk for serious health problems, including diabetes, heart attack, high blood pressure, and some cancers. Keep your heart, lungs, bones, muscles, and joints strong and healthy. How can you make being active part of your life? Start slowly. Make it your long-term goal to get at least 30 minutes of exercise on most days of the week. Walking is a good choice. You also may want to do other activities, such as running, swimming, cycling, or playing tennis or team sports. Pick activities that you like--ones that make your heart beat faster, your muscles stronger, and your muscles and joints more flexible. If you find more than one thing you like doing, do them all. You don't have to do the same thing every day. Get your heart pumping every day. Any activity that makes your heart beat faster and keeps it at that rate for a while counts. Here are some great ways to get your heart beating faster: Go for a brisk walk, run, or hike. Go for a swim or bike ride. Take an online exercise class or dance. Play a game of touch football, basketball, or soccer. Play tennis, pickleball, or racquetball. Climb stairs. Even some autism specialist can be aerobic. Just do them at a faster pace. Raking or mowing the lawn, sweeping the garage, and vacuuming and cleaning your home all can help get your heart rate up. Strengthen your muscles during the week. You don't have to lift heavy weights or grow big, bulky muscles to get stronger. Doing a few simple activities that make your muscles work against, or "resist," something can help you get stronger. Aim for at least twice a week. For example, you can: Do push-ups or sit-ups, which use your own body weight as resistance. Lift weights or dumbbells or use stretch bands at home or in a gym or community center. Stretch your muscles often. Stretching will help you as you become more active. It can help you stay flexible and loosen tight muscles. It can also help improve your balance and posture and can be a great way to relax. Be sure to stretch the muscles you'll be using when you work out. It's best to warm your muscles slightly before you stretch them. Walk or do some other light aerobic activity for a few minutes. Then start stretching. When you stretch your muscles: Do it slowly. Stretching is not about going fast or making sudden movements. Don't push or bounce during a stretch. Hold each stretch for at least 15 to 30 seconds, if you can. You should feel a stretch in the muscle, but not pain. Breathe out as you do the stretch. Then breathe in as you hold the stretch. Don't hold your breath. If you're worried about how more activity might affect your health, have a checkup before you start. Follow any special advice your doctor gives you for getting a smart start. Where can you learn more? Scan the QR code or Log into your personal health record on [email or web address]/[email or web address] Ratings /inside.asp?mode=crr and enter W332 in the [employer] Library Search box and click the green Search button to learn more about "Learning About Being Physically Active." Current as of: October 03, 2023 Content Version: 14.4 Locappy. Care instructions adapted under license by your healthcare professional. If you have questions about a medical condition or this instruction, always ask your healthcare professional. [employer] disclaims any warranty or liability for your use of this information. During your visit today, you were counseled about Advance Care Planning. Please visit this website for forms: [email or web address] documented in this encounter [facility] 08-15-2024 History of Present illness Narrative Images from the original note were not included. 08/15/2024 6:00 AM PHQ-9 Review Little interest or pleasure in doing things 0 Feeling down, depressed, or hopeless 0 PHQ-2 Total Score 0 Rationale: Overweight (Findings) BMIDiscussed elevated Body Mass Index (BMI): Advised regular exercise.Discussed elevated Body Mass Index (BMI): Advised healthy and appropriate diet.Subjective: Sandy Pradhan is a 74 y.o. female here for a Medicare Annual Wellness Visit. HPI 74 yo with htn/hypothyroid here for yearly wellness, labs. Taking care of getting weaker ankles no falls. Psoriasis under control with [facility] at [facility]. Bp well controlled hydrochlorothiazide 12.5 daily, synthroid 100, zoloft daily helps,. Review of Systems Constitutional: Negative for chills, fever and unexpected weight change. HENT: Negative for ear pain, rhinorrhea, sinus pain and voice change. Eyes: Negative for discharge and redness. Respiratory: Negative for apnea, cough, chest tightness and shortness of breath. Cardiovascular: Negative for chest pain and palpitations. Gastrointestinal: Negative for abdominal pain, blood in stool and constipation. Endocrine: Negative for cold intolerance and heat intolerance. Genitourinary: Negative for dysuria and frequency. Musculoskeletal: Negative for joint swelling. Skin: Negative for color change and pallor. Allergic/Immunologic: Negative for food allergies. Neurological: Positive for weakness (ankles). Negative for dizziness, tremors and seizures. Hematological: Negative for adenopathy. Psychiatric/Behavioral: Negative for behavioral problems and sleep disturbance. Reviewed by Provider: Care Team Patient Care Team: Brandon Lowery DO as PCP - General (Family Medicine) Man Brady II, MD as Consulting Physician (Ophthalmology) Rubio Leon PA-C (Physician Pony Edger) Nini Meza CNP as Nurse Practitioner (Obstetrics/Gynecology) Kimani Simon MD as Consulting Physician (General Surgery) Pharmacy / Equipment Co. (DME) [facility] - [address] [address] [facility] #[facility] - [place], [place] - [address] [facility] [address] [facility] [id number] Medicare Risk Assessment Do you have an Advanced Directive (Living Will and/or Durable Power of Auto Body Worker for Health Care)? If not, would you like more information about Advanced Directives?: (Patient-Rptd) Yes What is your exercise level?: (Patient-Rptd) None What is your diet?: (Patient-Rptd) Regular Can you prepare your own meals?: (Patient-Rptd) Yes Do you have trouble with finding transportation?: (Patient-Rptd) No Because of any health problems, do you need the help of another person with your personal care needs? (For example, eating, bathing, dressing, or getting around the house.): (Patient-Rptd) No Does your home have any of the following?: (!) (Patient-Rptd) Throw Rugs Does your home have grab bars in bathrooms or handrails on stairs and steps?: (Patient-Rptd) Both grab bars in the bathroom and Handrails on the stairs During the past four weeks, how would you rate your health in general?: (Patient-Rptd) Very Good Whether or not you use a hearing aid, do you think you have a hearing problem or do others think you have a hearing problem?: (Patient-Rptd) No Whether or not you use glasses or contacts, do you have difficulty driving, watching television, reading, or doing any of your daily activities because of your eyesight?: (Patient-Rptd) No In the past six months, have you had an unexplained weight loss of 10 pounds or more?: (Patient-Rptd) No Do you take your medications as prescribed?: (Patient-Rptd) I do not miss doses of my medications During the past four weeks, how much have you been bothered by emotional problems such as feeling anxious, depressed, irritable, sad, or downhearted and blue?: (!) (Patient-Rptd) Moderately During the past four weeks, has your physical and emotional health limited your social activites with family, friends, neighbors, or groups? : (Patient-Rptd) Slightly Provider/Supplier Name and Specialty: (Patient-Rptd) Nini Lopez ([facility]), Rubio Leon ([facility]), Dr. Borja ([facility]) Falls Risk Assessment Is Patient Ambulatory?: (Patient-Rptd) Y Fell in past year: (Patient-Rptd) 0 (No) Unsteady when walks: (Patient-Rptd) 1 (Yes) Worried about falling: (Patient-Rptd) 1 (Yes) Advised to use cane/walker?: (Patient-Rptd) 0 (No) Holds onto furniture/johnston: (Patient-Rptd) 0 (No) Uses hands to stand up from a chair: (Patient-Rptd) 1 (Yes) Trouble stepping onto curb: (Patient-Rptd) 0 (No) Rushes to toilet: (Patient-Rptd) 0 (No) Lost feeling in feet: (Patient-Rptd) 0 (No) Medicine makes me light-headed: (Patient-Rptd) 0 (No) Medicine for sleep or mood: (Patient-Rptd) 1 (Yes) Often feel sad/depressed: (Patient-Rptd) 1 (Yes) Patient Self Risk Assessment Score: (Patient-Rptd) 5 Have you had your vision checked in the past 12 months?: (Patient-Rptd) Yes Medicare Mini Cog Step 1: Three Word Registration Version Used: Version 5: Captain, Garden, Picture Step 2: Clock Drawing Step 2 score: Normal clock - 2 points Clock has all numbers placed in the correct sequence & position (e.g., 12, 3, 6 and 9 are in anchor positions) with no missing or duplicate numbers. Hands are pointing to the 11 & 2 (11:10). Hand length is not scored. Step 3: Three Word Recall Say: What were the three words I asked you to remember? : Captain, Garden, Picture Record patient's answers to the right: Captain, Garden, Picture Step 3: Three Word Recall Score: 3 Words Recalled Total score = Word Recall score + Clock Draw score A cut point of <3 on the Mini-Cog has been validated for dementia screening, but many individuals with clinically meaningful cognitive impairment will score higher. A cut point of <4 may indicate a need for further evaluation of cognitive status.: 5 5-Year Plan: Health Maintenance Topic Date Due Tetanus: Every 10yrs Never done COVID-19 Vaccine ( season) 2024 Medicare Wellness Visit 08/12/2024 Lipid Panel 08/12/2024 Depression Screening/Follow-Up (PHQ-2/9) 08/16/2024 (Originally 04/12/2023) Mammogram 02/28/2025 Falls Risk Assessment 08/13/2025 Pap Smear 10/03/2025 Colorectal Cancer Screening/Monitoring 01/22/2029 Hepatitis C Screening Completed Respiratory Syncytial Virus Immunization: Risk, 60-74 Risk, or 75+ Completed Pneumococcal Vaccine: Age 50+ Completed Dexa Scan Completed Zoster Vaccines Completed Influenza Vaccine Completed Immunization History Administered Date(s) Administered H1N1 Inj Preservative Free 03/03/2009 INFLUENZA IIV3 65+YO FLUAD [id number] 12/11/2018 INFLUENZA IIV4 6MO OR > FLUARIX/FLUZONE/AFLURIA [id number] 01/01/2017 INFLUENZA QUAD 4YO OR >FLUCELVAX QUAD [id number] 11/23/2017 Influenza IIV4 high dose 65 and Older 12/22/2019, 12/07/2020, 12/05/2022 Influenza Whole 12/23/2010, 12/29/2011 Influenza, Unspecified 12/17/2012 Moderna Bivalent Booster:6-11 YRS 0.25mL; 12+YRS 0.5mL 12/01/2021 Moderna COVID-19 vaccine ( 12 years or older) 01/30/2023, 12/15/2023 Moderna SARS-CoV-2 Vaccination 04/06/2020, 05/03/2020, 01/03/2021 Pneumococcal Conjugate 13-Valent (Prevnar 13) 04/24/2016 Pneumococcal Polysaccharide (Pneumovax 23) 01/07/2015 Respiratory Syncytial Virus Vaccine, Adjuvanted (Arexvy/RSV), Historical 01/30/2023 Zoster (Zostavax) 03/29/2014 Objective: BP 130/64 (BP Location: Left arm, Patient Position: Sitting, BP Cuff Size: Adult) Pulse 65 Temp 98.4 F (36.9 C) (Oral) Ht 5' 1" Wt 70.8 kg (156 lb) SpO2 95% BMI 29.48 kg/m Hearing/Vision Screen No results found. Physical Exam Vitals reviewed. Constitutional: Appearance: Normal appearance. She is well-developed. She is not ill-appearing. HENT: Head: Normocephalic and atraumatic. Right Ear: Tympanic membrane, ear canal and external ear normal. Left Ear: Tympanic membrane, ear canal and external ear normal. Nose: Nose normal. Mouth/Throat: Mouth: Mucous membranes are moist. Eyes: Extraocular Movements: Extraocular movements intact. Conjunctiva/sclera: Conjunctivae normal. Pupils: Pupils are equal, round, and reactive to light. Cardiovascular: Rate and Rhythm: Normal rate and regular rhythm. Heart sounds: Normal heart sounds. No murmur heard. Pulmonary: Effort: Pulmonary effort is normal. Breath sounds: Normal breath sounds. No wheezing. Chest: Chest wall: No tenderness. Abdominal: General: Bowel sounds are normal. Palpations: Abdomen is soft. There is no mass. Tenderness: There is no abdominal tenderness. There is no guarding or rebound. Musculoskeletal: General: No tenderness or deformity. Cervical back: Normal range of motion and neck supple. Lymphadenopathy: Cervical: No cervical adenopathy. Skin: General: Skin is warm and dry. Findings: No rash. Neurological: Mental Status: She is alert and oriented to person, place, and time. Mental status is at baseline. Deep Tendon Reflexes: Reflexes are normal and symmetric. Psychiatric: Mood and Affect: Mood normal. Behavior: Behavior normal. Thought Content: Thought content normal. Judgment: Judgment normal. Assessment/Plan: Diagnoses and all orders for this visit: Routine general medical examination at a health care facility. Shots for age, area agency on aging as community resource, yearly eye, hearing evaluation, mammogram yearly and dexascan every 2 yrs care gaps reviewed. Power of workers compensation defense attorney, living munoz. Hypercholesterolemia - Lipid Panel Hypertension, essential cont same stable - Comprehensive Metabolic Panel - CBC and Differential Hypothyroidism, unspecified type cont same ankle/extensor leg exercises taught. - TSH with Reflex Free T4 Vaccination counseling provided but patient/guardian declined. Discussed elevated Body Mass Index (BMI): Advised regular exercise. Discussed elevated Body Mass Index (BMI): Advised healthy and appropriate diet. Rationale: Overweight (Findings) BMI No follow-ups on file. Patient Instructions (the written plan) and additional handouts provided to the patient with their After Visit Summary. Brandon Lowery DO [place] [phone] documented in this encounter [facility] 02-18-2024 Telephone encounter Note Patient was returning a call about her . While on the phone patient stated that she had a prescription of Tessalon on file at the pharmacy and she went to refill it and was told the office cancelled it. I informed patient that what probably happened was the medication was marked as not taking and removed from chart. Then it automatically cancelled at the pharmacy. Patient would like a prescription on file at the pharmacy to fill as needed. Med qued up [facility] 02-18-2024 Miscellaneous Notes Patient was returning a call about her . While on the phone patient stated that she had a prescription of Tessalon on file at the pharmacy and she went to refill it and was told the office cancelled it. I informed patient that what probably happened was the medication was marked as not taking and removed from chart. Then it automatically cancelled at the pharmacy. Patient would like a prescription on file at the pharmacy to fill as needed. Med qued up documented in this encounter [facility] 01-02-2024 History of Present illness Narrative Linx replacement card mailed to patient per her request. documented in this encounter [facility] 12-31-2023 Note [facility] [address] ([address]) [facility] [address] [facility] [id number] Patient: Sandy Pradhan Age: 73 y.o. Race: [1] Chief Complaint: Chief Complaint Patient presents with Colonoscopy 1. Family history of colon cancer Case Request Operating Room: COLONOSCOPY Date: 12/31/23 Physicians: Brandon Lowery DO (Family); No ref. provider found (Referring) HPI: This 73-year-old female whose father had colorectal cancer last underwent colonoscopy 5 years ago and repeat is recommended to her. She has noticed the caliber of her stool changed after her hiatal hernia repair last year and has remained narrow since. Now, for about 2 weeks, she has pain with sitting or walking that begins with bowel movements. She has started stool softeners. YES NO [] [x] Change in bowel habits? [] [x] Constipation [] [x] Diarrhea? [] [x] Blood in stool? [] [x] Mucus in your stool? [x] [] Decrease in caliber of your stool? [] [x] Heme positive stool [] [x] Have you recently been diagnosed with anemia by your family doctor? [] [x] Do you have any family members with a history of Colon Cancer? Past Histories: Allergies: Hydrocodone Patient's Medications New Prescriptions No medications on file Previous Medications ALENDRONATE (FOSAMAX) 70 MG TABLET Take 1 (one) tablet (70 mg total) by mouth every 7 days . ATORVASTATIN (LIPITOR) 40 MG TABLET Take 1 (one) tablet (40 mg total) by mouth daily . B COMPLEX VITAMINS TABLET Take 1 (one) tablet by mouth daily NOON . HYDROCHLOROTHIAZIDE 12.5 MG TABLET TAKE 1 TABLET DAILY LACTOBACILLUS ACIDOPHILUS (PROBIOTIC ORAL) Take 1 capsule by mouth daily Digestive Advantage PM . LATANOPROST (XALATAN) 0.005 % OPHTHALMIC SOLUTION Administer 1 (one) drop to both eyes nightly . LEVOTHYROXINE (SYNTHROID, LEVOTHROID) 100 MCG TABLET TAKE 1 TABLET DAILY MELATONIN 1 MG TAB Take 1 (one) tablet (1 mg total) by mouth nightly . MULTIVITAMIN (THERAGRAN) PER TABLET Take 1 (one) tablet by mouth daily NOON . RISANKIZUMAB-RZAA (SKYRIZI) 150 MG/ML PEN Inject under the skin Once every 90 days Last dose 04/19/2022 . SERTRALINE (ZOLOFT) 25 MG TABLET Take 1 (one) tablet (25 mg total) by mouth daily PM . 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 Hypothyroidism Hypertension, essential Status post total replacement of left hip Family history of colon cancer Pharyngoesophageal dysphagia Hiatal hernia with GERD without esophagitis Depression Obesity (BMI 30.0-34.9) Past Medical History: Diagnosis Date Acute non-recurrent maxillary sinusitis 03/12/2019 Anxiety Arthritis of left hip 08/12/2018 Added automatically from request for surgery [id number] Ataxia 05/19/2015 Bleeding gums Bloating 04/26/2022 Added automatically from request for surgery [id number] Bone spur C3-C6 posterior decompression and fusion 08/24/15 Bronchitis Bursitis of left hip [address] Bray last shot 09/2017 Cataract Chest pain 07/25/2022 Chronic kidney disease Constipation Degenerative disc disease, cervical C3-C6 posterior decompression and fusion 08/24/15 Depression meds Difficulty walking Fibroids SANTY / BSO Gaseous regurgitation 04/26/2022 Added automatically from request for surgery [id number] GERD (gastroesophageal reflux disease) Glaucoma Greater trochanteric bursitis of left hip 06/04/2017 Heartburn 04/26/2022 Added automatically from request for surgery [id number] History of burning pain in leg burning in legs/knees giving out, s/p MRI 03/2015 Hoarseness 04/26/2022 Added automatically from request for surgery [id number] Hypertension Hypothyroid Impaired vision Insomnia meds Kidney stone Leg weakness Osteoarthritis of knees, bilateral to have b/l knee replacement Pre-op examination 06/07/2022 Psoriasis 12/2013 Trillium Creeck on [place] Shortness of breath 04/26/2022 Added automatically from request for surgery [id number] Tooth infection Weakness of both arms Past Surgical History: Procedure Laterality Date APPENDECTOMY ARTHROPLASTY HIP ROBOTIC DINO Left 11/14/2018 Procedure: Left Total Hip Replacement Robotic; Surgeon: Issac Bray MD; Location: [facility] OR; Service: Ortho-Robotics BREAST REDUCTION BREAST SURGERY 08/2014 CARPAL TUNNEL RELEASE Left 04/14/2014 Alex COLONOSCOPY 11/18/2013 normal....Donell COLONOSCOPY N/A 12/31/2018 Normal...Donell EGD N/A 12/31/2018 Procedure: ESOPHAGOGASTRODUODENOSCOPY; Surgeon: Cori Marquez MD; Location: [facility]; Service: General Surgery EGD N/A 05/09/2022 Procedure: ESOPHAGOGASTRODUODENOSCOPY WITH BIOPSY AND JUNIOR; Surgeon: Kimani Simon MD; Location: Endo; Service: General Surgery ESOPHAGEAL MANOMET (more content not included)... [facility] [place] 12-31-2023 History of Present illness Narrative [facility] [address] (11) [facility] [address] [facility] [phone] Patient: Sandy Pradhan Age: 73 y.o. Race: [1] Chief Complaint: Chief Complaint Patient presents with Colonoscopy 1. Family history of colon cancer Case Request Operating Room: COLONOSCOPY Date: 12/31/23 Physicians: Brandon Lowery DO (Family); No ref. provider found (Referring) HPI: This 73-year-old female whose father had colorectal cancer last underwent colonoscopy 5 years ago and repeat is recommended to her. She has noticed the caliber of her stool changed after her hiatal hernia repair last year and has remained narrow since. Now, for about 2 weeks, she has pain with sitting or walking that begins with bowel movements. She has started stool softeners. YES NO [] [x] Change in bowel habits? [] [x] Constipation [] [x] Diarrhea? [] [x] Blood in stool? [] [x] Mucus in your stool? [x] [] Decrease in caliber of your stool? [] [x] Heme positive stool [] [x] Have you recently been diagnosed with anemia by your family doctor? [] [x] Do you have any family members with a history of Colon Cancer? Past Histories: Allergies: Hydrocodone Patient's Medications New Prescriptions No medications on file Previous Medications ALENDRONATE (FOSAMAX) 70 MG TABLET Take 1 (one) tablet (70 mg total) by mouth every 7 days . ATORVASTATIN (LIPITOR) 40 MG TABLET Take 1 (one) tablet (40 mg total) by mouth daily . B COMPLEX VITAMINS TABLET Take 1 (one) tablet by mouth daily NOON . HYDROCHLOROTHIAZIDE 12.5 MG TABLET TAKE 1 TABLET DAILY LACTOBACILLUS ACIDOPHILUS (PROBIOTIC ORAL) Take 1 capsule by mouth daily Digestive Advantage PM . LATANOPROST (XALATAN) 0.005 % OPHTHALMIC SOLUTION Administer 1 (one) drop to both eyes nightly . LEVOTHYROXINE (SYNTHROID, LEVOTHROID) 100 MCG TABLET TAKE 1 TABLET DAILY MELATONIN 1 MG TAB Take 1 (one) tablet (1 mg total) by mouth nightly . MULTIVITAMIN (THERAGRAN) PER TABLET Take 1 (one) tablet by mouth daily NOON . RISANKIZUMAB-RZAA (SKYRIZI) 150 MG/ML PEN Inject under the skin Once every 90 days Last dose 04/19/2022 . SERTRALINE (ZOLOFT) 25 MG TABLET Take 1 (one) tablet (25 mg total) by mouth daily PM . 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 Hypothyroidism Hypertension, essential Status post total replacement of left hip Family history of colon cancer Pharyngoesophageal dysphagia Hiatal hernia with GERD without esophagitis Depression Obesity (BMI 30.0-34.9) Past Medical History: Diagnosis Date Acute non-recurrent maxillary sinusitis 03/12/2019 Anxiety Arthritis of left hip 08/12/2018 Added automatically from request for surgery [id number] Ataxia 05/19/2015 Bleeding gums Bloating 04/26/2022 Added automatically from request for surgery [id number] Bone spur C3-C6 posterior decompression and fusion 08/24/15 Bronchitis Bursitis of left hip [address] Bray last shot 09/2017 Cataract Chest pain 07/25/2022 Chronic kidney disease Constipation Degenerative disc disease, cervical C3-C6 posterior decompression and fusion 08/24/15 Depression meds Difficulty walking Fibroids SANTY / BSO Gaseous regurgitation 04/26/2022 Added automatically from request for surgery [id number] GERD (gastroesophageal reflux disease) Glaucoma Greater trochanteric bursitis of left hip 06/04/2017 Heartburn 04/26/2022 Added automatically from request for surgery [id number] History of burning pain in leg burning in legs/knees giving out, s/p MRI 03/2015 Hoarseness 04/26/2022 Added automatically from request for surgery [id number] Hypertension Hypothyroid Impaired vision Insomnia meds Kidney stone Leg weakness Osteoarthritis of knees, bilateral to have b/l knee replacement Pre-op examination 06/07/2022 Psoriasis 12/2013 Trillium Creeck on [place] Shortness of breath 04/26/2022 Added automatically from request for surgery [id number] Tooth infection Weakness of both arms Past Surgical History: Procedure Laterality Date APPENDECTOMY ARTHROPLASTY HIP ROBOTIC DINO Left 11/14/2018 Procedure: Left Total Hip Replacement Robotic; Surgeon: Issac Bray MD; Location: [facility]; Service: Ortho-Robotics BREAST REDUCTION BREAST SURGERY 08/2014 CARPAL TUNNEL RELEASE Left 04/14/2014 Alex COLONOSCOPY 11/18/2013 normal....Donell COLONOSCOPY N/A 12/31/2018 Normal...Donell EGD N/A 12/31/2018 Procedure: ESOPHAGOGASTRODUODENOSCOPY; Surgeon: Cori Marquez MD; Location: [facility]; Service: General Surgery EGD N/A 05/09/2022 Procedure: ESOPHAGOGASTRODUODENOSCOPY WITH BIOPSY AND JUNIOR; Surgeon: Kimani Simon MD; Location: [facility]; Service: General Surgery ESOPHAGEAL MANOMETRY N/A 05/09/2022 Procedure: ESOPHAGEAL MANOMETRY; Surgeon: Kimani Simon MD; Location: [facility]; Service: General Surgery EYE SURGERY Bilateral 02/2021 Cataract JOINT REPLACEMENT 03/2013 and 11/2018 Knees and left hip KNEE REPLACEMENT PARTIAL (UNICOMPARTMENTAL KNEE) bilateral knees LAMINECTOMY DECOMPRESSION POSTERIOR CERVICAL WITH FUSION 2-3 LEVELS 08/24/2015 C3-C6 PROLONGED ACID REFLUX TEST 48H PH N/A 05/09/2022 Procedure: PROLONGED ACID REFLUX TEST 48H PH; Surgeon: Kimani Simon MD; Location: Endo; Service: General Surgery REPAIR HERNIA HIATAL WITH SPHINCTER AUGMENTATION ROBOTIC XI N/A 06/19/2022 Procedure: REPAIR HERNIA HIATAL WITH MESH AND LINX SPHINCTER AUGMENTATION ROBOTIC XI; Surgeon: Kimani Simon MD; Location: [facility] OR; Service: Gen-Robotics SKIN BIOPSY Benign TOTAL ABDOMINAL HYSTERECTOMY 04/13/2003 SANTY-BSO for uterine fibroids. TUBAL LIGATION Bilateral 1981 Social History Socioeconomic History Marital status: Tobacco Use Smoking status: Former Current packs/day: 0.00 Average packs/day: 1 pack/day for 30.0 years (30.0 ttl pk-yrs) Types: Cigarettes Start date: 02/02/1969 Quit date: 02/02/1999 Years since quittin.9 Smokeless tobacco: Never Vaping Use Vaping status: Never Used Substance and Sexual Activity Alcohol use: No Drug use: Never Sexual activity: Not Currently Social Drivers of Health Financial Resource Strain: Low Risk (04/12/2022) Overall Financial Resource Strain (CARDIA) Difficulty of Paying Living Expenses: Not very hard Food Insecurity: No Food Insecurity (04/12/2022) Hunger Vital Sign Worried About Running Out of Food in the Last Year: Never true Ran Out of Food in the Last Year: Never true Transportation Needs: No Transportation Needs (04/12/2022) PRAPARE - Transportation Lack of Transportation (Medical): No Lack of Transportation (Non-Medical): No Social Connections: Unknown (12/07/2020) Social Connection and Isolation Panel [NHANES] Frequency of Social Gatherings with Friends and Family: Once a week Data Unavailable Social History Tobacco Use Smoking Status Former Current packs/day: 0.00 Average packs/day: 1 pack/day for 30.0 years (30.0 ttl pk-yrs) Types: Cigarettes Start date: 02/02/1969 Quit date: 02/02/1999 Years since quittin.9 Smokeless Tobacco Never Social History Substance and Sexual Activity Alcohol Use No Social History Substance and Sexual Activity Drug Use Never Family History Problem Relation Age of Onset Stroke Mother Arthritis Father Other Father C DIFF Colorectal cancer Father Heart disease Paternal Uncle REVIEW OF SYSTEMS Pertinent positives and negatives are listed in HPI, PMSH, SH, ALL above and in "Details" below. The following systems were reviewed: [x] Const (fevers, chills, wt. loss, fatigue) [x] CV (HTN, CP, KIRAN, edema, DVT) [x] Resp (SOB, pleurisy, asthma, apnea) [x] GI (N, V, D, C, M, abd pain, appetite) [x] Musc (back pain, joint stiffness, gout) [x] Neuro (seizures, syncope, paralysis) [x] Psych (depression, anxiety) [x] Endo (hot/cold intol, polyuria[DM]) [x] Hem/Lymph (Anemia, LA, bleeding) [x] Allerg/Immun (seasonal, immuniz) [x] Eyes (diplopia, cataracts) [x] ENT/mouth (dysphagia, epistaxis) [x] (dysuria, hematuria) [x] Skin/Breast (moles, rash, lumps, nipple changes) Details: See scanned ROS Physical Exam: BP (!) 144/84 Pulse 76 Ht 5' 1" Wt 72.1 kg (159 lb) SpO2 96% BMI 30.04 kg/m Body mass index is 30.04 kg/m . HEENT: PERRLA EOMI MMM anicteric Neck: supple without thyromegaly or masses Cardiac: regular rate and rhythm without murmur Lungs: clear to auscultation Back: negative CVA tenderness Abdomen: normoactive bowel sounds, soft, nondistended, nontender, no masses, organomegaly, rebound, or guarding Extremities: no cyanosis, clubbing, or edema Neuro: awake, alert, oriented 3, normal affect, no focal deficits Assessment: Family history of colon cancer I am suspicious of an anal fissure. Plan: Colonoscopy The procedure, risks, and benefits were discussed with the patient in detail. The patient seemed to understand everything that we discussed, and agreed to proceed. She will start Metamucil twice daily and is already taking stool softeners. I will also prescribe Xylocaine ointment to be placed before bowel movements and as needed. 1. Family history of colon cancer Case Request Operating Room: COLONOSCOPY Orders Placed This Encounter Procedures Case Request Operating Room: COLONOSCOPY Cori Marquez MD documented in this encounter [facility] 12-27-2023 Note [facility] [place] PATIENT: Sandy Pradhan DATE / TIME: 12/27/23 1:15 PM POS: Office AGE: 73 y.o. : 1950 RACE: [1] SEX: female PCP: Brandon Lowery DO REFERRAL: No ref. provider found TOS: SUBJECTIVE: The patient returns for follow-up after undergoing a marshmallow and bagel esophagram. The results are as follows: FINDINGS: LINX reflux management ring in place. Single swallow of barium contrast shows adequate passage through the esophagus and GE channel with no esophageal dilatation. Trials with both the marshmallow and bagel consistencies showed the majority of the food material to be retained within the nondilated esophagus after the initial swallows. With subsequent dry swallows, most of the food material passes through the esophagus. Small amount of residual within the distal esophagus clears with a liquid barium wash. Swallowing views of the pharynx and cervical esophagus in AP and lateral projections showed adequate passage of the contrast with no esophageal webs or diverticula. There are postoperative changes of posterior cervical decompression and fusion C3 through C6. IMPRESSION: 1. Adequate passage of liquid barium through the esophagus. 2. Majority of the food material was retained within the esophagus following the initial swallows but subsequently cleared with additional dry swallows and single liquid barium wash. Overall the patient tells me that her esophageal dysphagia symptoms are relatively minor. She recognizes that if she slows down into her eating, chews well, and takes time between bites that she has significantly less dysphagia. OBJECTIVE: BP (!) 147/78 Pulse 80 Ht 5' 1" Wt 72 kg (158 lb 12.8 oz) SpO2 90% BMI 30.00 kg/m ASSESSMENT: Esophageal dysphagia status post LINX PLAN: I discussed pneumatic dilation versus observation. At this point the patient does not feel her dysphagia is severe enough to undergo procedure. She will call if her dysphagia worsens. At that time we would schedule her for a pneumatic dilation of her LINX. AUTHENTICATED BY KIMANI SIMON, ON 12/27/2023 13:18:20 [facility] 08-31-2023 Instructions Shahana Dominguez RN - 08/31/2023 11:40 AM EDT NUCLEAR MEDICINE CARDIAC STRESS TEST THIS IS A 3-4 HOUR TEST Instructions: Appointment Time: , ____/____/____ at ____:____ Prep: DO NOT Take your morning medications. Please bring your morning medications with you. NO CAFFEINE FOR 24 HOURS prior to your test. This includes drinks labeled decaffeinated. Nothing to eat 4 hours prior to your test. A small snack will be provided (crackers, granola bar, juice), or you may bring your own snack for after your stress test. You may drink fluids leading up to your test as long as they are caffeine-free. Decaffeinated drinks still contain some caffeine, please do not drink anything containing caffeine for 24 hours. NO SMOKING the day of your test. Wear comfortable shoes and clothing for exercising. Please wear short sleeves. No metal buttons or snaps. Procedure: Check-in/Registration. Please bring photo ID, insurance cards, and any physician orders. Test explained in detail and IV started. Stress test performed, nuclear medicine will be injected through your IV during the stress test. Stress test recovery period. Heart scan performed. The doctor will review the pictures of your heart and decide if more pictures are needed before you leave. If more are needed you will get another injection of nuclear medicine and this will take an additional hour. The total time for this test is 3-4 hours. There are medications that interfere with this test. You may be instructed to hold medications. If so that will be listed here: If you have any further questions please contact your care team or [phone]. How to contact your Care Team: Provider: Etelvina Edge MD Nurse: Shahana Dominguez RN BSN In case of an emergency please call 911. REFILLS: When in need for refills please call your care team or the office at [phone]. Please include medication name, pharmacy name, and specify 30-day or 90-day supply. Please check with your pharmacy within 24 hours of request for your refill. You must follow up as directed to continue current refills. Thank you! documented in this encounter [facility] 08-31-2023 Note OFFICE CONSULTATION NOTE [facility] [address] ([address]) [facility] [address] [facility] [phone] Physicians: Brandon Lowery DO (Family); Brandon Lowery DO (Referring) Subjective: Sandy Pradhan is a 73 y.o. female seen in the office today for Establish Care (Per Dr. Lowery for dyspnea on exertion) . HPI patient referred for KIRAN. When she walks up an incline she notices more. On level ground she can walk pretty much unlimited. Her weights been stable. She denies associated chest pains. No history of orthopnea. No history of edema. She has a calculated risk for atherosclerotic vascular disease 15% she was placed on Lipitor recently. Assessment/Plan dyspnea on exertion. She has had bilateral knee replacement and left hip replacement. She should have a stress study but doubts if she could walk on a treadmill and therefore a pharmacologic nuclear stress is ordered. ECG: Normal Reviewed personally No problem-specific Assessment & Plan notes found for this encounter. Follow Up Ordered: No follow-ups on file. Patient's Medications New Prescriptions No medications on file Previous Medications ALENDRONATE (FOSAMAX) 70 MG TABLET Take 1 (one) tablet (70 mg total) by mouth every 7 days . ATORVASTATIN (LIPITOR) 40 MG TABLET Take 1 (one) tablet (40 mg total) by mouth daily . B COMPLEX VITAMINS TABLET Take 1 (one) tablet by mouth daily NOON . HYDROCHLOROTHIAZIDE 12.5 MG TABLET TAKE 1 TABLET DAILY LACTOBACILLUS ACIDOPHILUS (PROBIOTIC ORAL) Take 1 capsule by mouth daily Digestive Advantage PM . LATANOPROST (XALATAN) 0.005 % OPHTHALMIC SOLUTION Administer 1 (one) drop to both eyes nightly . LEVOTHYROXINE (SYNTHROID, LEVOTHROID) 100 MCG TABLET TAKE 1 TABLET DAILY MELATONIN 1 MG TAB Take 1 (one) tablet (1 mg total) by mouth nightly . MULTIVITAMIN (THERAGRAN) PER TABLET Take 1 (one) tablet by mouth daily NOON . RISANKIZUMAB-RZAA (SKYRIZI) 150 MG/ML PEN Inject under the skin Once every 90 days Last dose 04/19/2022 . SERTRALINE (ZOLOFT) 25 MG TABLET Take 1 (one) tablet (25 mg total) by mouth daily PM . Modified Medications No medications on file Discontinued Medications No medications on file Histories: Past Medical History: Diagnosis Date Acute non-recurrent maxillary sinusitis 03/12/2019 Anxiety Arthritis of left hip 08/12/2018 Added automatically from request for surgery [id number] Ataxia 05/19/2015 Bleeding gums Bloating 04/26/2022 Added automatically from request for surgery [id number] Bone spur C3-C6 posterior decompression and fusion 08/24/15 Bronchitis Bursitis of left hip [address] Bray last shot 09/2017 Cataract Chest pain 07/25/2022 Chronic kidney disease Constipation Degenerative disc disease, cervical C3-C6 posterior decompression and fusion 08/24/15 Depression meds Difficulty walking Fibroids SANTY / BSO Gaseous regurgitation 04/26/2022 Added automatically from request for surgery [id number] GERD (gastroesophageal reflux disease) Glaucoma Greater trochanteric bursitis of left hip 06/04/2017 Heartburn 04/26/2022 Added automatically from request for surgery [id number] History of burning pain in leg burning in legs/knees giving out, s/p MRI 03/2015 Hoarseness 04/26/2022 Added automatically from request for surgery [id number] Hypertension Hypothyroid Impaired vision Insomnia meds Kidney stone Leg weakness Osteoarthritis of knees, bilateral to have b/l knee replacement Pre-op examination 06/07/2022 Psoriasis 12/2013 Trillium Creeck on Ozella Shortness of breath 04/26/2022 Added automatically from request for surgery [id number] Teeth problem Tooth infection Weakness of both arms Past Surgical History: Procedure Laterality Date APPENDECTOMY ARTHROPLASTY HIP ROBOTIC DINO Left 11/14/2018 Procedure: Left Total Hip Replacement Robotic; Surgeon: Issac Bray MD; Location: Main OR; Service: Ortho-Robotics BREAST REDUCTION BREAST SURGERY 08/2014 CARPAL TUNNEL RELEASE Left 04/14/2014 Alex COLONOSCOPY 11/18/2013 normal....Donell COLONOSCOPY N/A 12/31/2018 Procedure: COLONOSCOPY; Surgeon: Cori Marquez MD; Location: [facility] OR; Service: General Surgery EGD N/A 12/31/2018 Procedure: ESOPHAGOGASTRODUODENOSCOPY; Surgeon: Cori Marquez MD; Location: [facility] OR; Service: General Surgery EGD N/A 05/09/2022 Procedure: ESOPHAGOGASTRODUODENOSCOPY WITH BIOPSY AND JUNIOR; Surgeon: Kimani Simon MD; Location: Endo; Service: General Surgery ESOPHAGEAL MANOMETRY N/A 05/09/2022 Procedure: ESOPHAGEAL MANOMETRY; Surgeon: Kimani Simon MD; Location: Endo; Service: General Surgery EYE SURGERY Bilateral 02/2021 Cataract HERNIA REPAIR 06/19/2022 JOINT REPLACEMENT 03/2013 and 11/2018 Knees and hip KNEE REPLACEMENT PARTIA (more content not included)... [facility] 08-31-2023 History of Present illness Narrative OFFICE CONSULTATION NOTE [facility] [address]) [facility] [address] [facility] [id number] Physicians: Brandon Lowery DO (Family); Brandon Lowery DO (Referring) Subjective: Sandy Pradhan is a 73 y.o. female seen in the office today for Establish Care (Per Dr. Lowery for dyspnea on exertion) . HPI patient referred for KIRAN. When she walks up an incline she notices more. On level ground she can walk pretty much unlimited. Her weights been stable. She denies associated chest pains. No history of orthopnea. No history of edema. She has a calculated risk for atherosclerotic vascular disease 15% she was placed on Lipitor recently. Assessment/Plan dyspnea on exertion. She has had bilateral knee replacement and left hip replacement. She should have a stress study but doubts if she could walk on a treadmill and therefore a pharmacologic nuclear stress is ordered. ECG: Normal Reviewed personally No problem-specific Assessment & Plan notes found for this encounter. Follow Up Ordered: No follow-ups on file. Patient's Medications New Prescriptions No medications on file Previous Medications ALENDRONATE (FOSAMAX) 70 MG TABLET Take 1 (one) tablet (70 mg total) by mouth every 7 days . ATORVASTATIN (LIPITOR) 40 MG TABLET Take 1 (one) tablet (40 mg total) by mouth daily . B COMPLEX VITAMINS TABLET Take 1 (one) tablet by mouth daily NOON . HYDROCHLOROTHIAZIDE 12.5 MG TABLET TAKE 1 TABLET DAILY LACTOBACILLUS ACIDOPHILUS (PROBIOTIC ORAL) Take 1 capsule by mouth daily Digestive Advantage PM . LATANOPROST (XALATAN) 0.005 % OPHTHALMIC SOLUTION Administer 1 (one) drop to both eyes nightly . LEVOTHYROXINE (SYNTHROID, LEVOTHROID) 100 MCG TABLET TAKE 1 TABLET DAILY MELATONIN 1 MG TAB Take 1 (one) tablet (1 mg total) by mouth nightly . MULTIVITAMIN (THERAGRAN) PER TABLET Take 1 (one) tablet by mouth daily NOON . RISANKIZUMAB-RZAA (SKYRIZI) 150 MG/ML PEN Inject under the skin Once every 90 days Last dose 04/19/2022 . SERTRALINE (ZOLOFT) 25 MG TABLET Take 1 (one) tablet (25 mg total) by mouth daily PM . Modified Medications No medications on file Discontinued Medications No medications on file Histories: Past Medical History: Diagnosis Date Acute non-recurrent maxillary sinusitis 03/12/2019 Anxiety Arthritis of left hip 08/12/2018 Added automatically from request for surgery [id number] Ataxia 05/19/2015 Bleeding gums Bloating 04/26/2022 Added automatically from request for surgery [id number] Bone spur C3-C6 posterior decompression and fusion 08/24/15 Bronchitis Bursitis of left hip [address] Bray last shot 09/2017 Cataract Chest pain 07/25/2022 Chronic kidney disease Constipation Degenerative disc disease, cervical C3-C6 posterior decompression and fusion 08/24/15 Depression meds Difficulty walking Fibroids SANTY / BSO Gaseous regurgitation 04/26/2022 Added automatically from request for surgery [id number] GERD (gastroesophageal reflux disease) Glaucoma Greater trochanteric bursitis of left hip 06/04/2017 Heartburn 04/26/2022 Added automatically from request for surgery [id number] History of burning pain in leg burning in legs/knees giving out, s/p MRI 03/2015 Hoarseness 04/26/2022 Added automatically from request for surgery [id number] Hypertension Hypothyroid Impaired vision Insomnia meds Kidney stone Leg weakness Osteoarthritis of knees, bilateral to have b/l knee replacement Pre-op examination 06/07/2022 Psoriasis 12/2013 Trillium Creeck on [place] Shortness of breath 04/26/2022 Added automatically from request for surgery [id number] Teeth problem Tooth infection Weakness of both arms Past Surgical History: Procedure Laterality Date APPENDECTOMY ARTHROPLASTY HIP ROBOTIC DINO Left 11/14/2018 Procedure: Left Total Hip Replacement Robotic; Surgeon: Issac Bray MD; Location: [facility] OR; Service: Ortho-Robotics BREAST REDUCTION BREAST SURGERY 08/2014 CARPAL TUNNEL RELEASE Left 04/14/2014 Alex COLONOSCOPY 11/18/2013 normal....Donell COLONOSCOPY N/A 12/31/2018 Procedure: COLONOSCOPY; Surgeon: Cori Marquez MD; Location: [facility] OR; Service: General Surgery EGD N/A 12/31/2018 Procedure: ESOPHAGOGASTRODUODENOSCOPY; Surgeon: Cori Marquez MD; Location: [facility]; Service: General Surgery EGD N/A 05/09/2022 Procedure: ESOPHAGOGASTRODUODENOSCOPY WITH BIOPSY AND JUNIOR; Surgeon: Kimani Simon MD; Location: [facility]; Service: General Surgery ESOPHAGEAL MANOMETRY N/A 05/09/2022 Procedure: ESOPHAGEAL MANOMETRY; Surgeon: Kimani Simon MD; Location: [facility]; Service: General Surgery EYE SURGERY Bilateral 02/2021 Cataract HERNIA REPAIR 06/19/2022 JOINT REPLACEMENT 03/2013 and 11/2018 Knees and hip KNEE REPLACEMENT PARTIAL (UNICOMPARTMENTAL KNEE) bilateral knees LAMINECTOMY DECOMPRESSION POSTERIOR CERVICAL WITH FUSION 2-3 LEVELS 08/24/2015 C3-C6 PROLONGED ACID REFLUX TEST 48H PH N/A 05/09/2022 Procedure: PROLONGED ACID REFLUX TEST 48H PH; Surgeon: Kimani Simon MD; Location: Endo; Service: General Surgery REPAIR HERNIA HIATAL WITH SPHINCTER AUGMENTATION ROBOTIC XI N/A 06/19/2022 Procedure: REPAIR HERNIA HIATAL WITH MESH AND LINX SPHINCTER AUGMENTATION ROBOTIC XI; Surgeon: Kimani Simon MD; Location: [facility] OR; Service: Gen-Robotics SKIN BIOPSY Benign TOTAL ABDOMINAL HYSTERECTOMY 04/13/2003 SANTY-BSO for uterine fibroids. TUBAL LIGATION Bilateral 1981 Family History Problem Relation Age of Onset Stroke Mother Cancer Father Colon cancer Arthritis Father Other Father C DIFF Colorectal cancer Father Heart disease Paternal Uncle Social History Tobacco Use Smoking status: Former Current packs/day: 0.00 Average packs/day: 1 pack/day for 30.0 years (30.0 ttl pk-yrs) Types: Cigarettes Start date: 02/02/1969 Quit date: 02/02/1999 Years since quittin.5 Smokeless tobacco: Never Vaping Use Vaping status: Never Used Substance Use Topics Alcohol use: No Drug use: Never Allergies Allergen Reactions Hydrocodone GI Intolerance Review of Systems Constitutional: Negative. HENT: Negative. Eyes: Negative. Cardiovascular: Negative for palpitations. Respiratory: Negative. Endocrine: Negative. Skin: Negative. Musculoskeletal: Negative. Gastrointestinal: Negative. Genitourinary: Negative. Neurological: Negative. Psychiatric/Behavioral: Negative. All other systems reviewed and are negative. Overview of Problems Addressed: No problems updated. Objective: Vitals: There were no vitals taken for this visit. Physical Exam Constitutional: Appearance: Normal appearance. HENT: Head: Normocephalic and atraumatic. Nose: Nose normal. Eyes: Extraocular Movements: Extraocular movements intact. Pupils: Pupils are equal, round, and reactive to light. Cardiovascular: Rate and Rhythm: Normal rate and regular rhythm. Pulses: Normal pulses. Heart sounds: Normal heart sounds. Pulmonary: Effort: Pulmonary effort is normal. Breath sounds: Normal breath sounds. Abdominal: General: Abdomen is flat. Bowel sounds are normal. Palpations: Abdomen is soft. Musculoskeletal: General: Normal range of motion. Cervical back: Normal range of motion and neck supple. Skin: General: Skin is warm and dry. Neurological: General: No focal deficit present. Mental Status: She is alert and oriented to person, place, and time. Mental status is at baseline. 1. KIRAN (dyspnea on exertion) 2. Dyspnea on exertion Etelvina Edge MD 08/31/2023 Review of Systems Cardiovascular: Positive for dyspnea on exertion. All other systems reviewed and are negative. documented in this encounter [facility] 08-13-2023 Instructions Brandon Lowery DO - 08/13/2023 7:52 AM EDT Images from the original note were not included. Thank you for choosing our office for your Medicare Wellness Visit. Below you will find the plans we discussed today for your future medical treatments. Please keep this plan in a visible location so you can refer to it often and let our office know if you have any questions. 5-Year Plan Health Maintenance Topic Date Due Tetanus: Every 10yrs Never done Urine Microalbumin Never done Zoster Vaccines (2 of 3) 05/24/2014 COVID-19 Vaccine ( season) 2023 Wellness Visit 08/08/2023 Lipid Panel 08/08/2023 Mammogram 02/22/2024 Falls Risk Assessment 08/05/2024 Pap Smear 10/03/2025 Colorectal Cancer Screening/Monitoring 12/31/2028 Hepatitis C Screening Completed Pneumococcal Vaccine: Age 65+ Completed Dexa Scan Completed Influenza Vaccine Completed I recommend getting the new shingles vaccine (Shingrix) at the pharmacy - Medicare sometimes pays for it by only at the pharmacy. Be aware when scheduling that it more commonly causes side effects of fever, body aches, etc. for a day or so after, especially the second dose. Learning About Being Physically Active What is physical activity? Being physically active means doing any kind of activity that gets your body moving. The types of physical activity that can help you get fit and stay healthy include: Aerobic or "cardio" activities. These make your heart beat faster and make you breathe harder, such as brisk walking, riding a bike, or running. They strengthen your heart and lungs and build up your endurance. Strength training activities. These make your muscles work against, or "resist," something. Examples include lifting weights or doing push-ups. These activities help tone and strengthen your muscles and bones. Stretches. These let you move your joints and muscles through their full range of motion. Stretching helps you be more flexible. Reaching a balance between these three types of physical activity is important because each one contributes to your overall fitness. What are the benefits of being active? Being active is one of the best things you can do for your health. It helps you to: Feel stronger and have more energy to do all the things you like to do. Focus better at school or work. Feel, think, and sleep better. Reach and stay at a healthy weight. Lose fat and build lean muscle. Lower your risk for serious health problems, including diabetes, heart attack, high blood pressure, and some cancers. Keep your heart, lungs, bones, muscles, and joints strong and healthy. How can you make being active part of your life? Start slowly. Make it your long-term goal to get at least 30 minutes of exercise on most days of the week. Walking is a good choice. You also may want to do other activities, such as running, swimming, cycling, or playing tennis or team sports. Pick activities that you like--ones that make your heart beat faster, your muscles stronger, and your muscles and joints more flexible. If you find more than one thing you like doing, do them all. You don't have to do the same thing every day. Get your heart pumping every day. Any activity that makes your heart beat faster and keeps it at that rate for a while counts. Here are some great ways to get your heart beating faster: Go for a brisk walk, run, or hike. Go for a swim or bike ride. Take an online exercise class or dance. Play a game of touch football, basketball, or soccer. Play tennis, pickleball, or racquetball. Climb stairs. Even some autism specialist can be aerobic. Just do them at a faster pace. Raking or mowing the lawn, sweeping the garage, and vacuuming and cleaning your home all can help get your heart rate up. Strengthen your muscles during the week. You don't have to lift heavy weights or grow big, bulky muscles to get stronger. Doing a few simple activities that make your muscles work against, or "resist," something can help you get stronger. Aim for at least twice a week. For example, you can: Do push-ups or sit-ups, which use your own body weight as resistance. Lift weights or dumbbells or use stretch bands at home or in a gym or community center. Stretch your muscles often. Stretching will help you as you become more active. It can help you stay flexible and loosen tight muscles. It can also help improve your balance and posture and can be a great way to relax. Be sure to stretch the muscles you'll be using when you work out. It's best to warm your muscles slightly before you stretch them. Walk or do some other light aerobic activity for a few minutes. Then start stretching. When you stretch your muscles: Do it slowly. Stretching is not about going fast or making sudden movements. Don't push or bounce during a stretch. Hold each stretch for at least 15 to 30 seconds, if you can. You should feel a stretch in the muscle, but not pain. Breathe out as you do the stretch. Then breathe in as you hold the stretch. Don't hold your breath. If you're worried about how more activity might affect your health, have a checkup before you start. Follow any special advice your doctor gives you for getting a smart start. Where can you learn more? Log into your personal health record on [email or web address]://[email or web address].[email or web address] and enter W332 in the "Education" box to learn more about "Learning About Being Physically Active." Current as of: August 07, 2022 Content Version: 14.1 [email or web address]. Care instructions adapted under license by your healthcare professional. If you have questions about a medical condition or this instruction, always ask your healthcare professional. [email or web address] disclaims any warranty or liability for your use of this information. During your visit today, you were counseled about Advance Care Planning. Please visit this website for forms: [email or web address] documented in this encounter [facility] 08-13-2023 History of Present illness Narrative Rationale: Overweight (Findings) BMIDiscussed elevated Body Mass Index (BMI): Advised regular exercise.Discussed elevated Body Mass Index (BMI): Advised healthy and appropriate diet.Subjective: Sandy Pradhan is a 73 y.o. female here for a Medicare Annual Wellness Visit. HPI 73 yo with kiran with any incline, no chest pains,pnd/orthopnea/edema. Here for wellness, fasting labs. Getting shingles shot today and goes to [facility] for dexascan and mammograms. Review of Systems Constitutional: Negative for chills and fatigue. HENT: Negative for mouth sores and sinus pressure. Eyes: Negative for pain and visual disturbance. Respiratory: Positive for shortness of breath. Negative for cough. Cardiovascular: Negative for chest pain and palpitations. Endocrine: Negative for polydipsia, polyphagia and polyuria. Genitourinary: Negative for dysuria and hematuria. Musculoskeletal: Negative. Skin: Negative for rash. Neurological: Negative for dizziness and light-headedness. Hematological: Negative for adenopathy. Psychiatric/Behavioral: Negative for behavioral problems and self-injury. The patient is nervous/anxious (stable on zoloft from [facility]). Reviewed by Provider: Meds Care Team Patient Care Team: Brandon Lowery DO as PCP - General (Family Medicine) Man Brady II, MD as Consulting Physician (Ophthalmology) Rubio Leon PA-C (Physician Pony Edger) Nini Meza CNP as Nurse Practitioner (Obstetrics/Gynecology) Kimani Simon MD as Consulting Physician (General Surgery) Pharmacy / Equipment Co. (DME) [id number] [place], [place] - [address] [place] [address] AT [facility] [address] [facility] [address] [employer] [facility] [place], [place] [address] [facility] [address] [facility] [address] [facility] - [place], [place] - [address] [facility] [address] [facility] [address] Medicare Risk Assessment Do you have an Advanced Directive (Living Will and/or Durable Power of Auto Body Worker for Health Care)? If not, would you like more information about Advanced Directives?: Yes What is your exercise level?: Light (like stretching/slow walking) What is your diet?: Regular Can you prepare your own meals?: Yes Do you have trouble with finding transportation?: No Because of any health problems, do you need the help of another person with your personal care needs? (For example, eating, bathing, dressing, or getting around the house.): No Does your home have throw rugs, poor lighting or slippery bathtub or shower?: (!) Throw Rugs Does your home have grab bars in bathrooms or handrails on stairs and steps?: Both grab bars in the bathroom and Handrails on the stairs During the past four weeks, how would you rate your health in general?: Very Good Whether or not you use a hearing aid, do you think you have a hearing problem or do others think you have a hearing problem?: No Whether or not you use glasses or contacts, do you have difficulty driving, watching television, reading, or doing any of your daily activities because of your eyesight?: No In the past six months, have you had an unexplained weight loss of 10 pounds or more?: No Do you take your medications as prescribed?: I do not miss doses of my medications During the past four weeks, how much have you been bothered by emotional problems such as feeling anxious, depressed, irritable, sad, or downhearted and blue?: Slightly During the past four weeks, has your physical and emotional health limited your social activites with family, friends, neighbors, or groups? : Not at all Provider/Supplier Name and Specialty: Man Brady,ophthalmology; [facility] Falls Risk Assessment Is Patient Ambulatory?: Y Fell in past year: 0 (No) Unsteady when walks: 1 (Yes) Worried about fallin (No) Advised to use cane/walker?: 0 (No) Holds onto furniture/johnston: 0 (No) Uses hands to stand up from a chair: 0 (No) Trouble stepping onto curb: 1 (Yes) Rushes to toilet: 1 (Yes) Lost feeling in feet: 0 (No) Medicine makes me light-headed: 0 (No) Medicine for sleep or mood: 1 (Yes) Often feel sad/depressed: 1 (Yes) Patient Self Risk Assessment Score: 5 Have you had your vision checked in the past 12 months?: Yes Medicare Mini Cog Step 1: Three Word Registration Version Used: Version 4: Rommel Lowery Finger Step 2: Clock Drawing Step 2 score: Normal clock - 2 points Clock has all numbers placed in the correct sequence & position (e.g., 12, 3, 6 and 9 are in anchor positions) with no missing or duplicate numbers. Hands are pointing to the 11 & 2 (11:10). Hand length is not scored. Step 3: Three Word Recall Step 3: Three Word Recall Score: 3 Words Recalled Total score = Word Recall score + Clock Draw score A cut point of <3 on the Mini-Cog has been validated for dementia screening, but many individuals with clinically meaningful cognitive impairment will score higher. A cut point of <4 may indicate a need for further evaluation of cognitive status.: 5 5-Year Plan: Health Maintenance Topic Date Due Tetanus: Every 10yrs Never done Urine Microalbumin Never done Zoster Vaccines (2 of 3) 05/24/2014 COVID-19 Vaccine ( season) 2023 Wellness Visit 08/08/2023 Lipid Panel 08/08/2023 Mammogram 02/22/2024 Falls Risk Assessment 08/05/2024 Pap Smear 10/03/2025 Colorectal Cancer Screening/Monitoring 12/31/2028 Hepatitis C Screening Completed Pneumococcal Vaccine: Age 65+ Completed Dexa Scan Completed Influenza Vaccine Completed Immunization History Administered Date(s) Administered H1N1 Inj Preservative Free 03/03/2009 INFLUENZA IIV3 65+YO FLUAD [id number] 12/11/2018 INFLUENZA IIV4 6MO OR > FLUARIX/FLUZONE/AFLURIA [id number] 01/01/2017 INFLUENZA QUAD 4YO OR >FLUCELVAX QUAD [id number] 11/23/2017 Influenza IIV4 high dose 65 and Older 12/22/2019, 12/07/2020, 12/05/2022 Influenza Whole 12/23/2010, 12/29/2011 Influenza, Unspecified 12/17/2012 Moderna 3-24 COVID-19 vaccine 01/30/2023 Moderna Bivalent Booster:6-11 YRS 0.25mL; 12+YRS 0.5mL 12/01/2021 Moderna SARS-CoV-2 Vaccination 04/06/2020, 05/03/2020, 01/03/2021 Pneumococcal Conjugate 13-Valent (Prevnar 13) 04/24/2016 Pneumococcal Polysaccharide (Pneumovax 23) 01/07/2015 Respiratory Syncytial Virus Vaccine, Adjuvanted (Arexvy/RSV), Historical 01/30/2023 Zoster (Zostavax) 03/29/2014 Objective: BP 122/70 (BP Location: Left arm, Patient Position: Sitting, BP Cuff Size: Adult) Pulse 80 Temp 97.7 F (36.5 C) (Oral) Resp 16 Ht 5' 1" Wt 70.8 kg (156 lb 1.6 oz) SpO2 97% BMI 29.49 kg/m Hearing/Vision Screen No results found. Physical Exam Vitals reviewed. Constitutional: Appearance: Normal appearance. She is well-developed. She is not ill-appearing. HENT: Head: Normocephalic and atraumatic. Right Ear: Tympanic membrane, ear canal and external ear normal. Left Ear: Tympanic membrane, ear canal and external ear normal. Nose: Nose normal. Mouth/Throat: Mouth: Mucous membranes are moist. Pharynx: Oropharynx is clear. Eyes: Extraocular Movements: Extraocular movements intact. Conjunctiva/sclera: Conjunctivae normal. Pupils: Pupils are equal, round, and reactive to light. Cardiovascular: Rate and Rhythm: Normal rate and regular rhythm. Heart sounds: Normal heart sounds. No murmur heard. Pulmonary: Effort: Pulmonary effort is normal. Breath sounds: Normal breath sounds. No wheezing. Chest: Chest wall: No tenderness. Abdominal: Palpations: There is no mass. Tenderness: There is no rebound. Musculoskeletal: General: No tenderness or deformity. Cervical back: Normal range of motion and neck supple. Lymphadenopathy: Cervical: No cervical adenopathy. Skin: General: Skin is warm and dry. Neurological: Mental Status: She is alert and oriented to person, place, and time. Mental status is at baseline. Deep Tendon Reflexes: Reflexes are normal and symmetric. Psychiatric: Mood and Affect: Mood normal. Behavior: Behavior normal. Thought Content: Thought content normal. Judgment: Judgment normal. Assessment/Plan: Diagnoses and all orders for this visit: Routine general medical examination at a health care facility Power of workers compensation defense attorney, living munoz, yearly eye, hearing evaluation, [facility] agency on aging as community resource,. Yearly mammogram dexascan every couple years. Colonoscopy every [address] Marquez due to hx of family/dad/colon cancer. Hypertension, essential refer to dr. Lutz for KIRAN. - Comprehensive Metabolic Panel; Future - Lipid Panel; Future - CBC and Differential; Future Hypothyroidism, unspecified type - TSH with Reflex Free T4; Future Vaccination counseling provided but patient/guardian declined. Discussed elevated Body Mass Index (BMI): Advised regular exercise. Discussed elevated Body Mass Index (BMI): Advised healthy and appropriate diet. Rationale: Overweight (Findings) BMI No follow-ups on file. Patient Instructions (the written plan) and additional handouts provided to the patient with their After Visit Summary. Brandon Lowery DO [place] [phone] documented in this encounter [facility] 01-09-2023 History of Present illness Narrative Images from the original note were not included. HPI Non productive cough since November, no more chest discomfort, bp good at home now, no chest pains. Discharge summary below from 07/2022 reviewed advised to get out patient echo but is completely assymptomatic and no murmur on exam does not need echo. [facility] HISTORY AND PHYSICAL -- [facility] Patient Name: Sandy Pradhan : 1950 MR #: [id number] Admit Date: 07/24/2022 Physicians: Brandon Lowery DO (Family); No ref. provider found (Referring) Sandy Pradhan is a 72 y.o. female patient of Brandon Lowery DO with history of HTN , hiatal hernia status post recent repair also history of hypothyroidism and depression presented to [facility] with chest pain. Chest pain Will keep for observation Doubt CS Negative ECG and troponin Will check one more set Need consider recent hiatal hernia repair as the cause of pain HTN On hydrochlorothiazide Hypothyroidism On synthroid HH S/p robotic assisted laparoscopic hiatal hernia repair with mesh and LINX sphincter augmentation. Residence prior to admission: house or apartment Was patient transferred from outlying hospital or ED no hief Complaint chest pain History of Present Illness Sandy Pradhan is a 72 y.o. female patient of Brandon Loewry DO with history of HTN , hiatal hernia status post recent repair also history of hypothyroidism and depression presented to [facility] with chest pain. Patient states she was sitting watching TV around 9 PM last night when she had this sharp retrosternal pain rated at 7-8/10 radiate directly into her back lasted about 20 minutes and then resolved it was associated with some mild shortness of breath there was no dizziness palpitation there was no syncope there was no nausea or vomiting. She has no history of similar condition. She had a history of negative stress test 2019 and preoperative evaluation before an orthopedic surgery. Her blood pressures been high tonight but usually it is well controlled she only takes hydrochlorothiazide. The emergency room, she had stable vitals with temperature 98 heart rate 65 respirations 12 blood pressure 156/84 Troponin was 12 and EKG was normal sinus rhythm with no acute ischemic changes Procedure Orders EKG 12-lead [[id number]] ordered by Jacy More MD Signed Expand All Collapse All [facility] MED SURG ORTHOPEDICS ATTENDING NOTE: NAME: Sandy Pradhan CSN: [id number] 72 y.o. PCP: Brandon Lowery DO History: Chief Complaint: Chest Pain HPI: The history was obtained from the patient and spouse. Sandy is a 72 y.o. female with a history of hypertension and hiatal hernia repair with LINX procedure with Dr. Simon about a month ago who presents with a chief complaint of chest pain. She reports 20 minutes of sharp, central, nonradiating chest pain at 9:30 PM. It resolved spontaneously and is not currently present. There was some associated sweating. She took an antacid without immediate relief. She checked her blood pressure, and it was told to over 95, prompting the ER visit. She denies headache, vision changes, shortness of breath, or dizziness. Procedure Orders EKG 12-lead [[id number]] ordered by Jacy More MD Signed Expand All [facility] All [facility] MED SURG ORTHOPEDICS ATTENDING NOTE: NAME: Sandy Pradhan CSN: [id number] 72 y.o. PCP: Brandon Lowery DO History: Chief Complaint: Chest Pain HPI: The history was obtained from the patient and spouse. Sandy is a 72 y.o. female with a history of hypertension and hiatal hernia repair with LINX procedure with Dr. Simon about a month ago who presents with a chief complaint of chest pain. She reports 20 minutes of sharp, central, nonradiating chest pain at 9:30 PM. It resolved spontaneously and is not currently present. There was some associated sweating. She took an antacid without immediate relief. She checked her blood pressure, and it was told to over 95, prompting the ER visit. She denies headache, vision changes, shortness of breath, or dizziness. PMHx: Past Medical History: Diagnosis Date Acute non-recurrent maxillary sinusitis 03/12/2019 Anxiety Arthritis of left hip 08/12/2018 Added automatically from request for surgery [id number] Ataxia 05/19/2015 Bleeding gums Bone spur C3-C6 posterior decompression and fusion 08/24/15 Bronchitis Bursitis of left hip [address] Bray last shot 09/2017 Cataract Constipation Degenerative disc disease, cervical C3-C6 posterior decompression and fusion 08/24/15 Depression meds Difficulty walking Fibroids SANTY / BSO GERD (gastroesophageal reflux disease) Glaucoma Greater trochanteric bursitis of left hip 06/04/2017 History of burning pain in leg burning in legs/knees giving out, s/p MRI 03/2015 Hypertension Hypothyroid Impaired vision Insomnia meds Kidney stone Leg weakness Osteoarthritis of knees, bilateral to have b/l knee replacement Psoriasis 12/2013 Tr[facility] [place] on [place] Teeth problem Tooth infection Weakness of both arms PMSx: Past Surgical History: Procedure Laterality Date APPENDECTOMY ARTHROPLASTY HIP ROBOTIC DINO Left 11/14/2018 Procedure: Left Total Hip Replacement Robotic; Surgeon: Issac Bray MD; Location: Main OR; Service: Ortho-Robotics BREAST REDUCTION CARPAL TUNNEL RELEASE Left 04/14/2014 Alex COLONOSCOPY 11/18/2013 normal....Donell COLONOSCOPY N/A 12/31/2018 Procedure: COLONOSCOPY; Surgeon: Cori Marquez MD; Location: [facility] [place] OR; Service: General Surgery EGD N/A 12/31/2018 Procedure: ESOPHAGOGASTRODUODENOSCOPY; Surgeon: Cori Marquez MD; Location: [facility] [place] OR; Service: General Surgery EGD N/A 05/09/2022 Procedure: ESOPHAGOGASTRODUODENOSCOPY WITH BIOPSY AND JUNIOR; Surgeon: Kimani Simon MD; Location: Endo; Service: General Surgery ESOPHAGEAL MANOMETRY N/A 05/09/2022 Procedure: ESOPHAGEAL MANOMETRY; Surgeon: Kimani Simon MD; Location: Endo; Service: General Surgery EYE SURGERY Bilateral 02/2021 Cataract KNEE REPLACEMENT PARTIAL (UNICOMPARTMENTAL KNEE) bilateral knees LAMINECTOMY DECOMPRESSION POSTERIOR CERVICAL WITH FUSION 2-3 LEVELS 08/24/2015 C3-C6 PROLONGED ACID REFLUX TEST 48H PH N/A 05/09/2022 Procedure: PROLONGED ACID REFLUX TEST 48H PH; Surgeon: Kimani Simon MD; Location: Endo; Service: General Surgery REPAIR HERNIA HIATAL WITH SPHINCTER AUGMENTATION ROBOTIC XI N/A 06/19/2022 Procedure: REPAIR HERNIA HIATAL WITH MESH AND LINX SPHINCTER AUGMENTATION ROBOTIC XI; Surgeon: Kimani Simon MD; Location: Main OR; Service: Gen-Robotics SKIN BIOPSY Benign TOTAL ABDOMINAL HYSTERECTOMY 04/13/2003 SANTY-BSO for uterine fibroids. TUBAL LIGATION Bilateral 1981 FAM. Hx: Family History Problem Relation Age of Onset Stroke Mother Cancer Father Colon cancer Arthritis Father Other Father C DIFF Colorectal cancer Father Heart disease Paternal Uncle SOC. Hx: Social History Socioeconomic History Marital status: Tobacco Use Smoking status: Former Packs/day: 1.00 Years: 30.00 Pack years: 30.00 Types: Cigarettes Quit date: 02/02/1999 Years since quittin.4 Smokeless tobacco: Never Vaping Use Vaping Use: Never used Substance and Sexual Activity Alcohol use: No Drug use: Never Sexual activity: Not Currently Social Determinants of Health Financial Resource Strain: Low Risk (04/12/2022) Overall Financial Resource Strain (CARDIA) Difficulty of Paying Living Expenses: Not very hard Food Insecurity: No Food Insecurity (04/12/2022) Hunger Vital Sign Worried About Running Out of Food in the Last Year: Never true Ran Out of Food in the Last Year: Never true Transportation Needs: No Transportation Needs (04/12/2022) PRAPARE - Transportation Lack of Transportation (Medical): No Lack of Transportation (Non-Medical): No Social Connections: Unknown (12/07/2020) Social Connection and Isolation Panel [NHANES] Frequency of Social Gatherings with Friends and Family: Once a week MEDs: Previous Medications Medication Sig b complex vitamins tablet Take 1 (one) tablet by mouth daily NOON . hydroCHLOROthiazide (HYDRODIURIL) 12.5 MG tablet TAKE 1 TABLET DAILY Lactobacillus acidophilus (PROBIOTIC ORAL) Take by mouth Digestive Advantage PM . latanoprost (XALATAN) 0.005 % ophthalmic solution Administer 1 (one) drop to both eyes nightly . levothyroxine (SYNTHROID, LEVOTHROID) 100 MCG tablet Take 1 (one) tablet (100 mcg total) by mouth once daily . (Patient taking differently: Take 1 (one) tablet (100 mcg total) by mouth once daily AM .) multivitamin (THERAGRAN) per tablet Take 1 (one) tablet by mouth daily NOON . risankizumab-rzaa (Skyrizi) 150 mg/mL Pen Inject under the skin Once every 90 days Last dose 04/19/2022 . sertraline (ZOLOFT) 25 MG tablet Take 1 (one) tablet (25 mg total) by mouth daily PM . ALL: Allergies Allergen Reactions Hydrocodone GI Intolerance ROS: Review of Systems Constitutional: Positive for diaphoresis. Negative for chills, fever and unexpected weight change. HENT: Negative for sore throat, trouble swallowing and voice change. Eyes: Negative for pain, redness and visual disturbance. Respiratory: Negative for cough, shortness of breath and wheezing. Cardiovascular: Positive for chest pain. Negative for palpitations and leg swelling. Gastrointestinal: Negative for abdominal pain, constipation, diarrhea, nausea and vomiting. Genitourinary: Negative for dysuria, hematuria and urgency. Musculoskeletal: Negative for arthralgias and joint swelling. Skin: Negative for rash. Neurological: Negative for dizziness, seizures and headaches. All other systems reviewed and are negative. Positives and pertinent negatives as per HPI. All other systems were reviewed and are negative. Physical Exam: Patient Vitals for the past 24 hrs: BP Temp Temp src Pulse Resp SpO2 Height Weight 07/25/22 0830 -- -- -- -- 16 -- -- -- 07/25/22 0732 128/74 97.4 F (36.3 C) Oral 71 -- 94 % -- -- 07/25/22 0456 (!) 185/72 97.7 F (36.5 C) Oral 67 16 95 % -- -- 07/25/22 0455 -- -- -- -- 16 -- 5' 1" 68.5 kg (151 lb) 07/25/22 0430 136/88 -- -- 65 17 95 % -- -- 07/25/22 0400 137/71 -- -- 67 14 96 % -- -- 07/25/22 0330 (!) 148/76 -- -- 66 17 95 % -- -- 07/25/22 0300 (!) 158/75 -- -- 68 15 96 % -- -- 07/25/22 0230 (!) 171/83 -- -- 67 (!) 19 97 % -- -- 07/25/22 0200 (!) 164/83 -- -- 65 15 97 % -- -- 07/25/22 0100 (!) 143/63 -- -- 67 14 97 % -- -- 07/24/22 2330 (!) 156/84 -- -- 65 12 98 % -- -- 07/24/22 2243 -- 98 F (36.7 C) -- -- -- -- -- -- 07/24/22 2241 (!) 176/77 -- -- 71 17 97 % -- -- Physical Exam Vitals reviewed. Constitutional: Appearance: Normal appearance. She is well-developed. HENT: Head: Normocephalic and atraumatic. Nose: Nose normal. Mouth/Throat: Mouth: Mucous membranes are moist. Eyes: General: No scleral icterus. Pupils: Pupils are equal, round, and reactive to light. Pupils are equal. Right eye: Pupil is round. Left eye: Pupil is round. Cardiovascular: Rate and Rhythm: Normal rate and regular rhythm. Pulses: Normal pulses. Heart sounds: Normal heart sounds. No murmur heard. No friction rub. No gallop. Musculoskeletal: Cervical back: Neck supple. Right lower leg: No swelling or tenderness. Left lower leg: No swelling or tenderness. Pulmonary: Effort: Pulmonary effort is normal. Breath sounds: Normal breath sounds. Abdominal: General: Bowel sounds are normal. Palpations: Abdomen is soft. Abdomen is not rigid. There is no pulsatile mass. Tenderness: There is no abdominal tenderness. There is no guarding or rebound. Skin: General: Skin is warm and dry. Capillary Refill: Capillary refill takes less than 2 seconds. Neurological: Mental Status: She is alert and oriented to person, place, and time. Laboratory & Radiological Imaging (if done): Labs Reviewed CHEM 7 - Abnormal; Notable for the following components: Result Value Anion Gap 6 (*) Glucose 107 (*) eGFR 53 (*) All other components within normal limits Narrative: [facility] has implemented the eGFR calculation approach that does not have a coefficient for race that conforms to the NKF-ASN Task Force Recommendations. MAGNESIUM LEVEL - Normal CBC AND DIFFERENTIAL Narrative: The following orders were created for panel order CBC w/ Diff. Procedure Abnormality Status --------- ------ CBC Auto Differential[[id number]] Final result Please view results for these tests on the individual orders. TROPONIN TROPONIN TROPONIN CBC WITH AUTO DIFFERENTIAL XR Chest 1 View Final Result 3.2 cm tubular metallic object located at the lower chest midline region. Correlate clinically for external object versus foreign body versus postsurgical changes. Otherwise, no radiographic evidence for acute chest abnormality. Workstation ID: [id number] Procedures: EKG 12-lead Date/Time: 07/25/2022 4:29 AM Performed by: Jacy More MD Authorized by: Jacy More MD Interpreted by ED attending physician Rhythm: sinus rhythm BPM: 68 QRS axis: normal Clinical impression: normal ECG ED Course / Medical Decision Making: I did personally review Sandy's past medical history, surgical history, social history, as well as family history (when relevant). In this case, I also oversaw the her drug management by reviewing her medication list, allergy list, as well as the medications that I prescribed during the ED course and/or recommended as an out-patient (including possible OTC medications such as acetaminophen, NSAIDs , etc). 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 Hypothyroidism 03/30/2014 Hypertension, essential 06/03/2018 Status post total replacement of left hip 11/14/2018 Family history of colon cancer 12/16/2018 Heartburn 04/26/2022 Gaseous regurgitation 04/26/2022 Pharyngoesophageal dysphagia 04/26/2022 Bloating 04/26/2022 Hoarseness 04/26/2022 Shortness of breath 04/26/2022 Hiatal hernia with GERD without esophagitis 05/24/2022 Depression 06/07/2022 Obesity (BMI 30.0-34.9) 06/07/2022 Pre-op examination 06/07/2022 Resolved Ambulatory Problems Diagnosis Date Noted Ataxia 05/19/2015 Greater trochanteric bursitis of left hip 06/04/2017 Arthritis of left hip 08/12/2018 Acute non-recurrent maxillary sinusitis 03/12/2019 Past Medical History: Diagnosis Date Anxiety Bleeding gums Bone spur Bronchitis Bursitis of left hip 2017 Cataract Constipation Degenerative disc disease, cervical Difficulty walking Fibroids GERD (gastroesophageal reflux disease) Glaucoma History of burning pain in leg Hypertension Hypothyroid Impaired vision Insomnia Kidney stone Leg weakness Osteoarthritis of knees, bilateral Psoriasis 12/2013 Teeth problem Tooth infection Weakness of both arms ED MEDICATIONS GIVEN: Medications - No data to display After reviewing the items above, I did look at previous medical documentation, such as recent hospitalizations, office visits, and/or recent consultations with PCP/specialist. SDOH: Another factor that I considered in Sandy's care was her Social Determinants of Health (SDOH). During this ED encounter, she did NOT appear to have any significant issues identified. LAB TESTING: Ancillary lab testing: Chem-7 is normal. Magnesium is normal. CBC is normal. Troponin is negative. EKG is normal. RADIOLOGY: I did consider radiological studies for Sandy's care today: Chest x-ray demonstrates 3.2 cm tubular metallic object in the lower chest midline, consistent with a LINX device. DIFFERENTIAL DIAGNOSES: Some general clinical impressions that I considered included postoperative problem with hiatal hernia repair or LINX device, traumatic injury, acute coronary syndrome, musculoskeletal pain, aortic dissection, pneumonia, pulmonary embolism ED COURSE: I reviewed test results with the patient and her . Her heart score is 4. I spoke with the surgery RYAN for consult regarding the recent hiatal hernia repair with a LINX procedure. She did not feel the symptoms were related and thought that it would be appropriate to admit to medicine. I spoke with the hospitalist for admission. Patient remains pain-free at the time of admission. Vitals: 01/09/23 0717 BP: 132/80 Temp: 98.2 F (36.8 C) Pulse: 72 Resp: 16 PT WEIGHT Weight 01/09/2023 7:17 AM 158 lb 4.8 oz 12/07/2022 2:38 PM 156 lb 4.8 oz 08/07/2022 2:03 PM 152 lb 08/02/2022 9:09 AM 153 lb BP Readings from Last 4 Encounters: 01/09/23 132/80 12/07/22 (!) 160/80 08/07/22 138/82 08/02/22 133/84 Past Medical History: Diagnosis Date Acute non-recurrent maxillary sinusitis 03/12/2019 Anxiety Arthritis of left hip 08/12/2018 Added automatically from request for surgery [id number] Ataxia 05/19/2015 Bleeding gums Bloating 04/26/2022 Added automatically from request for surgery [id number] Bone spur C3-C6 posterior decompression and fusion 08/24/15 Bronchitis Bursitis of left hip [address] Bray last shot 09/2017 Cataract Chest pain 07/25/2022 Chronic kidney disease Constipation Degenerative disc disease, cervical C3-C6 posterior decompression and fusion 08/24/15 Depression meds Difficulty walking Fibroids SANTY / BSO Gaseous regurgitation 04/26/2022 Added automatically from request for surgery [id number] GERD (gastroesophageal reflux disease) Glaucoma Greater trochanteric bursitis of left hip 06/04/2017 Heartburn 04/26/2022 Added automatically from request for surgery [id number] History of burning pain in leg burning in legs/knees giving out, s/p MRI 03/2015 Hoarseness 04/26/2022 Added automatically from request for surgery [id number] Hypertension Hypothyroid Impaired vision Insomnia meds Kidney stone Leg weakness Osteoarthritis of knees, bilateral to have b/l knee replacement Pre-op examination 06/07/2022 Psoriasis 12/2013 [facility] [place] on [place] Shortness of breath 04/26/2022 Added automatically from request for surgery [id number] Teeth problem Tooth infection Weakness of both arms Past Surgical History: Procedure Laterality Date APPENDECTOMY ARTHROPLASTY HIP ROBOTIC DINO Left 11/14/2018 Procedure: Left Total Hip Replacement Robotic; Surgeon: Issac Bray MD; Location: Main OR; Service: Ortho-Robotics BREAST REDUCTION BREAST SURGERY 08/2014 CARPAL TUNNEL RELEASE Left 04/14/2014 Alex COLONOSCOPY 11/18/2013 normal....Donell COLONOSCOPY N/A 12/31/2018 Procedure: COLONOSCOPY; Surgeon: Cori Marquez MD; Location: [facility] [place] OR; Service: General Surgery EGD N/A 12/31/2018 Procedure: ESOPHAGOGASTRODUODENOSCOPY; Surgeon: Cori Marquez MD; Location: [facility] [place] [facility]; Service: General Surgery EGD N/A 05/09/2022 Procedure: ESOPHAGOGASTRODUODENOSCOPY WITH BIOPSY AND JUNIOR; Surgeon: Kimani Simon MD; Location: Endo; Service: General Surgery ESOPHAGEAL MANOMETRY N/A 05/09/2022 Procedure: ESOPHAGEAL MANOMETRY; Surgeon: Kimani Simon MD; Location: Endo; Service: General Surgery EYE SURGERY Bilateral 02/2021 Cataract HERNIA REPAIR 06/19/2022 JOINT REPLACEMENT 03/2013 and 11/2018 Knees and hip KNEE REPLACEMENT PARTIAL (UNICOMPARTMENTAL KNEE) bilateral knees LAMINECTOMY DECOMPRESSION POSTERIOR CERVICAL WITH FUSION 2-3 LEVELS 08/24/2015 C3-C6 PROLONGED ACID REFLUX TEST 48H PH N/A 05/09/2022 Procedure: PROLONGED ACID REFLUX TEST 48H PH; Surgeon: Kimani Simon MD; Location: Endo; Service: General Surgery REPAIR HERNIA HIATAL WITH SPHINCTER AUGMENTATION ROBOTIC XI N/A 06/19/2022 Procedure: REPAIR HERNIA HIATAL WITH MESH AND LINX SPHINCTER AUGMENTATION ROBOTIC XI; Surgeon: Kimani Simon MD; Location: Main OR; Service: Gen-Robotics SKIN BIOPSY Benign TOTAL ABDOMINAL HYSTERECTOMY 04/13/2003 SANTY-BSO for uterine fibroids. TUBAL LIGATION Bilateral 1981 Social History Socioeconomic History Marital status: Tobacco Use Smoking status: Former Packs/day: 1.00 Years: 30.00 Additional pack years: 0.00 Total pack years: 30.00 Types: Cigarettes Quit date: 02/02/1999 Years since quittin.9 Smokeless tobacco: Never Vaping Use Vaping Use: Never used Substance and Sexual Activity Alcohol use: No Drug use: Never Sexual activity: Not Currently Social Determinants of Health Financial Resource Strain: Low Risk (04/12/2022) Overall Financial Resource Strain (CARDIA) Difficulty of Paying Living Expenses: Not very hard Food Insecurity: No Food Insecurity (04/12/2022) Hunger Vital Sign Worried About Running Out of Food in the Last Year: Never true Ran Out of Food in the Last Year: Never true Transportation Needs: No Transportation Needs (04/12/2022) PRAPARE - Transportation Lack of Transportation (Medical): No Lack of Transportation (Non-Medical): No Social Connections: Unknown (12/07/2020) Social Connection and Isolation Panel [NHANES] Frequency of Social Gatherings with Friends and Family: Once a week Family History Problem Relation Age of Onset Stroke Mother Cancer Father Colon cancer Arthritis Father Other Father C DIFF Colorectal cancer Father Heart disease Paternal Uncle Current Outpatient Medications Medication Sig Dispense Refill b complex vitamins tablet Take 1 (one) tablet by mouth daily NOON . hydroCHLOROthiazide (HYDRODIURIL) 12.5 MG tablet TAKE 1 TABLET DAILY 90 tablet 3 Lactobacillus acidophilus (PROBIOTIC ORAL) Take 1 capsule by mouth daily Digestive Advantage PM . latanoprost (XALATAN) 0.005 % ophthalmic solution Administer 1 (one) drop to both eyes nightly . levothyroxine (SYNTHROID, LEVOTHROID) 100 MCG tablet TAKE 1 TABLET DAILY 90 tablet 3 multivitamin (THERAGRAN) per tablet Take 1 (one) tablet by mouth daily NOON . risankizumab-rzaa (Skyrizi) 150 mg/mL Pen Inject under the skin Once every 90 days Last dose 04/19/2022 . sertraline (ZOLOFT) 25 MG tablet Take 1 (one) tablet (25 mg total) by mouth daily PM . No current facility-administered medications for this visit. PHQ-9 Depression Screening No documentation. Goals None Review of Systems Constitutional: Negative for chills and fatigue. HENT: Negative for mouth sores and sinus pressure. Eyes: Negative for pain and visual disturbance. Respiratory: Positive for cough. Negative for shortness of breath. Cardiovascular: Negative for chest pain and palpitations. Endocrine: Negative for polydipsia, polyphagia and polyuria. Genitourinary: Negative for dysuria and hematuria. Skin: Negative for rash. Neurological: Negative for dizziness and light-headedness. Hematological: Negative for adenopathy. Psychiatric/Behavioral: Negative for behavioral problems and self-injury. Physical Exam Vitals reviewed. Constitutional: Appearance: Normal appearance. She is well-developed. She is not ill-appearing. HENT: Head: Normocephalic and atraumatic. Right Ear: Tympanic membrane, ear canal and external ear normal. Left Ear: Tympanic membrane, ear canal and external ear normal. Nose: Nose normal. Mouth/Throat: Mouth: Mucous membranes are moist. Pharynx: Oropharynx is clear. Eyes: Extraocular Movements: Extraocular movements intact. Conjunctiva/sclera: Conjunctivae normal. Pupils: Pupils are equal, round, and reactive to light. Cardiovascular: Rate and Rhythm: Normal rate and regular rhythm. Heart sounds: Normal heart sounds. No murmur heard. Pulmonary: Effort: Pulmonary effort is normal. Breath sounds: Normal breath sounds. No wheezing. Chest: Chest wall: No tenderness. Abdominal: Palpations: There is no mass. Tenderness: There is no rebound. Musculoskeletal: General: No tenderness or deformity. Cervical back: Normal range of motion and neck supple. Lymphadenopathy: Cervical: No cervical adenopathy. Skin: General: Skin is warm and dry. Neurological: Mental Status: She is alert and oriented to person, place, and time. Mental status is at baseline. Deep Tendon Reflexes: Reflexes are normal and symmetric. Psychiatric: Mood and Affect: Mood normal. Behavior: Behavior normal. Thought Content: Thought content normal. Judgment: Judgment normal. There are no diagnoses linked to this encounter. Diagnoses and all orders for this visit: Subacute cough - azithromycin (Zithromax Z-Roc) 250 MG tablet; Take 2 tablets the first day and one daily for four days. With the same meal. . - benzonatate (TESSALON) 200 MG capsule; Take 1 (one) capsule (200 mg total) by mouth 3 (three) times a day as needed for cough . Should resolve over next few wks let me know if changes. For any new medications prescribed today, patient was educated about indications for the medication, how to take the medication and potential side effects of the medications. documented in this encounter [facility] 12-07-2022 History of Present illness Narrative Images from the original note were not included. Patient ID: Sandy Pradhan is a 72 y.o. female here for follow-up visit. HPI / INTERVAL HISTORY: 2 weeks ago, started having cough. She and her were out with friends also had same symptoms about 3 weeks ago, and has had symptoms for the past 3 weeks. She is on Skyrizi which makes her a little susceptible to URI's. She has chest congestion and a hard cough which is worse in the evening. Maribell-[place] helps at night. Coughing up thick white phlegm. Hard to clear cough. Assessment/Plan: Problem List Items Addressed This Visit None Visit Diagnoses Bronchitis - Primary Augmentin x 10 days, 5 day prednisone burst. Tessalon, Mucinex. Relevant Medications benzonatate (TESSALON) 100 MG capsule guaiFENesin (MUCINEX) 600 mg 12 hr tablet predniSONE (DELTASONE) 20 MG tablet amoxicillin-clavulanate (AUGMENTIN) 875-125 mg per tablet Please see below for a more detailed discussion of the above assessment and plan items, including history and physical examination. Subjective PFSH: The following portions of the patient's history were reviewed and updated as appropriate: allergies, current medications, past family history, past medical history, past social history, past surgical history, and problem list. Past Medical History: Diagnosis Date Acute non-recurrent maxillary sinusitis 03/12/2019 Anxiety Arthritis of left hip 08/12/2018 Added automatically from request for surgery [id number] Ataxia 05/19/2015 Bleeding gums Bloating 04/26/2022 Added automatically from request for surgery [id number] Bone spur C3-C6 posterior decompression and fusion 08/24/15 Bronchitis Bursitis of left hip [address] Bray last shot 09/2017 Cataract Chest pain 07/25/2022 Chronic kidney disease Constipation Degenerative disc disease, cervical C3-C6 posterior decompression and fusion 08/24/15 Depression meds Difficulty walking Fibroids SANTY / BSO Gaseous regurgitation 04/26/2022 Added automatically from request for surgery [id number] GERD (gastroesophageal reflux disease) Glaucoma Greater trochanteric bursitis of left hip 06/04/2017 Heartburn 04/26/2022 Added automatically from request for surgery [id number] History of burning pain in leg burning in legs/knees giving out, s/p MRI 03/2015 Hoarseness 04/26/2022 Added automatically from request for surgery [id number] Hypertension Hypothyroid Impaired vision Insomnia meds Kidney stone Leg weakness Osteoarthritis of knees, bilateral to have b/l knee replacement Pre-op examination 06/07/2022 Psoriasis 12/2013 [facility] [place] on [place] Shortness of breath 04/26/2022 Added automatically from request for surgery [id number] Teeth problem Tooth infection Weakness of both arms Patient's Medications New Prescriptions AMOXICILLIN-CLAVULANATE (AUGMENTIN) 875-125 MG PER TABLET Take 1 (one) tablet by mouth 2 (two) times a day . BENZONATATE (TESSALON) 100 MG CAPSULE Take 1 (one) capsule (100 mg total) by mouth 3 (three) times a day as needed . GUAIFENESIN (MUCINEX) 600 MG 12 HR TABLET Take 2 (two) tablets (1,200 mg total) by mouth 2 (two) times a day . PREDNISONE (DELTASONE) 20 MG TABLET Take 1 (one) tablet (20 mg total) by mouth daily for 5 days . Previous Medications B COMPLEX VITAMINS TABLET Take 1 (one) tablet by mouth daily NOON . HYDROCHLOROTHIAZIDE (HYDRODIURIL) 12.5 MG TABLET TAKE 1 TABLET DAILY LACTOBACILLUS ACIDOPHILUS (PROBIOTIC ORAL) Take 1 capsule by mouth daily Digestive Advantage PM . LATANOPROST (XALATAN) 0.005 % OPHTHALMIC SOLUTION Administer 1 (one) drop to both eyes nightly . LEVOTHYROXINE (SYNTHROID, LEVOTHROID) 100 MCG TABLET TAKE 1 TABLET DAILY MULTIVITAMIN (THERAGRAN) PER TABLET Take 1 (one) tablet by mouth daily NOON . RISANKIZUMAB-RZAA (SKYRIZI) 150 MG/ML PEN Inject under the skin Once every 90 days Last dose 04/19/2022 . SERTRALINE (ZOLOFT) 25 MG TABLET Take 1 (one) tablet (25 mg total) by mouth daily PM . Modified Medications No medications on file Discontinued Medications No medications on file Allergies Allergen Reactions Hydrocodone GI Intolerance Past Surgical History: Procedure Laterality Date APPENDECTOMY ARTHROPLASTY HIP ROBOTIC DINO Left 11/14/2018 Procedure: Left Total Hip Replacement Robotic; Surgeon: Issac Bray MD; Location: Main OR; Service: Ortho-Robotics BREAST REDUCTION BREAST SURGERY 08/2014 CARPAL TUNNEL RELEASE Left 04/14/2014 Alex COLONOSCOPY 11/18/2013 normal....Donell COLONOSCOPY N/A 12/31/2018 Procedure: COLONOSCOPY; Surgeon: Cori Marquez MD; Location: [facility] [place] OR; Service: General Surgery EGD N/A 12/31/2018 Procedure: ESOPHAGOGASTRODUODENOSCOPY; Surgeon: Cori Marquez MD; Location: [facility] [place] OR; Service: General Surgery EGD N/A 05/09/2022 Procedure: ESOPHAGOGASTRODUODENOSCOPY WITH BIOPSY AND JUNIOR; Surgeon: Kimani Simon MD; Location: Endo; Service: General Surgery ESOPHAGEAL MANOMETRY N/A 05/09/2022 Procedure: ESOPHAGEAL MANOMETRY; Surgeon: Kimani Simon MD; Location: Endo; Service: General Surgery EYE SURGERY Bilateral 02/2021 Cataract HERNIA REPAIR 06/19/2022 JOINT REPLACEMENT 03/2013 and 11/2018 Knees and hip KNEE REPLACEMENT PARTIAL (UNICOMPARTMENTAL KNEE) bilateral knees LAMINECTOMY DECOMPRESSION POSTERIOR CERVICAL WITH FUSION 2-3 LEVELS 08/24/2015 C3-C6 PROLONGED ACID REFLUX TEST 48H PH N/A 05/09/2022 Procedure: PROLONGED ACID REFLUX TEST 48H PH; Surgeon: Kimani Simon MD; Location: Endo; Service: General Surgery REPAIR HERNIA HIATAL WITH SPHINCTER AUGMENTATION ROBOTIC XI N/A 06/19/2022 Procedure: REPAIR HERNIA HIATAL WITH MESH AND LINX SPHINCTER AUGMENTATION ROBOTIC XI; Surgeon: Kimani Simon MD; Location: Main OR; Service: Gen-Robotics SKIN BIOPSY Benign TOTAL ABDOMINAL HYSTERECTOMY 04/13/2003 SANTY-BSO for uterine fibroids. TUBAL LIGATION Bilateral 1981 Family History Problem Relation Age of Onset Stroke Mother Cancer Father Colon cancer Arthritis Father Other Father C DIFF Colorectal cancer Father Heart disease Paternal Uncle Social History Socioeconomic History Marital status: Tobacco Use Smoking status: Former Packs/day: 1.00 Years: 30.00 Additional pack years: 0.00 Total pack years: 30.00 Types: Cigarettes Quit date: 02/02/1999 Years since quittin.8 Smokeless tobacco: Never Vaping Use Vaping Use: Never used Substance and Sexual Activity Alcohol use: No Drug use: Never Sexual activity: Not Currently Social Determinants of Health Financial Resource Strain: Low Risk (04/12/2022) Overall Financial Resource Strain (CARDIA) Difficulty of Paying Living Expenses: Not very hard Food Insecurity: No Food Insecurity (04/12/2022) Hunger Vital Sign Worried About Running Out of Food in the Last Year: Never true Ran Out of Food in the Last Year: Never true Transportation Needs: No Transportation Needs (04/12/2022) PRAPARE - Transportation Lack of Transportation (Medical): No Lack of Transportation (Non-Medical): No Social Connections: Unknown (12/07/2020) Social Connection and Isolation Panel [NHANES] Frequency of Social Gatherings with Friends and Family: Once a week Review of Systems: Review of Systems Constitutional: Negative for chills and fever. HENT: Positive for congestion. Eyes: Negative for visual disturbance. Respiratory: Positive for cough. Negative for shortness of breath. Cardiovascular: Negative for chest pain, palpitations and leg swelling. Gastrointestinal: Negative for constipation, diarrhea, nausea and vomiting. Genitourinary: Negative for difficulty urinating. Skin: Negative for rash. Neurological: Negative for weakness and headaches. Psychiatric/Behavioral: Negative for suicidal ideas. Health Maintenance reviewed. Objective Vital Signs: Vitals: 12/07/22 1438 12/07/22 1507 BP: (!) 160/90 (!) 160/80 BP Location: Left arm Right arm Patient Position: Sitting Sitting BP Cuff Size: Adult Adult Pulse: 74 Resp: 16 Temp: 97.7 F (36.5 C) SpO2: 98% Weight: 70.9 kg (156 lb 4.8 oz) Height: 5' 1" Physical Exam: Physical Exam Vitals reviewed. Constitutional: General: She is not in acute distress. Appearance: She is not ill-appearing. HENT: Head: Normocephalic and atraumatic. Cardiovascular: Rate and Rhythm: Normal rate and regular rhythm. Heart sounds: Normal heart sounds. Pulmonary: Effort: Pulmonary effort is normal. Breath sounds: Normal breath sounds. Abdominal: General: There is no distension. Palpations: Abdomen is soft. Tenderness: There is no abdominal tenderness. Musculoskeletal: General: Normal range of motion. Cervical back: Normal range of motion and neck supple. Skin: General: Skin is warm and dry. Neurological: General: No focal deficit present. Chas Huitron M.D. documented in this encounter [facility] 08-07-2022 Instructions Brandon Lowery, DO - 08/07/2022 2:14 PM EDT Images from the original note were not included. STEADI Low Risk Patient Instructions: Your Falls Screening today shows that you are at low risk for falls. To further protect yourself from falls and maintain your independence, we recommend: 1. Read through the brochure, What You Can Do to Prevent Falls (from [facility]). 2. Go through the brochure, Check for Safety: A Home Fall Prevention Checklist for Older Adults (from [facility]), and make changes as recommended. 3. Join a community falls prevention program: Stepping On, a 7-week evidence based program that teaches balance exercises and fall prevention strategies Rony Chi for older adults, group exercise that teaches Rony Chi forms that reduce fall risk (weight shifting, postural alignment and control, and coordinated movements of the arms, legs, head, and trunk) Matter of Balance, an evidence based program designed to reduce the fear of falling and increase activity levels of older adults OR an exercise class for strength and balance. 4. Take your Vitamin D with or without Calcium, as determined by your healthcare provider. 5. Get your vision and hearing checked annually. Falls At Home Each year, thousands of older Americans fall at home. Many of them are seriously injured, and some are disabled. In 2011, nearly 23,000 people over age 65 and 2.4 million were treated in emergency departments because of falls. Falls are often due to hazards that are easy to overlook but easy to fix. This checklist will help you find and fix those hazards in your home. The checklist asks about hazards found in each room of your home. For each hazard, the checklist tells you how to fix the problem. At the end of the checklist, you ll find other tips for preventing falls. FLOORS: Look at the floor in each room. Q: When you walk through a room, do you have to walk around furniture? A. Ask someone to move the furniture so your path is clear Q: Do you have throw rugs on the floor? A. Remove the rugs or use double-sided tape or a non-slip backing so the rugs won t slip. Q: Are there papers, books, towels, shoes, magazines, boxes, blankets, or other objects on the floor? A.duplicating machine operator things that are on the floor. Always keep objects off the floor. Q: Do you have to walk over or around wires or cords (like lamp, telephone, or extension cords)? A. Coil or tape cords and wires next to the wall so you can t trip over them. If needed, have an licensed electrician put in another outlet. STAIRS AND STEPS: Look at the stairs you use both inside and outside your home. Q: Are there papers, shoes, books, or other objects on the stairs? A. duplicating machine operator things on the stairs. Always keep objects off stairs. Q: Are some steps broken or uneven? A. Fix loose or uneven steps. Q: Are you missing a light over the stairway? A. Have an licensed electrician put in an overhead light at the top and bottom of the stairs. Q: Do you have only one light switch for your stairs (only at the top or at the bottom of the stairs)? A. Have an licensed electrician put in a light switch at the top and bottom of the stairs. You can get light switches that glow. Q: Has the stairway light bulb burned out? A. Have a friend or family member change the light bulb. Q: Is the carpet on the steps loose or torn? A. Make sure the carpet is firmly attached to every step, or remove the carpet and attach non-slip rubber treads to the stairs. Q: Are the handrails loose or broken? Is there a handrail on only one side of the stairs? A. Fix loose handrails or put in new ones. Make sure handrails are on both sides of the stairs and are as long as the stairs. KITCHEN: Look at your kitchen and eating area. Q: Are the things you use often on high shelves? A. Move items in your cabinets. Keep things you use often on the lower shelves (about waist level). Q: Is your step stool unsteady? A. If you must use a step stool, get one with a bar to hold on to. Never use a chair as a step stool. BATHROOMS: Look at all your bathrooms. Q: Is the tub or shower floor slippery? A. Put a non-slip rubber mat or self-stick strips on the floor of the tub or shower. Q: Do you need some support when you get in and out of the tub or up from the toilet? A. Have grab bars put in next to and inside the tub and next to the toilet. BEDROOMS: Look at all your bedrooms. Q: Is the light near the bed hard to reach? A. Place a lamp close to the bed where it s easy to reach. Q: Is the path from your bed to the bathroom dark? A. Put in a night-light so you can see where you re walking. Some night-lights go on by themselves after dark. Other Things You Can Do to Prevent Falls Do exercises that improve your balance and make your legs stronger. Exercise also helps you feel better and more confident. Have your doctor or pharmacist look at all the medicines you take, even jarr-mbi-tldsjxy medicines. Some medicines can make you sleepy or dizzy. Have your eyes checked by an eye doctor at least once a year and update your glasses. Get up slowly after you sit or lie down. Wear shoes both inside and outside the house. Avoid going barefoot or wearing slippers. Improve the lighting in your home. Put in brighter light bulbs. Florescent bulbs are bright and cost less to use. It s safest to have uniform lighting in a room. Add lighting to dark areas. Hang lightweight curtains or shades to reduce glare. [place] a contrasting color on the top edge of all steps so you can see the stairs better. For example, use a light color paint on dark wood. To access this brochure online, please visit the CDC website at http://www.cdc.gov/steadi/pdf/check_fo r_safety_brochure-a.pdf Chair Rise Exercise What it does: Strengthens the muscles in your thighs & buttocks. Goal: To do this exercise without using your hands as you become stronger. How to do it: 1. Sit toward the front of a sturdy chair with your knees bent & feet flat on the floor shoulder-width apart 2. Rest your hands lightly on the seat on either side of you, keeping your back & neck straight & and chest slightly forward. 3. Breathe in slowly. Lean forward & feel your weight on the front of your feet. 4. Breathe out and slowly stand up, using your hands as little as possible. 5. Pause for a full breath in & out. 6. Breathe in as you slowly sit down. Do not let yourself collapse back down into the chair. Rather, control your lowering as much as possible. 7. Breathe out. Repeat 10-15 times. If this number is too hard for you when you first start practicing this exercise, begin with fewer and work up to this number. Rest for a minute & then do a final set of 10-15. For detailed instructions, please visit the CDC website at http://www.cdc.gov/steadi/pdf/chair_ri se_exercise-a.pdf Thank you for choosing our office for your Medicare Wellness Visit. Below you will find the plans we discussed today for your future medical treatments. Please keep this plan in a visible location so you can refer to it often and let our office know if you have any questions. 5-Year Plan Health Maintenance Topic Date Due Tetanus: Every 10yrs Never done Urine Microalbumin Never done Zoster Vaccines (1 of 2) 05/24/2014 Pap Smear 05/29/2021 Wellness Visit 08/11/2022 Lipid Panel 08/12/2022 Sequential Influenza Vaccine (Season Ended) 2022 Mammogram 02/20/2023 Falls Risk Assessment 08/07/2023 Colorectal Cancer Screening/Monitoring 12/31/2028 Hepatitis C Screening Completed Pneumococcal Vaccine: Age 65+ Completed Dexa Scan Completed COVID-19 Vaccine Completed Pharmacy/Equipment Co. (DME) [id number] - [place], [place] - [facility] [address] [place] [id number] [facility] - [address] [place] [id number] [id number] - [place], [place] - [address] [place] [address] AT [address] OF [address] [facility] [id number] Referrals and Orders No orders of the defined types were placed in this encounter. I recommend getting the new shingles vaccine (Shingrix) at the pharmacy - Medicare sometimes pays for it by only at the pharmacy. Be aware when scheduling that it more commonly causes side effects of fever, body aches, etc. for a day or so after, especially the second dose. Learning About Being Physically Active What is physical activity? Being physically active means doing any kind of activity that gets your body moving. The types of physical activity that can help you get fit and stay healthy include: Aerobic or "cardio" activities. These make your heart beat faster and make you breathe harder, such as brisk walking, riding a bike, or running. They strengthen your heart and lungs and build up your endurance. Strength training activities. These make your muscles work against, or "resist," something. Examples include lifting weights or doing push-ups. These activities help tone and strengthen your muscles and bones. Stretches. These let you move your joints and muscles through their full range of motion. Stretching helps you be more flexible. Reaching a balance between these three types of physical activity is important because each one contributes to your overall fitness. What are the benefits of being active? Being active is one of the best things you can do for your health. It helps you to: Feel stronger and have more energy to do all the things you like to do. Focus better at school or work. Feel, think, and sleep better. Reach and stay at a healthy weight. Lose fat and build lean muscle. Lower your risk for serious health problems, including diabetes, heart attack, high blood pressure, and some cancers. Keep your heart, lungs, bones, muscles, and joints strong and healthy. How can you make being active part of your life? Start slowly. Make it your long-term goal to get at least 30 minutes of exercise on most days of the week. Walking is a good choice. You also may want to do other activities, such as running, swimming, cycling, or playing tennis or team sports. Pick activities that you like--ones that make your heart beat faster, your muscles stronger, and your muscles and joints more flexible. If you find more than one thing you like doing, do them all. You don't have to do the same thing every day. Get your heart pumping every day. Any activity that makes your heart beat faster and keeps it at that rate for a while counts. Here are some great ways to get your heart beating faster: Go for a brisk walk, run, or bike ride. Go for a hike or swim. Go in-line skating. Play a game of touch football, basketball, or soccer. Ride a bike. Play tennis or racquetball. Climb stairs. Even some autism specialist can be aerobic--just do them at a faster pace. Vacuuming, raking or mowing the lawn, sweeping the garage, and washing and waxing the car all can help get your heart rate up. Strengthen your muscles during the week. You don't have to lift heavy weights or grow big, bulky muscles to get stronger. Doing a few simple activities that make your muscles work against, or "resist," something can help you get stronger. For example, you can: Do push-ups or sit-ups, which use your own body weight as resistance. Lift weights or dumbbells or use stretch bands at home or in a gym or community center. Stretch your muscles often. Stretching will help you as you become more active. It can help you stay flexible, loosen tight muscles, and avoid injury. It can also help improve your balance and posture and can be a great way to relax. Be sure to stretch the muscles you'll be using when you work out. It's best to warm your muscles slightly before you stretch them. Walk or do some other light aerobic activity for a few minutes, and then start stretching. When you stretch your muscles: Do it slowly. Stretching is not about going fast or making sudden movements. Don't push or bounce during a stretch. Hold each stretch for at least 15 to 30 seconds, if you can. You should feel a stretch in the muscle, but not pain. Breathe out as you do the stretch. Then breathe in as you hold the stretch. Don't hold your breath. If you're worried about how more activity might affect your health, have a checkup before you start. Follow any special advice your doctor gives you for getting a smart start. Where can you learn more? Log into your personal health record on https://Sponduut.[email or web address] and enter W332 in the "Education" box to learn more about "Learning About Being Physically Active." Current as of: December 12, 2021 Content Version: 13.6 [email or web address]. Care instructions adapted under license by your healthcare professional. If you have questions about a medical condition or this instruction, always ask your healthcare professional. [email or web address] disclaims any warranty or liability for your use of this information. documented in this encounter [facility] 08-07-2022 History of Present illness Narrative STEADI Falls Evaluation LOW Falls Risk Evaluation: STEADI Falls Risk - 08/07/22 1403 Additional Assessments BP 138/82 Pulse 63 Patient Position Sitting Falls Assessment and Plan: Sandy has been evaluated for her risk of falling and is considered LOW risk. Patient given Home Safety Checklist, Postural Hypotension Brochure, and Stay Independent Brochure in AVS. Referred to a community based program such as Stepping On, Rony Chi, or [facility] of Balance and provided information about each. Patient is currently on Vit D. New Medications ordered: None Additional tests ordered: None Repeat fall risk assessment in 12 months.Subjective: Sandy Pradhan is a 72 y.o. female here for a Medicare Annual Wellness Visit. HERE FOR SUBSEQUENT MEDICARE WELLNESS, NO CHEST PAINS SINCE HOSPITAL DX WITH ESOPHAGEAL SPASMS VERY HAPPY WITH DR. SIMON'S RESULTS FROM HIATAL HERNIA SURGERY. Lab Results Component Value Date ALBUMIN 4.1 04/12/2022 ALT 33 04/12/2022 AST 28 04/12/2022 BUN 17 07/24/2022 CALCIUM 10.0 06/06/2022 CL 106 07/24/2022 CHOL 200 (H) 08/12/2021 CREATININE 1.11 07/24/2022 GLU 108 04/24/2016 GLUCOSE 107 (H) 07/24/2022 EXTGLUCOSE 103 (H) 06/01/2017 HDL 53 08/12/2021 HCT 40.8 07/24/2022 HGB 13.7 07/24/2022 LDL 131 04/24/2016 MG 2.1 07/24/2022 PLT 289 07/24/2022 K 3.8 07/24/2022 NA 137 07/24/2022 TRIG 173 (H) 08/12/2021 WBC 5.50 07/24/2022 Review of Systems Constitutional: Negative for chills, fever and unexpected weight change. HENT: Negative for ear pain, rhinorrhea, sinus pain and voice change. Eyes: Negative for discharge and redness. Respiratory: Negative for apnea, cough, chest tightness and shortness of breath. Cardiovascular: Negative for chest pain and palpitations. Gastrointestinal: Negative for abdominal pain, blood in stool and constipation. Endocrine: Negative for cold intolerance and heat intolerance. Genitourinary: Negative for dysuria and frequency. Musculoskeletal: Negative for joint swelling. Skin: Negative for color change and pallor. Allergic/Immunologic: Negative for food allergies. Neurological: Negative for dizziness, tremors and seizures. Hematological: Negative for adenopathy. Psychiatric/Behavioral: Negative for behavioral problems and sleep disturbance. Reviewed by Provider: Care Team Patient Care Team: Brandon Lowery DO as PCP - General (Family Medicine) Man Brady II, MD as Consulting Physician (Ophthalmology) Rubio Leon PA-C (Physician Pony Edger) Nini Meza CNP as Nurse Practitioner (Obstetrics/Gynecology) Kimani Simon MD as Consulting Physician (General Surgery) Pharmacy / Equipment Co. (DME) [id number] [place] [id number] [facility] AT [address] OF [address] [phone] [facility] - [place], [place] - [address] [facility] [address] [facility] [address] [id number] [place], [place] - [address] [facility]CTION OF [facility] [address] [facility] [id number] Medicare Risk Assessment Do you have an Advanced Directive (Living Will and/or Durable Power of Auto Body Worker for Health Care)? If not, would you like more information about Advanced Directives?: Yes What is your exercise level?: Light (like stretching/slow walking) What is your diet?: Regular Can you prepare your own meals?: Yes Do you have trouble with finding transportation?: No Because of any health problems, do you need the help of another person with your personal care needs? (For example, eating, bathing, dressing, or getting around the house.): No Does your home have throw rugs, poor lighting or slippery bathtub or shower?: (!) Yes Does your home have grab bars in bathrooms or handrails on stairs and steps?: Yes During the past four weeks, how would you rate your health in general?: Very Good Whether or not you use a hearing aid, do you think you have a hearing problem or do others think you have a hearing problem?: No Whether or not you use glasses or contacts, do you have difficulty driving, watching television, reading, or doing any of your daily activities because of your eyesight?: No In the past six months, have you had an unexplained weight loss of 10 pounds or more?: No Do you take your medications as prescribed?: I do not miss doses of my medications During the past four weeks, how much have you been bothered by emotional problems such as feeling anxious, depressed, irritable, sad, or downhearted and blue?: Slightly During the past four weeks, has your physical and emotional health limited your social activites with family, friends, neighbors, or groups? : Not at all Provider/Supplier Name and Specialty: Nini Lopez, C.N.P. ([facility]), MADALYN Butterfield ([facility]), Dr. Brady, [facility]) Falls Risk Assessment Is Patient Ambulatory?: Y Fell in past year: 2 (Yes) How many falls in the past year?: 1 Did any of these falls result in an injury?: No Unsteady when walks: 1 (Yes) Worried about fallin (No) Advised to use cane/walker?: 0 (No) Holds onto furniture/johnston: 0 (No) Uses hands to stand up from a chair: 0 (No) Trouble stepping onto curb: 1 (Yes) Rushes to toilet: 0 (No) Lost feeling in feet: 0 (No) Medicine makes me light-headed: 0 (No) Medicine for sleep or mood: 1 (Yes) Often feel sad/depressed: 0 (No) Patient Self Risk Assessment Score: 5 Have you had your vision checked in the past 12 months?: Yes Medicare Mini Cog Step 1: Three Word Registration Version Used: Version 6: [place] Step 2: Clock Drawing Step 2 score: Normal clock - 2 points Clock has all numbers placed in the correct sequence & position (e.g., 12, 3, 6 and 9 are in anchor positions) with no missing or duplicate numbers. Hands are pointing to the 11 & 2 (11:10). Hand length is not scored. Step 3: Three Word Recall Step 3: Three Word Recall Score: 3 Words Recalled Total score = Word Recall score + Clock Draw score A cut point of <3 on the Mini-Cog has been validated for dementia screening, but many individuals with clinically meaningful cognitive impairment will score higher. A cut point of <4 may indicate a need for further evaluation of cognitive status.: 5 5-Year Plan: Health Maintenance Topic Date Due Tetanus: Every 10yrs Never done Urine Microalbumin Never done Zoster Vaccines (1 of 2) 05/24/2014 Pap Smear 05/29/2021 Wellness Visit 08/11/2022 Lipid Panel 08/12/2022 Sequential Influenza Vaccine (Season Ended) 2022 Mammogram 02/20/2023 Falls Risk Assessment 08/07/2023 Colorectal Cancer Screening/Monitoring 12/31/2028 Hepatitis C Screening Completed Pneumococcal Vaccine: Age 65+ Completed Dexa Scan Completed COVID-19 Vaccine Completed Immunization History Administered Date(s) Administered H1N1 Inj Preservative Free 03/03/2009 INFLUENZA IIV3 65+YO FLUAD 41891 12/11/2018 INFLUENZA IIV4 6MO OR > FLUARIX/FLUZONE/AFLURIA [id number] 01/01/2017 INFLUENZA QUAD 4YO OR >FLUCELVAX QUAD 12002 11/23/2017 Influenza IIV4 high dose 65 and Older 12/22/2019, 12/07/2020 Influenza Whole 12/23/2010, 12/29/2011 Influenza, Unspecified 12/17/2012 Moderna Bivalent Booster:6-11 YRS 0.25mL; 12+YRS 0.5mL 12/01/2021 Moderna SARS-CoV-2 Vaccination 04/06/2020, 05/03/2020, 01/03/2021 Pneumococcal Conjugate 13-Valent (Prevnar 13) 04/24/2016 Pneumococcal Polysaccharide (Pneumovax 23) 01/07/2015 Zoster (Zostavax) 03/29/2014 Objective: BP 138/82 (BP Location: Left arm, Patient Position: Sitting, BP Cuff Size: X-large Adult) Pulse 63 Temp 97.6 F (36.4 C) (Oral) Resp 16 Ht 5' 1" Wt 68.9 kg (152 lb) SpO2 98% BMI 28.72 kg/m Hearing/Vision Screen No results found. Physical Exam Vitals reviewed. Constitutional: Appearance: Normal appearance. She is well-developed. She is not ill-appearing. HENT: Head: Normocephalic and atraumatic. Right Ear: Tympanic membrane, ear canal and external ear normal. Left Ear: Tympanic membrane, ear canal and external ear normal. Nose: Nose normal. Mouth/Throat: Mouth: Mucous membranes are moist. Eyes: Extraocular Movements: Extraocular movements intact. Conjunctiva/sclera: Conjunctivae normal. Pupils: Pupils are equal, round, and reactive to light. Cardiovascular: Rate and Rhythm: Normal rate and regular rhythm. Heart sounds: Normal heart sounds. No murmur heard. Pulmonary: Effort: Pulmonary effort is normal. Breath sounds: Normal breath sounds. No wheezing. Chest: Chest wall: No tenderness. Abdominal: General: Bowel sounds are normal. Palpations: Abdomen is soft. There is no mass. Tenderness: There is no abdominal tenderness. There is no guarding or rebound. Musculoskeletal: General: No tenderness or deformity. Cervical back: Normal range of motion and neck supple. Lymphadenopathy: Cervical: No cervical adenopathy. Skin: General: Skin is warm and dry. Findings: No rash. Neurological: Mental Status: She is alert and oriented to person, place, and time. Mental status is at baseline. Deep Tendon Reflexes: Reflexes are normal and symmetric. Psychiatric: Mood and Affect: Mood normal. Behavior: Behavior normal. Thought Content: Thought content normal. Judgment: Judgment normal. Diagnoses and all orders for this visit: Routine general medical examination at a health care [facility] AREA AGENCY ON AGING COMMUNITY RESOURCE, YEARY EYE, HEARING EVALUATION, YEARLY MAMMOGRAM, DEXASCAN EVERY 2 YEARS. SHINGRIX. Hypothyroidism, unspecified type - TSH with Reflex Free T4; Future Hypertension, essential - Lipid Panel; Future At low risk for fall Vaccination counseling provided but patient/guardian declined. Discussed elevated Body Mass Index (BMI): Advised regular exercise. Discussed elevated Body Mass Index (BMI): Advised healthy and appropriate diet. Rationale: Overweight (Findings) BMI No follow-ups on file. Patient Instructions (the written plan) and additional handouts provided to the patient with their After Visit Summary. documented in this encounter [facility] 08-02-2022 History of Present illness Narrative [facility] PATIENT: Sandy Pradhan DATE / TIME: 08/02/22 9:15 AM POS: Office AGE: 72 y.o. : 1950 RACE: [1] SEX: female PCP: Brandon Lowery DO REFERRAL: No ref. provider found TOS: SUBJECTIVE: The patient returns for her second postoperative visit after undergoing robotic assisted laparoscopic hiatal hernia repair with mesh and LINX sphincter augmentation. She denies heartburn, regurgitation, or esophageal dysphagia. She is tolerating a regular diet. She does report having been bowel movement since about a week before surgery. She has occasional blood in discomfort when she moves her bowels. Her last colonoscopy was in 2019. She said that she started taking Metamucil about 1 week ago. OBJECTIVE: BP 133/84 Pulse 67 Ht 5' 1" Wt 69.4 kg (153 lb) SpO2 94% BMI 28.91 kg/m ASSESSMENT: Postop follow-up PLAN: 1. Diet and activity as tolerated 2. The patient probably has an anal fissure based on her description. I encouraged her to get at least 25 g of fiber in her diet per day. She is instructed to call either myself or Dr. Marquez's office to be reseen if her bowel function does not improve. documented in this encounter [facility] 07-04-2022 History of Present illness Narrative [facility] PATIENT: Sandy Pradhan DATE / TIME: 07/04/22 9:47 AM POS: Office AGE: 72 y.o. : 1950 RACE: [1] SEX: female PCP: Brandon Lowery DO REFERRAL: No ref. provider found SUBJECTIVE: Patient presents for first post operative visit after undergoing a robotic assisted laparoscopic hiatal hernia repair with mesh and LINX sphincter augmentation. She did not have to take the prednisone in the post-operative period. Denies heartburn, regurgitation, and dysphagia. Tolerating a soft diet. Weight is stable. Overall she is doing good. OBJECTIVE: BP 119/81 Pulse 67 Ht 5' 1" Wt 70.3 kg (155 lb) SpO2 94% BMI 29.29 kg/m Abdomen soft, nontender, nondistended. Incisions well approximated with sutures. ASSESSMENT: S/P robotic assisted laparoscopic hiatal hernia repair with mesh and LINX sphincter augmentation PLAN: Diet per LINX protocol Continue lifting restrictions Follow up with Dr. Simon in 4 weeks documented in this encounter [facility] 05-24-2022 History of Present illness Narrative [facility] [address] ([address]) [facility] [address] [facility] [id number] Sandy Pradhan is a 72 y.o. female being seen on 05/24/22 for Chief Complaint Patient presents with Follow-up Manometry, EGD, Junior HPI: The patient returns for follow-up after undergoing a full heartburn treatment clinic evaluation. She had an EGD which revealed an AFS grade 2 hiatus. Biopsies of the esophagus were negative for Garnett's esophagus. Junior pH testing was positive for abnormal distal esophageal acid exposure. High-resolution esophageal manometry revealed a short LES, normal LES resting pressure and relaxation, a 1.0 cm manometrically measured hiatal hernia, and normal esophageal body function. Incomplete bolus clearance was seen on 10% of the supine what swallows on impedance evaluation. The patient is currently on medical therapy but does have breakthrough symptoms. Past Medical History: Diagnosis Date Acute non-recurrent maxillary sinusitis 03/12/2019 Anxiety Arthritis of left hip 08/12/2018 Added automatically from request for surgery [id number] Ataxia 05/19/2015 Bleeding gums Bone spur C3-C6 posterior decompression and fusion 08/24/15 Bronchitis Bursitis of left hip [address] Bray last shot 09/2017 Constipation Degenerative disc disease, cervical C3-C6 posterior decompression and fusion 08/24/15 Depression meds Difficulty walking Fibroids SANTY / BSO GERD (gastroesophageal reflux disease) Glaucoma Greater trochanteric bursitis of left hip 06/04/2017 History of burning pain in leg burning in legs/knees giving out, s/p MRI 03/2015 Hypertension Hypothyroid Impaired vision Insomnia meds Kidney stone Leg weakness Osteoarthritis of knees, bilateral to have b/l knee replacement Psoriasis 12/2013 Trillium C[place]ck on Ozella Teeth problem Tooth infection Weakness of both arms Past Surgical History: Procedure Laterality Date APPENDECTOMY ARTHROPLASTY HIP ROBOTIC DINO Left 11/14/2018 Procedure: Left Total Hip Replacement Robotic; Surgeon: Issac Bray MD; Location: Main OR; Service: Ortho-Robotics BREAST REDUCTION BREAST SURGERY 08/2014 CARPAL TUNNEL RELEASE Left 04/14/2014 Alex COLONOSCOPY 11/18/2013 normal....Donell COLONOSCOPY N/A 12/31/2018 Procedure: COLONOSCOPY; Surgeon: Cori Marquez MD; Location: [facility] OR; Service: General Surgery EGD N/A 12/31/2018 Procedure: ESOPHAGOGASTRODUODENOSCOPY; Surgeon: Cori Marquez MD; Location: [facility] OR; Service: General Surgery EGD N/A 05/09/2022 Procedure: ESOPHAGOGASTRODUODENOSCOPY WITH BIOPSY AND JUNIOR; Surgeon: Kimani Simon MD; Location: Endo; Service: General Surgery ESOPHAGEAL MANOMETRY N/A 05/09/2022 Procedure: ESOPHAGEAL MANOMETRY; Surgeon: Kimani Simon MD; Location: [facility]; Service: General Surgery EYE SURGERY 02/2021 Cataract JOINT REPLACEMENT 03/2013 and 11/2018 Knees and hip KNEE REPLACEMENT PARTIAL (UNICOMPARTMENTAL KNEE) bilateral knees LAMINECTOMY DECOMPRESSION POSTERIOR CERVICAL WITH FUSION 2-3 LEVELS 08/24/2015 C3-C6 PROLONGED ACID REFLUX TEST 48H PH N/A 05/09/2022 Procedure: PROLONGED ACID REFLUX TEST 48H PH; Surgeon: Kimani Simon MD; Location: [facility]; Service: General Surgery SKIN BIOPSY Benign TOTAL ABDOMINAL HYSTERECTOMY 04/13/2003 SANTY-BSO for uterine fibroids. TOTAL HIP ARTHROPLASTY Left TUBAL LIGATION Bilateral 1981 Allergies Allergen Reactions Hydrocodone GI Intolerance Current Outpatient Medications Medication Sig Dispense Refill hydroCHLOROthiazide (HYDRODIURIL) 12.5 MG tablet TAKE 1 TABLET DAILY 90 tablet 3 latanoprost (XALATAN) 0.005 % ophthalmic solution Administer 1 (one) drop to both eyes nightly . levothyroxine (SYNTHROID, LEVOTHROID) 100 MCG tablet Take 1 (one) tablet (100 mcg total) by mouth once daily . 90 tablet 3 multivitamin (THERAGRAN) per tablet Take 1 (one) tablet by mouth daily . risankizumab-rzaa (Skyrizi) 150 mg/mL Pen Inject under the skin . sertraline (ZOLOFT) 50 MG tablet Take 0.5 (one-half) tablet (25 mg total) by mouth daily . No current facility-administered medications for this visit. Social History Tobacco Use Smoking status: Former Packs/day: 1.00 Years: 30.00 Pack years: 30.00 Types: Cigarettes Quit date: 02/02/1999 Years since quittin.3 Smokeless tobacco: Never Vaping Use Vaping Use: Never used Substance Use Topics Alcohol use: No Drug use: Never Family History Problem Relation Age of Onset Stroke Mother Cancer Father Colon cancer Arthritis Father Other Father C DIFF Colorectal cancer Father Heart disease Paternal Uncle REVIEW OF SYSTEMS Pertinent positives are listed in HPI, PMSH, SH, ALL, otherwise all systems reviewed below are negative. The following systems were reviewed: [x] Const (fevers, chills, wt. loss, fatigue) [x] CV (HTN, CP, KIRAN, edema, DVT) [x] Resp (SOB, pleurisy, asthma, apnea) [x] GI (N, V, D, C, M, abd pain, appetite) [x] Musc (back pain, joint stiffness, gout) [x] Neuro (seizures, syncope, paralysis) [x] Psych (depression, anxiety) [x] Endo (hot/cold intol, polyuria[DM]) [x] Hem/Lymph (Anemia, LA, bleeding) [x] Allerg/Immun (seasonal, immuniz) [x] Eyes (diplopia, cataracts) [x] ENT/mouth (dysphagia, epistaxis) [x] (dysuria, hematuria) [x] Skin/Breast (moles, rash, lumps, nipple changes) Pertinent Positives: See HPI Pertinent Negatives: See HPI Physical Exam: BP 138/79 Pulse 71 Ht 5' 1" Wt 72.1 kg (159 lb) SpO2 91% BMI 30.04 kg/m Body mass index is 30.04 kg/m . Constitutional: Well nourished, well developed person in no acute distress. Ambulates without difficulty. Head: Atraumatic and normocephalic. Face: Within normal limits. Eyes: Pupils equal, round, reactive to light. Sclera white. Mouth: Moist mucous membranes, normal dentation. Neck: supple, trachea midline,no masses, no incisions. Lymphatic: No cervical or inguinal lymphadenopathy. Heart: Regular rate and rhythm. Lungs: Clear to auscultation. Abdomen: Soft, non-distended, non-tender, no heptasplenomegaly, no umbilica, incisional, femoral, or inguinal hernias. Pelvis: Stable, non-tender. Skin: Warm, moist, normal skin turgor. Peripheral Vascular: Palapable carotid, radial, and femoral pulses, no peripheral edema. Neuropsych: Alert and oriented, judgement and insight intact. Normal Gait. Assessment: 1. Hiatal hernia with GERD without esophagitis No orders of the defined types were placed in this encounter. Plan: I had a detailed discussion with the patient regarding her diagnosis. All treatment options were discussed in detail. At this point the patient would like to proceed with a robotic assisted laparoscopic hiatal hernia repair with mesh and LINX sphincter augmentation. Risk, benefits, and alternatives were discussed with the patient in detail prior to obtaining consent. Kimani Simon MD documented in this encounter [facility] 04-12-2022 History of Present illness Narrative Venipuncture to left arm x1 attempt successful. Patient tolerated well. Images from the original note were not included. HPI Lots of acid in stomach/nausea no help with nexium since 08/2021. Waterbrash, no change in bowel habits. No melena. 2 cups coffee daily, no nsaid's. Has awakened with this night and wake up with sore throat nose runs a lot. Food gets stuck in midchest at times. Early satiety worse at Thanksgiving. [address] Marquez egd. Here 04/12/2022. Not well rested. In the day.short of breath just sitting sometimes. Lab Results Component Value Date ALBUMIN 3.5 08/12/2021 ALT 43 08/12/2021 AST 26 08/12/2021 BUN 16 08/12/2021 CALCIUM 9.0 08/12/2021 CL 107 08/12/2021 CHOL 200 (H) 08/12/2021 CREATININE 0.88 08/12/2021 GLU 108 04/24/2016 GLUCOSE 97 08/12/2021 EXTGLUCOSE 103 (H) 06/01/2017 HDL 53 08/12/2021 HCT 32.3 (L) 11/16/2018 HGB 10.1 (L) 11/16/2018 LDL 131 04/24/2016 PLT 271 10/29/2018 K 4.1 08/12/2021 NA 141 08/12/2021 TRIG 173 (H) 08/12/2021 WBC 5.77 10/29/2018 Vitals: 04/12/22 1338 BP: 118/80 Temp: 97.7 F (36.5 C) Pulse: 73 Resp: 18 SpO2: 97% PT WEIGHT Weight 04/12/2022 157 lb 6.4 oz 08/11/2021 155 lb 9.6 oz 08/04/2021 154 lb 1.6 oz 12/07/2020 149 lb 9.6 oz BP Readings from Last 4 Encounters: 04/12/22 118/80 08/11/21 120/86 08/04/21 123/77 12/07/20 115/75 Past Medical History: Diagnosis Date Acute non-recurrent maxillary sinusitis 03/12/2019 Anxiety Arthritis of left hip 08/12/2018 Added automatically from request for surgery [id number] Ataxia 05/19/2015 Bleeding gums Bone spur C3-C6 posterior decompression and fusion 08/24/15 Bronchitis Bursitis of left hip [address] Bray last shot 09/2017 Constipation Degenerative disc disease, cervical C3-C6 posterior decompression and fusion 08/24/15 Depression meds Difficulty walking Fibroids SANTY / BSO GERD (gastroesophageal reflux disease) Glaucoma Greater trochanteric bursitis of left hip 06/04/2017 History of burning pain in leg burning in legs/knees giving out, s/p MRI 03/2015 Hypertension Hypothyroid Impaired vision Insomnia meds Kidney stone Leg weakness Osteoarthritis of knees, bilateral to have b/l knee replacement Psoriasis 12/2013 Trillium [place] on Ozella Teeth problem Tooth infection Weakness of both arms Past Surgical History: Procedure Laterality Date APPENDECTOMY ARTHROPLASTY HIP ROBOTIC DINO Left 11/14/2018 Procedure: Left Total Hip Replacement Robotic; Surgeon: Issac Bray MD; Location: [facility] OR; Service: Ortho-Robotics BREAST REDUCTION BREAST SURGERY 08/2014 CARPAL TUNNEL RELEASE Left 04/14/2014 Alex COLONOSCOPY 11/18/2013 normal....Donell COLONOSCOPY N/A 12/31/2018 Procedure: COLONOSCOPY; Surgeon: Cori Marquez MD; Location: [facility]; Service: General Surgery EGD N/A 12/31/2018 Procedure: ESOPHAGOGASTRODUODENOSCOPY; Surgeon: Cori Marquez MD; Location: [facility] OR; Service: General Surgery EYE SURGERY 02/2021 Cataract JOINT REPLACEMENT 03/2013 and 11/2018 Knees and hip KNEE REPLACEMENT PARTIAL (UNICOMPARTMENTAL KNEE) bilateral knees LAMINECTOMY DECOMPRESSION POSTERIOR CERVICAL WITH FUSION 2-3 LEVELS 08/24/2015 C3-C6 SKIN BIOPSY Benign TOTAL ABDOMINAL HYSTERECTOMY 04/13/2003 SANTY-BSO for uterine fibroids. TOTAL HIP ARTHROPLASTY Left TUBAL LIGATION Bilateral 1981 Social History Socioeconomic History Marital status: Tobacco Use Smoking status: Former Packs/day: 1.00 Years: 30.00 Pack years: 30.00 Types: Cigarettes Quit date: 02/02/1999 Years since quittin.2 Smokeless tobacco: Never Vaping Use Vaping Use: Never used Substance and Sexual Activity Alcohol use: No Drug use: Never Sexual activity: Not Currently Family History Problem Relation Age of Onset Stroke Mother Cancer Father Colon cancer Arthritis Father Other Father C DIFF Colorectal cancer Father Heart disease Paternal Uncle Current Outpatient Medications Medication Sig Dispense Refill hydroCHLOROthiazide (HYDRODIURIL) 12.5 MG tablet TAKE 1 TABLET DAILY 90 tablet 3 latanoprost (XALATAN) 0.005 % ophthalmic solution Administer 1 (one) drop to both eyes nightly . levothyroxine (SYNTHROID, LEVOTHROID) 100 MCG tablet Take 1 (one) tablet (100 mcg total) by mouth once daily . 90 tablet 3 multivitamin (THERAGRAN) per tablet Take 1 (one) tablet by mouth daily . naproxen (NAPROSYN) 375 MG tablet Take 1 (one) tablet (375 mg total) by mouth 2 (two) times a day as needed . risankizumab-rzaa (Skyrizi) 150 mg/mL Pen Inject under the skin . sertraline (ZOLOFT) 50 MG tablet Take 0.5 (one-half) tablet (25 mg total) by mouth daily . esomeprazole (NEXIUM) 40 MG capsule Take 1 (one) capsule (40 mg total) by mouth every morning before breakfast . (Patient not taking: Reported on 04/12/2022 .) 90 capsule 3 No current facility-administered medications for this visit. PHQ-9 Depression Screening No documentation. Goals None Review of Systems Constitutional: Positive for fatigue. HENT: Positive for rhinorrhea. Respiratory: Positive for shortness of breath (at times with rest). Cardiovascular: Negative. Gastrointestinal: Negative. Genitourinary: Negative. Musculoskeletal: Negative. Neurological: Negative. Hematological: Negative. Psychiatric/Behavioral: Negative. Physical Exam Vitals reviewed. Constitutional: Appearance: Normal appearance. She is well-developed. She is not ill-appearing. HENT: Head: Normocephalic and atraumatic. Right Ear: Tympanic membrane, ear canal and external ear normal. Left Ear: Tympanic membrane, ear canal and external ear normal. Nose: Nose normal. Mouth/Throat: Mouth: Mucous membranes are moist. Eyes: Extraocular Movements: Extraocular movements intact. Conjunctiva/sclera: Conjunctivae normal. Pupils: Pupils are equal, round, and reactive to light. Cardiovascular: Rate and Rhythm: Normal rate and regular rhythm. Heart sounds: Normal heart sounds. No murmur heard. Pulmonary: Effort: Pulmonary effort is normal. Breath sounds: Normal breath sounds. No wheezing. Chest: Chest wall: No tenderness. Abdominal: General: Bowel sounds are normal. Palpations: Abdomen is soft. There is no mass. Tenderness: There is no abdominal tenderness. There is no guarding or rebound. Musculoskeletal: General: No tenderness or deformity. Cervical back: Normal range of motion and neck supple. Lymphadenopathy: Cervical: No cervical adenopathy. Skin: General: Skin is warm and dry. Findings: No rash. Neurological: Mental Status: She is alert and oriented to person, place, and time. Mental status is at baseline. Deep Tendon Reflexes: Reflexes are normal and symmetric. Psychiatric: Mood and Affect: Mood normal. Behavior: Behavior normal. Thought Content: Thought content normal. Judgment: Judgment normal. There are no diagnoses linked to this encounter. Diagnoses and all orders for this visit: Gastroesophageal reflux disease, unspecified whether esophagitis present - Ambulatory referral to General Surgery; Future Gastroesophageal reflux disease, unspecified whether esophagitis present - Ambulatory referral to General Surgery; Future - Comprehensive Metabolic Panel; Future - CBC and Differential; Future For any new medications prescribed today, patient was educated about indications for the medication, how to take the medication and potential side effects of the medications. documented in this encounter [facility] 04-12-2022 History of Present illness Narrative Images from the original note were not included. HPI Lots of acid in stomach/nausea no help with nexium since 08/2021. Waterbrash, no change in bowel habits. No melena. 2 cups coffee daily, no nsaid's. Has awakened with this night and wake up with sore throat nose runs a lot. Food gets stuck in midchest at times. Early satiety worse at Thanksgiving. [address] Donell carmonad. Here 04/12/2022. Not well rested. In the day.short of breath just sitting sometimes. Lab Results Component Value Date ALBUMIN 3.5 08/12/2021 ALT 43 08/12/2021 AST 26 08/12/2021 BUN 16 08/12/2021 CALCIUM 9.0 08/12/2021 CL 107 08/12/2021 CHOL 200 (H) 08/12/2021 CREATININE 0.88 08/12/2021 GLU 108 04/24/2016 GLUCOSE 97 08/12/2021 EXTGLUCOSE 103 (H) 06/01/2017 HDL 53 08/12/2021 HCT 32.3 (L) 11/16/2018 HGB 10.1 (L) 11/16/2018 LDL 131 04/24/2016 PLT 271 10/29/2018 K 4.1 08/12/2021 NA 141 08/12/2021 TRIG 173 (H) 08/12/2021 WBC 5.77 10/29/2018 Vitals: 04/12/22 1338 BP: 118/80 Temp: 97.7 F (36.5 C) Pulse: 73 Resp: 18 SpO2: 97% PT WEIGHT Weight 04/12/2022 157 lb 6.4 oz 08/11/2021 155 lb 9.6 oz 08/04/2021 154 lb 1.6 oz 12/07/2020 149 lb 9.6 oz BP Readings from Last 4 Encounters: 04/12/22 118/80 08/11/21 120/86 08/04/21 123/77 12/07/20 115/75 Past Medical History: Diagnosis Date Acute non-recurrent maxillary sinusitis 03/12/2019 Anxiety Arthritis of left hip 08/12/2018 Added automatically from request for surgery [id number] Ataxia 05/19/2015 Bleeding gums Bone spur C3-C6 posterior decompression and fusion 08/24/15 Bronchitis Bursitis of left hip [address] Bray last shot 09/2017 Constipation Degenerative disc disease, cervical C3-C6 posterior decompression and fusion 08/24/15 Depression meds Difficulty walking Fibroids SANTY / BSO GERD (gastroesophageal reflux disease) Glaucoma Greater trochanteric bursitis of left hip 06/04/2017 History of burning pain in leg burning in legs/knees giving out, s/p MRI 03/2015 Hypertension Hypothyroid Impaired vision Insomnia meds Kidney stone Leg weakness Osteoarthritis of knees, bilateral to have b/l knee replacement Psoriasis 12/2013 [place] on Ozella Teeth problem Tooth infection Weakness of both arms Past Surgical History: Procedure Laterality Date APPENDECTOMY ARTHROPLASTY HIP ROBOTIC DINO Left 11/14/2018 Procedure: Left Total Hip Replacement Robotic; Surgeon: Issac Bray MD; Location: Main OR; Service: Ortho-Robotics BREAST REDUCTION BREAST SURGERY 08/2014 CARPAL TUNNEL RELEASE Left 04/14/2014 Alex COLONOSCOPY 11/18/2013 normal....Donell COLONOSCOPY N/A 12/31/2018 Procedure: COLONOSCOPY; Surgeon: Cori Marquez MD; Location: [facility] [place] OR; Service: General Surgery EGD N/A 12/31/2018 Procedure: ESOPHAGOGASTRODUODENOSCOPY; Surgeon: Cori Marquez MD; Location: [facility] [place] OR; Service: General Surgery EYE SURGERY 02/2021 Cataract JOINT REPLACEMENT 03/2013 and 11/2018 Knees and hip KNEE REPLACEMENT PARTIAL (UNICOMPARTMENTAL KNEE) bilateral knees LAMINECTOMY DECOMPRESSION POSTERIOR CERVICAL WITH FUSION 2-3 LEVELS 08/24/2015 C3-C6 SKIN BIOPSY Benign TOTAL ABDOMINAL HYSTERECTOMY 04/13/2003 SANTY-BSO for uterine fibroids. TOTAL HIP ARTHROPLASTY Left TUBAL LIGATION Bilateral 1981 Social History Socioeconomic History Marital status: Tobacco Use Smoking status: Former Packs/day: 1.00 Years: 30.00 Pack years: 30.00 Types: Cigarettes Quit date: 02/02/1999 Years since quittin.2 Smokeless tobacco: Never Vaping Use Vaping Use: Never used Substance and Sexual Activity Alcohol use: No Drug use: Never Sexual activity: Not Currently Family History Problem Relation Age of Onset Stroke Mother Cancer Father Colon cancer Arthritis Father Other Father C DIFF Colorectal cancer Father Heart disease Paternal Uncle Current Outpatient Medications Medication Sig Dispense Refill hydroCHLOROthiazide (HYDRODIURIL) 12.5 MG tablet TAKE 1 TABLET DAILY 90 tablet 3 latanoprost (XALATAN) 0.005 % ophthalmic solution Administer 1 (one) drop to both eyes nightly . levothyroxine (SYNTHROID, LEVOTHROID) 100 MCG tablet Take 1 (one) tablet (100 mcg total) by mouth once daily . 90 tablet 3 multivitamin (THERAGRAN) per tablet Take 1 (one) tablet by mouth daily . naproxen (NAPROSYN) 375 MG tablet Take 1 (one) tablet (375 mg total) by mouth 2 (two) times a day as needed . risankizumab-rzaa (Skyrizi) 150 mg/mL Pen Inject under the skin . sertraline (ZOLOFT) 50 MG tablet Take 0.5 (one-half) tablet (25 mg total) by mouth daily . esomeprazole (NEXIUM) 40 MG capsule Take 1 (one) capsule (40 mg total) by mouth every morning before breakfast . (Patient not taking: Reported on 04/12/2022 .) 90 capsule 3 No current facility-administered medications for this visit. PHQ-9 Depression Screening No documentation. Goals None Review of Systems Constitutional: Positive for fatigue. HENT: Positive for rhinorrhea. Respiratory: Positive for shortness of breath (at times with rest). Cardiovascular: Negative. Gastrointestinal: Negative. Genitourinary: Negative. Musculoskeletal: Negative. Neurological: Negative. Hematological: Negative. Psychiatric/Behavioral: Negative. Physical Exam Vitals reviewed. Constitutional: Appearance: Normal appearance. She is well-developed. She is not ill-appearing. HENT: Head: Normocephalic and atraumatic. Right Ear: Tympanic membrane, ear canal and external ear normal. Left Ear: Tympanic membrane, ear canal and external ear normal. Nose: Nose normal. Mouth/Throat: Mouth: Mucous membranes are moist. Eyes: Extraocular Movements: Extraocular movements intact. Conjunctiva/sclera: Conjunctivae normal. Pupils: Pupils are equal, round, and reactive to light. Cardiovascular: Rate and Rhythm: Normal rate and regular rhythm. Heart sounds: Normal heart sounds. No murmur heard. Pulmonary: Effort: Pulmonary effort is normal. Breath sounds: Normal breath sounds. No wheezing. Chest: Chest wall: No tenderness. Abdominal: General: Bowel sounds are normal. Palpations: Abdomen is soft. There is no mass. Tenderness: There is no abdominal tenderness. There is no guarding or rebound. Musculoskeletal: General: No tenderness or deformity. Cervical back: Normal range of motion and neck supple. Lymphadenopathy: Cervical: No cervical adenopathy. Skin: General: Skin is warm and dry. Findings: No rash. Neurological: Mental Status: She is alert and oriented to person, place, and time. Mental status is at baseline. Deep Tendon Reflexes: Reflexes are normal and symmetric. Psychiatric: Mood and Affect: Mood normal. Behavior: Behavior normal. Thought Content: Thought content normal. Judgment: Judgment normal. There are no diagnoses linked to this encounter. Diagnoses and all orders for this visit: Gastroesophageal reflux disease, unspecified whether esophagitis present - Ambulatory referral to General Surgery; Future Gastroesophageal reflux disease, unspecified whether esophagitis present - Ambulatory referral to General Surgery; Future - Comprehensive Metabolic Panel; Future - CBC and Differential; Future For any new medications prescribed today, patient was educated about indications for the medication, how to take the medication and potential side effects of the medications. documented in this encounter [facility] 08-22-2021 Telephone encounter Note Patient uses [facility] for her medication. Qued up [facility]. 90/3 Requested Prescriptions Pending Prescriptions Disp Refills esomeprazole (NEXIUM) 40 MG capsule 90 capsule 3 Sig: Take 1 (one) capsule (40 mg total) by mouth every morning before breakfast . Last OV 08/11/21 Next OV 08/16/22 [facility] 08-22-2021 Miscellaneous Notes Patient uses [facility] for her medication. Qued up medication [facility] to [facility]. 90/3 Requested Prescriptions Pending Prescriptions Disp Refills esomeprazole (NEXIUM) 40 MG capsule 90 capsule 3 Sig: Take 1 (one) capsule (40 mg total) by mouth every morning before breakfast . Last OV 08/11/21 Next OV 08/16/[address] encounter [facility] 08-11-2021 Instructions Brandon Lowery DO - 08/11/2021 8:34 AM EDT Images from the original note were not included. Shingles series..... Thank you for choosing our office for your Medicare Wellness Visit. Below you will find the plans we discussed today for your future medical treatments. Please keep this plan in a visible location so you can refer to it often and let our office know if you have any questions. 5-Year Plan Health Maintenance Topic Date Due Tetanus: Every 10yrs Never done Zoster Vaccines (2 of 3) 05/24/2014 COVID-19 Vaccine (4 - Booster for Moderna series) 05/03/2021 Pap Smear 05/29/2021 Wellness Visit 08/09/2021 Lipid Panel 08/09/2021 Depression Screening (PHQ-2/9) 12/07/2021 Mammogram 02/14/2022 Falls Risk Assessment 08/08/2022 Colorectal Cancer Screening 12/31/2028 Hepatitis C Screening Completed Pneumococcal Vaccine: Age 65+ Completed Dexa Scan Completed Sequential Influenza Vaccine Completed Pharmacy/Equipment Co. (DME) [id number] - [place], [place] - [address] [facility] [address] [facility] [id number] [facility] [place], [place] [address] [facility] [address] [facility] [address] [id number] [place], [place] [address] [facility] [address] [facility] [address] [place] [id number] [facility] [id number] [facility] [address] [place] [facility] [id number] Referrals and Orders Orders Placed This Encounter Procedures Comprehensive Metabolic Panel Lipid Panel TSH with Reflex Free T4 Additional Healthsweet home patient educational materials/videos are available through your [facility] providers and can be found in your [employer] Library at [email or web address] and/or the [employer] ryan. Heart-Healthy Diet: Care Instructions Your Care Instructions A heart-healthy diet has lots of vegetables, fruits, nuts, beans, and whole grains, and is low in salt. It limits foods that are high in saturated fat, such as meats, cheeses, and fried foods. It may be hard to change your diet,but even small changes can lower your risk of heart attack and heart disease. Follow-up care is a alejandra part of your treatment and safety. Be sure to make and go to all appointments, and call your doctor if you are having problems. It's also a good idea to know your test results and keep alist of the medicines you take. How can you care for yourself at home? Watch your portions Use food labels to learn what the recommended servings are for the foods you eat. Eat only the number of calories you need to stay at a healthy weight. If you need to lose weight, eat fewer calories than your body gomez (through exercise and other physical activity). Eat more fruits and vegetables Eat a variety of fruit and vegetables every day. Dark green, deep orange, red, or yellow fruits and vegetables are especially good for you. Examples include spinach, carrots, peaches, and berries. Keep carrots, celery, and other veggies handy for snacks. Buy fruit that is in season and store it where you can see it so that you will be tempted to eat it. Cook dishes that have a lot of veggies in them, such as stir-fries and soups. Limit saturated fat Read food labels, and try to avoid saturated fats. They increase your risk of heart disease. Use olive or canola oil when you cook. Bake, broil, grill, or steam foods instead of frying them. Choose lean meats instead of high-fat meats such as hot dogs and sausages. Cut off all visible fat when you prepare meat. Eat fish, skinless poultry, and meat alternatives such as soy products instead of high-fat meats. Soy products, such as tofu, may be especially good for your heart. Choose low-fat or fat-free milk and dairy products. Eat foods high in fiber Eat a variety of grain products every day. Include whole-grain foods that have lots of fiber and nutrients. Examples of whole-grain foods include oats, whole wheat bread, and brown rice. Buy whole-grain breads and cereals, instead of white bread or pastries. Limit salt and sodium Limit how much salt and sodium you eat to help lower your blood pressure. Taste food before you salt it. Add only a little salt when you think you need it. With time, your taste buds will adjust to less salt. Eat fewer snack items, fast foods, and other high-salt, processed foods. Check food labels for the amount of sodium in packaged foods. Choose low-sodium versions of canned goods (such as soups, vegetables, and beans). Limit sugar Limit drinks and foods with added sugar. These include candy, desserts, and soda pop. Limit alcohol Limit alcohol to no more than 2 drinks a day for men and 1 drink a day for women. Too much alcohol can cause health problems. When should you call for help? Watch closely for changes in your health, and be sure to contact your doctor if: You would like help planning heart-healthy meals. Where can you learn more? Log into your personal health record on [email or web address] and enter V137 in the "Education" box to learn more about "Heart-Healthy Diet: Care Instructions." Current as of: November 10, 2020 Content Version: 13.2 [email or web address]. Care instructions adapted under license by your healthcare professional. If you have questions about a medical condition or this instruction, always ask your healthcare professional. [email or web address] disclaims any warranty or liability for your use of this information. Additional [employer] patient educational materials/videos are available through your [facility] providers and can be found in your [employer] Library at [email or web address]. and/or the [employer] ryan. Learning About Being Physically Active What is physical activity? Being physically active means doing any kind of activity that gets your bodymoving. The types of physical activity that can help you get fit and stay healthyinclude: Aerobic or "cardio" activities. These make your heart beat faster and make you breathe harder, such as brisk walking, riding a bike, or running. They strengthen your heart and lungs and build up your endurance. Strength training activities. These make your muscles work against, or "resist," something. Examples include lifting weights or doing push-ups. These activities help tone and strengthen your muscles and bones. Stretches. These let you move your joints and muscles through their full range of motion. Stretching helps you be more flexible. Reaching a balance between these three types of physical activity is importantbecause each one contributes to your overall fitness. What are the benefits of being active? Being active is one of the best things you can do for your health. It helps youto: Feel stronger and have more energy to do all the things you like to do. Focus better at school or work. Feel, think, and sleep better. Reach and stay at a healthy weight. Lose fat and build lean muscle. Lower your risk for serious health problems, including diabetes, heart attack, high blood pressure, and some cancers. Keep your heart, lungs, bones, muscles, and joints strong and healthy. How can you make being active part of your life? Start slowly. Make it your long-term goal to get at least 30 minutes of exercise on most days of the week. Walking is a good choice. You also may want to do other activities, such as running, swimming, cycling, or playing tennisor team sports. Pick activities that you like--ones that make your heart beat faster, your muscles stronger, and your muscles and joints more flexible. If you find more than one thing you like doing, do them all. You don't have to do the same thingevery day. Get your heart pumping every day. Any activity that makes your heart beat faster and keeps it at that rate for awhile counts. Here are some great ways to get your heart beating faster: Go for a brisk walk, run, or bike ride. Go for a hike or swim. Go in-line skating. Play a game of touch football, basketball, or soccer. Ride a bike. Play tennis or racquetball. Climb stairs. Even some autism specialist can be aerobic--just do them at a faster pace. Vacuuming, raking or mowing the lawn, sweeping the garage, and washing andwaxing the car all can help get your heart rate up. Strengthen your muscles during the week. You don't have to lift heavy weights or grow big, bulky muscles to get stronger. Doing a few simple activities that make your muscles work against, or"resist," something can help you get stronger. For example, you can: Do push-ups or sit-ups, which use your own body weight as resistance. Lift weights or dumbbells or use stretch bands at home or in a gym or community center. Stretch your muscles often. Stretching will help you as you become more active. It can help you stay flexible, loosen tight muscles, and avoid injury. It can also help improve yourbalance and posture and can be a great way to relax. Be sure to stretch the muscles you'll be using when you work out. It's best to warm your muscles slightly before you stretch them. Walk or do some other lightaerobic activity for a few minutes, and then start stretching. When you stretch your muscles: Do it slowly. Stretching is not about going fast or making sudden movements. Don't push or bounce during a stretch. Hold each stretch for at least 15 to 30 seconds, if you can. You should feel a stretch in the muscle, but not pain. Breathe out as you do the stretch. Then breathe in as you hold the stretch. Don't hold your breath. If you're worried about how more activity might affect your health, have a checkup before you start. Follow any special advice your doctor gives you forgetting a smart start. Where can you learn more? Log into your personal health record on [email or web address] and enter W332 in the "Education" box to learn more about "Learning About Being Physically Active." Current as of: July 14, 2020 Content Version: 13.2 [email or web address]. Care instructions adapted under license by your healthcare professional. If you have questions about a medical condition or this instruction, always ask your healthcare professional. [employer] disclaims any warranty or liability for your use of this information. During your visit today, you were counseled about Advance Care Planning. Please visit this website for forms: [email or web address] documented in this encounter [facility] 08-11-2021 History of Present illness Narrative Rationale: Overweight (Findings) BMIDiscussed elevated Body Mass Index (BMI): Advised regular exercise.Discussed elevated Body Mass Index (BMI): Advised healthy and appropriate diet.Subjective Sandy Pradhan is a 71 y.o. female who presents for a Medicare Wellness Visit. Medicare Risk Assessment Do you have an Advanced Directive (Living Will and/or Durable Power of Auto Body Worker for Health Care)?: No - I would like more info What is your exercise level?: Occasional What is your diet?: Regular Can you prepare your own meals?: Yes Do you have trouble with finding transportation?: No Because of any health problems, do you need the help of another person with your personal care needs? (For example, eating, bathing, dressing, or getting around the house.): No Does your home have throw rugs, poor lighting or slippery bathtub or shower?: (!) Yes Does your home have grab bars in bathrooms or handrails on stairs and steps?: Yes During the past four weeks, how would you rate your health in general?: Good Whether or not you use a hearing aid, do you think you have a hearing problem or do others think you have a hearing problem?: No Whether or not you use glasses or contacts, do you have difficulty driving, watching television, reading, or doing any of your daily activities because of your eyesight?: No In the past six months, have you had an unexplained weight loss of 10 pounds or more?: No How often do you have trouble taking medicines the way you have been told to take them?: I always take as prescribed During the past four weeks, how much have you been bothered by emotional problems such as feeling anxious, depressed, irritable, sad, or downhearted and blue?: Slightly During the past four weeks, has your physical and emotional health limited your social activites with family, friends, neighbors, or groups? : (!) Quite a bit Provider/Supplier Name and Specialty: Dr. Brady( Ophthamologist), [facility] (Rubio LINDSEY), [facility] (Nini Meza C.N.P.) Falls Risk Assessment Is Patient Ambulatory?: Yes Fell in past year: No How many falls in the past year?: 0 Did any of these falls result in an injury?: No Unsteady when walks: No Worried about falling: No Advised to use cane/walker?: No Holds onto furniture/johnston: No Uses hands to stand up from a chair: Yes Trouble stepping onto curb: Yes Rushes to toilet: Yes Lost feeling in feet: No Medicine makes me light-headed: No Medicine for sleep or mood: Yes Often feel sad/depressed: No Patient Self Risk Assessment Score: 4 Have you had your vision checked in the past 12 months?: Yes Medicare Mini Cog Step 1: Three Word Registration Version Used: Version 5: [place] Picture Step 2: Clock Drawing Step 2 score: Normal clock - 2 points Clock has all numbers placed in the correct sequence & position (e.g., 12, 3, 6 and 9 are in anchor positions) with no missing or duplicate numbers. Hands are pointing to the 11 & 2 (11:10). Hand length is not scored. Step 3: Three Word Recall Step 3: Three Word Recall Score: 3 Words Recalled Total score = Word Recall score + Clock Draw score A cut point of <3 on the Mini-Cog has been validated for dementia screening, but many individuals with clinically meaningful cognitive impairment will score higher. 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 Hypothyroidism Hypertension, essential Status post total replacement of left hip Family history of colon cancer Past Medical History: Diagnosis Date Acute non-recurrent maxillary sinusitis 03/12/2019 Anxiety Arthritis of left hip 08/12/2018 Added automatically from request for surgery [id number] Ataxia 05/19/2015 Bleeding gums Bone spur C3-C6 posterior decompression and fusion 08/24/15 Bronchitis Bursitis of left hip [address] Bray last shot 09/2017 Constipation Degenerative disc disease, cervical C3-C6 posterior decompression and fusion 08/24/15 Depression meds Difficulty walking Fibroids SANTY / BSO GERD (gastroesophageal reflux disease) Glaucoma Greater trochanteric bursitis of left hip 06/04/2017 History of burning pain in leg burning in legs/knees giving out, s/p MRI 03/2015 Hypertension Hypothyroid Impaired vision Insomnia meds Kidney stone Leg weakness Osteoarthritis of knees, bilateral to have b/l knee replacement Psoriasis 12/2013 Trillium C[place]ck on Ozella Teeth problem Tooth infection Weakness of both arms Past Surgical History: Procedure Laterality Date APPENDECTOMY ARTHROPLASTY HIP ROBOTIC DINO Left 11/14/2018 Procedure: Left Total Hip Replacement Robotic; Surgeon: Issac Bray MD; Location: [facility] OR; Service: Ortho-Robotics BREAST REDUCTION BREAST SURGERY 08/2014 CARPAL TUNNEL RELEASE Left 04/14/2014 lAex COLONOSCOPY 11/18/2013 normal....Donell COLONOSCOPY N/A 12/31/2018 Procedure: COLONOSCOPY; Surgeon: Cori Marquez MD; Location: [facility] OR; Service: General Surgery EGD N/A 12/31/2018 Procedure: ESOPHAGOGASTRODUODENOSCOPY; Surgeon: Cori Marquez MD; Location: [facility] OR; Service: General Surgery EYE SURGERY 02/2021 Cataract JOINT REPLACEMENT 03/2013 and 11/2018 Knees and hip KNEE REPLACEMENT PARTIAL (UNICOMPARTMENTAL KNEE) bilateral knees LAMINECTOMY DECOMPRESSION POSTERIOR CERVICAL WITH FUSION 2-3 LEVELS 08/24/2015 C3-C6 SKIN BIOPSY Benign TOTAL ABDOMINAL HYSTERECTOMY 04/13/2003 SANTY-BSO for uterine fibroids. TOTAL HIP ARTHROPLASTY Left TUBAL LIGATION Bilateral 1982 Current Outpatient Medications Medication Sig Dispense Refill esomeprazole (NEXIUM) 40 MG capsule Take 1 (one) capsule (40 mg total) by mouth every morning before breakfast . 30 capsule 11 hydroCHLOROthiazide (HYDRODIURIL) 12.5 MG tablet TAKE 1 TABLET DAILY 90 tablet 3 latanoprost (XALATAN) 0.005 % ophthalmic solution Administer 1 drop to both eyes nightly . levothyroxine (SYNTHROID, LEVOTHROID) 100 MCG tablet TAKE 1 TABLET EVERY MORNING (DOSE ADJUSTMENT) 90 tablet 3 multivitamin (THERAGRAN) per tablet Take 1 tablet by mouth daily naproxen (NAPROSYN) 375 MG tablet Take 375 mg by mouth 2 (two) times a day as needed . risankizumab-rzaa (Skyrizi) 150 mg/mL Pen Inject under the skin . sertraline (ZOLOFT) 50 MG tablet Take 25 mg by mouth daily . No current facility-administered medications for this visit. Social History Socioeconomic History Marital status: Tobacco Use Smoking status: Former Packs/day: 1.00 Years: 30.00 Pack years: 30.00 Types: Cigarettes Quit date: 02/02/1999 Years since quittin.5 Smokeless tobacco: Never Vaping Use Vaping Use: Never used Substance and Sexual Activity Alcohol use: No Drug use: Never Sexual activity: Not Currently Social Determinants of Health Food Insecurity: No Food Insecurity Worried About Running Out of Food in the Last Year: Never true Ran Out of Food in the Last Year: Never true Social Connections: Unknown Frequency of Social Gatherings with Friends and Family: Once a week Allergies: Allergies Allergen Reactions Hydrocodone GI Intolerance Care Team Patient Care Team: Brandon Lowery DO as PCP - General (Family Medicine) Man Brady II, MD as Consulting Physician (Ophthalmology) Rubio Leon PA-C (Physician Pony Edger) Nini Meza CNP as Nurse Practitioner (Obstetrics/Gynecology) Pharmacy / Equipment Co. (DME) [id number] [place] [id number] [facility] [facility] [address] [facility] [address] [facility] [phone] [facility] [place], [place] [address] [facility] [address] [facility] [address] [id number] - [place], [place] - [address] [facility] [address] [facility] [address] [facility] [id number] - [place], [place] - [address] [facility] [address] [facility] [address] Objective Blood pressure 120/86, pulse 62, temperature 98 F (36.7 C), temperature source Oral, resp. rate 16, height 5' 1", weight 70.6 kg (155 lb 9.6 oz). Body mass index is 29.4 kg/m . Vitals: PACU Vitals 08/11/21 0803 BP: 120/86 Pulse: 62 Resp: 16 Temp: 98 F (36.7 C) PainSc: 0-No pain Vision and Hearing Screen: No results found. Assessment: The primary encounter diagnosis was Routine general medical examination at a health care facility. Diagnoses of Hypothyroidism, unspecified type and Hypertension, essential were also pertinent to this visit. Plan: During the course of the visit the patient was educated and counseled about appropriate screening and preventive services including: Advice / Referrals: Provide Healthwise patient instructions Handouts Reviewed and discussed with Patient: yes 5-Year Plan: Health Maintenance Topic Date Due Tetanus: Every 10yrs Never done Zoster Vaccines (2 of 3) 05/24/2014 COVID-19 Vaccine (4 - Booster for Moderna series) 05/03/2021 Pap Smear 05/29/2021 Wellness Visit 08/09/2021 Lipid Panel 08/09/2021 Depression Screening (PHQ-2/9) 12/07/2021 Mammogram 02/14/2022 Falls Risk Assessment 08/08/2022 Colorectal Cancer Screening 12/31/2028 Hepatitis C Screening Completed Pneumococcal Vaccine: Age 65+ Completed Dexa Scan Completed Sequential Influenza Vaccine Completed Patient Instructions (the written plan) was given to the patient. Tetanus- Over 10 years ago Pap- gets every 2 years, [facility] Due for lipids- patient is fasting documented in this encounter [facility] 08-04-2021 History of Present illness Narrative Images from the original note were not included. Subjective Patient ID: Sandy Pradhan is a 71 y.o. female. HPI Here with complaint of abdominal bloting and gas with pain after eating. Occasionally wakes up with heart burn. Can occur with any food. Takes probiotic at night. Bowels move fine normally. The following portions of the patient's history were reviewed and updated as appropriate: She has a past medical history of Acute non-recurrent maxillary sinusitis (03/12/2019), Arthritis of left hip (08/12/2018), Ataxia (05/19/2015), Bleeding gums, Bone spur, Bronchitis, Bursitis of left hip (2017), Constipation, Degenerative disc disease, cervical, Depression, Difficulty walking, Fibroids, GERD (gastroesophageal reflux disease), Glaucoma, Greater trochanteric bursitis of left hip (06/04/2017), History of burning pain in leg, Hypertension, Hypothyroid, Impaired vision, Insomnia, Kidney stone, Leg weakness, Osteoarthritis of knees, bilateral, Psoriasis (12/2013), Teeth problem, Tooth infection, and Weakness of both arms. She does not have any pertinent problems on file. She has a past surgical history that includes Appendectomy; Carpal tunnel release (Left, 04/14/2014); Knee Replacement Partial (Unicompartmental Knee); Breast Reduction; LAMINECTOMY DECOMPRESSION POSTERIOR CERVICAL WITH FUSION 2-3 LEVELS (08/24/2015); Tubal ligation (Bilateral, 1981); Total abdominal hysterectomy (04/13/2003); ARTHROPLASTY HIP ROBOTIC (Left, 11/14/2018); Total hip arthroplasty (Left); Colonoscopy (11/18/2013); Colonoscopy (N/A, 12/31/2018); and Egd (N/A, 12/31/2018). Her family history includes Arthritis in her father; Cancer in her father; Colorectal cancer in her father; Heart disease in her paternal uncle; Other in her father; Stroke in her mother. She reports that she quit smoking about 22 years ago. Her smoking use included cigarettes. She has a 30.00 pack-year smoking history. She has never used smokeless tobacco. She reports that she does not drink alcohol and does not use drugs. Current Outpatient Medications Medication Sig Dispense Refill fluorometholone (FML) 0.1 % ophthalmic suspension hydroCHLOROthiazide (HYDRODIURIL) 12.5 MG tablet TAKE 1 TABLET DAILY 90 tablet 3 latanoprost (XALATAN) 0.005 % ophthalmic solution Administer 1 drop to both eyes nightly . levothyroxine (SYNTHROID, LEVOTHROID) 100 MCG tablet TAKE 1 TABLET EVERY MORNING (DOSE ADJUSTMENT) 90 tablet 3 multivitamin (THERAGRAN) per tablet Take 1 tablet by mouth daily naproxen (NAPROSYN) 375 MG tablet Take 375 mg by mouth 2 (two) times a day as needed . risankizumab-rzaa (Skyrizi) 150 mg/mL Pen Inject under the skin . sertraline (ZOLOFT) 50 MG tablet Take 25 mg by mouth daily . esomeprazole (NEXIUM) 40 MG capsule Take 1 (one) capsule (40 mg total) by mouth every morning before breakfast . 30 capsule 11 No current facility-administered medications for this visit. . Review of Systems Respiratory: Positive for cough and shortness of breath. Gastrointestinal: Positive for abdominal distention. Objective Physical Exam Constitutional: Appearance: Normal appearance. Cardiovascular: Rate and Rhythm: Regular rhythm. Heart sounds: Normal heart sounds. Pulmonary: Breath sounds: Normal breath sounds. Abdominal: General: Abdomen is protuberant. Bowel sounds are normal. Palpations: Abdomen is soft. Tenderness: There is abdominal tenderness in the epigastric area. Neurological: Mental Status: She is alert. Assessment/Plan: Diagnoses and all orders for this visit: Gastroesophageal reflux disease, unspecified whether esophagitis present - esomeprazole (NEXIUM) 40 MG capsule; Take 1 (one) capsule (40 mg total) by mouth every morning before breakfast . She will try for 1 month if norelief back here. Electronically signed by Elicia Martinez CWP documented in this encounter [facility] 12-07-2020 History of Present illness Narrative Images from the original note were not included. Subjective Patient ID: Sandy Pradhan is a 70 y.o. female. HPI Had assessment the [facility] Nurse in home. She was concerned with circulation in the left leg. I have no notes from this nurse so really unsure what she is speaking about. The following portions of the patient's history were reviewed and updated as appropriate: She has a past medical history of Acute non-recurrent maxillary sinusitis (03/12/2019), Arthritis of left hip (08/12/2018), Ataxia (05/19/2015), Bleeding gums, Bone spur, Bronchitis, Bursitis of left hip (2017), Constipation, Degenerative disc disease, cervical, Depression, Difficulty walking, Fibroids, GERD (gastroesophageal reflux disease), Glaucoma, Greater trochanteric bursitis of left hip (06/04/2017), History of burning pain in leg, Hypertension, Hypothyroid, Impaired vision, Insomnia, Kidney stone, Leg weakness, Osteoarthritis of knees, bilateral, Psoriasis (12/2013), Teeth problem, Tooth infection, and Weakness of both arms. She does not have any pertinent problems on file. She has a past surgical history that includes Appendectomy; Carpal tunnel release (Left, 04/14/2014); Knee Replacement Partial (Unicompartmental Knee); Breast Reduction; LAMINECTOMY DECOMPRESSION POSTERIOR CERVICAL WITH FUSION 2-3 LEVELS (08/24/2015); Tubal ligation (Bilateral, 1981); Total abdominal hysterectomy (04/13/2003); ARTHROPLASTY HIP ROBOTIC (Left, 11/14/2018); Total hip arthroplasty (Left); Colonoscopy (11/18/2013); Colonoscopy (N/A, 12/31/2018); and Egd (N/A, 12/31/2018). Her family history includes Arthritis in her father; Cancer in her father; Colorectal cancer in her father; Heart disease in her paternal uncle; Other in her father; Stroke in her mother. She reports that she quit smoking about 21 years ago. Her smoking use included cigarettes. She has a 30.00 pack-year smoking history. She has never used smokeless tobacco. She reports that she does not drink alcohol and does not use drugs. Current Outpatient Medications Medication Sig Dispense Refill hydroCHLOROthiazide (HYDRODIURIL) 12.5 MG tablet TAKE 1 TABLET DAILY 90 tablet 3 latanoprost (XALATAN) 0.005 % ophthalmic solution Administer 1 drop to both eyes nightly . levothyroxine (SYNTHROID, LEVOTHROID) 100 MCG tablet Take 1 (one) tablet (100 mcg total) by mouth every morning . 90 tablet 3 multivitamin (THERAGRAN) per tablet Take 1 tablet by mouth daily naproxen (NAPROSYN) 375 MG tablet Take 375 mg by mouth 2 (two) times a day as needed . sertraline (ZOLOFT) 50 MG tablet Take 50 mg by mouth daily flu vacc [id number] up,-PF (FLUZONE HIGH-DOSE) syringe Sign this order in conjunction with the immunization order to satisfy [place] Board of Pharmacy Positive ID requirements for immunization orders. . 0.7 mL 0 fluorometholone (FML) 0.1 % ophthalmic suspension No current facility-administered medications for this visit. . Review of Systems All other systems reviewed and are negative. Objective Physical Exam Constitutional: Appearance: Normal appearance. Cardiovascular: Pulses: Dorsalis pedis pulses are 2+ on the right side and 2+ on the left side. Posterior tibial pulses are 2+ on the right side and 2+ on the left side. Comments: Bilateral legs warm, no edema and both pink. Neurological: Mental Status: She is alert. Assessment/Plan: Diagnoses and all orders for this visit: Encounter for vaccination - Influenza vaccine IIV4 High Dose Leg swelling Comments: Benign No further treatment necessary. Electronically signed by Elicia Martinez Andrew Depression Screening 06/01/2017 06/03/2018 03/12/2019 12/07/2020 Little interest or pleasure in doing things - 0 1 1 Feeling down, depressed, or hopeless - 0 0 0 PHQ-2 Total Score - 0 1 1 Trouble falling or staying asleep, or sleeping too much 1 1 1 1 Feeling tired or having little energy 1 0 1 1 Poor appetite or overeating 1 0 2 1 Feeling bad about yourself - or that you are a failure or have let yourself or your family down 0 0 0 1 Trouble concentrating on things, such as reading the newspaper or watching television 0 0 2 0 Moving or speaking so slowly that other people could have noticed. Or the opposite - being so fidgety or restless that you have been moving around a lot more than usual 0 0 0 0 Thoughts that you would be better off , or of hurting yourself in some way 0 0 0 0 PHQ-9 Total Score 3 1 7 5 If you checked off any problems, how difficult have these problems made it for you to do your work, take care of things at home, or get along with other people? Not difficult at all Not difficult at all Not difficult at all Not difficult at all documented in this encounter [facility] 08-09-2020 History of Present illness Narrative Labs collected from left arm. Patient tolerated well Rationale: Overweight (Findings) BMIDiscussed elevated Body Mass Index (BMI): Advised regular exercise.Discussed elevated Body Mass Index (BMI): Advised healthy and appropriate diet. Subjective Sandy Pradhan is a 70 y.o. female who presents for a Medicare Wellness Visit. Medicare Risk Assessment Can you prepare your own meals?: Yes Do you have trouble with finding transportation?: No Because of any health problems, do you need the help of another person with your personal care needs? (For example, eating, bathing, dressing, or getting around the house.): No Does your home have throw rugs, poor lighting or slippery bathtub or shower?: (!) Yes Does your home have grab bars in bathrooms or handrails on stairs and steps?: Yes During the past four weeks, how would you rate your health in general?: Very Good Whether or not you use a hearing aid, do you think you have a hearing problem or do others think you have a hearing problem?: No Whether or not you use glasses or contacts, do you have difficulty driving, watching television, reading, or doing any of your daily activities because of your eyesight?: No In the past six months, have you had an unexplained weight loss of 10 pounds or more?: No How often do you have trouble taking medicines the way you have been told to take them?: I always take as prescribed Falls Risk Assessment Fell in past year: 2 (Yes) How many falls in the past year?: 2 Did any of these falls result in an injury?: Yes Unsteady when walks: 0 (No) Worried about fallin (No) Advised to use cane/walker?: 0 (No) Holds onto furniture/johnston: 0 (No) Uses hands to stand up from a chair: 0 (No) Trouble stepping onto curb: 1 (Yes) Rushes to toilet: 1 (Yes) Lost feeling in feet: 0 (No) Medicine makes me light-headed: 0 (No) Medicine for sleep or mood: 1 (Yes) Often feel sad/depressed: 0 (No) Patient Self Risk Assessment Score: 5 Have you had your vision checked in the past 12 months?: Yes Medicare Mini Cog Comprehensive Medical and Social History: Patient Active Problem List Diagnosis 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 Hypothyroidism Hypertension, essential Status post total replacement of left hip Family history of colon cancer Past Medical History: Diagnosis Date Acute non-recurrent maxillary sinusitis 03/12/2019 Arthritis of left hip 08/12/2018 Added automatically from request for surgery [id number] Ataxia 05/19/2015 Bleeding gums Bone spur C3-C6 posterior decompression and fusion 08/24/15 Bronchitis Bursitis of left hip [address] Bray last shot 09/2017 Constipation Degenerative disc disease, cervical C3-C6 posterior decompression and fusion 08/24/15 Depression meds Difficulty walking Fibroids SANTY / BSO GERD (gastroesophageal reflux disease) Glaucoma Greater trochanteric bursitis of left hip 06/04/2017 History of burning pain in leg burning in legs/knees giving out, s/p MRI 03/2015 Hypertension Hypothyroid Impaired vision Insomnia meds Kidney stone Leg weakness Osteoarthritis of knees, bilateral to have b/l knee replacement Psoriasis 12/2013 Trillium [place]ck on [place] Teeth problem Tooth infection Weakness of both arms Past Surgical History: Procedure Laterality Date APPENDECTOMY ARTHROPLASTY HIP ROBOTIC DINO Left 11/14/2018 Procedure: Left Total Hip Replacement Robotic; Surgeon: Issac Bray MD; Location: [facility] OR; Service: Ortho-Robotics BREAST REDUCTION CARPAL TUNNEL RELEASE Left 04/14/2014 Alex COLONOSCOPY 11/18/2013 normal....Donell COLONOSCOPY N/A 12/31/2018 Procedure: COLONOSCOPY; Surgeon: Cori Marquez MD; Location: [facility] OR; Service: General Surgery EGD N/A 12/31/2018 Procedure: ESOPHAGOGASTRODUODENOSCOPY; Surgeon: Croi Marquez MD; Location: [facility] OR; Service: General Surgery KNEE REPLACEMENT PARTIAL (UNICOMPARTMENTAL KNEE) bilateral knees LAMINECTOMY DECOMPRESSION POSTERIOR CERVICAL WITH FUSION 2-3 LEVELS 08/24/2015 C3-C6 TOTAL ABDOMINAL HYSTERECTOMY 04/13/2003 SANTY-BSO for uterine fibroids. TOTAL HIP ARTHROPLASTY Left TUBAL LIGATION Bilateral 1982 Current Outpatient Medications Medication Sig Dispense Refill fluorometholone (FML) 0.1 % ophthalmic suspension hydroCHLOROthiazide (HYDRODIURIL) 12.5 MG tablet TAKE 1 TABLET DAILY 90 tablet 3 latanoprost (XALATAN) 0.005 % ophthalmic solution Administer 1 drop to both eyes nightly . levothyroxine (SYNTHROID, LEVOTHROID) 100 MCG tablet Take 1 (one) tablet (100 mcg total) by mouth every morning . 90 tablet 3 multivitamin (THERAGRAN) per tablet Take 1 tablet by mouth daily naproxen (NAPROSYN) 375 MG tablet Take 375 mg by mouth 2 (two) times a day as needed . sertraline (ZOLOFT) 50 MG tablet Take 50 mg by mouth daily No current facility-administered medications for this visit. Social History Socioeconomic History Marital status: Spouse name: Not on file Number of children: Not on file Years of education: Not on file Highest education level: Not on file Occupational History Not on file Tobacco Use Smoking status: Former Smoker Packs/day: 1.00 Years: 30.00 Pack years: 30.00 Types: Cigarettes Quit date: 02/02/1999 Years since quittin.5 Smokeless tobacco: Never Used Vaping Use Vaping Use: Never used Substance and Sexual Activity Alcohol use: No Alcohol/week: 0.0 standard drinks Drug use: Never Sexual activity: Not Currently Other Topics Concern Not on file Social History Narrative Not on file Social Determinants of Health Financial Resource Strain: Difficulty of Paying Living Expenses: Food Insecurity: No Food Insecurity Worried About Running Out of Food in the Last Year: Never true Ran Out of Food in the Last Year: Never true Transportation Needs: Lack of Transportation (Medical): Lack of Transportation (Non-Medical): Physical Activity: Days of Exercise per Week: Minutes of Exercise per Session: Stress: Feeling of Stress : Social Connections: Unknown Frequency of Communication with Friends and Family: Not on file Frequency of Social Gatherings with Friends and Family: Once a week Attends Gnosticist Services: Not on file Active Member of Clubs or Organizations: Not on file Attends Club or Organization Meetings: Not on file Marital Status: Not on file Allergies: Allergies Allergen Reactions Hydrocodone GI Intolerance Care Team Patient Care Team: Brandon Lowery DO as PCP - General (Family Medicine) Man Brady MD as Consulting Physician (Ophthalmology) Issac rBay MD as Consulting Physician (Orthopedic Surgery) Pharmacy / Equipment Co. (DME) [facility][id number] [place] [id number] [facility] [address] [phone] [facility] [place], [place] [address] [facility] [address] [facility] [address] [id number] [place], [place] [address] [facility] [address] [facility] [address] [place] [id number] [facility] [address] [place] [id number] Objective Blood pressure 130/70, pulse 80, temperature 97.8 F (36.6 C), temperature source Oral, resp. rate 16, height 5' 1", weight 70.5 kg (155 lb 6.4 oz). Body mass index is 29.36 kg/m . Vitals: PACU Vitals 08/09/20 0801 BP: 130/70 Pulse: 80 Resp: 16 Temp: 97.8 F (36.6 C) PainSc: 0-No pain Vision and Hearing Screen: No exam data present Assessment: There were no encounter diagnoses. Plan: During the course of the visit the patient was educated and counseled about appropriate screening and preventive services including: Advice / Referrals: Provide Healthwise patient instructions Handouts Reviewed and discussed with Patient: yes 5-Year Plan: Health Maintenance Topic Date Due Wellness Visit 06/04/2019 Depression Screening (PHQ9) 03/12/2020 Tetanus: Every 10yrs 08/09/2021 (Originally 1950) Zoster Vaccines (2 of 3) 08/09/2021 (Originally 05/24/2014) Lipid Panel 09/01/2020 Mammogram 02/11/2021 Pap Smear 05/29/2021 Falls Risk Assessment 08/03/2021 Colorectal Cancer Screening 12/31/2028 Hepatitis C Screening Completed Pneumococcal Vaccine: Age 65+ Completed Dexa Scan Completed Sequential Influenza Vaccine Completed COVID-19 Vaccine Completed Patient Instructions (the written plan) was given to the patient. documented in this encounter [facility] 08-09-2020 Instructions Brandon Lowery DO - 08/09/2020 8:25 AM EDT Images from the original note were not included. During your visit today, you were counseled about Advance Care Planning. Please visit this website for forms: [email or web address] Heart-Healthy Diet: Care Instructions Your Care Instructions A heart-healthy diet has lots of vegetables, fruits, nuts, beans, and whole grains, and is low in salt. It limits foods that are high in saturated fat, such as meats, cheeses, and fried foods. It may be hard to change your diet, but even small changes can lower your risk of heart attack and heart disease. Follow-up care is a alejandra part of your treatment and safety. Be sure to make and go to all appointments, and call your doctor if you are having problems. It's also a good idea to know your test results and keep a list of the medicines you take. How can you care for yourself at home? Watch your portions Use food labels to learn what the recommended servings are for the foods you eat. Eat only the number of calories you need to stay at a healthy weight. If you need to lose weight, eat fewer calories than your body gomez (through exercise and other physical activity). Eat more fruits and vegetables Eat a variety of fruit and vegetables every day. Dark green, deep orange, red, or yellow fruits and vegetables are especially good for you. Examples include spinach, carrots, peaches, and berries. Keep carrots, celery, and other veggies handy for snacks. Buy fruit that is in season and store it where you can see it so that you will be tempted to eat it. Cook dishes that have a lot of veggies in them, such as stir-fries and soups. Limit saturated fat Read food labels, and try to avoid saturated fats. They increase your risk of heart disease. Use olive or canola oil when you cook. Bake, broil, grill, or steam foods instead of frying them. Choose lean meats instead of high-fat meats such as hot dogs and sausages. Cut off all visible fat when you prepare meat. Eat fish, skinless poultry, and meat alternatives such as soy products instead of high-fat meats. Soy products, such as tofu, may be especially good for your heart. Choose low-fat or fat-free milk and dairy products. Eat foods high in fiber Eat a variety of grain products every day. Include whole-grain foods that have lots of fiber and nutrients. Examples of whole-grain foods include oats, whole wheat bread, and brown rice. Buy whole-grain breads and cereals, instead of white bread or pastries. Limit salt and sodium Limit how much salt and sodium you eat to help lower your blood pressure. Taste food before you salt it. Add only a little salt when you think you need it. With time, your taste buds will adjust to less salt. Eat fewer snack items, fast foods, and other high-salt, processed foods. Check food labels for the amount of sodium in packaged foods. Choose low-sodium versions of canned goods (such as soups, vegetables, and beans). Limit sugar Limit drinks and foods with added sugar. These include candy, desserts, and soda pop. Limit alcohol Limit alcohol to no more than 2 drinks a day for men and 1 drink a day for women. Too much alcohol can cause health problems. When should you call for help? Watch closely for changes in your health, and be sure to contact your doctor if: You would like help planning heart-healthy meals. Where can you learn more? Log into your personal health record on https://[email or web address] Ratings.Roojoom and enter V137 in the "Education" box to learn more about "Heart-Healthy Diet: Care Instructions." Current as of: February 19, 2020 Content Version: 12.8 [email or web address]. Care instructions adapted under license by your healthcare professional. If you have questions about a medical condition or this instruction, always ask your healthcare professional. [email or web address] disclaims any warranty or liability for your use of this information. A Healthy Heart: Care Instructions Your Care Instructions Coronary artery disease, also called heart disease, occurs when a substance called plaque builds up in the vessels that supply oxygen-rich blood to your heart muscle. This can narrow the blood vessels and reduce blood flow. A heart attack happens when blood flow is completely blocked. A high-fat diet, smoking, and other factors increase the risk of heart disease. Your doctor has found that you have a chance of having heart disease. You can do lots of things to keep your heart healthy. It may not be easy, but you can change your diet, exercise more, and quit smoking. These steps really work to lower your chance of heart disease. Follow-up care is a alejandra part of your treatment and safety. Be sure to make and go to all appointments, and call your doctor if you are having problems. It's also a good idea to know your test results and keep a list of the medicines you take. How can you care for yourself at home? Diet Use less salt when you cook and eat. This helps lower your blood pressure. Taste food before salting. Add only a little salt when you think you need it. With time, your taste buds will adjust to less salt. Eat fewer snack items, fast foods, canned soups, and other high-salt, high-fat, processed foods. Read food labels and try to avoid saturated and trans fats. They increase your risk of heart disease by raising cholesterol levels. Limit the amount of solid fat-butter, margarine, and shortening-you eat. Use olive, peanut, or canola oil when you cook. Bake, broil, and steam foods instead of frying them. Eat a variety of fruit and vegetables every day. Dark green, deep orange, red, or yellow fruits and vegetables are especially good for you. Examples include spinach, carrots, peaches, and berries. Foods high in fiber can reduce your cholesterol and provide important vitamins and minerals. High-fiber foods include whole-grain cereals and breads, oatmeal, beans, brown rice, citrus fruits, and apples. Eat lean proteins. Heart-healthy proteins include seafood, lean meats and poultry, eggs, beans, peas, nuts, seeds, and soy products. Limit drinks and foods with added sugar. These include candy, desserts, and soda pop. Lifestyle changes If your doctor recommends it, get more exercise. Walking is a good choice. Bit by bit, increase the amount you walk every day. Try for at least 30 minutes on most days of the week. You also may want to swim, bike, or do other activities. Do not smoke. If you need help quitting, talk to your doctor about stop-smoking programs and medicines. These can increase your chances of quitting for good. Quitting smoking may be the most important step you can take to protect your heart. It is never too late to quit. Limit alcohol to 2 drinks a day for men and 1 drink a day for women. Too much alcohol can cause health problems. Manage other health problems such as diabetes, high blood pressure, and high cholesterol. If you think you may have a problem with alcohol or drug use, talk to your doctor. Medicines Take your medicines exactly as prescribed. Call your doctor if you think you are having a problem with your medicine. If your doctor recommends aspirin, take the amount directed each day. Make sure you take aspirin and not another kind of pain reliever, such as acetaminophen (Tylenol). When should you call for help? Call 911 if you have symptoms of a heart attack. These may include: Chest pain or pressure, or a strange feeling in the chest. Sweating. Shortness of breath. Pain, pressure, or a strange feeling in the back, neck, jaw, or upper belly or in one or both shoulders or arms. Lightheadedness or sudden weakness. A fast or irregular heartbeat. After you call 911, the power station operator may tell you to chew 1 adult-strength or 2 to 4 low-dose aspirin. Wait for an ambulance. Do not try to drive yourself. Watch closely for changes in your health, and be sure to contact your doctor if you have any problems. Where can you learn more? Log into your personal health record on https://[email or web address] Ratings.Roojoom and enter F075 in the "Education" box to learn more about "A Healthy Heart: Care Instructions." Current as of: November 03, 2019 Content Version: 12.8 [email or web address]. Care instructions adapted under license by your healthcare professional. If you have questions about a medical condition or this instruction, always ask your healthcare professional. [email or web address] disclaims any warranty or liability for your use of this information. Learning About Being Physically Active What is physical activity? Being physically active means doing any kind of activity that gets your body moving. The types of physical activity that can help you get fit and stay healthy include: Aerobic or "cardio" activities. These make your heart beat faster and make you breathe harder, such as brisk walking, riding a bike, or running. They strengthen your heart and lungs and build up your endurance. Strength training activities. These make your muscles work against, or "resist," something. Examples include lifting weights or doing push-ups. These activities help tone and strengthen your muscles and bones. Stretches. These let you move your joints and muscles through their full range of motion. Stretching helps you be more flexible. What are the benefits of being active? Being active is one of the best things you can do for your health. It helps you to: Feel stronger and have more energy to do all the things you like to do. Focus better at school or work. Feel, think, and sleep better. Reach and stay at a healthy weight. Lose fat and build lean muscle. Lower your risk for serious health problems, including diabetes, heart attack, high blood pressure, and some cancers. Keep your heart, lungs, bones, muscles, and joints strong and healthy. How can you make being active part of your life? Start slowly. Make it your long-term goal to get at least 30 minutes of exercise on most days of the week. Walking is a good choice. You also may want to do other activities, such as running, swimming, cycling, or playing tennis or team sports. Pick activities that you like ones that make your heart beat faster, your muscles stronger, and your muscles and joints more flexible. If you find more than one thing you like doing, do them all. You don't have to do the same thing every day. Get your heart pumping every day. Any activity that makes your heart beat faster and keeps it at that rate for a while counts. Here are some great ways to get your heart beating faster: Go for a brisk walk, run, or bike ride. Go for a hike or swim. Go in-line skating. Play a game of touch football, basketball, or soccer. Ride a bike. Play tennis or racquetball. Climb stairs. Even some autism specialist can be aerobic just do them at a faster pace. Vacuuming, raking or mowing the lawn, sweeping the garage, and washing and waxing the car all can help get your heart rate up. Strengthen your muscles during the week. You don't have to lift heavy weights or grow big, bulky muscles to get stronger. Doing a few simple activities that make your muscles work against, or "resist," something can help you get stronger. For example, you can: Do push-ups or sit-ups, which use your own body weight as resistance. Lift weights or dumbbells or use stretch bands at home or in a gym or community center. Stretch your muscles often. Stretching will help you as you become more active. It can help you stay flexible, loosen tight muscles, and avoid injury. It can also help improve your balance and posture and can be a great way to relax. Be sure to stretch the muscles you'll be using when you work out. It's best to warm your muscles slightly before you stretch them. Walk or do some other light aerobic activity for a few minutes, and then start stretching. When you stretch your muscles: Do it slowly. Stretching is not about going fast or making sudden movements. Don't push or bounce during a stretch. Hold each stretch for at least 15 to 30 seconds, if you can. You should feel a stretch in the muscle, but not pain. Breathe out as you do the stretch. Then breathe in as you hold the stretch. Don't hold your breath. If you're worried about how more activity might affect your health, have a checkup before you start. Follow any special advice your doctor gives you for getting a smart start. Where can you learn more? Log into your personal health record on https://Sponduut.Roojoom and enter W332 in the "Education" box to learn more about "Learning About Being Physically Active." Current as of: November 13, 2019 Content Version: 12.8 [email or web address]. Care instructions adapted under license by your healthcare professional. If you have questions about a medical condition or this instruction, always ask your healthcare professional. [email or web address] disclaims any warranty or liability for your use of this information. Thank you for choosing our office for your Medicare Wellness Visit. Below you will find the plans we discussed today for your future medical treatments. Please keep this plan in a visible location so you can refer to it often and let our office know if you have any questions. 5-Year Plan Colonoscopy every [address] Marquez due to family history, yearly mammogram at [facility], dexascan every 2 years at [facility]. Power of workers compensation defense attorney, living munoz. [facility] agency on aging as community resource. Yearly eye, hearing evaluation. Pharmacy/Equipment Co. (DME) [id number] [place], [place] - [address] [facility] [address] [facility] [id number] [facility] [place] [id number] [facility] [address] [facility] [address] [id number] - [place], [place] [address] [facility] [address] [facility] [address] [place] [address] [facility] [address] [facility] [id number] Health Maintenance Topic Date Due Wellness Visit 06/04/2019 Depression Screening (PHQ9) 03/12/2020 Tetanus: Every 10yrs 08/09/2021 (Originally 1950) Zoster Vaccines (2 of 3) 08/09/2021 (Originally 05/24/2014) Lipid Panel 09/01/2020 Mammogram 02/11/2021 Pap Smear 05/29/2021 Falls Risk Assessment 08/03/2021 Colorectal Cancer Screening 12/31/2028 Hepatitis C Screening Completed Pneumococcal Vaccine: Age 65+ Completed Dexa Scan Completed Sequential Influenza Vaccine Completed COVID-19 Vaccine Completed Referrals and Orders No orders of the defined types were placed in this encounter. documented in this encounter [facility] 08-09-2020 History of Present illness Narrative Rationale: Overweight (Findings) BMIDiscussed elevated Body Mass Index (BMI): Advised regular exercise.Discussed elevated Body Mass Index (BMI): Advised healthy and appropriate diet. Subjective Sandy Pradhan is a 70 y.o. female who presents for a Medicare Wellness Visit. Medicare Risk Assessment Can you prepare your own meals?: Yes Do you have trouble with finding transportation?: No Because of any health problems, do you need the help of another person with your personal care needs? (For example, eating, bathing, dressing, or getting around the house.): No Does your home have throw rugs, poor lighting or slippery bathtub or shower?: (!) Yes Does your home have grab bars in bathrooms or handrails on stairs and steps?: Yes During the past four weeks, how would you rate your health in general?: Very Good Whether or not you use a hearing aid, do you think you have a hearing problem or do others think you have a hearing problem?: No Whether or not you use glasses or contacts, do you have difficulty driving, watching television, reading, or doing any of your daily activities because of your eyesight?: No In the past six months, have you had an unexplained weight loss of 10 pounds or more?: No How often do you have trouble taking medicines the way you have been told to take them?: I always take as prescribed Falls Risk Assessment Fell in past year: 2 (Yes) How many falls in the past year?: 2 Did any of these falls result in an injury?: Yes Unsteady when walks: 0 (No) Worried about fallin (No) Advised to use cane/walker?: 0 (No) Holds onto furniture/johnston: 0 (No) Uses hands to stand up from a chair: 0 (No) Trouble stepping onto curb: 1 (Yes) Rushes to toilet: 1 (Yes) Lost feeling in feet: 0 (No) Medicine makes me light-headed: 0 (No) Medicine for sleep or mood: 1 (Yes) Often feel sad/depressed: 0 (No) Patient Self Risk Assessment Score: 5 Have you had your vision checked in the past 12 months?: Yes Medicare Mini Cog Comprehensive Medical and Social History: Patient Active Problem List Diagnosis 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 Hypothyroidism Hypertension, essential Status post total replacement of left hip Family history of colon cancer Past Medical History: Diagnosis Date Acute non-recurrent maxillary sinusitis 03/12/2019 Arthritis of left hip 08/12/2018 Added automatically from request for surgery [id number] Ataxia 05/19/2015 Bleeding gums Bone spur C3-C6 posterior decompression and fusion 08/24/15 Bronchitis Bursitis of left hip [address] Bray last shot 09/2017 Constipation Degenerative disc disease, cervical C3-C6 posterior decompression and fusion 08/24/15 Depression meds Difficulty walking Fibroids SANTY / BSO GERD (gastroesophageal reflux disease) Glaucoma Greater trochanteric bursitis of left hip 06/04/2017 History of burning pain in leg burning in legs/knees giving out, s/p MRI 03/2015 Hypertension Hypothyroid Impaired vision Insomnia meds Kidney stone Leg weakness Osteoarthritis of knees, bilateral to have b/l knee replacement Psoriasis 12/2013 [facility] [place] on [place]ella Teeth problem Tooth infection Weakness of both arms Past Surgical History: Procedure Laterality Date APPENDECTOMY ARTHROPLASTY HIP ROBOTIC DINO Left 11/14/2018 Procedure: Left Total Hip Replacement Robotic; Surgeon: Issac Bray MD; Location: Main OR; Service: Ortho-Robotics BREAST REDUCTION CARPAL TUNNEL RELEASE Left 04/14/2014 Alex COLONOSCOPY 11/18/2013 normal....Donell COLONOSCOPY N/A 12/31/2018 Procedure: COLONOSCOPY; Surgeon: Cori Marquez MD; Location: [facility] OR; Service: General Surgery EGD N/A 12/31/2018 Procedure: ESOPHAGOGASTRODUODENOSCOPY; Surgeon: Cori Marquez MD; Location: [facility] OR; Service: General Surgery KNEE REPLACEMENT PARTIAL (UNICOMPARTMENTAL KNEE) bilateral knees LAMINECTOMY DECOMPRESSION POSTERIOR CERVICAL WITH FUSION 2-3 LEVELS 08/24/2015 C3-C6 TOTAL ABDOMINAL HYSTERECTOMY 04/13/2003 SANTY-BSO for uterine fibroids. TOTAL HIP ARTHROPLASTY Left TUBAL LIGATION Bilateral 1982 Current Outpatient Medications Medication Sig Dispense Refill fluorometholone (FML) 0.1 % ophthalmic suspension hydroCHLOROthiazide (HYDRODIURIL) 12.5 MG tablet TAKE 1 TABLET DAILY 90 tablet 3 latanoprost (XALATAN) 0.005 % ophthalmic solution Administer 1 drop to both eyes nightly . levothyroxine (SYNTHROID, LEVOTHROID) 100 MCG tablet Take 1 (one) tablet (100 mcg total) by mouth every morning . 90 tablet 3 multivitamin (THERAGRAN) per tablet Take 1 tablet by mouth daily naproxen (NAPROSYN) 375 MG tablet Take 375 mg by mouth 2 (two) times a day as needed . sertraline (ZOLOFT) 50 MG tablet Take 50 mg by mouth daily No current facility-administered medications for this visit. Social History Socioeconomic History Marital status: Spouse name: Not on file Number of children: Not on file Years of education: Not on file Highest education level: Not on file Occupational History Not on file Tobacco Use Smoking status: Former Smoker Packs/day: 1.00 Years: 30.00 Pack years: 30.00 Types: Cigarettes Quit date: 02/02/1999 Years since quittin.5 Smokeless tobacco: Never Used Vaping Use Vaping Use: Never used Substance and Sexual Activity Alcohol use: No Alcohol/week: 0.0 standard drinks Drug use: Never Sexual activity: Not Currently Other Topics Concern Not on file Social History Narrative Not on file Social Determinants of Health Financial Resource Strain: Difficulty of Paying Living Expenses: Food Insecurity: No Food Insecurity Worried About Running Out of Food in the Last Year: Never true Ran Out of Food in the Last Year: Never true Transportation Needs: Lack of Transportation (Medical): Lack of Transportation (Non-Medical): Physical Activity: Days of Exercise per Week: Minutes of Exercise per Session: Stress: Feeling of Stress : Social Connections: Unknown Frequency of Communication with Friends and Family: Not on file Frequency of Social Gatherings with Friends and Family: Once a week Attends Gnosticist Services: Not on file Active Member of Clubs or Organizations: Not on file Attends Club or Organization Meetings: Not on file Marital Status: Not on file Allergies: Allergies Allergen Reactions Hydrocodone GI Intolerance Care Team Patient Care Team: Brandon Lowery DO as PCP - General (Family Medicine) Man Brady MD as Consulting Physician (Ophthalmology) Issac Bray MD as Consulting Physician (Orthopedic Surgery) Pharmacy / Equipment Co. (DME) [id number] [address] [facility] [address] [phone] [facility] [place] [id number] [facility] [address] [id number] [place], [place] [address] [facility] [address] [place] [id number] [facility] [address] [place] [id number] Objective Blood pressure 130/70, pulse 80, temperature 97.8 F (36.6 C), temperature source Oral, resp. rate 16, height 5' 1", weight 70.5 kg (155 lb 6.4 oz). Body mass index is 29.36 kg/m . Vitals: PACU Vitals 08/09/20 0801 BP: 130/70 Pulse: 80 Resp: 16 Temp: 97.8 F (36.6 C) PainSc: 0-No pain Vision and Hearing Screen: No exam data present Assessment: There were no encounter diagnoses. Plan: During the course of the visit the patient was educated and counseled about appropriate screening and preventive services including: Advice / Referrals: Provide Healthwise patient instructions Handouts Reviewed and discussed with Patient: yes 5-Year Plan: Health Maintenance Topic Date Due Wellness Visit 06/04/2019 Depression Screening (PHQ9) 03/12/2020 Tetanus: Every 10yrs 08/09/2021 (Originally 1950) Zoster Vaccines (2 of 3) 08/09/2021 (Originally 05/24/2014) Lipid Panel 09/01/2020 Mammogram 02/11/2021 Pap Smear 05/29/2021 Falls Risk Assessment 08/03/2021 Colorectal Cancer Screening 12/31/2028 Hepatitis C Screening Completed Pneumococcal Vaccine: Age 65+ Completed Dexa Scan Completed Sequential Influenza Vaccine Completed COVID-19 Vaccine Completed Patient Instructions (the written plan) was given to the patient. documented in this encounter [facility] 07-19-2020 History of Present illness Narrative FRACTURE: Left lateral malleolus DOI: 04/20/2020 WEEKS: 13 WEIGHTBEARING STATUS: weightbearing as tolerated In regular footwear Impression: 1. Closed fracture of left ankle with routine healing, subsequent encounter Plan: The above diagnosis as well as the options for treatment were discussed with Sandy in clinic today. At this time we recommend the following: Continue weightbearing as tolerated and gradually increase activity. Follow-up as needed. Sandy was agreeable to the plan and there were no learning barriers encountered. Follow-Up: As needed Subjective: Sandy Pradhan is here for a follow visit in regards to her left lateral malleolus fracture. Sandy is 13 weeks out from her injury. She is now ambulating in a regular shoe. She says she has some stiffness. She also states that her toes on the left side turned towards the midline and this was present prior to her injury. Smoking status, allergies, medications, and non-medications were reviewed and updated as appropriate in [facility]. She is not a current tobacco user. She is not a diabetic. Exam: Vitals: 07/19/20 0907 BP: 147/85 Pulse: 78 Weight: 69.9 kg (154 lb) Height: 5' 1" The patient is awake, alert and orientated x3, and in no apparent distress. Standing: Essentially normal gait in regular footwear. Palpation: No tenderness to palpation over the distal fibula ROM / Strength Improving range of motion. 5 out of 5 in all muscle groups with the exception of 4 out of 5 in the peroneals. Neurovascular Exam Intact Skin Intact Radiology: New radiographs of the left ankle performed today. These will be formally read by the radiologist. I also independently interpreted the films. Please see my independent interpretation below. Radiographs of the left ankle show interval callus formation at the distal fibula fracture. This is seen on both the mortise and lateral films. No significant displacement of the ankle mortise. No displacement of the fracture. No other acute fractures or dislocations. Left lateral malleolus fracture, healed CC: Brandon Lowery DO documented in this encounter [facility] 04-12-2016 Telephone encounter Note Has not been seen since February 2015. She may be receiving the prescription from primary care provider [facility] 04-12-2016 Miscellaneous Notes Has not been seen since February 2015. She may be receiving the prescription from primary care provider documented in this encounter [facility] Evaluation note Diagnosis Closed fracture of left ankle with routine healing, subsequent encounter- [facility] Closed fracture of left ankle with routine healing, subsequent encounter- Primary [facility] Diagnosis Routine general medical examination at a health care facility- Primary Hypothyroidism, unspecified type Hypertension, essential Unspecified essential hypertension [facility] Diagnosis Encounter for vaccination- Primary Leg swelling Swelling of limb [facility] Diagnosis Hypothyroidism, unspecified type [facility] Diagnosis Gastroesophageal reflux disease, unspecified whether esophagitis present- Primary [facility] Diagnosis Routine general medical examination at a health care facility- Primary Hypothyroidism, unspecified type Hypertension, essential Unspecified essential hypertension General medical exam Unspecified general medical examination Personal history of tobacco use Personal history of tobacco use, presenting hazards to health [facility] Diagnosis Gastroesophageal reflux disease, unspecified whether esophagitis present [facility] Diagnosis Hypothyroidism, unspecified type [facility] Diagnosis Hypothyroidism, unspecified type [facility] Diagnosis Gastroesophageal reflux disease, unspecified whether esophagitis present- Primary [facility]* Diagnosis Gastroesophageal reflux disease, unspecified whether esophagitis present- Primary documented in this encounter [facility] note* Diagnosis Hiatal hernia with GERD without esophagitis- Primary [facility]* Diagnosis Encounter for surgical aftercare following surgery of digestive system- [facility] Diagnosis Postoperative follow-up- Primary Follow-up examination, following unspecified surgery [facility]* Diagnosis Routine general medical examination at a [facility] facility- Primary Hypothyroidism, unspecified type Hypertension, essential Unspecified essential hypertension At low risk for fall documented [facility] this [facility]* Diagnosis Hypothyroidism, unspecified type documented [facility]* Diagnosis Bronchitis- Primary Bronchitis, not specified as acute or chronic documented [facility] this [facility]* Diagnosis Subacute cough- Primary [facility] Diagnosis Dyspnea on exertion- Primary Other dyspnea and respiratory abnormality Routine general medical examination at a [facility] care facility Hypertension, essential Unspecified essential hypertension Hypothyroidism, unspecified type documented in this encounter [facility] note* Diagnosis Dyspnea on exertion- Primary Other dyspnea and respiratory abnormality Routine general medical examination at a [facility] care facility Hypertension, essential Unspecified essential hypertension Hypothyroidism, unspecified type [facility]* Diagnosis KIRAN (dyspnea on exertion)- Primary Other dyspnea and respiratory abnormality Dyspnea on exertion Other dyspnea and respiratory abnormality [facility]* Diagnosis Hypothyroidism, unspecified type [facility] Diagnosis 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 Diagnosis Greater trochanteric bursiti s of left hip - Primary Diagnosis General medical exam - Prima ry Unspecified general medical examination Hypothyroidism, unspecified type Hypertension, benign Essential hypertension, benign Diagnosis Greater trochanteric bursiti s of left hip - Primary Diagnosis Arthritis of left hip - Prim mary carmen Diagnosis Routine general medical examination at a health care facility- Primary Hypertension, essential Unspecified essential hypertension Hypothyroidism, unspecified type Diagnosis Urinary tract infection without hematuria, site unspecified- Primary Overflow stress urinary incontinence in female Prolapse of vaginal vault after hysterectomy Urinary retention Unspecified retention of urine Urge incontinence OAB (overactive bladder) Diagnosis Greater trochanteric bursitis of left hip- Primary Diagnosis Arthritis of left hip- Primary Diagnosis History of urinary retention- Primary Urge incontinence OAB (overactive bladder) Prolapse of vaginal vault after hysterectomy Diagnosis Prolapse of vaginal vault after hysterectomy- Primary History of urinary retention Urge incontinence OAB (overactive bladder) Diagnosis Preop cardiovascular exam- Primary Pre-operative cardiovascular examination Arthritis of left hip Hypertension, unspecified type Diagnosis Urge incontinence- Primary OAB (overactive bladder) History of urinary retention Prolapse of vaginal vault after hysterectomy Diagnosis Preop cardiovascular exam Pre-operative cardiovascular examination Diagnosis Status post left hip replacement- Primary Diagnosis Family history of colon cancer Family history of malignant neoplasm of gastrointestinal tract Diagnosis Acute non-recurrent maxillary sinusitis Diagnosis Hypertension, essential Unspecified essential hypertension Hypothyroidism, unspecified type At low risk for fall Diagnosis Status post left hip replacement- Primary Diagnosis Arthritis of left hip Diagnosis Closed torus fracture of distal end of left fibula, initial encounter- Primary Diagnosis Pain- Primary Generalized pain Diagnosis Closed fracture of left ankle, initial encounter- Primary Diagnosis Pain Generalized pain Diagnosis Family history of colon cancer- Primary Family history of malignant neoplasm of gastrointestinal tract Pain of upper abdomen Heartburn Diagnosis Arthritis of left hip- Primary Status post total replacement of left hip Diagnosis Closed fracture of left ankle with routine healing, subsequent encounter- Primary Diagnosis Closed fracture of left ankle, initial encounter Instructions * Patient Instructions - Brandon Lowery DO - 06/01/2017 9:30 AM EDT Formatting of this note may be different from the original. Thank you for choosing our office for your Medicare Wellness Visit. Below you will find the plans we discussed today for your future medical treatments. Please keep this plan in a visible location soyou can refer to it often and let our office know if you have any questions. 5-Year Plan [facility] [address] [place] [phone] [facility] - [place] [id number] [facility] [place] [phone] Health Maintenance Topic Date Due HEPATITIS C SCREENING 1950 TETANUS EVERY 10 YR 1950 DEXA SCAN 1950 COLONOSCOPY 1950 ZOSTER VACCINE 2010 SEQUENTIAL INFLUENZA VACCINE (1) 11/03/2016 PNEUMOCOCCAL VACCINE AGE 65+ (2 of 2 - PPSV23) 04/24/2017 Steadi Fall Risk Assessment 06/01/2018 Referrals and Orders No orders of the defined types were placed in this encounter. in this encounter* Patient Instructions* Brandon Lowery DO - 06/03/2018 8:52 AM EDT Learning About High Blood Pressure What is high blood pressure? Blood pressure is a measure of how hard the blood pushes against the johnston of your arteries. It's normal for blood pressure to go up and down throughout the day, but if it stays up, you have high blood pressure. Another name for high blood pressure is hypertension. Two numbers tell you your blood pressure. The first number is the systolic pressure. It shows how hard the blood pushes when your heart is pumping. The second number is the diastolic pressure. It shows how hard the blood pushes between heartbeats, when your heart is relaxed and filling with blood. Your doctor will give you a goal for your blood pressure. Your goal will be based on your health and your age. High blood pressure (hypertension) means that the top number stays high, or the bottom number stays high, or both. High blood pressure increases the risk of stroke, heart attack, and other problems. You and your doctor will talk about your risks of these problems based on your blood pressure. What happens when you have high blood pressure? Blood flows through your arteries with too much force. Over time, this damages the johnston of your arteries. But you can't feel it. High blood pressure usually doesn't cause symptoms. Fat and calcium start to build up in your arteries. This buildup is called plaque. Plaque makes your arteries narrower and stiffer. Blood can't flow through them as easily. This lack of good blood flow starts to damage some of the organs in your body. This can lead to problems such as coronary artery disease and heart attack, heart failure, stroke, kidney failure, and eye damage. How can you prevent high blood pressure? Stay at a healthy weight. Try to limit how much sodium you eat to less than 2,300 milligrams (mg) a day. If you limit your sodium to 1,500 mg a day, you can lower your blood pressure even more. ? Buy foods that are labeled "unsalted," "sodium-free," or "low-sodium." Foods labeled "reduced-sodium" and "light sodium" may still have too much sodium. ? Flavor your food with garlic, lemon juice, onion, vinegar, herbs, and spices instead of salt. Do not use soy sauce, steak sauce, onion salt, garlic salt, mustard, or ketchup on your food. ? Use less salt (or none) when recipes call for it. You can often use half the salt a recipe calls for without losing flavor. Be physically active. Get at least 30 minutes of exercise on most days of the week. Walking is a good choice. You also may want to do other activities, such as running, swimming, cycling, or playing tennis or team sports. Limit alcohol to 2 drinks a day for men and 1 drink a day for women. Eat plenty of fruits, vegetables, and low-fat dairy products. Eat less saturated and total fats. How is high blood pressure treated? Your doctor will suggest making lifestyle changes to help your heart. For example, your doctor may ask you to eat healthy foods, quit smoking, lose extra weight, and be more active. If lifestyle changes don't help enough, your doctor may recommend that you take medicine. When blood pressure is very high, medicines are needed to lower it. Follow-up care is a alejandra part of your treatment and safety. Be sure to make and go to all appointments, and call your doctor if you are having problems. It's also a good idea to know your test resultsand keep a list of the medicines you take. Where can you learn more? Log into your personal health record on [email or web address]://Sponduut.Roojoom and enter P501 in the "Education" box to learn more about "Learning About High Blood Pressure." Current as of: September 23, 2017 Content Version: 12.0 2390-0417 [email or web address]. Care instructions adapted under license by your healthcare professional. If you have questions about a medical condition or this instruction, always ask your healthcare professional. [email or web address] disclaims any warranty or liability for your use of this information. Well Visit, Over 65: Care Instructions Your Care Instructions Physical exams can help you stay healthy. Your doctor has checked your overall health and may have suggested ways to take good care of yourself. He or she also may have recommended tests. At home, you can help prevent illness with healthy eating, regular exercise, and other steps. Follow-up care is a alejandra part of your treatment and safety. Be sure to make and go to all appointments, and call your doctor if you are having problems. It's also a good idea to know your test resultsand keep a list of the medicines you take. How can you care for yourself at home? Reach and stay at a healthy weight. This will lower your risk for many problems, such as obesity, diabetes, heart disease, and high blood pressure. Get at least 30 minutes of exercise on most days of the week. Walking is a good choice. You also may want to do other activities, such as running, swimming, cycling, or playing tennis or team sports. Do not smoke. Smoking can make health problems worse. If you need help quitting, talk to your doctor about stop-smoking programs and medicines. These can increase your chances of quitting for good. Protect your skin from too much sun. When you're outdoors from 10 a.m. to 4 p.m., stay in the shadeor cover up with clothing and a hat with a wide brim. Wear sunglasses that block UV rays. Even whenit's cloudy, put broad-spectrum sunscreen (SPF 30 or higher) on any exposed skin. See a dentist one or two times a year for checkups and to have your teeth cleaned. Wear a seat belt in the car. Limit alcohol to 2 drinks a day for men and 1 drink a day for women. Too much alcohol can cause health problems. Follow your doctor's advice about when to have certain tests. These tests can spot problems early. For men and women Cholesterol. Your doctor will tell you how often to have this done based on your overall health andother things that can increase your risk for heart attack and stroke. Blood pressure. Have your blood pressure checked during a routine doctor visit. Your doctor will tell you how often to check your blood pressure based on your age, your blood pressure results, and other factors. Diabetes. Ask your doctor whether you should have tests for diabetes. Vision. Experts recommend that you have yearly exams for glaucoma and other age- related eye problems. Hearing. Tell your doctor if you notice any change in your hearing. You can have tests to find out how well you hear. Colon cancer tests. Keep having colon cancer tests as your doctor recommends. You can have one of several types of tests. Heart attack and stroke risk. At least every 4 to 6 years, you should have your risk for heart attack and stroke assessed. Your doctor uses factors such as your age, blood pressure, cholesterol, and whether you smoke or have diabetes to show what your risk for a heart attack or stroke is over the next 10 years. Osteoporosis. Talk to your doctor about whether you should have a bone density test to find out whether you have thinning bones. Also ask your doctor about whether you should take calcium and vitaminD supplements. For women Pap test and pelvic exam. You may no longer need a Pap test. Talk with your doctor about whether tostop or continue to have Pap tests. Breast exam and mammogram. Ask how often you should have a mammogram, which is an X-ray of your breasts. A mammogram can spot breast cancer before it can be felt and when it is easiest to treat. Thyroid disease. Talk to your doctor about whether to have your thyroid checked as part of a regular physical exam. Women have an increased chance of a thyroid problem. For men Prostate exam. Talk to your doctor about whether you should have a blood test (called a PSA test) for prostate cancer. Experts recommend that you discuss the benefits and risks of the test with your doctor before you decide whether to have this test. Some experts say that men ages 70 and older no longer need testing. Abdominal aortic aneurysm. Ask your doctor whether you should have a test to check for an aneurysm.You may need a test if you ever smoked or if your parent, brother, sister, or child has had an aneurysm. When should you call for help? Watch closely for changes in your health, and be sure to contact your doctor if you have any problems or symptoms that concern you. Where can you learn more? Log into your personal health record on [email or web address]://Sponduut.Roojoom and enter K859 in the "Education" box to learn more about "Well Visit, Over 65: Care Instructions." Current as of: February 14, 2018 Content Version: 12.0 4466-7256 [email or web address]. Care instructions adapted under license by your healthcare professional. If you have questions about a medical condition or this instruction, always ask your healthcare professional. [email or web address] disclaims any warranty or liability for your use of this information. in this encounter* Patient Instructions* Lizzette Alvarado RN - 10/16/2018 10:00 AM EDT How to contact your Care Team: Provider: Anders Melo MD Nurse: Lizzette Alvarado RN MSN In case of an emergency please call 911. REFILLS: When in need for refills please call your care team or the office at [phone]. Please include medication name, pharmacy name, and specify 30-day or 90-day supply. Please check with your pharmacy within 24 hours of request for your refill. You must follow up as directed to continue current refills. Thank you! NUCLEAR MEDICINE CARDIAC STRESS TEST THIS IS A 3-4 HOUR TEST Instructions: Appointment Time: , ____/____/____ at ____:____ Prep: DO NOT Take your morning medications. Please bring your morning medications with you. NO CAFFEINE FOR 24 HOURS prior to your test. This includes drinks labeled decaffeinated. Nothing to eat 4 hours prior to your test. A small snack will be provided (crackers, granola bar, juice), or you may bring your own snack for after your stress test. You may drink fluids leading up to your test as long as they are caffeine-free. Decaffeinated drinks still contain some caffeine, please do not drink anything containing caffeine for 24 hours. NO SMOKING the day of your test. Wear comfortable shoes and clothing for exercising. No metal buttons or snaps please. Procedure: Check-in/Registration. Please bring photo ID, insurance cards, and any physician orders. Test explained in detail and IV started. Stress test performed, nuclear medicine will be injected through your IV during the stress test. Stress test recovery period. Heart scan performed. The doctor will review the pictures of your heart and decide if more pictures are needed before youleave. If more are needed you will get another injection of nuclear medicine and this will take an additional hour. The total time for this test is 3-4 hours. There are medications that interfere with this test. You may be instructed to hold medications. If so that will be listed here: If you have any further questions please contact your care team or [phone]. documented in this encounter* Patient Instructions* Brandon Lowery, - 09/01/2019 3:54 PM EDT Learning About High Blood Pressure What is high blood pressure? Blood pressure is a measure of how hard the blood pushes against the johnston of your arteries. It's normal for blood pressure to go up and down throughout the day. But if it stays up, you have high blood pressure. Another name for high blood pressure is hypertension. Two numbers tell you your blood pressure. The first number is the systolic pressure (top number). It shows how hard the blood pushes when your heart is pumping. The second number is the diastolic pressure (bottom number). It shows how hard the blood pushes between heartbeats, when your heart is relaxed and filling with blood. Your doctor will give you a goal for your blood pressure based on your health and your age. High blood pressure (hypertension) means that the top number stays high, or the bottom number stays high, or both. High blood pressure increases the risk of stroke, heart attack, and other problems. What happens when you have high blood pressure? Blood flows through your arteries with too much force. Over time, this damages the johnston of your arteries. But you can't feel it. High blood pressure usually doesn't cause symptoms. Fat and calcium start to build up in your arteries. This buildup is called plaque. Plaque makes your arteries narrower and stiffer. Blood can't flow through them as easily. This lack of good blood flow starts to damage some of the organs in your body. This can lead to problems such as coronary artery disease and heart attack, heart failure, stroke, kidney failure, and eye damage. How can you prevent high blood pressure? Stay at a healthy weight. Try to limit how much sodium you eat to less than 2,300 milligrams (mg) a day. If you limit your sodium to 1,500 mg a day, you can lower your blood pressure even more. ? Buy foods that are labeled "unsalted," "sodium-free," or "low-sodium." Foods labeled "reduced-sodium" and "light sodium" may still have too much sodium. ? Flavor your food with garlic, lemon juice, onion, vinegar, herbs, and spices instead of salt. Do not use soy sauce, steak sauce, onion salt, garlic salt, mustard, or ketchup on your food. ? Use less salt (or none) when recipes call for it. You can often use half the salt a recipe calls for without losing flavor. Be physically active. Get at least 30 minutes of exercise on most days of the week. Walking is a good choice. You also may want to do other activities, such as running, swimming, cycling, or playing tennis or team sports. Limit alcohol to 2 drinks a day for men and 1 drink a day for women. Eat plenty of fruits, vegetables, and low-fat dairy products. Eat less saturated and total fats. How is high blood pressure treated? Your doctor will suggest making lifestyle changes to help your heart. For example, your doctor may ask you to eat healthy foods, quit smoking, lose extra weight, and be more active. If lifestyle changes don't help enough, your doctor may recommend that you take medicine. When blood pressure is very high, medicines are needed to lower it. Follow-up care is a alejandra part of your treatment and safety. Be sure to make and go to all appointments, and call your doctor if you are having problems. It's also a good idea to know your test resultsand keep a list of the medicines you take. Where can you learn more? Log into your personal health record on [email or web address] and enter P501 in the "Education" box to learn more about "Learning About High Blood Pressure." Current as of: February 17, 2019 Content Version: 12.5 [email or web address]. Care instructions adapted under license by your healthcare professional. If you have questions about a medical condition or this instruction, always ask your healthcare professional. [email or web address] disclaims any warranty or liability for your use of this information. STEADI Low Risk Patient Instructions: Your Falls Screening today shows that you are at low risk for falls. To further protect yourself from falls and maintain your independence, we recommend: 1. Read through the brochure, What You Can Do to Prevent Falls (from [facility]). 2. Go through the brochure, Check for Safety: A Home Fall Prevention Checklist for Older Adults (from [facility]), and make changes as recommended. 3. Join a community falls prevention program: ? Stepping On, a 7-week evidence based program that teaches balance exercises and fall prevention strategies ? Rony Chi for older adults, group exercise that teaches Rony Chi forms that reduce fall risk (weightshifting, postural alignment and control, and coordinated movements of the arms, legs, head, and trunk) ? Matter of Balance, an evidence based program designed to reduce the fear of falling and increase activity levels of older adults OR an exercise class for strength and balance. 4. Take your Vitamin D with or without Calcium, as determined by your healthcare provider. 5. Get your vision and hearing checked annually. Falls At Home Each year, thousands of older Americans fall at home. Many of them are seriously injured, and some are disabled. In 2011, nearly 23,000 people over age 65 and 2.4 million were treated in emergency departments because of falls. Falls are often due to hazards that are easy to overlook but easy to fix. This checklist will help you find and fix those hazards in your home. The checklist asks about hazards found in each room of your home. For each hazard, the checklist tells you how to fix the problem. At the end of the checklist, you ll find other tips for preventing falls. FLOORS: Look at the floor in each room. Q: When you walk through a room, do you have to walk around furniture? A. Ask someone to move the furniture so your path is clear Q: Do you have throw rugs on the floor? A. Remove the rugs or use double-sided tape or a non-slip backing so the rugs won t slip. Q: Are there papers, books, towels, shoes, magazines, boxes, blankets, or other objects on the floor? A.duplicating machine operator things that are on the floor. Always keep objects off the floor. Q: Do you have to walk over or around wires or cords (like lamp, telephone, or extension cords)? A. Coil or tape cords and wires next to the wall so you can t trip over them. If needed, have an licensed electrician put in another outlet. STAIRS AND STEPS: Look at the stairs you use both inside and outside your home. Q: Are there papers, shoes, books, or other objects on the stairs? A. duplicating machine operator things on the stairs. Always keep objects off stairs. Q: Are some steps broken or uneven? A. Fix loose or uneven steps. Q: Are you missing a light over the stairway? A. Have an licensed electrician put in an overhead light at the top and bottom of the stairs. Q: Do you have only one light switch for your stairs (only at the top or at the bottom of the stairs)? A. Have an licensed electrician put in a light switch at the top and bottom of the stairs. You can get lightswitches that glow. Q: Has the stairway light bulb burned out? A. Have a friend or family member change the light bulb. Q: Is the carpet on the steps loose or torn? A. Make sure the carpet is firmly attached to every step, or remove the carpet and attach non-slip rubber treads to the stairs. Q: Are the handrails loose or broken? Is there a handrail on only one side of the stairs? A. Fix loose handrails or put in new ones. Make sure handrails are on both sides of the stairs and are as long as the stairs. KITCHEN: Look at your kitchen and eating area. Q: Are the things you use often on high shelves? A. Move items in your cabinets. Keep things you use often on the lower shelves (about waist level). Q: Is your step stool unsteady? A. If you must use a step stool, get one with a bar to hold on to. Never use a chair as a step stool. BATHROOMS: Look at all your bathrooms. Q: Is the tub or shower floor slippery? A. Put a non-slip rubber mat or self-stick strips on the floor of the tub or shower. Q: Do you need some support when you get in and out of the tub or up from the toilet? A. Have grab bars put in next to and inside the tub and next to the toilet. BEDROOMS: Look at all your bedrooms. Q: Is the light near the bed hard to reach? A. Place a lamp close to the bed where it s easy to reach. Q: Is the path from your bed to the bathroom dark? A. Put in a night-light so you can see where you re walking. Some night-lights go on by themselves after dark. Other Things You Can Do to Prevent Falls Do exercises that improve your balance and make your legs stronger. Exercise also helps you feel better and more confident. Have your doctor or pharmacist look at all the medicines you take, even [id number] medicines.Some medicines can make you sleepy or dizzy. Have your eyes checked by an eye doctor at least once a year and update your glasses. Get up slowly after you sit or lie down. Wear shoes both inside and outside the house. Avoid going barefoot or wearing slippers. Improve the lighting in your home. Put in brighter light bulbs. Florescent bulbs are bright and cost less to use. It s safest to have uniform lighting in a room. Add lighting to dark areas. Hang lightweight curtains or shades to reduce glare. [place] a contrasting color on the top edge of all steps so you can see the stairs better. For example, use a light color paint on dark wood. To access this brochure online, please visit the CDC website at http://www.cdc.gov/steadi/pdf/check_for_safety_brochure-a.pdf Chair Rise Exercise What it does: Strengthens the muscles in your thighs & buttocks. Goal: To do this exercise without using your hands as you become stronger. How to do it: 1. Sit toward the front of a sturdy chair with your knees bent & feet flat on the floor shoulder-width apart 2. Rest your hands lightly on the seat on either side of you, keeping your back & neck straight& and chest slightly forward. 3. Breathe in slowly. Lean forward & feel your weight on the front of your feet. 4. Breathe out and slowly stand up, using your hands as little as possible. 5. Pause for a full breath in & out. 6. Breathe in as you slowly sit down. Do not let yourself collapse back down into the chair. Rather, control your lowering as much as possible. 7. Breathe out. Repeat 10-15 times. If this number is too hard for you when you first start practicing this exercise, begin with fewer and work up to this number. Rest for a minute & then do a final set of 10-15. For detailed instructions, please visit the CDC website at http://www.cdc.gov/steadi/pdf/chair_rise_exercise-a.pdf documented in this encounter Summary Purpose Family History No Family History Records FoundNo Family History Records FoundNo Family History Records FoundNo Family History Records FoundNo Family History Records FoundNo Family History Records FoundNo Family History Records FoundNo Family History Records Found Advance Directives No Advanced Directives Records FoundDocuments on File Type Date Recorded Patient Hris Specialist Expl anation Power of Auto Body Worker 07/04/2022 POA Date Activated Date Inactivated Comments 07/25/2022 4:56 AM 07/25/2022 1:18 PM Date Activated Date Inactivated Comments 11/14/2018 8:45 AM 12/31/2018 9:28 AM Latest Code Status on File Code Status Date Activated Date Inactivated Comments Full Code 11/14/2018 8:45 AM 12/31/2018 9:28 AM Documents on File Type Date Recorded Patient Hris Specialist Expl anation Advance Directives and Living Will Documents on File Type Date Recorded Patient Hris Specialist Expl anation Advance Directives and Living Will Documents on File Type Date Recorded Patient Hris Specialist Expl anation Advance Directives and Livin g Will 10/23/2018 7:46 AM Documents on File Type Date Recorded Patient Hris Specialist Expl anation Advance Directives and Livin g Will 10/23/2018 7:46 AM Documents on File Type Date Recorded Patient Hris Specialist Expl anation Advance Directives and Livin g Will 11/14/2018 5:40 AM Latest Code Status on File Code Status Date Activated Date Inactivated Comments Full Code 11/14/2018 8:45 AM Documents on File Type Date Recorded Patient Hris Specialist Expl anation Advance Directives and Livin g Will 11/14/2018 5:40 AM Latest Code Status on File Code Status Date Activated Date Inactivated Comments Full Code 11/14/2018 8:45 AM Documents on File Type Date Recorded Patient Hris Specialist Expl anation Advance Directives and Livin g Will 12/31/2018 9:27 AM Latest Code Status on File Code Status Date Activated Date Inactivated Comments Full Code 11/14/2018 8:45 AM 12/31/2018 9:28 AM Documents on File Type Date Recorded Patient Hris Specialist Expl anation Advance Directives and Livin g Will 12/31/2018 9:27 AM Latest Code Status on File Code Status Date Activated Date Inactivated Comments Full Code 11/14/2018 8:45 AM 12/31/2018 9:28 AM Documents on File Type Date Recorded Patient Hris Specialist Expl anation Advance Directives and Livin g Will 10/29/2018 7:03 AM Documents on File Type Date Recorded Patient Hris Specialist Expl anation Advance Directives and Livin g Will 04/20/2020 4:23 PM Documents on File Type Date Recorded Patient Hris Specialist Expl anation Advance Directives and Livin g Will 04/23/2020 12:00 AM Documents on File Type Date Recorded Patient Hris Specialist Expl anation Advance Directives and Livin g Will 06/04/2020 12:00 AM Documents on File Type Date Recorded Patient Hris Specialist Expl anation Advance Directives and Livin g Will 07/19/2020 9:09 AM Latest Code Status on File Date Activated Date Inactivated Comments 11/14/2018 8:45 AM 12/31/2018 9:28 AM Latest Code Status on File Code Status Date Activated Date Inactivated Comments Full Code 11/14/2018 8:45 AM 12/31/2018 9:28 AM Latest Code Status on File Code Status Date Activated Date Inactivated Comments Full Code 07/25/2022 4:56 AM 07/25/2022 1:18 PM Code Status History Code Status Date Activated Date Inactivated Comments Full Code 11/14/2018 8:45 AM 12/31/2018 9:28 AM Documents on File Type Date Recorded Patient Hris Specialist Expl anation Power of Auto Body Worker 07/04/2022 POA Latest Code Status on File Code Status Date Activated Date Inactivated Comments Full Code 07/25/2022 4:56 AM 07/25/2022 1:18 PM Code Status History Code Status Date Activated Date Inactivated Comments Full Code 11/14/2018 8:45 AM 12/31/2018 9:28 AM Date Activated Date Inactivated Comments 07/25/2022 4:56 AM 07/25/2022 1:18 PM Date Activated Date Inactivated Comments 11/14/2018 8:45 AM 12/31/2018 9:28 AM History of Present Illness * Issac Bray MD - 12/12/2016 6:26 PM EDT Dictation on: 12/12/2016 6:27 PM by: ISSAC BRAY [[id number]] in this encounter* Brandon Lowery DO - 06/03/2018 8:43 AM EDT HPI sandy is here for wellness exam, still working, gait is ok awkward left gait at times and doingexercising... Vitals: 06/03/18 0813 BP: 110/80 Temp: 97.8 F (36.6 C) Pulse: 64 Resp: 16 Past Medical History: Diagnosis Date Bleeding gums Bone spur C3-C6 posterior decompression and fusion 08/24/15 Bronchitis Bursitis of left hip [address] Bray last shot 09/2017 Constipation Degenerative disc disease, cervical C3-C6 posterior decompression and fusion 08/24/15 Depression meds Difficulty walking Fibroids SANTY / BSO Glaucoma History of burning pain in leg burning in legs/knees giving out, s/p MRI 03/2015 Hypertension Hyperthyroidism Hypothyroid Impaired vision Insomnia meds Leg weakness Osteoarthritis of knees, bilateral to have b/l knee replacement Psoriasis 12/2013 [facility] [place] on [place] Teeth problem Tooth infection Weakness of both arms Past Surgical History: Procedure Laterality Date APPENDECTOMY BREAST REDUCTION CARPAL TUNNEL RELEASE Left KNEE REPLACEMENT PARTIAL (UNICOMPARTMENTAL KNEE) bilateral knees LAMINECTOMY DECOMPRESSION POSTERIOR CERVICAL WITH FUSION 2-3 LEVELS 08/24/2015 C3-C6 TOTAL ABDOMINAL HYSTERECTOMY TUBAL LIGATION Bilateral 1982 Social History Socioeconomic History Marital status: Spouse name: None Number of children: None Years of education: None Highest education level: None Social Needs Financial resource strain: None Food insecurity - worry: Never true Food insecurity - inability: Never true Transportation needs - medical: None Transportation needs - non-medical: None Occupational History None Tobacco Use Smoking status: Former Smoker Packs/day: 1.00 Years: 30.00 Pack years: 30.00 Types: Cigarettes Last attempt to quit: 02/02/1999 Years since quittin.3 Smokeless tobacco: Never Used Substance and Sexual Activity Alcohol use: No Alcohol/week: 0.0 oz Drug use: No Sexual activity: Not Currently Other Topics Concern None Social History Narrative None Family History Problem Relation Age of Onset Stroke Mother Cancer Father colon Arthritis Father Other Father C DIFF Current Outpatient Medications Medication Sig Dispense Refill acetaminophen (TYLENOL) 325 MG tablet Take 650 mg by mouth every 6 (six) hours as needed . hydroCHLOROthiazide (HYDRODIURIL) 12.5 MG tablet TAKE 1 TABLET DAILY 90 tablet 3 latanoprost (XALATAN) 0.005 % ophthalmic solution Administer 1 drop to both eyes nightly . levothyroxine (SYNTHROID, LEVOTHROID) 137 MCG tablet TAKE 1 TABLET DAILY 90 tablet 3 LORATADINE (CLARITIN ORAL) Take by mouth as needed multivitamin (THERAGRAN) per tablet Take 1 tablet by mouth daily sertraline (ZOLOFT) 50 MG tablet Take 50 mg by mouth daily aspirin 81 MG EC tablet Take 81 mg by mouth daily OTEZLA 30 mg Tab Take 1 tablet by mouth every other day. No current facility-administered medications for this visit. PHQ-9 Depression Screening - 06/03/18 0824 Over the last 2 weeks, how often have you been bothered by any of the following problems? (Retired)Little interest or pleasure in doing things Little interest or pleasure in doing things 0 (Retired)Feeling down, depressed, or hopeless Feeling down, depressed, or hopeless 0 PHQ-2 Total Score 0 Trouble falling or staying asleep, or sleeping too much 1 Feeling tired or having little energy 0 Poor appetite or overeating 0 Feeling bad about yourself - or that you are a failure or have let yourself or your family down 0 Trouble concentrating on things, such as reading the newspaper or watching television 0 Moving or speaking so slowly that other people could have noticed. Or the opposite - being so fidgety or restless that you have been moving around a lot more than usual 0 Thoughts that you would be better off , or of hurting yourself in some way 0 PHQ-9 Total Score 1 RETIRED - PHQ-9 Total Score If you checked off any problems, how difficult have these problems made it for you to do your work,take care of things at home, or get along with other people? Not difficult at all PHQ-2 Total Score Goals None Review of Systems Constitutional: Negative for chills, fever and unexpected weight change. HENT: Negative for ear pain, mouth sores, sinus pain, sore throat and trouble swallowing. Eyes: Negative for photophobia and pain. Respiratory: Negative for cough and shortness of breath. Cardiovascular: Negative for chest pain, palpitations and leg swelling. Gastrointestinal: Negative for abdominal pain, blood in stool, constipation and nausea. Endocrine: Negative for polydipsia and polyuria. Genitourinary: Negative for dysuria and frequency. Musculoskeletal: Positive for gait problem (at times.). Negative for back pain. Skin: Negative for rash. Allergic/Immunologic: Negative for immunocompromised state. Neurological: Negative for dizziness and weakness. Hematological: Negative for adenopathy. Does not bruise/bleed easily. Psychiatric/Behavioral: Negative for dysphoric mood and hallucinations. The patient is not nervous/anxious. Physical Exam Constitutional: She is oriented to person, place, and time. She appears well- developed and well-nourished. HENT: Head: Normocephalic and atraumatic. Eyes: Pupils are equal, round, and reactive to light. EOM are normal. Neck: Normal range of motion. Neck supple. Cardiovascular: Normal rate, regular rhythm and normal heart sounds. No murmur heard. Pulmonary/Chest: Effort normal and breath sounds normal. She has no wheezes. She exhibits no tenderness. Abdominal: Soft. Bowel sounds are normal. She exhibits no mass. There is no tenderness. There is norebound and no guarding. Musculoskeletal: She exhibits no edema, tenderness or deformity. Lymphadenopathy: She has no cervical adenopathy. Neurological: She is alert and oriented to person, place, and time. She has normal reflexes. Skin: Skin is dry. No rash noted. Psychiatric: She has a normal mood and affect. Her behavior is normal. Judgment and thought contentnormal. Diagnoses and all orders for this visit: Diagnoses and all orders for this visit: Routine general medical examination at a health care facility - Comprehensive Metabolic Panel - Lipid Panel - TSH Hypertension, essential - Comprehensive Metabolic Panel - Lipid Panel Hypothyroidism, unspecified type - TSH Will see yearly for wellness. For any new medications prescribed today, patient was educated about indications for the medication, how to take the medication and potential side effects of the medications. * Brandon Lowery DO - 06/03/2018 8:32 AM EDT Subjective Sandy Pradhan is a 68 y.o. female who presents for a Medicare Wellness Visit. Medicare Risk Assessment Advanced Care Planning Do you have a POLST (physician order for life sustaining treatment)?: (!) No Do you have an advanced directive (living will and/or durable power of workers compensation defense attorney for health care)?: No - wants more info Who do you use for durable medical equipment (walker, cane, wheelchair, oxygen, CPAP, hospital bed)?: NO Pain/Social/Activity During the past four weeks, what was the hardest physical activity you could do for at least 2 minutes?: Moderate (like brisk walking) Are you active for about 20 minutes three or more days a week?: Yes, most of the time During the past four weeks, how much bodily pain did you generally have?: Mild pain What best describes your current living arrangements?: With spouse/domestic partner Do you ever drive after drinking or ride with a rental car ferry driver who has been drinking or is impaired?: No During the past year, have you used drugs other than those required for medical reasons?: No Diet In the past seven days, how many servings of fruits and vegetables did you typically eat each day?:1-3 servings per day In the past seven days, how many servings of high fiber or whole grain foods did you typically eat each day?: (!) 0-2 servings per day In the past seven days, how many servings of high fat foods did you typically eat each day? : (!) 3-4 servings per day In the past seven days, how many sugar sweetened (not diet) beverages did you typically consume each day? : 0-1 servings per day Independent Activities Are you having difficulties driving your car?: No Do you always fasten your seat belt when you are in a car?: Yes, usually How would you describe your ability to handle your finances?: Manage independently Do you have trouble with finding transportation?: No Can you prepare your own meals?: Yes Can you do your housework without help?: Yes Because of any health problems, do you need the help of another person with your personal care needs? (For example, eating, bathing, dressing, or getting around the house.): No Does your home have throw rugs, poor lighting or slippery bathtub or shower?: (!) Yes(throw rugs) Does your home have grab bars in bathrooms or handrails on stairs and steps?: Yes During the past four weeks, was someone available to help you if you needed and wanted help? (For example, if you felt very nervous, lonely or blue; got sick and had to stay in bed; needed someone totalk to; needed help with daily chores; or needed help: Yes, as much as I wanted General During the past four weeks, how would you rate your health in general?: Very Good How would you describe the condition of your mouth and teeth - including false teeth or dentures?: Very Good Whether or not you use a hearing aid, do you think you have a hearing problem or do others think you have a hearing problem?: No Whether or not you use glasses or contacts, do you have difficulty driving, watching television, reading, or doing any of your daily activities because of your eyesight?: No In the past six months, have you had an unexplained weight loss of 10 pounds or more?: No In the past six months has accidental leakage of urine been a problem for you?: (!) Yes Medications Do you and/or your caregiver, understand why you take these medications?: Yes How many different medications do you take that are prescribed by a doctor?: 1 to 4 How often do you have trouble taking medicines the way you have been told to take them?: I always take as prescribed Falls Risk Assessment STEADI Protocol Did any of these falls result in an injury?: No Advised to use cane/walker?: No Holds onto furniture/johnston: No Uses hands to stand up from a chair: Yes Trouble stepping onto curb: Yes Rushes to toilet: Yes Lost feeling in feet: No Medicine makes me light-headed: No Medicine for sleep or mood: No Often feel sad/depressed: No Additional Assessments Timed Up and Go (TUG): 20-30 seconds Medicare Mini Cog Step 1: Three Word Registration Version Used: Version 1: Banana, [place] Tract, Chair Step 2: Clock Drawing Step 2 score: Normal clock - 2 points Clock has all numbers placed in the correct sequence & position (e.g., 12, 3, 6 and 9 are in anchor positions) with no missing or duplicate numbers. Hands are pointing to the 11 & 2 (11:10). Hand length is not scored. Step 3: Three Word Recall Step 3: Three Word Recall Score: 3 Words Recalled Total score = Word Recall score + Clock Draw score A cut point of <3 on the Mini-Cog has been validated for dementia screening, but many individuals with clinically meaningful cognitive impairment will score higher. A cut point of <4 may indicate a need for further evaluation of cognitive status.: 5 DWAIN-7 Over the last 2 weeks, how often have you been bothered by the following problems? Feeling nervous, anxious or on edge: Not at all Not being able to stop or control worrying: Not at all Worrying too much about different things: Not at all Trouble relaxing: Not at all Being so restless that it is hard to sit still: Not at all Becoming easily annoyed or irritable: Not at all Feeling afraid as if something awful might happen: Not at all DWAIN-7 Score: 0 PHQ2 (and 9, if needed) Depression (PHQ-9): Over the last 2 weeks, how often have you been bothered by any of the followingproblems? Little interest or pleasure in doing things: Not at all Feeling down, depressed, or hopeless: Not at all PHQ-2 Total Score: 0 Trouble falling or staying asleep, or sleeping too much: Several days Feeling tired or having little energy: Not at all Poor appetite or overeating: Not at all Feeling bad about yourself - or that you are a failure or have let yourself or your family down: Not at all Trouble concentrating on things, such as reading the newspaper or watching television: Not at all Moving or speaking so slowly that other people could have noticed. 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 CARDIOMEGALY - HYPERTENSIVE Ataxia ATAXIA Hypothyroidism HYPOTHYROIDISM Greater trochanteric bursitis of left hip TROCHANTERIC BURSITIS Hypertension, essential ESSENTIAL HYPERTENSION Past Medical History: Diagnosis Date Bleeding gums Bone spur C3-C6 posterior decompression and fusion 08/24/15 Bronchitis Bursitis of left hip [address] Bray last shot 09/2017 Constipation Degenerative disc disease, cervical C3-C6 posterior decompression and fusion 08/24/15 Depression meds Difficulty walking Fibroids SANTY / BSO Glaucoma History of burning pain in leg burning in legs/knees giving out, s/p MRI 03/2015 Hypertension Hyperthyroidism Hypothyroid Impaired vision Insomnia meds Leg weakness Osteoarthritis of knees, bilateral to have b/l knee replacement Psoriasis 12/2013 [facility] [place] Teeth problem Tooth infection Weakness of both arms Past Surgical History: Procedure Laterality Date APPENDECTOMY BREAST REDUCTION CARPAL TUNNEL RELEASE Left KNEE REPLACEMENT PARTIAL (UNICOMPARTMENTAL KNEE) bilateral knees LAMINECTOMY DECOMPRESSION POSTERIOR CERVICAL WITH FUSION 2-3 LEVELS 08/24/2015 C3-C6 TOTAL ABDOMINAL HYSTERECTOMY TUBAL LIGATION Bilateral 1982 Current Outpatient Medications Medication Sig Dispense Refill acetaminophen (TYLENOL) 325 MG tablet Take 650 mg by mouth every 6 (six) hours as needed . hydroCHLOROthiazide (HYDRODIURIL) 12.5 MG tablet TAKE 1 TABLET DAILY 90 tablet 3 latanoprost (XALATAN) 0.005 % ophthalmic solution Administer 1 drop to both eyes nightly . levothyroxine (SYNTHROID, LEVOTHROID) 137 MCG tablet TAKE 1 TABLET DAILY 90 tablet 3 LORATADINE (CLARITIN ORAL) Take by mouth as needed multivitamin (THERAGRAN) per tablet Take 1 tablet by mouth daily sertraline (ZOLOFT) 50 MG tablet Take 50 mg by mouth daily aspirin 81 MG EC tablet Take 81 mg by mouth daily OTEZLA 30 mg Tab Take 1 tablet by mouth every other day. No current facility-administered medications for this visit. Social History Socioeconomic History Marital status: Spouse name: None Number of children: None Years of education: None Highest education level: None Social Needs Financial resource strain: None Food insecurity - worry: Never true Food insecurity - inability: Never true Transportation needs - medical: None Transportation needs - non-medical: None Occupational History None Tobacco Use Smoking status: Former Smoker Packs/day: 1.00 Years: 30.00 Pack years: 30.00 Types: Cigarettes Last attempt to quit: 02/02/1999 Years since quittin.3 Smokeless tobacco: Never Used Substance and Sexual Activity Alcohol use: No Alcohol/week: 0.0 oz Drug use: No Sexual activity: Not Currently Other Topics Concern None Social History Narrative None Allergies: No Known Allergies Care Team Patient Care Team: Brandon Lowery DO as PCP - General (Family Medicine) Man Brady II, MD as Consulting Physician (Ophthalmology) Pharmacy / Equipment Co[facility] (DME) [facility] [address] [place] [phone] [facility] - [address] [address] Objective Blood pressure 110/80, pulse 64, temperature 97.8 F (36.6 C), temperature source Oral, resp. rate 16, height 5' 1", weight 67.5 kg (148 lb 12.8 oz). Body mass index is 28.12 kg/m . Vitals: PACU Vitals 06/03/18 0813 BP: 110/80 Pulse: 64 Resp: 16 Temp: 97.8 F (36.6 C) PainSc: 0-No pain Vision and Hearing Screen: No exam data present Assessment: The encounter diagnosis was Hypertension, essential. Plan: During the course of the visit the patient was educated and counseled about appropriate screening and preventive services including: Advice / Referrals: Handouts Reviewed and discussed with Patient: yes 5-Year Plan: Health Maintenance Topic Date Due TETANUS EVERY 10 YR 1950 ZOSTER VACCINES (1 of 2) 01/05/2000 Steadi Fall Risk Assessment 2015 LIPID PANEL 06/01/2018 Colorectal Cancer Screening: Colonoscopy 09/23/2018 Mammogram 01/28/2019 HEPATITIS C SCREENING Completed Dexa Scan Completed PNEUMOCOCCAL VACCINE AGE 65+ Completed SEQUENTIAL INFLUENZA VACCINE Completed New shingles vaccine, yearly flu shots, td every 10 years. Yearly mammogram and pap every other year done last Sunday at [facility]. Screening colonoscopy due this November with Dr. Marquez [address] [place], [place] [id number]. Patient Instructions (the written plan) was given to the patient. * Catherine Lainez CMA - 06/03/2018 8:09 AM EDT Tetanus- maybe 2010, [facility]pt Shingles- had old about 3 yrs ago, [facility] [address] Lipid- due patient is fasting in this encounter* Jak Pepe MD - 07/16/2018 11:51 AM EDT Urogynecology and Reconstructive Pelvic Surgery New Patient Visit - Consultation Patient name: Sandy Pradhan : 1950 Date: 07/16/2018 New Patient Visit - Consultation Referring Physician: Nini Meza MANAGER STRATEGIC SOURCING Subjective: Patient ID: Sandy Pradhan is a 68 y.o. female. HPI Dictation on: 07/16/2018 7:39 PM by: JAK PEPE [[id number]] Past Medical History: Past Medical History: Diagnosis Date Bleeding gums Bone spur C3-C6 posterior decompression and fusion 08/24/15 Bronchitis Bursitis of left hip [address] Bray last shot 09/2017 Constipation Degenerative disc disease, cervical C3-C6 posterior decompression and fusion 08/24/15 Depression meds Difficulty walking Fibroids SANTY / BSO Glaucoma History of burning pain in leg burning in legs/knees giving out, s/p MRI 03/2015 Hypertension Hyperthyroidism Hypothyroid Impaired vision Insomnia meds Kidney stone Leg weakness Osteoarthritis of knees, bilateral to have b/l knee replacement Psoriasis 12/2013 [facility] [place] Teeth problem Tooth infection Weakness of both arms Past Surgical History: has a past surgical history that includes Appendectomy; Carpal tunnel release (Left); Knee Replacement Partial (Unicompartmental Knee); Breast Reduction; LAMINECTOMY DECOMPRESSION POSTERIOR CERVICAL WITH FUSION 2-3 LEVELS (08/24/2015); Tubal ligation (Bilateral, 1981); and Total abdominal hysterectomy. 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 Forceps: no Largest Baby weight: 7lbs 4oz. Episiotomy: no Perineal Laceration: no Last Pap: 05/2018 Normal: yes Hx Abnormal Pap: no Last Mammogram: 11/2017 Normal: yes Last Colonoscopy: 11/2013 Normal: yes Currently sexually active? no Current # partners: 1 Hx STD's: no Male: yes Female: no Both: no Dyspareunia? yes - when active in the past. Current Medications: Current Outpatient Medications Medication Sig Dispense Refill acetaminophen (TYLENOL) 325 MG tablet Take 650 mg by mouth every 6 (six) hours as needed . hydroCHLOROthiazide (HYDRODIURIL) 12.5 MG tablet TAKE 1 TABLET DAILY 90 tablet 3 latanoprost (XALATAN) 0.005 % ophthalmic solution Administer 1 drop to both eyes nightly . levothyroxine (SYNTHROID, LEVOTHROID) 137 MCG tablet TAKE 1 TABLET DAILY 90 tablet 3 LORATADINE (CLARITIN ORAL) Take by mouth as needed multivitamin (THERAGRAN) per tablet Take 1 tablet by mouth daily OTEZLA 30 mg Tab Take 1 tablet by mouth every other day. sertraline (ZOLOFT) 50 MG tablet Take 50 mg by mouth daily aspirin 81 MG EC tablet Take 81 mg by mouth daily No current facility-administered medications for this visit. Allergies: Patient has no known allergies. Allergy to Latex: no Allergy to IVP Dye: no Social History: Social History Socioeconomic History Marital status: Spouse name: None Number of children: None Years of education: None Highest education level: None Social Needs Financial resource strain: None Food insecurity - worry: Never true Food insecurity - inability: Never true Transportation needs - medical: None Transportation needs - non-medical: None Occupational History None Tobacco Use Smoking status: Former Smoker Packs/day: 1.00 Years: 30.00 Pack years: 30.00 Types: Cigarettes Last attempt to quit: 02/02/1999 Years since quittin.4 Smokeless tobacco: Never Used Substance and Sexual Activity Alcohol use: No Alcohol/week: 0.0 oz Drug use: Never Sexual activity: Not Currently Other Topics Concern None Social History Narrative None Current Employment: [employer] Domestic Violence/Sexual Abuse? no Family History: Family History Problem Relation Age of Onset Stroke Mother Cancer Father colon Arthritis Father Other Father C DIFF Colorectal cancer Father Heart disease Paternal Uncle Review of Systems: Dictation on: 07/16/2018 7:41 PM by: JAK PEPE [[id number]] Physical Exam: PACU Vitals 07/16/18 1103 BP: (!) 164/82 Pulse: 74 Resp: (!) 20 Temp: 98.2 F (36.8 C) Dictation on: 07/16/2018 7:45 PM by: JAK PEPE [[id number]] Assessment and Plan: Dictation on: 07/16/2018 7:51 PM by: JAK PEPE [[id number]] * Carina Alvarado RN - 07/16/2018 11:48 AM EDT Chaperoned exam. documented in this encounter* Marycruz Mistry CNP - 07/30/2018 9:15 AM EDT Associated Order(s): LG Jt Injection/Arthrocentesis: L greater trochanteric bursa Post-Procedure Diagnose(s): Greater trochanteric bursitis of left hip LG Jt Injection/Arthrocentesis: L greater trochanteric bursa Performed by: Marycruz Mistry CNP Authorized by: Marycruz Mistry CNP CPT 04000 - Large Joint Arthrocentesis: Consent given by: Patient Time out: Immediately prior to the procedure a time out was called Physician or proceduralist has discussed critical or nonroutine steps, procedure duration and anticipated blood loss: Yes Supporting Documentation: Indications: Pain Procedure Details: Location: Hip Site: L greater trochanteric bursa Prep: patient was prepped and draped in usual sterile fashion Needle size: 22 G Approach: Lateral Medications: 1 mL dexamethasone 4 mg/mL, 1 mL triamcinolone acetonide 40 mg/mL Anesthetic used: Bupivacaine 0.5% and Lidocaine 1% Anesthetic amount (mL): 4 Patient tolerance: Patient tolerated the procedure well with no immediate complications * Marycruz Mistry CNP - 07/30/2018 9:15 AM EDT 07/25/18 Sandy Pradhan 1950 No chief complaint on file. HISTORY of Present Illness: Sandy Pradhan is a 68 y.o. year old female that presents today with No chief complaint on file. . Sandy Pradhan has had injections in the past. Last injection to left, hip was in September 2017 by myself and they tolerated well. They have been treated w/ oral medications & injections. Patient denies new injury to the hip The following portions of the patient's history were reviewed and updated as appropriate: allergies, current medications, past surgical history and problem list Assessment No documentation. Referred By: No ref. provider found PAST MEDICAL HISTORY The patient's Medications, Allergies, Past Surgical History, Medical History, Family History and Social History were reviewed and can be found in their online medical record, and I have reviewed thisinformation with Sandy Pradhan at the time of their visit. They are significant for Past Medical History: Diagnosis Date Bleeding gums Bone spur C3-C6 posterior decompression and fusion 08/24/15 Bronchitis Bursitis of left hip [address] Bray last shot 09/2017 Constipation Degenerative disc disease, cervical C3-C6 posterior decompression and fusion 08/24/15 Depression meds Difficulty walking Fibroids SANTY / BSO Glaucoma History of burning pain in leg burning in legs/knees giving out, s/p MRI 03/2015 Hypertension Hyperthyroidism Hypothyroid Impaired vision Insomnia meds Kidney stone Leg weakness Osteoarthritis of knees, bilateral to have b/l knee replacement Psoriasis 12/2013 [facility] [place] Teeth problem Tooth infection Weakness of both arms PHYSICAL EXAM Ortho Exam Left Hip Exam Tenderness The patient is experiencing tenderness in the greater trochanter. Range of Motion The patient has normal left hip ROM. Abduction: normal Tests ESTER: negative Other Erythema: absent Scars: absent Sensation: normal Pulse: present Additional Notes: IMAGING Notes: none new today. Reviewed from last visit. IMPRESSION And PLAN: Cortisone injection today. Will follow up in 3 months if effective. Call if no improvement in [address](R) 1. Greater trochanteric bursitis of left hip TROCHANTERIC BURSITIS Marycruz Mistry CNP documented in this encounter* Issac Bray MD - 08/07/2018 7:37 AM EDT Sandy comes in today for evaluation and followup of her left hip. She says she just cannot take it anymore. She is miserable. She has tried to put this off. She has done physical therapy. She has done shots of cortisone. Nothing is touching the pain. She is just absolutely miserable. She has had quite a few shots over the course of the years, had a shot in 2018, had a recent shot, and she says she is absolutely miserable. The pain has gotten so great. She says the hip gives out. It pops, it cracks, and she says she feels like she is going to go down. Recent x-ray examination of the left hip reveals severe end-stage left hip degenerative arthrosis with large femoral head and acetabular cyst,and this has been a dramatic worsening over the course of the last 2 years. I originally saw her [id number], and she had pretty severe degenerative changes; however, she just was not quite ready and committed for surgery at that time. PHYSICAL EXAMINATION General: Today, she is awake, alert x3, ambulates without assistive device with a severely antalgicgait. Extremities: Full range of motion of the left knee and ankle. Left hip severe pain at 100 degrees of hip flexion, severe pain with 10 degrees of internal and external rotation. Skin: Intact without lesions. Head: She is normocephalic. IMPRESSION Severe left hip degenerative arthrosis. PLAN She is tired of it. She wants to get the left hip replaced. We will arrange for that. I will see her the week before surgery. documented in this encounter* Jak Pepe MD - 08/07/2018 5:42 PM EDT RETURN VISIT Patient: Sandy Pradhan : 1950 Date of Visit: 08/07/18 Consulting Physician: No ref. provider found Primary Care Provider: Brandon Lowery DO Chief Complaint 1.Incomplete Bladder Emptying/Urinary Retention 2.Posthysterectomy Vaginal Vault Prolapse 3.Urge Incontinence History of Presenting Illness: Dictation on: 08/07/2018 5:51 PM by: JAK PEPE [[id number]] Any changes to past medical history, past surgical history, and social history are noted in the chart. Medications: Current Outpatient Medications: acetaminophen (TYLENOL) 325 MG tablet, Take 650 mg by mouth every 6 (six) hours as needed ., Disp: , Rfl: aspirin 81 MG EC tablet, Take 81 mg by mouth daily, Disp: , Rfl: hydroCHLOROthiazide (HYDRODIURIL) 12.5 MG tablet, TAKE 1 TABLET DAILY, Disp: 90 tablet, Rfl: 3 latanoprost (XALATAN) 0.005 % ophthalmic solution, Administer 1 drop to both eyes nightly ., Disp: , Rfl: levothyroxine (SYNTHROID, LEVOTHROID) 137 MCG tablet, TAKE 1 TABLET DAILY, Disp: 90 tablet, Rfl: 3 LORATADINE (CLARITIN ORAL), Take by mouth as needed, Disp: , Rfl: multivitamin (THERAGRAN) per tablet, Take 1 tablet by mouth daily, Disp: , Rfl: OTEZLA 30 mg Tab, Take 1 tablet by mouth every other day., Disp: , Rfl: sertraline (ZOLOFT) 50 MG tablet, Take 50 mg by mouth daily, Disp: , Rfl: Allergies: No Known Allergies Past Medical History: Past Medical History: Diagnosis Date Bleeding gums Bone spur C3-C6 posterior decompression and fusion 08/24/15 Bronchitis Bursitis of left hip [address] Bray last shot 09/2017 Constipation Degenerative disc disease, cervical C3-C6 posterior decompression and fusion 08/24/15 Depression meds Difficulty walking Fibroids SANTY / BSO Dr.Benjamin Glaucoma History of burning pain in leg burning in legs/knees giving out, s/p MRI 03/2015 Hypertension Hyperthyroidism Hypothyroid Impaired vision Insomnia meds Kidney stone Leg weakness Osteoarthritis of knees, bilateral to have b/l knee replacement Psoriasis 12/2013 [facility] [place] Teeth problem Tooth infection Weakness of both arms Review of Systems: She denies headaches, visual symptoms, chest pain, abdominal pain or distention,shortness of breath, change in appetite, weight loss, weight gain, muscles pain, or joint pain. Physical Exam: BP 134/80 (BP Location: Left arm, Patient Position: Sitting, BP Cuff Size: Adult) Pulse 68 Temp 98.5 F (36.9 C) (Oral) Resp 18 Dictation on: 08/07/2018 5:55 PM by: JAK PEPE [[id number]] documented in this encounter* Jak Pepe MD - 08/27/2018 4:41 PM EDT RETURN VISIT Patient: Sandy Pradhan : 1950 Date of Visit: 08/27/18 Consulting Physician: No ref. provider found Primary Care Provider: Brandon Lowery DO Chief Complaint 1.Incomplete Bladder Emptying/Urinary Retention 2.Posthysterectomy Vaginal Vault Prolapse 3.Urge Incontinence History of Presenting Illness: Dictation on: 08/27/2018 4:44 PM by: JAK PEPE [[id number]] Any changes to past medical history, past surgical history, and social history are noted in the chart. Medications: Current Outpatient Medications: acetaminophen (TYLENOL) 325 MG tablet, Take 650 mg by mouth every 6 (six) hours as needed ., Disp: , Rfl: aspirin 81 MG EC tablet, Take 81 mg by mouth daily, Disp: , Rfl: hydroCHLOROthiazide (HYDRODIURIL) 12.5 MG tablet, TAKE 1 TABLET DAILY, Disp: 90 tablet, Rfl: 3 latanoprost (XALATAN) 0.005 % ophthalmic solution, Administer 1 drop to both eyes nightly ., Disp: , Rfl: levothyroxine (SYNTHROID, LEVOTHROID) 137 MCG tablet, TAKE 1 TABLET DAILY, Disp: 90 tablet, Rfl: 3 LORATADINE (CLARITIN ORAL), Take by mouth as needed, Disp: , Rfl: multivitamin (THERAGRAN) per tablet, Take 1 tablet by mouth daily, Disp: , Rfl: OTEZLA 30 mg Tab, Take 1 tablet by mouth every other day., Disp: , Rfl: sertraline (ZOLOFT) 50 MG tablet, Take 50 mg by mouth daily, Disp: , Rfl: trospium 60 mg Cp24, Take 1 (one) capsule (60 mg total) by mouth daily ., Disp: 30 capsule, Rfl: 2 Allergies: No Known Allergies Past Medical History: Past Medical History: Diagnosis Date Bleeding gums Bone spur C3-C6 posterior decompression and fusion 08/24/15 Bronchitis Bursitis of left hip [address] Bray last shot 09/2017 Constipation Degenerative disc disease, cervical C3-C6 posterior decompression and fusion 08/24/15 Depression meds Difficulty walking Fibroids SANTY / BSO Glaucoma History of burning pain in leg burning in legs/knees giving out, s/p MRI 03/2015 Hypertension Hyperthyroidism Hypothyroid Impaired vision Insomnia meds Kidney stone Leg weakness Osteoarthritis of knees, bilateral to have b/l knee replacement Psoriasis 12/2013 [facility] [place] Teeth problem Tooth infection Weakness of both arms Review of Systems: She denies headaches, visual symptoms, chest pain, abdominal pain or distention,shortness of breath, change in appetite, weight loss, weight gain, muscles pain, or joint pain. Physical Exam: BP (!) 166/82 (BP Location: Left arm, Patient Position: Sitting, BP Cuff Size: Adult) Pulse 68 Temp 98 F (36.7 C) (Oral) Resp 18 Dictation on: 08/27/2018 4:48 PM by: JAK PEPE [[id number]] * Ifrah Marti MA - 08/27/2018 4:39 PM EDT Chaperoned exam documented in this encounter* Anders Melo MD - 10/16/2018 10:09 AM EDT PC-preop cardiac risk assessment, scheduled for left hip replacement with Dr. Young on November 14, 2018 [place]-patient is a pleasant 68-year-old lady with past medical history significant for hypertension,hypothyroidism and remote history of smoking. Patient reports that she has been having severe pain in her left hip for last at least 1 year and it has not been responding to Intra-Op articular steroid injections and oral pain medications. She reports that her level of activity is limited by this hip pain. She does not have a known history of coronary artery disease, CVA, CKD heart failure or insulin-dependent diabetes. No history to suggest orthopnea or PND. Does not report any history of chest pain,shortness of breath, dizziness, palpitations or syncope. Past Medical History: Diagnosis Date Bleeding gums Bone spur C3-C6 posterior decompression and fusion 08/24/15 Bronchitis Bursitis of left hip [address] Bray last shot 09/2017 Constipation Degenerative disc disease, cervical C3-C6 posterior decompression and fusion 08/24/15 Depression meds Difficulty walking Fibroids SANTY / BSO Glaucoma History of burning pain in leg burning in legs/knees giving out, s/p MRI 03/2015 Hypertension Hyperthyroidism Hypothyroid Impaired vision Insomnia meds Kidney stone Leg weakness Osteoarthritis of knees, bilateral to have b/l knee replacement Psoriasis 12/2013 [facility] [place] Teeth problem Tooth infection Weakness of both arms Past Surgical History: Procedure Laterality Date APPENDECTOMY BREAST REDUCTION CARPAL TUNNEL RELEASE Left KNEE REPLACEMENT PARTIAL (UNICOMPARTMENTAL KNEE) bilateral knees LAMINECTOMY DECOMPRESSION POSTERIOR CERVICAL WITH FUSION 2-3 LEVELS 08/24/2015 C3-C6 TOTAL ABDOMINAL HYSTERECTOMY SANTY-BSO for uterine fibroids. TUBAL LIGATION Bilateral 1981 Social History Socioeconomic History Marital status: Spouse name: Not on file Number of children: Not on file Years of education: Not on file Highest education level: Not on file Occupational History Not on file Social Needs Financial resource strain: Not on file Food insecurity: Worry: Never true Inability: Never true Transportation needs: Medical: Not on file Non-medical: Not on file Tobacco Use Smoking status: Former Smoker Packs/day: 1.00 Years: 30.00 Pack years: 30.00 Types: Cigarettes Last attempt to quit: 02/02/1999 Years since quittin.7 Smokeless tobacco: Never Used Substance and Sexual Activity Alcohol use: No Alcohol/week: 0.0 standard drinks Drug use: Never Sexual activity: Not Currently Lifestyle Physical activity: Days per week: Not on file Minutes per session: Not on file Stress: Not on file Relationships Social connections: Talks on phone: Not on file Gets together: Once a week Attends pentecostal service: Not on file Active member of club or organization: Not on file Attends meetings of clubs or organizations: Not on file Relationship status: Not on file Other Topics Concern Not on file Social History Narrative Not on file Family History Problem Relation Age of Onset Stroke Mother Cancer Father colon Arthritis Father Other Father C DIFF Colorectal cancer Father Heart disease Paternal Uncle Current Outpatient Medications Medication Sig Dispense Refill acetaminophen (TYLENOL) 325 MG tablet Take 650 mg by mouth every 6 (six) hours as needed . aspirin 81 MG EC tablet Take 81 mg by mouth daily hydroCHLOROthiazide (HYDRODIURIL) 12.5 MG tablet TAKE 1 TABLET DAILY 90 tablet 3 latanoprost (XALATAN) 0.005 % ophthalmic solution Administer 1 drop to both eyes nightly . levothyroxine (SYNTHROID, LEVOTHROID) 137 MCG tablet TAKE 1 TABLET DAILY 90 tablet 3 LORATADINE (CLARITIN ORAL) Take by mouth as needed multivitamin (THERAGRAN) per tablet Take 1 tablet by mouth daily sertraline (ZOLOFT) 50 MG tablet Take 50 mg by mouth daily trospium 60 mg Cp24 Take 1 (one) capsule (60 mg total) by mouth daily . 30 capsule 2 No current facility-administered medications for this visit. Allergies: no known allergies. Review of system: She does note heaviness in the legs on prolonged standing with occasional ankle edema and the symptoms are relieved when she lays down and keeping her legs elevated. She also reports achiness in the calfs when she walks, left more than right leg. He does not have any known historyof prior evaluation for PVD or venous disease. Exam- BP 149/83 (BP Location: Right arm) Pulse 65 Ht 5' 0.5" Wt 69.4 kg (153 lb) SpO2 95% BMI 29.39 kg/m Body mass index is 29.39 kg/m . General- sitting comfortably, no acute cardiorespiratory distress HEENT- no pallor, no icterus, no cyanosis Neck- no JVD, no bruit Chest- bilateral clear breath sounds, no crackles, no rhonchi CVS- S1S2 normal, no rub, no murmur PA- abdomen soft, bowel sounds+ Extremities- Right DP and PT - not palpable+ Left DP 1+ Left PT- not palpable. Mild telangiectasias Swelling - none Skin/Ulcer - normal Neuro- alert oriented x 3 Pertient labs Lab Results Component Value Date WBC 8.10 09/17/2015 HGB 12.1 09/17/2015 HCT 36.7 09/17/2015 EXTMCV 88.9 09/17/2015 PLT 568 (A) 09/17/2015 GLUCOSE 106 (H) 06/03/2018 CALCIUM 9.2 06/03/2018 NA 140 06/03/2018 K 4.2 06/03/2018 CL 107 06/03/2018 BUN 17 06/03/2018 CREATININE 0.90 06/03/2018 ALT 45 06/03/2018 AST 30 06/03/2018 ALKPHOS 150 06/03/2018 BILITOT 0.4 06/03/2018 INR 0.9 02/20/2013 PROTIME 11.8 02/20/2013 ECG - normal sinus rhythm A/P- Preop cardiac risk assessment Hypertension Hypothyroidism Remote history of smoking Leg pain - ? PVD, ? Venous disease Plan - Will request a SPECT MPI for further stratification before her upcoming hip surgery - If there is no evidence of ischemia on the stress test it should be okay to proceed with the planned surgery with a low to moderate risk of adverse cardiac outcomes in the perioperative. - Return to clinic in 6 months. Consider evaluation for PVD and venous disease at that visit Electronically Signed by: Anders Melo M.D 10/16/18 10:09 AM documented in this encounter* Jak Pepe MD - 10/23/2018 3:40 PM EDT RETURN VISIT Patient: Sandy Pradhan : 1950 Date of Visit: 10/23/18 Consulting Physician: No ref. provider found Primary Care Provider: Brandon Lowery DO Chief Complaint 1.Urge Incontinence 2.Urgency/Frequency/Nocturia 3.History of Incomplete Bladder Emptying History of Presenting Illness: Dictation on: 10/23/2018 3:44 PM by: JAK PEPE [[id number]] Any changes to past medical history, past surgical history, and social history are noted in the chart. Medications: Current Outpatient Medications: acetaminophen (TYLENOL) 325 MG tablet, Take 650 mg by mouth every 6 (six) hours as needed ., Disp: , Rfl: aspirin 81 MG EC tablet, Take 81 mg by mouth daily, Disp: , Rfl: hydroCHLOROthiazide (HYDRODIURIL) 12.5 MG tablet, TAKE 1 TABLET DAILY, Disp: 90 tablet, Rfl: 3 latanoprost (XALATAN) 0.005 % ophthalmic solution, Administer 1 drop to both eyes nightly ., Disp: , Rfl: levothyroxine (SYNTHROID, LEVOTHROID) 137 MCG tablet, TAKE 1 TABLET DAILY, Disp: 90 tablet, Rfl: 3 LORATADINE (CLARITIN ORAL), Take by mouth as needed, Disp: , Rfl: multivitamin (THERAGRAN) per tablet, Take 1 tablet by mouth daily, Disp: , Rfl: sertraline (ZOLOFT) 50 MG tablet, Take 50 mg by mouth daily, Disp: , Rfl: trospium 60 mg Cp24, Take 1 (one) capsule (60 mg total) by mouth daily ., Disp: 30 capsule, Rfl: 2 No current facility-administered medications for this visit. Allergies: No Known Allergies Past Medical History: Past Medical History: Diagnosis Date Bleeding gums Bone spur C3-C6 posterior decompression and fusion 08/24/15 Bronchitis Bursitis of left hip [address] Bray last shot 09/2017 Constipation Degenerative disc disease, cervical C3-C6 posterior decompression and fusion 08/24/15 Depression meds Difficulty walking Fibroids SANTY / BSO Glaucoma History of burning pain in leg burning in legs/knees giving out, s/p MRI 03/2015 Hypertension Hyperthyroidism Hypothyroid Impaired vision Insomnia meds Kidney stone Leg weakness Osteoarthritis of knees, bilateral to have b/l knee replacement Psoriasis 12/2013 [facility] [place] on Ozella Teeth problem Tooth infection Weakness of both arms Review of Systems: She denies headaches, visual symptoms, chest pain, abdominal pain or distention,shortness of breath, change in appetite, weight loss, weight gain, muscles pain, or joint pain. Physical Exam: BP (!) 152/82 (BP Location: Left arm, Patient Position: Sitting, BP Cuff Size: Adult) Pulse 70 Temp 98.3 F (36.8 C) (Oral) Resp 18 Dictation on: 10/23/2018 3:46 PM by: JAK PEPE [[id number]] documented in this encounter* Issac Bray MD - 12/27/2018 5:54 PM EDT Dictation on: 12/27/2018 5:54 PM by: ISSAC BRAY [[id number]] documented in this encounter* America Rios CNP - 03/12/2019 5:25 PM EST Subjective Sandy Pradhan is a 69 y.o. female who presents for evaluation of symptoms of a URI, possible sinusitis. Symptoms include headache described as sinus, nasal congestion, non productive cough and sinus pressure. Onset of symptoms was 2 weeks ago, and has been gradually worsening since that time. Treatment to date: Taken tylenol. Pt reports started with ear pain 2 weeks ago.Then started with Left ear pain, then increased maxillary pressure left side. Left post neck pain. Symptoms are worse at night. Left ear and sinus pain is dull and throbbing. Rates it 5/10. The following portions of the patient's history were reviewed and updated as appropriate: allergies, current medications, past family history, past medical history, past social history, past surgicalhistory and problem list. PACU Vitals 03/12/19 1720 BP: (!) 150/68 Pulse: Resp: Temp: PainSc: Patient's Medications New Prescriptions AMOXICILLIN (AMOXIL) 500 MG CAPSULE Take 1 (one) capsule (500 mg total) by mouth 3 (three) times a day for 10 days . BENZONATATE (TESSALON) 200 MG CAPSULE Take 1 (one) capsule (200 mg total) by mouth 3 (three) times a day as needed for cough . Previous Medications HYDROCHLOROTHIAZIDE (HYDRODIURIL) 12.5 MG TABLET TAKE 1 TABLET DAILY LATANOPROST (XALATAN) 0.005 % OPHTHALMIC SOLUTION Administer 1 drop to both eyes nightly . LEVOTHYROXINE (SYNTHROID, LEVOTHROID) 137 MCG TABLET TAKE 1 TABLET DAILY LORATADINE (CLARITIN ORAL) Take by mouth as needed MULTIVITAMIN (THERAGRAN) PER TABLET Take 1 tablet by mouth daily NAPROXEN (NAPROSYN) 375 MG TABLET Take 375 mg by mouth 2 (two) times a day as needed . SERTRALINE (ZOLOFT) 50 MG TABLET Take 50 mg by mouth daily Modified Medications No medications on file Discontinued Medications No medications on file Review of Systems Constitution: Positive for chills and decreased appetite. HENT: Positive for congestion, ear pain and sore throat. Eyes: Negative for double vision and pain. Cardiovascular: Negative for chest pain. Respiratory: Positive for cough. Negative for shortness of breath. Gastrointestinal: Negative for nausea. Neurological: Positive for headaches. Negative for dizziness. Physical Exam Constitutional: She is oriented to person, place, and time. She appears well- developed and well-nourished. HENT: Head: Normocephalic. Right Ear: External ear normal. Mouth/Throat: Oropharyngeal exudate present. Left ear with fluid level and erythema TM. Pain with palpation of pre and post auricular lymph nodes. Post pharynx with erythema Neck: Normal range of motion. Cardiovascular: Normal rate, regular rhythm and normal heart sounds. Pulmonary/Chest: Effort normal. Neurological: She is alert and oriented to person, place, and time. Skin: Skin is warm and dry. Psychiatric: She has a normal mood and affect. Her behavior is normal. Judgment and thought contentnormal. Nursing note and vitals reviewed. ICD-10-CM ICD-9-CM 1. Acute non-recurrent maxillary sinusitis J01.00 461.0 amoxicillin (AMOXIL) 500 MG capsule benzonatate (TESSALON) 200 MG capsule Assessment and Plan: Acute non-recurrent maxillary sinusitis Amoxicillin 1 po TID x 10 days Tessalon perles 200mg 1 po q 8 hrs prn cough Encourage fluids and rest Off work for 03/13/2019, return 03/14/2019 Pt agrees to call if not improving by Sunday Orders Placed This Encounter amoxicillin (AMOXIL) 500 MG capsule Sig: Take 1 (one) capsule (500 mg total) by mouth 3 (three) times a day for 10 days . Dispense: 30 capsule Refill: 0 benzonatate (TESSALON) 200 MG capsule Sig: Take 1 (one) capsule (200 mg total) by mouth 3 (three) times a day as needed for cough . Dispense: 20 capsule Refill: 0 Electronically Signed by: America Rios CNP 03/12/19 ,5:46 PM * Liz Delgado MA - 03/12/2019 4:58 PM EST Bilateral ear pain, chest congestion & sinus pressure left side of face...started 2 weeks ago. documented in this encounter* Brandon Lowery DO - 09/01/2019 3:41 PM EDT Hypertension This is a chronic problem. The current episode started more than 1 year ago. The problem is controlled. Pertinent negatives include no anxiety, blurred vision, chest pain, headaches, malaise/fatigue,neck pain, orthopnea, palpitations, peripheral edema, PND, shortness of breath or sweats. Agents associated with hypertension include thyroid hormones. Risk factors for coronary artery disease include post-menopausal state. Past treatments include diuretics. The current treatment provides significant improvement. There are no compliance problems. There is no history of angina, kidney disease, CAD/[place], CVA, heart failure, left ventricular hypertrophy, PVD or retinopathy. Identifiable causes of hypertension include a thyroid problem. Thyroid Problem Presents for follow-up visit. Symptoms include dry skin and weight gain (8 pounds 1 year ). Patientreports no anxiety, cold intolerance, constipation, depressed mood, diaphoresis, diarrhea, fatigue,hair loss, heat intolerance, hoarse voice, leg swelling, menstrual problem, nail problem, palpitations, tremors, visual change or weight loss. The symptoms have been stable. Past treatments include levothyroxine. The treatment provided moderate relief. Prior procedures include radioiodine uptake scan and thyroid ultrasound. The following procedures have not been performed: thyroid FNA and thyroidectomy. Her past medical history is significant for obesity. There is no history of atrial fibrillation, dementia, diabetes, Graves' ophthalmopathy, heart failure, hyperlipidemia, neuropathy or osteopenia. Risk factors include prior iodine 131 therapy. Vitals: 09/01/19 1530 BP: 124/70 Temp: 97.7 F (36.5 C) Pulse: 76 Resp: 16 PT WEIGHT Weight 09/01/2019 152 lb 6.4 oz 03/12/2019 155 lb 6.4 oz 12/31/2018 146 lb 12/16/2018 154 lb 12.8 oz BP Readings from Last 4 Encounters: 09/01/19 124/70 03/12/19 (!) 150/68 12/31/18 110/69 12/16/18 125/78 Past Medical History: Diagnosis Date Bleeding gums Bone spur C3-C6 posterior decompression and fusion 08/24/15 Bronchitis Bursitis of left hip [address] Bray last shot 09/2017 Constipation Degenerative disc disease, cervical C3-C6 posterior decompression and fusion 08/24/15 Depression meds Difficulty walking Fibroids SANTY / BSO Dr.Gunz CLAUDIO (gastroesophageal reflux disease) Glaucoma History of burning pain in leg burning in legs/knees giving out, s/p MRI 03/2015 Hypertension Hypothyroid Impaired vision Insomnia meds Kidney stone Leg weakness Osteoarthritis of knees, bilateral to have b/l knee replacement Psoriasis 12/2013 [facility] [place] on [place]ella Teeth problem Tooth infection Weakness of both arms Past Surgical History: Procedure Laterality Date APPENDECTOMY ARTHROPLASTY HIP ROBOTIC DINO Left 11/14/2018 Procedure: Left Total Hip Replacement Robotic; Surgeon: Issac Bray MD; Location: [facility] OR; Service: Ortho-Robotics BREAST REDUCTION CARPAL TUNNEL RELEASE Left 04/14/2014 Alex COLONOSCOPY 11/18/2013 normal....Donell COLONOSCOPY N/A 12/31/2018 Procedure: COLONOSCOPY; Surgeon: Cori Marquez MD; Location: [facility] [place] OR; Service: General Surgery EGD N/A 12/31/2018 Procedure: ESOPHAGOGASTRODUODENOSCOPY; Surgeon: Cori Marquez MD; Location: [facility] [place] OR; Service: General Surgery KNEE REPLACEMENT PARTIAL (UNICOMPARTMENTAL KNEE) bilateral knees LAMINECTOMY DECOMPRESSION POSTERIOR CERVICAL WITH FUSION 2-3 LEVELS 08/24/2015 C3-C6 TOTAL ABDOMINAL HYSTERECTOMY 04/13/2003 SANTY-BSO for uterine fibroids. TOTAL HIP ARTHROPLASTY Left TUBAL LIGATION Bilateral 1981 Social History Socioeconomic History Marital status: Spouse name: Not on file Number of children: Not on file Years of education: Not on file Highest education level: Not on file Occupational History Not on file Social Needs Financial resource strain: Not on file Food insecurity Worry: Never true Inability: Never true Transportation needs Medical: Not on file Non-medical: Not on file Tobacco Use Smoking status: Former Smoker Packs/day: 1.00 Years: 30.00 Pack years: 30.00 Types: Cigarettes Last attempt to quit: 02/02/1999 Years since quittin.5 Smokeless tobacco: Never Used Substance and Sexual Activity Alcohol use: No Alcohol/week: 0.0 standard drinks Drug use: Never Sexual activity: Not Currently Lifestyle Physical activity Days per week: Not on file Minutes per session: Not on file Stress: Not on file Relationships Social connections Talks on phone: Not on file Gets together: Once a week Attends pentecostal service: Not on file Active member of club or organization: Not on file Attends meetings of clubs or organizations: Not on file Relationship status: Not on file Other Topics Concern Not on file Social History Narrative Not on file Family History Problem Relation Age of Onset Stroke Mother Cancer Father colon Arthritis Father Other Father C DIFF Colorectal cancer Father Heart disease Paternal Uncle Current Outpatient Medications Medication Sig Dispense Refill hydroCHLOROthiazide (HYDRODIURIL) 12.5 MG tablet TAKE 1 TABLET DAILY 90 tablet 4 latanoprost (XALATAN) 0.005 % ophthalmic solution Administer 1 drop to both eyes nightly . levothyroxine (SYNTHROID, LEVOTHROID) 137 MCG tablet TAKE 1 TABLET DAILY 90 tablet 3 LORATADINE (CLARITIN ORAL) Take by mouth as needed multivitamin (THERAGRAN) per tablet Take 1 tablet by mouth daily naproxen (NAPROSYN) 375 MG tablet Take 375 mg by mouth 2 (two) times a day as needed . sertraline (ZOLOFT) 50 MG tablet Take 50 mg by mouth daily No current facility-administered medications for this visit. PHQ-9 Depression Screening No documentation. Goals None Review of Systems Constitutional: Positive for weight gain (8 pounds 1 year ). Negative for diaphoresis, fatigue, malaise/fatigue and weight loss. HENT: Negative for hoarse voice. Eyes: Negative for blurred vision. Respiratory: Negative for shortness of breath. Cardiovascular: Negative for chest pain, palpitations, orthopnea and PND. Gastrointestinal: Negative for constipation and diarrhea. Endocrine: Negative for cold intolerance and heat intolerance. Genitourinary: Negative for menstrual problem. Musculoskeletal: Negative for neck pain. Neurological: Negative for tremors and headaches. Psychiatric/Behavioral: The patient is not nervous/anxious. Physical Exam Vitals signs and nursing note reviewed. Constitutional: Appearance: Normal appearance. She is well-developed. She is not ill-appearing. HENT: Head: Normocephalic and atraumatic. Right Ear: Tympanic membrane, ear canal and external ear normal. Left Ear: Tympanic membrane, ear canal and external ear normal. Nose: Nose normal. Mouth/Throat: Mouth: Mucous membranes are moist. Eyes: Extraocular Movements: Extraocular movements intact. Conjunctiva/sclera: Conjunctivae normal. Pupils: Pupils are equal, round, and reactive to light. Neck: Musculoskeletal: Normal range of motion and neck supple. Cardiovascular: Rate and Rhythm: Normal rate and regular rhythm. Heart sounds: Normal heart sounds. No murmur. Pulmonary: Effort: Pulmonary effort is normal. Breath sounds: Normal breath sounds. No wheezing. Chest: Chest wall: No tenderness. Abdominal: General: Bowel sounds are normal. Palpations: Abdomen is soft. There is no mass. Tenderness: There is no abdominal tenderness. There is no guarding or rebound. Musculoskeletal: General: No tenderness or deformity. Lymphadenopathy: Cervical: No cervical adenopathy. Skin: General: Skin is warm and dry. Findings: No rash. Neurological: Mental Status: She is alert and oriented to person, place, and time. Mental status is at baseline. Deep Tendon Reflexes: Reflexes are normal and symmetric. Psychiatric: Mood and Affect: Mood normal. Behavior: Behavior normal. Thought Content: Thought content normal. Judgment: Judgment normal. There are no diagnoses linked to this encounter. Diagnoses and all orders for this visit: Hypertension, essential Cont same stable - Comprehensive Metabolic Panel; Future - Lipid Panel; Future Hypothyroidism, unspecified type call see if insurance covers tdap. - TSH; Future For any new medications prescribed today, patient was educated about indications for the medication, how to take the medication and potential side effects of the medications. * Brandon Lowery DO - 09/01/2019 3:40 PM EDT STEADI Falls Evaluation LOW Falls Risk Evaluation: STEADI Falls Risk - 09/01/19 1530 Additional Assessments BP 124/70 Pulse 76 Patient Position Sitting Falls Assessment and Plan: Sandy has been evaluated for her risk of falling and is considered LOW risk. Patient given Home Safety Checklist in [facility]S. Referred to a community based program such as [facility], [facility], or [facility] and provided information about each. Patient is currently on Vit D. New Medications ordered: Calcium 1200mg daily Additional tests ordered: None Repeat fall risk assessment in 12 months. documented in this encounter* Issac Bray MD - 11/20/2019 10:58 AM EDT Dictation on: 11/20/2019 10:58 AM by: ISSAC BRAY [[id number]] documented in this encounter* Tiffani Chisholm MD - 04/23/2020 9:25 AM EST Impression: 1. Closed fracture of left ankle, initial encounter Knee Scooter The above diagnosis as well as the options for treatment were discussed with Sandy in clinic today.I recommended that this patient go into a boot. She will try to stay off of this to the extent thatshe can secondary to pain. I recommended that she try and stay off of it for the most part over thenext 4 weeks. We will see her back in 6 weeks in the clinic with new x-rays. She can use her knee scooter and crutches as tolerated. She can take [id number] medication for pain. She can remove the boot for bathing and at bedtime. Sandy Pradhan was agreeable to the plan and there were no learning barriers encountered. Follow-Up: 6 weeks. New x-rays of the left ankle will be performed at that appointment. 3 views left ankle weightbearing. Subjective: Sandy Pradhan is a 70 y.o. female seen as a new patient for left ankle fracture. She slipped on ice on 04/20/2020. She had immediate pain in the left ankle. She went to the emergency department where radiographs were performed. She was diagnosed with a left lateral malleolus ankle fracture and placed in a splint. She has been nonweightbearing. She has crutches but recently ordered a knee scooter. She has no other injuries. She has had hip and knee arthroplasty on that side. No pain inher hip or knee. She is not on any anticoagulants. She is not a smoker. She is not a diabetic. She is retired. Past Medical History: Diagnosis Date Bleeding gums Bone spur C3-C6 posterior decompression and fusion 08/24/15 Bronchitis Bursitis of left hip [address] Bray last shot 09/2017 Constipation Degenerative disc disease, cervical C3-C6 posterior decompression and fusion 08/24/15 Depression meds Difficulty walking Fibroids SANTY / BSO GERD (gastroesophageal reflux disease) Glaucoma History of burning pain in leg burning in legs/knees giving out, s/p MRI 03/2015 Hypertension Hypothyroid Impaired vision Insomnia meds Kidney stone Leg weakness Osteoarthritis of knees, bilateral to have b/l knee replacement Psoriasis 12/2013 [facility] [place] on [place] Teeth problem Tooth infection Weakness of both arms and Past Surgical History: Procedure Laterality Date APPENDECTOMY ARTHROPLASTY HIP ROBOTIC DINO Left 11/14/2018 Procedure: Left Total Hip Replacement Robotic; Surgeon: Issac Bray MD; Location: [facility] OR; Service: Ortho-Robotics BREAST REDUCTION CARPAL TUNNEL RELEASE Left 04/14/2014 Alex COLONOSCOPY 11/18/2013 normal....Donell COLONOSCOPY N/A 12/31/2018 Procedure: COLONOSCOPY; Surgeon: Cori Marquez MD; Location: [facility] [place] OR; Service: General Surgery EGD N/A 12/31/2018 Procedure: ESOPHAGOGASTRODUODENOSCOPY; Surgeon: Cori Marquez MD; Location: [facility] [place] OR; Service: General Surgery KNEE REPLACEMENT PARTIAL (UNICOMPARTMENTAL KNEE) bilateral knees LAMINECTOMY DECOMPRESSION POSTERIOR CERVICAL WITH FUSION 2-3 LEVELS 08/24/2015 C3-C6 TOTAL ABDOMINAL HYSTERECTOMY 04/13/2003 SANTY-BSO for uterine fibroids. TOTAL HIP ARTHROPLASTY Left TUBAL LIGATION Bilateral 1981 Past medical, past surgical, family history, medications, allergies, and smoking status reviewed and updated as appropriate in [facility]. A 10-system review of systems was completed by Sandy today and reviewed by Dr. Tiffani Chisholm during the visit. This has been initialed, dated, and scanned to this encounter. Objective: Vitals: 04/23/20 0922 BP: 143/76 Pulse: 77 Weight: 69.9 kg (154 lb) Height: 5' 1" General: no acute distress Appearance: Appears stated age Neurologic: Patient is alert and oriented x3 pleasant and cooperative. Mood and affect: Normal HEENT: normocephalic, attraumatic. Extraocular muscles grossly normal. Pulm: respiratory effort is normal Foot and Ankle - Physical Exam Standing: Not performed due to the nature of the injury. Deformities: Swelling of the left ankle and ecchymoses over the lateral malleolus Palpation: Tenderness to palpation of the lateral malleolus. No tenderness to palpation in the foot. No tenderness to palpation at the medial malleolus or deltoid ligament. ROM Ankle: decreased Subtalar: decreased MTP: normal Muscle/Tendons Strength + EHL/FHL motor intact Pulses Dorsal Pedis: Present 2+ Tibial Artery: Present 2+ Nerves Tibial Nerve Lateral Plantar: intact Medial Plantar: intact Superficial Peroneal: intact Deep Peroneal: intact Sural: intact Saphenous: intact Skin Intact Radiographs: Xrays from 04/20/2020 and today's date were reviewed today in clinic and discussed with the patient.A formal read will be perfomed by radiology. They were also interpreted by myself. My findings and impressions can be found below. Radiographs performed on 04/20/2020 show a nondisplaced fracture of the lateral malleolus. Ankle mortise is intact without widening. No other acute fractures or dislocations. Radiographs were performed again today. These were standing stress radiographs. These once again show a fracture of the lateral malleolus. There is no widening of the ankle mortise. No obvious osteochondral lesions. No other acute fractures or dislocations. CC: No ref. provider found Brandon Lowery, DO Answers for HPI/ROS submitted by the patient on 04/21/2020 Are you willing to wear a mask?: Yes, willing to wear a hospital provided mask documented in this encounter* Fanta Bang RN - 11/18/2018 12:27 PM EDT Patient's chart was reviewed for Transitions of Care. Patient does not meet eligibility/criteria for RITO follow up phone call or RITO office visit. Patient sent letter via [employer] and [place] Mail. documented in this encounter* Cori Marquez MD - 12/16/2018 10:21 AM EDT [facility] [address] [facility] [address] [facility] [id number] Patient: Sandy Pradhan Age: 68 y.o. Race: [1] Chief Complaint: Chief Complaint Patient presents with Colonoscopy 1. Family history of colon cancer Case Request Operating Room: COLONOSCOPY 2. Pain of upper abdomen 3. Heartburn Date: 12/16/18 Physicians: Brandon Lowery DO (Family); No ref. provider found (Referring) HPI: Repeat colonoscopy is recommended to this pleasant 68-year-old female who last had a normal colonoscopy 5 years ago. Her father had colon cancer. For the past 6 months or so she has also been having some upper abdominal pain that she likens to heartburn. At times she feels it run up into her chest. She thinks this is related to being on a full-strength aspirin since her hip replacement, in addition to naproxen. YES NO [] [x] Change in bowel habits? [] [x] Constipation [] [x] Diarrhea? [] [x] Blood in stool? [] [x] Mucus in your stool? [] [x] Decrease in caliber of your stool? [] [x] Heme positive stool [] [x] Have you recently been diagnosed with anemia by your family doctor? [x] [] Do you have any family members with a history of Colon Cancer? Past Histories: Allergies: Hydrocodone Patient's Medications New Prescriptions No medications on file Previous Medications HYDROCHLOROTHIAZIDE (HYDRODIURIL) 12.5 MG TABLET TAKE 1 TABLET DAILY LATANOPROST (XALATAN) 0.005 % OPHTHALMIC SOLUTION Administer 1 drop to both eyes nightly . LEVOTHYROXINE (SYNTHROID, LEVOTHROID) 137 MCG TABLET TAKE 1 TABLET DAILY LORATADINE (CLARITIN ORAL) Take by mouth as needed MULTIVITAMIN (THERAGRAN) PER TABLET Take 1 tablet by mouth daily NAPROXEN (NAPROSYN) 375 MG TABLET Take 375 mg by mouth 2 (two) times a day as needed . SERTRALINE (ZOLOFT) 50 MG TABLET Take 50 mg by mouth daily TROSPIUM 60 MG CP24 Take 1 (one) capsule (60 mg total) by mouth daily . Modified Medications No medications on file Discontinued Medications ONDANSETRON (ZOFRAN) 4 MG TABLET Take 1 (one) tablet (4 mg total) by mouth daily as needed for nausea . PANTOPRAZOLE (PROTONIX) 20 MG TABLET Take 1 (one) tablet (20 mg total) by mouth daily . 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 Hypothyroidism Greater trochanteric bursitis of left hip Hypertension, essential Arthritis of left hip Status post total replacement of left hip Past Medical History: Diagnosis Date Bleeding gums Bone spur C3-C6 posterior decompression and fusion 08/24/15 Bronchitis Bursitis of left hip [address] Bray last shot 09/2017 Constipation Degenerative disc disease, cervical C3-C6 posterior decompression and fusion 08/24/15 Depression meds Difficulty walking Fibroids SANTY / BSO Glaucoma History of burning pain in leg burning in legs/knees giving out, s/p MRI 03/2015 Hypertension Hypothyroid Impaired vision Insomnia meds Kidney stone Leg weakness Osteoarthritis of knees, bilateral to have b/l knee replacement Psoriasis 12/2013 [facility] [place] on [place] Teeth problem Tooth infection Weakness of both arms Past Surgical History: Procedure Laterality Date APPENDECTOMY ARTHROPLASTY HIP ROBOTIC DINO Left 11/14/2018 Procedure: Left Total Hip Replacement Robotic; Surgeon: Issac Bray MD; Location: Main OR; Service: Ortho-Robotics BREAST REDUCTION CARPAL TUNNEL RELEASE Left 04/14/2014 Alex COLONOSCOPY 11/18/2013 normal....Donell KNEE REPLACEMENT PARTIAL (UNICOMPARTMENTAL KNEE) bilateral knees LAMINECTOMY DECOMPRESSION POSTERIOR CERVICAL WITH FUSION 2-3 LEVELS 08/24/2015 C3-C6 TOTAL ABDOMINAL HYSTERECTOMY 04/13/2003 SANTY-BSO for uterine fibroids. TOTAL HIP ARTHROPLASTY Left TUBAL LIGATION Bilateral 1981 Social History Socioeconomic History Marital status: Spouse name: Not on file Number of children: Not on file Years of education: Not on file Highest education level: Not on file Occupational History Not on file Social Needs Financial resource strain: Not on file Food insecurity: Worry: Never true Inability: Never true Transportation needs: Medical: Not on file Non-medical: Not on file Tobacco Use Smoking status: Former Smoker Packs/day: 1.00 Years: 30.00 Pack years: 30.00 Types: Cigarettes Last attempt to quit: 02/02/1999 Years since quittin.8 Smokeless tobacco: Never Used Substance and Sexual Activity Alcohol use: No Alcohol/week: 0.0 standard drinks Drug use: Never Sexual activity: Not Currently Lifestyle Physical activity: Days per week: Not on file Minutes per session: Not on file Stress: Not on file Relationships Social connections: Talks on phone: Not on file Gets together: Once a week Attends pentecostal service: Not on file Active member of club or organization: Not on file Attends meetings of clubs or organizations: Not on file Relationship status: Not on file Other Topics Concern Not on file Social History Narrative Not on file Data Unavailable Social History Tobacco Use Smoking Status Former Smoker Packs/day: 1.00 Years: 30.00 Pack years: 30.00 Types: Cigarettes Last attempt to quit: 02/02/1999 Years since quittin.8 Smokeless Tobacco Never Used Social History Substance and Sexual Activity Alcohol Use No Alcohol/week: 0.0 standard drinks Social History Substance and Sexual Activity Drug Use Never Family History Problem Relation Age of Onset Stroke Mother Cancer Father colon Arthritis Father Other Father C DIFF Colorectal cancer Father Heart disease Paternal Uncle REVIEW OF SYSTEMS Pertinent positives and negatives are listed in HPI, PMSH, SH, ALL above and in "Details" below. The following systems were reviewed: [x] Const (fevers, chills, wt. loss, fatigue) [x] CV (HTN, CP, KIRAN, edema, DVT) [x] Resp (SOB, pleurisy, asthma, apnea) [x] GI (N, V, D, C, M, abd pain, appetite) [x] Musc (back pain, joint stiffness, gout) [x] Neuro (seizures, syncope, paralysis) [x] Psych (depression, anxiety) [x] Endo (hot/cold intol, polyuria[DM]) [x] Hem/Lymph (Anemia, LA, bleeding) [x] Allerg/Immun (seasonal, immuniz) [x] Eyes (diplopia, cataracts) [x] ENT/mouth (dysphagia, epistaxis) [x] (dysuria, hematuria) [x] Skin/Breast (moles, rash, lumps, nipple changes) Details: See scanned ROS Physical Exam: BP 125/78 Pulse 80 Temp 98.1 F (36.7 C) (Oral) Ht 5' 1" Wt 70.2 kg (154 lb 12.8 oz) SpO2 96% BMI 29.25 kg/m Body mass index is 29.25 kg/m . HEENT: PERRLA EOMI MMM anicteric Neck: supple without thyromegaly or masses Cardiac: regular rate and rhythm without murmur Lungs: clear to auscultation Back: negative CVA tenderness Abdomen: normoactive bowel sounds, soft, nondistended, nontender, no masses, organomegaly, rebound,or guarding Extremities: no cyanosis, clubbing, or edema Neuro: awake, alert, oriented 3, normal affect, no focal deficits Assessment: Family history of colon cancer in a first-degree relative Upper abdominal pain with heartburn Plan: Colonoscopy and EGD The procedures, risks, and benefits were discussed with the patient. She seemed understand everything we discussed and agreed to proceed. 1. Family history of colon cancer Case Request Operating Room: COLONOSCOPY 2. Pain of upper abdomen 3. Heartburn Orders Placed This Encounter Procedures Case Request Operating Room: COLONOSCOPY Cori Marquez MD documented in this encounter* Brittaney Chung LPN - 11/21/2018 9:58 AM EDT I spoke w Sandy today and she says she is doing well. She did have some nausea in the hospital but none at home, some constipation but w a stool softener that is better. Her swelling is not much better, she does elevate w ice. We did discuss being flat on the bed/sofa three times per day for one hour each w elevation and ice. She is taking her ASA bid and her Protonix qd. documented in this encounter* Issac Bray MD - 11/16/2018 10:30 AM EDT Orthopedic Total Hip Progress Note Assessment/Plan: Status Post left Total Hip Arthroplasty: Doing well postoperatively. Discharge today, Return to Clinic: 2 weeks, no nausea. LOS: 2 days Subjective: Post-Operative Day: 2 Status Post left Total Hip Arthroplasty Systemic or Specific Complaints:No Complaints Objective: Vital signs in last 24 hours: Temp: [97.6 F (36.4 C)-98.3 F (36.8 C)] 98.1 F (36.7 C) Heart Rate: [68-76] 76 Resp: [12-17] 14 BP: (113-131)/(70-72) 128/70 General: alert, appears stated age and cooperative Wound: Wound clean and dry no evidence of infection. Motion: Painless Range of Motion DVT Exam: No evidence of DVT seen on physical exam. Data Review CBC: Lab Results Component Value Date WBC 5.77 10/29/2018 RBC 4.32 10/29/2018 HGB 10.1 (L) 11/16/2018 HCT 32.3 (L) 11/16/2018 PLT 271 10/29/2018 * Sadie Live, MAJOR CASE DETECTIVE - 11/16/2018 9:35 AM EDT Physical Therapy PHYSICAL THERAPY TREATMENT NOTE Skilled Therapy Needs After Discharge Are Skilled Therapy Services Needed After Discharge: Yes Intensity of Skilled Therapy: 2-3 days per week Anticipated Duration of Skilled Therapy: Duration 7 - 10 days DME Recommendation: Wheeled walker DME Rationale: Patient's condition creates an increased risk of safety hazard without recommended equipment Rehab Potential: Good Outcomes Measures Prior Function - Basic Mobility % Impaired: AM-PAC - Basic Mobility Raw Score: 18 Points AM-PAC - Basic Mobility % Impaired: 40.47% functionally impaired Activity Tolerance Therapy Precautions Orthotic Devices: No Weight Bearing Status: WFL LLE: Wt bearing as tolerated General Rehab Precautions: (none) Released to nursing: assist x 1 with ww Balance Bed Mobility Supine to Sit: Stand by assistance Skilled Intervention: Pt using rail for transfer to eob with hob slightly raised. Transfers Sit to Stand: Stand by assistance Skilled Intervention: Pt requiring education for hand placement. Gait/Locomotion Gait Assistance: Stand by assistance Assistive Device: Wheeled walker Distance: 200 Feet Pattern: Step through, L Decreased stance time, R decreased step length, L decreased step length Stair Management Technique: One rail R, Step to pattern, Forwards, With cane Stair Management Assistance: Stand by assistance Number of Stairs: 4 Skilled Intervention: Pt demonstrates slow gait pace with frequent rest breaks secondary to reportsof stiffness. Pt with decreased step height , length and antalgic pattern. Pt performed stairs withuse of Rt rail and cane sba. Pt with increased UE support for completion. Exercise Total Hip: 20 reps Pt completed mya LE therapeutic exercise x 20 reps for functional strengthening:SAQ, LAQ, quad sets, and ankle pumps. Pt requiring cueing to perform exercises correctly. Home Living Type of Home: House Home Layout: Multi-level, Bed/bath upstairs(1/2 bath in basement.) Bathroom Shower/Tub: Walk-in shower Bathroom Toilet: Standard Bathroom Equipment: Toilet raiser, Shower chair, Hand-held shower(long handeld bath sponge) Bathroom Accessibility: Accessible Home Equipment: Wheeled Walker, Cane, Commodities Manager, Sock aid, Long-handled shoehorn(dressing sticlk) Additional Comments: Enters at lower level with not steps, then 9 up to living area and 4 additional up to bed/bath level. 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 For complete objective data, detailed plan of care and patient education refer to: PT EVALUATION flow sheet, PT TREATMENT flow sheet, patient Plan of Care, Plan of Care progress note, and Patient Education. This note stands as the current Discharge Summary upon patient discharge from the hospital or completion of Physical Therapy Plan of Care. * Abby Demarco RN - 11/15/2018 1:58 PM EDT Patient ate lunch and is still feeling a little nauseated, called Dr. Bray orders for tylenol 3, and to call back at 5 * Anny Terry MSW LSW - 11/15/2018 1:51 PM EDT COMPLEX DISCHARGE Date: 11/15/2018 Time: 1:51 PM Patient Name: Sandy Pradhan Date of : 1950 Sex: Female Patient discharging home today. [facility] notified of discharge. No further social service needs indicated or reported. Discharge Plan Shared UM/CC and RN Source of Information: Patient Living Arrangements: Spouse/significant other Support Systems: Spouse/significant other, Children Functional Status: Independent Type of Residence: Private residence Prior to Admission Home Care Services: No Current Home Equipment: Cane Insurance Coverage for Prescriptions: Yes [facility] Disposition D/C Disposition: Home Health Care Services Related to Current Admission?: Yes Agency/Destination: [facility] Home Care Needs : Home health care Transportation Type: Auto Options Reviewed: List provided, Explained services/benefits Reason for Choice: Patient/Family prefernce * Issac Bray MD - 11/15/2018 9:55 AM EDT Orthopedic Total Hip Progress Note Assessment/Plan: Status Post left Total Hip Arthroplasty: Doing well postoperatively. Discharge today, Return to Clinic: 2 weeks LOS: 1 day Subjective: Post-Operative Day: 1 Status Post left Total Hip Arthroplasty Systemic or Specific Complaints:No Complaints Objective: Vital signs in last 24 hours: Temp: [92.4 F (33.6 C)-98 F (36.7 C)] 97.8 F (36.6 C) Heart Rate: [57-77] 74 Resp: [14-16] 16 BP: (98-145)/(59-77) 122/68 General: alert, appears stated age and cooperative Wound: Wound clean and dry no evidence of infection. Motion: Painless Range of Motion DVT Exam: No evidence of DVT seen on physical exam. Data Review CBC: Lab Results Component Value Date WBC 5.77 10/29/2018 RBC 4.32 10/29/2018 HGB 10.5 (L) 11/15/2018 HCT 31.1 (L) 11/15/2018 PLT 271 10/29/2018 * Sadie Live, MAJOR CASE DETECTIVE - 11/15/2018 9:29 AM EDT Physical Therapy PHYSICAL THERAPY TREATMENT NOTE Skilled Therapy Needs After Discharge Are Skilled Therapy Services Needed After Discharge: Yes Intensity of Skilled Therapy: 2-3 days per week Anticipated Duration of Skilled Therapy: Duration 7 - 10 days DME Recommendation: Wheeled walker DME Rationale: Patient's condition creates an increased risk of safety hazard without recommended equipment Rehab Potential: Good Outcomes Measures Prior Function - Basic Mobility % Impaired: AM-PAC - Basic Mobility Raw Score: 18 Points AM-PAC - Basic Mobility % Impaired: 40.47% functionally impaired Activity Tolerance Therapy Precautions Orthotic Devices: No Weight Bearing Status: WFL LLE: Wt bearing as tolerated General Rehab Precautions: Fall risk Released to nursing: assist x 1 with ww Balance Bed Mobility Supine to Sit: Stand by assistance Skilled Intervention: Pt transferred to eob with cueing for hand placement and correct process. Pt cued for deep breathing to improve ease of transition. Transfers Sit to Stand: Stand by assistance Skilled Intervention: Pt completed sit to stand transfer with cueing for hand placement. Gait/Locomotion Gait Assistance: Stand by assistance Assistive Device: Wheeled walker Distance: 200 Feet Pattern: Step through, L Decreased stance time, R decreased step length, L decreased step length, Antalgic Stair Management Technique: One rail L, Step to pattern, With cane Stair Management Assistance: Stand by assistance Number of Stairs: 20 Skilled Intervention: Pt demonstrates slow antalgic gait pattern. Pt with decreased stance time to Lt LE. Pt completed stair navigation. Pt with step to gait pattern and use of rail and cane. Pt withreports of nausea and returned to chair with wet wash cloth to forehead and ice applied to hip. Exercise Total Hip: 20 reps Pt completed mya LE therapeutic exercise x 20 reps for functional strengthening:SAQ, LAQ, quad sets, and ankle pumps. Pt requiring cueing to perform exercises correctly. Home Living Type of Home: House Home Layout: Multi-level, Bed/bath upstairs(1/2 bath in basement.) Bathroom Shower/Tub: Walk-in shower Bathroom Toilet: Standard Bathroom Equipment: Toilet raiser, Shower chair, Hand-held shower(long handeld bath sponge) Bathroom Accessibility: Accessible Home Equipment: Wheeled Walker, Cane, Commodities Manager, Sock aid, Long-handled shoehorn(dressing sticlk) Additional Comments: Enters at lower level with not steps, then 9 up to living area and 4 additional up to bed/bath level. 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 For complete objective data, detailed plan of care and patient education refer to: PT EVALUATION flow sheet, PT TREATMENT flow sheet, patient Plan of Care, Plan of Care progress note, and Patient Education. This note stands as the current Discharge Summary upon patient discharge from the hospital or completion of Physical Therapy Plan of Care. documented in this encounter* Exten, Tiffani Ureña MD - 06/04/2020 9:15 AM EDT FRACTURE: Left lateral malleolus DOI: 04/20/2020 WEEKS: 6 WEIGHTBEARING STATUS: Partial Weight Bearing Impression: 1. Closed fracture of left ankle with routine healing, subsequent encounter Plan: The above diagnosis as well as the options for treatment were discussed with Sandy in clinic today.At this time we recommend the following: She will gradually increase weightbearing in the boot with 2 crutches for a week and 1/2 to 2 weeksand moved to 1 crutch for a week and 1/2 to 2 weeks and then no crutches walking in the boot for a week and 1/2 to 2 weeks. After that she can transition into a tennis shoe. She declined physical therapy at this appointment. Follow-up in 6 weeks. Sandy was agreeable to the plan and there were no learning barriers encountered. Follow-Up: Followup in 6 weeks. New xrays will be needed at the next visit. 3 views left ankle weightbearing Subjective: Sandy Jim Pradhan is here for a follow visit in regards to her left lateral malleolus fracture. Jerel last seen here in clinic on 04/23/2020. She states that she is doing well. Her pain is well controlled. She has mild pain at the lateral aspect of the ankle when she stood in x-ray. She has been putting light weight on it in the boot at home. She is here with her today. Smoking status, allergies, medications, and non-medications were reviewed and updated as appropriate in [facility]. She is not a current tobacco user. She is not a diabetic. Exam: Vitals: 06/04/20 0943 BP: 108/73 Pulse: 68 Weight: 69.9 kg (154 lb) Height: 5' 1" The patient is awake, alert and orientated x3, and in no apparent distress. Standing: Not performed Palpation: Minimal tenderness to palpation over the distal fibula ROM / Strength Improving range of motion. Strength was not assessed. Neurovascular Exam Intact Skin Intact Radiology: New radiographs of the left ankle performed today. These will be formally read by the radiologist. I also independently interpreted the films. Please see my independent interpretation below. Radiographs of the left ankle show interval callus formation at the distal fibula fracture. This isseen on both the mortise and lateral films. No significant displacement of the ankle mortise. No displacement of the fracture. No other acute fractures or dislocations. Left lateral malleolus fracture, healing CC: Brandon Lowery DO documented in this encounter Reason for Referral Status Reason Specialty Diagnoses / Procedures Referred By Contact Referred To Contact Closed Specialty Services Required/Patien t's Best Interest Urogynecology Diagnoses Overflow stress urinary incontinence in female Nini Meza, MANAGER STRATE[employer]IC [employer]OURCING [address] [place] [address] Jak Pepe MD [address] [facility] [address] [place] [address] Status Reason Specialty Diagnoses / Procedures Re ferred By Contact Referred To Contact Pending Review Radiology Diagnoses Preop cardiovascular exam Procedures NM Myocardial Perfusion Multiple SPECT Anders Melo MD [address] [place] [address] Status Reason Specialty Diagnoses / Procedures Referre d By Contact Referred To Contact Closed Radiology Diagnoses Arthritis of left hip Procedures CT Hip Left Without Contrast Issac Bray MD [address] [place] [address] Status Reason Specialty Diagnoses / Procedures Referred By Contact Referred To Contact Authorized Home Health Services Diagnoses Status post total replacement of left hip Issac Bray MD [address] [place] [address] Specialty Diagnoses / Procedures Referred By Contac t Referred To Contact General Surgery Diagnoses Gastroesophageal reflux disease, unspecified whether esophagitis present Brandon Lowery DO [address] [place] [id number] Kimani Simon MD [address] [place] [id number] Referral ID Status Reason Start Date Expiration Date V isits Requested Visits Authorized [id number] Pending Review 04/26/2022 04/26/2023 1 1 Specialty Diagnoses / Procedures Referred By Contac t Referred To Contact Diagnoses Chas Rodriguez MD [address] [place] [id number] Referral ID Status Reason Start Date Expiration Date Visits Re quested Visits Authorized [id number] Closed 1 1 Specialty Diagnoses / Procedures Referred By Contac t Referred To Contact Cardiology Diagnoses Dyspnea on exertion Brandon Lowery DO [address] [place] [address] America Lutz MD [address] [place] [address] Referral ID Status Reason Start Date Expiration Date V isits Requested Visits Authorized [id number] Pending Review 08/27/2023 08/26/2024 1 1 Referral ID Status Reason Start Date Expiration Date V isits Requested Visits Authorized [id number] Authorized 08/27/2023 08/26/2024 1 1 Specialty Diagnoses / Procedures Referred By Erin t Referred To Contact Radiology Diagnoses Dyspnea on exertion Procedures NM Myocardial Perfusion Multiple SPECT Etelvina Edge MD [address] [place] [address] Referral ID Status Reason Start Date Expiration Date V isits Requested Visits Authorized [id number] Authorized 08/31/2023 08/30/2024 4 4 Discharge Instructions * Instructions* Bella Kuo, RN - 12/31/[address] marquez to stop taking naproxen and start taking over the counter pepcid. documented in this encounter* Attachments The following attachments cannot be sent through Care Everywhere. * Leg: Fracture (Czech) documented in this encounter* Instructions* Abby Demarco RN - 11/15/2018 Learning About Total Hip Replacement Surgery What is total hip replacement surgery? During total hip replacement surgery, your doctor replaces the worn parts of your hip joint with artificial parts made of metal, ceramic, or plastic. You may want this surgery if you have hip pain and trouble moving that you can't treat in other ways. Osteoarthritis or rheumatoid arthritis can cause these types of problems. Another cause is bone loss due to a poor blood supply. Hip replacement is sometimes done after a hip fracture. How is this surgery done? In traditional hip replacement surgery, your doctor makes a 6- to 10-inch cut (incision) on the side or the back of your hip. Some muscles and other soft tissues, such as ligaments, are cut so the doctor can get to the hip joint. Hip replacement can also be done with one or two smaller cuts. This is called minimally invasive surgery. It may cause less blood loss and a smaller scar. But it can also mean a longer time in surgery, because the surgery is harder to do. And if the new hip can't be fitted properly through the smaller cut, the doctor may have to make a larger opening. A newer type of surgery is done through a small incision in the front (anterior) of the hip. Anterior surgery causes less damage to muscles and other soft tissues than getting to the hip joint from the side or the back. It may help you heal faster and get back to activity sooner. Anterior surgery and minimally invasive surgery require special training and equipment. Your doctorcan explain your options and help you understand the risks and benefits of each type of surgery. You will get medicine to make you sleep during the surgery. After making the incision, your doctor will: Remove the worn bone tissue and cartilage from the hip joint. Replace the ball at the upper end of your thighbone (femur). Replace your hip socket with a shell and liner. Fit the ball into the shell and liner to make a new hip joint. Surgery may take 1 to 3 hours. There are two kinds of replacement joints. Cemented joints. The cement fits between the new joint and the bone. Uncemented joints. These have a metal coating with many small openings. The bone is shaped to fit the new joint almost perfectly. But there are some small spaces. Over time, the bone grows to fill these small openings. Sometimes, a doctor will use a cemented ball and an uncemented socket. Your doctor can tell you which type of new hip joint is best for you. What can you expect after a total hip replacement? Your doctor will let you know if you will stay in the hospital or if you can go home the day of surgery. The physical therapist will show you how to move safely before you leave the hospital. You will also learn exercises to help you get stronger. You may need physical therapy for several weeks after you leave the hospital. At home you'll keep doing the exercises you learned. You will be able to move around with crutches or a walker. But for a while you will need someone who can help you day and night. If you need more extensive rehab, you may go to a specialized rehab center for more treatment. Your doctor will give you information about what to expect after surgery. How long it takes to recover will depend in part on the type of surgery you have. After traditional surgery, you will slowly return to most of your activities. You will need to use crutches or a walker for the first few weeks after surgery. Your doctor will tell you when you can drive again. You may be able to go back to work in 4 weeks to 4 months. It depends on your job. Your doctor will tell you when you can do activities like swim, dance, golf, or bicycle. You may need to avoid some strenuous activities. These may include running, horseback riding, tennis, and any type of skiing. For most people it is safe to have sex about 4 to 6 weeks after the surgery. It usually takes 3 to 6 months to get back to full activity after traditional surgery. You may recover faster if you have minimally invasive or anterior surgery. After you recover from surgery, you may have much less pain than before and a better quality of life. Most artificial hip joints last for 10 to 20 years or longer. It depends on your age, how much stress you put on the joint, and how well your new joint and bones mend. Your weight can make a difference. Every extra pound of body weight adds 3 pounds of stress to your new hip joint. Controlling yourweight can help your new hip joint last longer. It should also last longer if you avoid hard physical work and sports that stress the joint. Your doctor may want to see you about once a year to see how you and your new hip are doing. Follow-up care is a alejandra part of your treatment and safety. Be sure to make and go to all appointments, and call your doctor if you are having problems. It's also a good idea to know your test resultsand keep a list of the medicines you take. Where can you learn more? Log into your personal health record on [email or web address] and enter A884 in the "Education" box to learn more about "Learning About Total Hip Replacement Surgery." Current as of: November 22, 2017 Content Version: [id number] [email or web address]. Care instructions adapted under license by your healthcare professional. If you have questions about a medical condition or this instruction, always ask your healthcare professional. [email or web address] disclaims any warranty or liability for your use of this information. documented in this encounter Additional Source Comments INFORMATION SOURCE (unrecogn ized section and content) DATE CREATED AUTHOR 02/03/2018 [facility] DATE CREATED AUTHOR AUTHOR'S ORGANIZ ATION 08/05/2021 [facility] DATE CREATED AUTHOR AUTHOR'S ORGANIZ ATION 08/05/2021 [facility] DATE CREATED AUTHOR AUTHOR'S ORGANIZ ATION 08/05/2021 [facility] DATE CREATED AUTHOR AUTHOR'S ORGANIZ ATION 10/07/2023 [facility] DATE CREATED AUTHOR AUTHOR'S ORGANIZ ATION 07/20/2024 [facility] DATE CREATED AUTHOR AUTHOR'S ORGANIZ ATION 08/18/2024 [facility] DATE CREATED AUTHOR AUTHOR'S ORGANIZ ATION 08/19/2024 [facility] Reason for Visit (unrecogniz ed section and content) Reason Comments Follow-up Pain Status Reason Specialty Diagnoses / Procedures Referred By Contact Referred To Contact Closed Specialty Services Required/Patien t's Best Interest Urogynecology Diagnoses Overflow stress urinary incontinence in female Nini Meza, [employer] [address] [place] [address] Jak Pepe MD [address] [facility] [address] [id number] Reason Comments Injections lt hip Reason Comments Pain Reason Comments Pre-op Exam Hip replacement left / /Swelling Status Reason Specialty Diagnoses / Procedures Referred By Contact Referred To Contact Closed Specialty Services Required/Patient 's Best Interest Cardiology Diagnoses Arthritis of left hip Issac Bray MD [address] [place] [address] [place] [address] Status Reason Specialty Diagnoses / Procedures Re ferred By Contact Referred To Contact Closed Radiology Diagnoses Preop cardiovascular exam Procedures NM Myocardial Perfusion Study Single - Stress Only NM Myocardial Perfusion Multiple SPECT Anders Melo MD [address] [place] [address] Reason Comments Hip Pain Status Reason Specialty Diagnoses / Procedures Referre d By Contact Referred To Contact Status Reason Specialty Diagnoses / Procedures Referre d By Contact Referred To Contact Reason Comments Weakness Reason Comments Follow-up Status Reason Specialty Diagnoses / Procedures Re ferred By Contact Referred To Contact Diagnoses Family history of colon cancer Family history of colon cancer [Z80.0] Procedures FL COLONOSCOPY FLX DX W/COLLJ SPEC WHEN PFRMD FL ESOPHAGOGASTRODUODENOSCOPY TRANSORAL DIAGNOSTIC Cori Marquez MD [address] [facility] [address] [place] [address] Reason Comments Ear Pain Reason Comments Annual Exam Fall Risk Screening Status Reason Specialty Diagnoses / Procedures Referre d By Contact Referred To Contact Closed Radiology Diagnoses Arthritis of left hip Procedures CT Hip Left Without Contrast Issac Bray MD [address] [place] [address] Reason Comments Ankle Pain slipped on ice aroun d noon, no other injuries. ambulatory after fall Reason Comments Transition Of Care chart review Reason Comments Colonoscopy Status Reason Specialty Diagnoses / Procedures Referre d By Contact Referred To Contact Diagnoses Arthritis of left hip Arthritis of left hip [M16.12] Procedures FL TOTAL HIP ARTHROPLASTY Issac Bray MD [address] [place] [address] Reason Comments Follow-up LT ANKLE FX DOI:04/20 Reason Comments Medication Refill Reason Comments Follow-up F\\U LT ANKLE FX DOI: 04/20/20 Injury Reason Onset Date Comments Medication Refill 08/22/2021 Reason Comments Follow-up Manometry, EGD, Brav o Reason Comments Post-op Linx Reason Comments Follow-up Linx Reason Onset Date Comments Fall Risk Screening 08/07/2022 Reason Comments Establish Care Per Dr. Lowery for dyspnea on exertion Specialty Diagnoses / Procedures Referred By Contac t Referred To Contact Cardiology Diagnoses Dyspnea on exertion Brandon Lowery, [address] [place] [address] America Lutz MD [address] [place] [address] Referral ID Status Reason Start Date Expiration Date Visits Re quested Visits Authorized [id number] Closed 08/27/2023 08/26/2024 1 1 Reason Onset Date Comments Linx card 01/02/2024 Reason Onset Date Comments Medication Refill 02/18/2024 Reason Comments Medicare Wellness Visit Patient presents today for Medicare Wellness visit. Reason Onset Date Comments Results 08/18/2024 LAB RESULTS Visit Details Home Health Visit - Care Kristin n (unrecognized section and content) Visit Type -BUS AIDE HH Routine Discipline -Shelter Problems Problem Start Date Status Goals Interventions Abnormal Findings Disciplines: Shelter, Physical Therapy, Occupational Therapy, Speech Therapy, Home Health Aide, Medical Social Work, Spiritual Care, Art Therapy, Massage Therapy, Registered Dietitian, Student - Medical Social Work 11/17/2018 Active 1 goal linked to scheduled/documented intervention 1 goal intervention scheduled/documented in this visit Bleeding Precautions Disciplines: Shelter 11/17/2018 Active - 1 problem intervention scheduled/documented in this visit Home Medication Management Disciplines: Shelter 11/17/2018 Active 1 goal linked to scheduled/documented intervention 2 goal interventions scheduled/documented in this visit Learning/Teaching Needs - Joint Replacement Disciplines: Shelter 11/17/2018 Active 1 goal linked to scheduled/documented intervention 3 goal interventions scheduled/documented in this visit Pain Management Disciplines: Shelter, Physical Therapy, Occupational Therapy, Speech Therapy, Home Health Aide, Medical Social Work, Spiritual Care, Art Therapy, Massage Therapy, Registered Dietitian, Student - Medical Social Work 11/17/2018 Active 1 goal linked to scheduled/documented intervention 1 goal intervention scheduled/documented in this visit Risk of Falls Disciplines: Shelter, Physical Therapy, Occupational Therapy, Speech Therapy, Home Health Aide, Medical Social Work, Spiritual Care, Art Therapy, Massage Therapy, Registered Dietitian, Student - Medical Social Work 11/17/2018 Active 1 goal linked to scheduled/documented intervention 1 goal intervention scheduled/documented in this visit Skilled Assessment Disciplines: Shelter 11/17/2018 Active 1 goal linked to scheduled/documented intervention 1 goal intervention scheduled/documented in this visit Goals Goal Associated Problem Outcome Goal Met? Visit Notes Assessment findings goal Abnormal Findings No Medication management goal Home Medication Management No Post-op complication goal Learning/Teaching Needs - Joint Replacement No Pain management goal Pain Management No Balance/Fall risk goal Risk of Falls No Rehospitalization joint replacement goal Skilled Assessment No Interventions Intervention Associated Problem/Goal Status Variance Visit Notes Report abnormal assessment to physician Problem:Abnormal Findings Goal:Assessment findings goal Completed Bleeding precautions Problem:Bleeding Precautions Completed Instruct on high risk medications Problem:Home Medication Management Goal:Medication management goal Completed Review and identify unnecessary therapeutic duplication; cardiovascular medication problems related to dizziness; continued hyper/hypotension or low pulse; falls, dizziness, or confusion; and inappropriate use of non-steroidal anti-inflammatory drugs (NSAIDs). Skilled assessment medications Problem:Home Medication Management Goal:Medication management goal Completed Skilled observation and assessment of patient's response to and for s/s of complications. Incision site care Problem:Learning/Teac tone Needs - Joint Replacement Goal:Post-op complication goal Completed SN to instruct Patient incision site care: Wash incisions daily with soap and water, pat dry. No lotions, powders or creams. Leave open to air when no further drainage. Instruct on constipation prevention Problem:Learning/Teac tone Needs - Joint Replacement Goal:Post-op complication goal Completed Instruct on the prevention of deep vein thrombosis Problem:Learning/Teac tone Needs - Joint Replacement Goal:Post-op complication goal Completed Instruct on pain management techniques Problem:Pain Management Goal:Pain management goal Completed Instruct Patient on medications and alternative strategies to relieve pain. Instruct on fall prevention Problem:Risk of Falls Goal:Balance/Fall risk goal Completed SN/GUM ROLLING MACHINE TENDER obtain vital signs Problem:Skilled Assessment Goal:Rehospitalizatio n joint replacement goal Completed Visit Details Visit Type -SN HH OASIS Disc harge Discipline -Shelter Interventions Intervention Associated Problem/Goal Status Variance Visit Notes Report abnormal assessment to physician Problem:Abnormal Findings Goal:Assessment findings goal Scheduled Bleeding precautions Problem:Bleeding Precautions Scheduled Instruct on high risk medications Problem:Home Medication Management Goal:Medication management goal Scheduled Skilled assessment medications Problem:Home Medication Management Goal:Medication management goal Scheduled Incision site care Problem:Learning/Teaching Needs - Joint Replacement Goal:Post-op complication goal Scheduled Instruct on constipation prevention Problem:Learning/Teaching Needs - Joint Replacement Goal:Post-op complication goal Scheduled Instruct on the prevention of deep vein thrombosis Problem:Learning/Teaching Needs - Joint Replacement Goal:Post-op complication goal Scheduled Instruct on pain management techniques Problem:Pain Management Goal:Pain management goal Scheduled Instruct on fall prevention Problem:Risk of Falls Goal:Balance/Fall risk goal Scheduled SN/GUM ROLLING MACHINE TENDER obtain vital signs Problem:Skilled Assessment Goal:Rehospitalization joint replacement goal Scheduled Visit Details Visit Type -SN HH OASIS Star t of Care Discipline -Shelter Problems Problem Start Date Status Goals Interventions Abnormal Findings Disciplines: Shelter, Physical Therapy, Occupational Therapy, Speech Therapy, Home Health Aide, Medical Social Work, Spiritual Care, Art Therapy, Massage Therapy, Registered Dietitian, Student - Medical Social Work 11/17/2018 Active 1 goal linked to scheduled/documented intervention 1 goal intervention scheduled/documented in this visit Bleeding Precautions Disciplines: Shelter 11/17/2018 Active - 1 problem intervention scheduled/documented in this visit Home Medication Management Disciplines: Shelter 11/17/2018 Active 1 goal linked to scheduled/documented intervention 2 goal interventions scheduled/documented in this visit Learning/Teaching Needs - Joint Replacement Disciplines: Shelter 11/17/2018 Active 1 goal linked to scheduled/documented intervention 3 goal interventions scheduled/documented in this visit Pain Management Disciplines: Shelter, Physical Therapy, Occupational Therapy, Speech Therapy, Home Health Aide, Medical Social Work, Spiritual Care, Art Therapy, Massage Therapy, Registered Dietitian, Student Medical Social Work 11/17/2018 Active 1 goal linked to scheduled/documented intervention 1 goal intervention scheduled/documented in this visit Risk of Falls Disciplines: Shelter, Physical Therapy, Occupational Therapy, Speech Therapy, Home Health Aide, Medical Social Work, Spiritual Care, Art Therapy, Massage Therapy, Registered Dietitian, Student Medical Social Work 11/17/2018 Active 1 goal linked to scheduled/documented intervention 1 goal intervention scheduled/documented in this visit Skilled Assessment Disciplines: Shelter 11/17/2018 Active 1 goal linked to scheduled/documented intervention 2 goal interventions scheduled/documented in this visit Interventions Intervention Associated Problem/Goal Status Variance Visit Notes Report abnormal assessment to physician Problem:Abnormal Findings Goal:Assessment findings goal Completed Bleeding precautions Problem:Bleeding Precautions Completed Instruct on high risk medications Problem:Home Medication Management Goal:Medication management goal Completed Review and identify unnecessary therapeutic duplication; cardiovascular medication problems related to dizziness; continued hyper/hypotension or low pulse; falls, dizziness, or confusion; and inappropriate use of non-steroidal anti-inflammatory drugs (NSAIDs). Skilled assessment medications Problem:Home Medication Management Goal:Medication management goal Completed Skilled observation and assessment of patient's response to change in treatment plan. Incision site care Problem:Learning/Teac tone Needs - Joint Replacement Goal:Post-op complication goal Completed Dressing to left hip is clean, dry and intact. Instruct on constipation prevention Problem:Learning/Teac tone Needs - Joint Replacement Goal:Post-op complication goal Completed Instruct on the prevention of deep vein thrombosis Problem:Learning/Teac tone Needs - Joint Replacement Goal:Post-op complication goal Completed Instruct on pain management techniques Problem:Pain Management Goal:Pain management goal Completed Instruct Patient on medications and alternative strategies to relieve pain. Instruct on fall prevention Problem:Risk of Falls Goal:Balance/Fall risk goal Completed SN/GUM ROLLING MACHINE TENDER obtain vital signs Problem:Skilled Assessment Goal:Rehospitalizatio n joint replacement goal Completed Skilled observation and assessment general assessment Problem:Skilled Assessment Goal:Rehospitalizatio n joint replacement goal Completed SN to perform general assessment to include height, weight, vital signs, and temperature; General assessment of systems: pulmonary, cardiovascular, neurologic, gastrointestinal, endocrine, hematologic, musculoskeletal, renal/urinary and integumentary and report any abnormalities or concerns to the physician. Visit Details Visit Type -MAJOR CASE DETECTIVE Routine Visi t Discipline -Physical Therapy Problems Problem Start Date Status Goals Interventions AP02- Decreased Knowledge of Pain Management Disciplines: Physical Therapy 11/19/2018 Active 1 goal linked to scheduled/documented intervention 1 goal intervention scheduled/documented in this visit AP03- Decreased Knowledge of Edema Control Disciplines: Physical Therapy 11/19/2018 Active 1 goal linked to scheduled/documented intervention 1 goal intervention scheduled/documented in this visit Abnormal Findings Disciplines: Shelter, Physical Therapy, Occupational Therapy, Speech Therapy, Home Health Aide, Medical Social Work, Spiritual Care, Art Therapy, Massage Therapy, Registered Dietitian, Student - Medical Social Work 11/17/2018 Active 1 goal linked to scheduled/documented intervention 1 goal intervention scheduled/documented in this visit PT11- Decreased ROM Disciplines: Physical Therapy 11/19/2018 Active 1 goal linked to scheduled/documented intervention 1 goal intervention scheduled/documented in this visit PT14- Decreased Strength Disciplines: Physical Therapy 11/19/2018 Active 1 goal linked to scheduled/documented intervention 1 goal intervention scheduled/documented in this visit PT16- Decreased knowledge of Home Exercise Program Disciplines: Physical Therapy 11/19/2018 Active 1 goal linked to scheduled/documented intervention 1 goal intervention scheduled/documented in this visit PT20- Decreased Ambulation Ability Disciplines: Physical Therapy 11/19/2018 Active 1 goal linked to scheduled/documented intervention 1 goal intervention scheduled/documented in this visit PT23- Decreased Home Exit/Entry Ability Disciplines: Physical Therapy 11/19/2018 Active 1 goal linked to scheduled/documented intervention 1 goal intervention scheduled/documented in this visit PT24- Decreased Balance/Increased Fall Risk Disciplines: Physical Therapy 11/19/2018 Active 1 goal linked to scheduled/documented intervention 1 goal intervention scheduled/documented in this visit Pain Management Disciplines: Shelter, Physical Therapy, Occupational Therapy, Speech Therapy, Home Health Aide, Medical Social Work, Spiritual Care, Art Therapy, Massage Therapy, Registered Dietitian, Student - Medical Social Work 11/17/2018 Active 1 goal linked to scheduled/documented intervention 1 goal intervention scheduled/documented in this visit Risk of Falls Disciplines: Shelter, Physical Therapy, Occupational Therapy, Speech Therapy, Home Health Aide, Medical Social Work, Spiritual Care, Art Therapy, Massage Therapy, Registered Dietitian, Student - Medical Social Work 11/17/2018 Active 1 goal linked to scheduled/documented intervention 1 goal intervention scheduled/documented in this visit Goals Goal Associated Problem Outcome Goal Met? Visit Notes Pain management education goal AP02- Decreased Knowledge of Pain Management No Edema education goal AP03- Decreased Knowledge of Edema Control No Assessment findings goal Abnormal Findings No Range of motion goal PT11- Decreased ROM No Strength PT Ortho goal PT14- Decreased Strength No HEP education goal PT16- Decreased knowledge of Home Exercise Program No Ambulation PT Ortho goal PT20- Decreased Ambulation Ability No Home exit/entry PT Ortho goal PT23- Decreased Home Exit/Entry Ability No Balance/Fall risk PT Ortho goal PT24- Decreased Balance/Increased Fall Risk No Pain management goal Pain Management No Balance/Fall risk goal Risk of Falls No Interventions Intervention Associated Problem/Goal Status Variance Visit Notes Assess/Instruct in pain management techniques and evaluate effectiveness. Problem:AP02- Decreased Knowledge of Pain Management Goal:Pain management education goal Scheduled Assess/Instruct in edema management techniques Problem:AP03- Decreased Knowledge of Edema Control Goal:Edema education goal Scheduled Report abnormal assessment to physician Problem:Abnormal Findings Goal:Assessment findings goal Scheduled Assess/Instruct in therapeutic exercises and perform manual techniques to improve functional ROM. Problem:PT11- Decreased ROM Goal:Range of motion goal Completed Pt completes heel slides x15 AROM today to improve functional ROM to allow for greater ease c ADL completion. PT muscle re-education Problem:PT14- Decreased Strength Goal:Strength PT Ortho goal Completed SAQ, LAQ, SLR, QS and ankle pumps x20 ea to improve LE strength and function to allow pt to ascend/descend stairs s difficulties. No adverse effects from ex's PT establish or upgrade home program Problem:PT16- Decreased knowledge of Home Exercise Program Goal:HEP education goal Completed Therapist reviewed HEP c pt c good recall. Assess/Instruct in safe gait techniques in home. Problem:PT20- Decreased Ambulation Ability Goal:Ambulation PT Ortho goal Completed Pt amb 50' c FWW and 50' c SC c SBA. Pt demos good technique c FWW. Amb c SC was more challenging for pt but no LOB Assess/Instruct in safe home exit/entry and community prepared mobility techniques Problem:PT23- Decreased Home Exit/Entry Ability Goal:Home exit/entry PT Ortho goal Completed Pt exit/enter home s issues. Assess/Instruct in balance and fall prevention techniques Problem:PT24- Decreased Balance/Increased Fall Risk Goal:Balance/Fall risk PT Ortho goal Completed Pt educated in fall prevention measures to avoid falls and re-injury. Instruct on pain management techniques Problem:Pain Management Goal:Pain management goal Scheduled Instruct on fall prevention Problem:Risk of Falls Goal:Balance/Fall risk goal Scheduled Visit Details Visit Type -PT Initial Evalu ation Discipline -Physical Therapy Interventions Intervention Associated Problem/Goal Status Variance Visit Notes Assess/Instruct in pain management techniques and evaluate effectiveness. Problem:AP02- Decreased Knowledge of Pain Management Goal:Pain management education goal Completed SKILLED INTERVENTION: Recommended patient take pain medication as needed and as prescribed in addition to elevating LE and icing L hip at least 3x/day for 1 hour for pain modulation. Assess/Instruct in edema management techniques Problem:AP03- Decreased Knowledge of Edema Control Goal:Edema education goal Completed SKILLED INTERVENTION: Stressed importance of LE elevation throughout the day for swelling modulation with good patient understanding. Report abnormal assessment to physician Problem:Abnormal Findings Goal:Assessment findings goal Completed No abnormal assessment to report to physician this date. Assess/Instruct in therapeutic exercises and perform manual techniques to improve functional ROM. Problem:PT11- Decreased ROM Goal:Range of motion goal Completed SKILLED INTERVENTION: Therapist assessed L hip ROM this session to ensure adequate ranges for safe functional mobility in home environment. Decreased L hip flexion observed upon swing phase of gait. PT muscle re-education Problem:PT14- Decreased Strength Goal:Strength PT Ortho goal Completed SKILLED INTERVENTION: LE strength assessed via MMT grades this session, see eval for specifics. Ther ex completed to increase LE strength for improved transfers, gait and standing activity tolerance, see treatment log for specifics. PT establish or upgrade home program Problem:PT16- Decreased knowledge of Home Exercise Program Goal:HEP education goal Completed SKILLED INTERVENTION: Reviewed HEP located in joint camp booklet with good patient understanding of prescribed ther ex and recommended reps/ sets/ frequency. Recommended patient continue elevating LEs and icing L hip at least 3x/ day for swelling and pain modulation. Encouraged patient to ambulate short distances frequently throughout the day with use of AD to reduce joint/ muscular stiffness and to increase LE strength. Assess/Instruct in safe gait techniques in home. Problem:PT20- Decreased Ambulation Ability Goal:Ambulation PT Ortho goal Completed SKILLED INTERVENTION: Gait training completed, see eval for specifics. Assess/Instruct in safe home exit/entry and community prepared mobility techniques Problem:PT23- Decreased Home Exit/Entry Ability Goal:Home exit/entry PT Ortho goal Completed SKILLED INTERVENTION: Educational discussion this date; see eval for stair ambulation tab. Assess/Instruct in balance and fall prevention techniques Problem:PT24- Decreased Balance/Increased Fall Risk Goal:Balance/Fall risk PT Ortho goal Completed SKILLED INTERVENTION: Instructed on fall prevention strategies this session. Skilled transfer and gait training completed including education on safety awareness and parameters to decrease fall risk. Recommended continued use of AD with all standing activity and ambulation for safety at this time. Instruct on pain management techniques Problem:Pain Management Goal:Pain management goal Scheduled Instruct on fall prevention Problem:Risk of Falls Goal:Balance/Fall risk goal Completed See Balance and Fall Prevention tab above for specifics. Interventions Intervention Associated Problem/Goal Status Variance Visit Notes Assess/Instruct in pain management techniques and evaluate effectiveness. Problem:AP02- Decreased Knowledge of Pain Management Goal:Pain management education goal Scheduled Assess/Instruct in edema management techniques Problem:AP03- Decreased Knowledge of Edema Control Goal:Edema education goal Scheduled Report abnormal assessment to physician Problem:Abnormal Findings Goal:Assessment findings goal Scheduled Assess/Instruct in therapeutic exercises and perform manual techniques to improve functional ROM. Problem:PT11- Decreased ROM Goal:Range of motion goal Completed Heel slides x15 for improved mobility of hip and LE to improve function. No adverse effects c only mild c/o tightness. Pt has electric restorator. Pt performed x2' today c instruction to stay within hip precautions and avoid pain. PT muscle re-education Problem:PT14- Decreased Strength Goal:Strength PT Ortho goal Completed Standing may, HR/TR, Hip ABD, Hip EXT x10 ea today to improve LE/hip strength to allow pt to amb in community s restrictions. Good tolerance to new ex's s sx/s. PT establish or upgrade home program Problem:PT16- Decreased knowledge of Home Exercise Program Goal:HEP education goal Completed Therapist reviewed HEP c pt c good recall. Added standing exs today Assess/Instruct in safe gait techniques in home. Problem:PT20- Decreased Ambulation Ability Goal:Ambulation PT Ortho goal Completed Pt amb 100' c SC and SBA. Mod limp still but good heel to toe gait pattern. Assess/Instruct in safe home exit/entry and community prepared mobility techniques Problem:PT23- Decreased Home Exit/Entry Ability Goal:Home exit/entry PT Ortho goal Completed Pt exit/enter home s issues Assess/Instruct in balance and fall prevention techniques Problem:PT24- Decreased Balance/Increased Fall Risk Goal:Balance/Fall risk PT Ortho goal Completed Pt educated in fall prevention measures to avoid falls and re-injury. Instruct on pain management techniques Problem:Pain Management Goal:Pain management goal Scheduled Instruct on fall prevention Problem:Risk of Falls Goal:Balance/Fall risk goal Scheduled Narratives Home Health Visit - Actions and Narratives (unrecognized section and content) Patient is a 68 y/o female r eferred to physical therapy by Dr. Bray to address impairments and functional limitations s/p L WILIAM. Surgery Date: 11/14/18 Returned Home: 11/16/18 Ongoing L hip pain for a couple years prior to surgery. PMH: B TKA (5 years ago), HTN, arthritis, hypothyroid, eye problem Living arrangement/ House Set Up: Patient lives with spouse in split level home. There are 4 steps + 1 handrail to upper level where bedroom and bathroom are located. There are 9 steps from garage to enter/ exit home, 1 handrail. PLOF: Ambulation without AD, (+) driving, independent with ADL/ IADLs Falls in last 6 months: No but reports episodes of LE buckling. Equipment: FWW, cane, shower chair, raised toilet seat, energy scheduler, sock aide, shoe horn Goal: "to be able to walk without assistance and pain" Physician follow up appt: 11/29/18 at 1:30pm Preferred appt time: AM Patient agrees to PT Frequency at 2w2. Treatment may consist of any combination of the following: Ther ex for ROM/ strengthening, NMR, Transfer/ Gait/ Stair training, HEP, cryotherapy, and patient education. Skilled PT services are required to increase L hip ROM and LE strength for improved gait and for safe return to or > PLOF. Actions CP assessment, meds reviewed and educated. safety with ambulating reviewed with patient. patient voiced understanding. report given to CM bandage rolling up and drainange noted. called Dr bray who gave order to change dressing. dressing changed BIPPA signed discharge 11/28/18 Narratives Homebound Status Reason(s) patient is Homebound: unsteady gait/poor balance Actions CP assessment meds reviewed education provided on s/sx of infection r/t wounds, diet education provided. educated patient on safety with ambulation. patient voiced understanding. report given to CM Narratives Homebound Status Reason(s) patient is Homebound: limited ambulation related to post-op pain and weakness, unsteady gait/poor balance, needs assistance of at least 1 to leave home and use of assistive device (device type: Cane and Walker) Cori Marquez MD - 12/31/2018 10:03 AM EDCori Gonzalez MD - 12/16/2018 10:21 AM Issac Asencio MD - 11/14/2018 6:52 AM EDT H&P Notes (unrecognized sect ion and content) INTERVAL HISTORY AND PHYSICAL Patient Name: Sandy Pradhan Admit Date: [id number] MR #: [id number] : 1950 The H&P has been reviewed and the patient has been examined. I concur with the findings of the H&P. There are no significant changes. It is appropriate to proceed with the planned procedure. Cori Marquez MD 12/31/2018 10:03 AM [facility] [address] ([address]) [facility] [address] [facility] [id number] Patient: Sandy Pradhan Age: 68 y.o. Race: [1] Chief Complaint: Chief Complaint Patient presents with Colonoscopy 1. Family history of colon cancer Case Request Operating Room: COLONOSCOPY 2. Pain of upper abdomen 3. Heartburn Date: 12/16/18 Physicians: Brandon Lowery DO (Family); No ref. provider found (Referring) HPI: Repeat colonoscopy is recommended to this pleasant 68-year-old female who last had a normal colonoscopy 5 years ago. Her father had colon cancer. For the past 6 months or so she has also been having some upper abdominal pain that she likens to heartburn. At times she feels it run up into her chest. She thinks this is related to being on a full-strength aspirin since her hip replacement, in addition to naproxen. YES NO [] [x] Change in bowel habits? [] [x] Constipation [] [x] Diarrhea? [] [x] Blood in stool? [] [x] Mucus in your stool? [] [x] Decrease in caliber of your stool? [] [x] Heme positive stool [] [x] Have you recently been diagnosed with anemia by your family doctor? [x] [] Do you have any family members with a history of Colon Cancer? Past Histories: Allergies: Hydrocodone Patient's Medications New Prescriptions No medications on file Previous Medications HYDROCHLOROTHIAZIDE (HYDRODIURIL) 12.5 MG TABLET TAKE 1 TABLET DAILY LATANOPROST (XALATAN) 0.005 % OPHTHALMIC SOLUTION Administer 1 drop to both eyes nightly . LEVOTHYROXINE (SYNTHROID, LEVOTHROID) 137 MCG TABLET TAKE 1 TABLET DAILY LORATADINE (CLARITIN ORAL) Take by mouth as needed MULTIVITAMIN (THERAGRAN) PER TABLET Take 1 tablet by mouth daily NAPROXEN (NAPROSYN) 375 MG TABLET Take 375 mg by mouth 2 (two) times a day as needed . SERTRALINE (ZOLOFT) 50 MG TABLET Take 50 mg by mouth daily TROSPIUM 60 MG CP24 Take 1 (one) capsule (60 mg total) by mouth daily . Modified Medications No medications on file Discontinued Medications ONDANSETRON (ZOFRAN) 4 MG TABLET Take 1 (one) tablet (4 mg total) by mouth daily as needed for nausea . PANTOPRAZOLE (PROTONIX) 20 MG TABLET Take 1 (one) tablet (20 mg total) by mouth daily . 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 Hypothyroidism Greater trochanteric bursitis of left hip Hypertension, essential Arthritis of left hip Status post total replacement of left hip Past Medical History: Diagnosis Date Bleeding gums Bone spur C3-C6 posterior decompression and fusion 08/24/15 Bronchitis Bursitis of left hip [address] Bray last shot 09/2017 Constipation Degenerative disc disease, cervical C3-C6 posterior decompression and fusion 08/24/15 Depression meds Difficulty walking Fibroids SANTY / BSO Glaucoma History of burning pain in leg burning in legs/knees giving out, s/p MRI 03/2015 Hypertension Hypothyroid Impaired vision Insomnia meds Kidney stone Leg weakness Osteoarthritis of knees, bilateral to have b/l knee replacement Psoriasis 12/2013 [facility] [place] on [place] Teeth problem Tooth infection Weakness of both arms Past Surgical History: Procedure Laterality Date APPENDECTOMY ARTHROPLASTY HIP ROBOTIC DINO Left 11/14/2018 Procedure: Left Total Hip Replacement Robotic; Surgeon: Issac Bray MD; Location: Main OR; Service: Ortho-Robotics BREAST REDUCTION CARPAL TUNNEL RELEASE Left 04/14/2014 Alex COLONOSCOPY 11/18/2013 normal....Donell KNEE REPLACEMENT PARTIAL (UNICOMPARTMENTAL KNEE) bilateral knees LAMINECTOMY DECOMPRESSION POSTERIOR CERVICAL WITH FUSION 2-3 LEVELS 08/24/2015 C3-C6 TOTAL ABDOMINAL HYSTERECTOMY 04/13/2003 SANTY-BSO for uterine fibroids. TOTAL HIP ARTHROPLASTY Left TUBAL LIGATION Bilateral 1981 Social History Socioeconomic History Marital status: Spouse name: Not on file Number of children: Not on file Years of education: Not on file Highest education level: Not on file Occupational History Not on file Social Needs Financial resource strain: Not on file Food insecurity: Worry: Never true Inability: Never true Transportation needs: Medical: Not on file Non-medical: Not on file Tobacco Use Smoking status: Former Smoker Packs/day: 1.00 Years: 30.00 Pack years: 30.00 Types: Cigarettes Last attempt to quit: 02/02/1999 Years since quittin.8 Smokeless tobacco: Never Used Substance and Sexual Activity Alcohol use: No Alcohol/week: 0.0 standard drinks Drug use: Never Sexual activity: Not Currently Lifestyle Physical activity: Days per week: Not on file Minutes per session: Not on file Stress: Not on file Relationships Social connections: Talks on phone: Not on file Gets together: Once a week Attends pentecostal service: Not on file Active member of club or organization: Not on file Attends meetings of clubs or organizations: Not on file Relationship status: Not on file Other Topics Concern Not on file Social History Narrative Not on file Data Unavailable Social History Tobacco Use Smoking Status Former Smoker Packs/day: 1.00 Years: 30.00 Pack years: 30.00 Types: Cigarettes Last attempt to quit: 02/02/1999 Years since quittin.8 Smokeless Tobacco Never Used Social History Substance and Sexual Activity Alcohol Use No Alcohol/week: 0.0 standard drinks Social History Substance and Sexual Activity Drug Use Never Family History Problem Relation Age of Onset Stroke Mother Cancer Father colon Arthritis Father Other Father C DIFF Colorectal cancer Father Heart disease Paternal Uncle REVIEW OF SYSTEMS Pertinent positives and negatives are listed in HPI, PMSH, SH, ALL above and in "Details" below. The following systems were reviewed: [x] Const (fevers, chills, wt. loss, fatigue) [x] CV (HTN, CP, KIRAN, edema, DVT) [x] Resp (SOB, pleurisy, asthma, apnea) [x] GI (N, V, D, C, M, abd pain, appetite) [x] Musc (back pain, joint stiffness, gout) [x] Neuro (seizures, syncope, paralysis) [x] Psych (depression, anxiety) [x] Endo (hot/cold intol, polyuria[DM]) [x] Hem/Lymph (Anemia, LA, bleeding) [x] Allerg/Immun (seasonal, immuniz) [x] Eyes (diplopia, cataracts) [x] ENT/mouth (dysphagia, epistaxis) [x] (dysuria, hematuria) [x] Skin/Breast (moles, rash, lumps, nipple changes) Details: See scanned ROS Physical Exam: BP 125/78 Pulse 80 Temp 98.1 F (36.7 C) (Oral) Ht 5' 1" Wt 70.2 kg (154 lb 12.8 oz) SpO2 96% BMI 29.25 kg/m Body mass index is 29.25 kg/m . HEENT: PERRLA EOMI MMM anicteric Neck: supple without thyromegaly or masses Cardiac: regular rate and rhythm without murmur Lungs: clear to auscultation Back: negative CVA tenderness Abdomen: normoactive bowel sounds, soft, nondistended, nontender, no masses, organomegaly, rebound, or guarding Extremities: no cyanosis, clubbing, or edema Neuro: awake, alert, oriented 3, normal affect, no focal deficits Assessment: Family history of colon cancer in a first-degree relative Upper abdominal pain with heartburn Plan: Colonoscopy and EGD The procedures, risks, and benefits were discussed with the patient. She seemed understand everything we discussed and agreed to proceed. 1. Family history of colon cancer Case Request Operating Room: COLONOSCOPY 2. Pain of upper abdomen 3. Heartburn Orders Placed This Encounter Procedures Case Request Operating Room: COLONOSCOPY Croi Marquez MD documented in this encounter INTERVAL HISTORY AND PHYSICAL Patient Name: Sandy Pradhan Admit Date: [id number] MR #: [id number] : 1950 The H&P has been reviewed and the patient has been examined. I concur with the findings of the H&P. There are no significant changes. It is appropriate to proceed with the planned procedure. Issac Bray MD 11/14/2018 6:52 AM She comes in today for followup of her left hip degenerative arthrosis and her preop visit. She is really looking forward to the surgery. She has had significant pain, discomfort, popping. She feels like the hip is going to give out on her. She says the pain is a 10/10 on a daily basis. This patient has had significant discomfort over the last 3 years and actually tried a shot of cortisone back in 2018, which gave her no relief whatsoever. She said it actually pops and cracks and it radiates all the way down to her knee. X-ray examination reveals severe end-stage left hip degenerative arthrosis with large femoral head and acetabular cyst and she says she just cannot take it anymore. She is presenting for her left total hip replacement. PAST MEDICAL HISTORY Includes a history of depression, glaucoma, hypertension, hypothyroidism, psoriasis. REVIEW OF SYSTEMS Hip pain, groin pain, arthralgias, weakness in the arms, tooth infection in the past, leg weakness, kidney stones, insomnia, impaired vision, history of burning in her legs, difficulty walking, cervical spine degenerative disk disease, bronchitis, bleeding gums. SURGERIES She has had appendectomy, breast reduction surgery. She has had left carpal tunnel. She has had a bilateral medial unicompartmental knee replacement. She has had cervical spine fusion, hysterectomy with BSO and tubal ligation. SOCIAL HISTORY She is . She does not drink, does not smoke. FAMILY HISTORY Family history of stroke, cancer, C diff, and heart disease. MEDICATIONS Her current medication regimen includes Tylenol, aspirin, hydrochlorothiazide, Xalatan, Synthroid, loratadine, Theragran, Zoloft, trospium. ALLERGIES To hydrocodone. PHYSICAL EXAM General: She is awake, alert, oriented x3. She ambulates with a cane. Chest: Clear. Heart: Regular rate and rhythm. Abdomen: Benign. No carotid bruits are noted. Extremities: Bilateral lower extremities neurologically intact with 2+ pulses. She has severe pain at 100 degrees of hip flexion, severe pain with any attempts at internal rotation and 20 degrees of external rotation. She does have some psoriatic lesions along the buttock area; however, it is posterior to the area of the greater trochanter where the incision will be made and does not appear to be in contact with where her incision will be. IMPRESSION 1.Left hip degenerative arthrosis. 2.Psoriasis. PLAN At this point in time, we will proceed forward with left hip replacement. She is not on any immunosuppressive medications for psoriasis. I did do a narcotics review. Her last medication was Tylenol with codeine back in May 2017. We talked about the small amount of increased risk of infection with a history of psoriasis. All other risks, complications were discussed. I will see her for left hip replacement. documented in this encounter Bella Kuo RN - 12/31/2018 11:47 AM Bella Christopher RN - 12/31/2018 11:36 AM Cony Vera RN - 12/31/2018 10:01 AM Mariajose Segovia RN - 11/14/2018 7:08 AM EDT Nursing Notes (unrecognized section and content) Taking solids well Taking water well, no trouble swallowing. Belongings returned to patient Medhat is taking her hometoday documented in this encounter Gentamycin 80mg started prior to pt leaving at 0702. Not showing in ASA. documented in this encounter Resting ECG NSR, pt tolerated Lexiscan well with no complaints of CP or SOB. documented in this encounter Assessment & Plan Note - America Rios CNP - 03/12/2019 5:45 PM ESTPlan of Care - Abby Demarco RN - 11/15/2018 2:13 PM EDT Miscellaneous Notes (unrecog nized section and content) Associated Problem(s): Acute non-recurrent maxillary sinusitis Amoxicillin 1 po TID x 10 days Tessalon perles 200mg 1 po q 8 hrs prn cough Encourage fluids and rest Off work for 03/13/2019, return 03/14/2019 Pt agrees to call if not improving by Sunday documented in this encounter Plan of care reviewed and updated patient posssibly to discharge this afternoon if feeling less nauseated Plan of care reviewed POC initiated. PREOPERATIVE DIAGNOSIS Left hip degenerative arthrosis. POSTOP DIAGNOSIS Left hip degenerative arthrosis. PROCEDURE Minimally-invasive robotic-assisted left total hip replacement. ANESTHESIA Spinal anesthetic. COMPLICATIONS No intraoperative complications. SPECIMENS Bone. ESTIMATED BLOOD LOSS 100 cc. HISTORY Sandy is a patient with severe left hip degenerative arthrosis unresponsive to conservative measures. I explained all the risks and complications of surgery, including, but not limited to, the risk of infection, bleeding, neurologic and vascular injury, possibility of deep venous thrombosis, pulmonary embolism, myocardial infarction, stroke, or with surgery. I explained all the possibilities of continued pain, stiffness, loss of range of motion, as well as the need for future surgery. Given all the options of anesthetic per the Anesthesia team, elected for a spinal anesthetic. PROCEDURE IN DETAIL Patient was met in the preoperative holding, where the left hip was confirmed to be the appropriate site and marked by myself. Patient was taken to the operative suite and given preoperative Kefzol and gentamicin per protocol. At this point in time, the patient was then placed in the right lateral decubitus position. Left hip was then sterilely prepped and draped using ChloraPrep solution as well as InteguSeal. After sterilization of the left hip, we did our final time-out to confirm that the left hip was the appropriate site. At this time, we then went ahead and proceeded forward with making an incision over the iliac crest and placed our iliac crest arrays. We then synchronized the iliac crest with the robot. After the iliac crest was synchronized, we then made a 10 cm incision over the greater trochanter, coursing posteriorly. Iliotibial band and gluteal fascia were split in line with the skin incision and, at this point in time, we placed our proximal femoral checkpoint. After placing the proximal femoral checkpoint, we then synchronized the femur with the robot. After the robotic synchronization of the femur, we did a posterior approach to the hip, removing the piriformis and short external rotators. After the piriformis and short external rotators were resected, we then went ahead and proceeded forward with dislocating the femoral head. Osteotomy cut was made and, at this time, we then proceeded forward with placing our deep retractors. Acetabulum was removed of all redundant tissue. I placed my acetabular checkpoint and synchronized this with the robot. I then did robotic-assisted mapping of the acetabulum. After this, we went ahead and reamed to a size 46. After the reaming, I placed my first series of local around the acetabulum. After the acetabular injection was completed, I then went ahead and proceeded forward with antibiotic irrigation. I then used robotic assistance to place my size 46 Trident PSL acetabular shell in 25 degrees of anteversion and 40 degrees of lateral opening. After the acetabular plate shell was in place, there was excellent fit and fill. No screws were needed. We then went ahead and proceeded forward with placing our ultra-high molecular weight polyethylene to accept a 32 mm head. After the acetabulum was completed, we went to the femur, did sequential broaching, settled on an Accolade TMZF stem 127-degree angle #2 stem. Once the #2 stem was selected, we did sequential reductions and settled on a 32 x -4 femoral head, which gave us equal leg lengths, with excellent stability throughout range of motion. Once the left hip femoral head was selected, I did antibiotic irrigations. I then went ahead and placed my 32 x -4 femoral head. Hip was reduced. X-rays confirm excellent position. There was excellent stability, with equal leg lengths. We then did final copious amounts of antibiotic-impregnated irrigation through the left hip. After the irrigation was completed through the left hip, we sprinkled 1 g of vancomycin powder throughout the left hip. We then went ahead and proceeded forward with closing the piriformis and short external rotators using #2 Vicryl. #2 Vicryl was used to reapproximate the iliotibial band and gluteal fascia. 2-0 Vicryl and skin anthony were used on skin. Exofin, as well as a sterile Mepilex dressing were placed on the wound. Patient was then taken to PACU without intraoperative complications. D 11/14/2018 08:44 [id number] 11/14/2018 09:11 MCB/MODL Brief Post Operative Note Patient Name: Sandy Pradhan : 1950 (68 y.o.) Date of Service: 11/14/2018 [facility]: [id number] Procedure(s): Left Total Hip Replacement Robotic Pre-Operative Diagnoses: * Arthritis of left hip [M16.12] Post-Operative Diagnoses: * Same as Pre-Op Diagnosis * Arthritis of left hip [M16.12] Surgeon(s) and Role: * Issac Bray MD - Primary Anesthesiologist: Ney Sanchez MD INSOLE AND OUTSOLE SPLITTER: Levi Fontaine CRNA Networking Engineer: Cassandra Colbert RN; Kim Joy RN Batter Mixer Helper: Bailee Calles, TECHNOLOGIST Scrub Person Preceptor: [facility] Scrub Person Orientee: [facility] CAREER AND TECHNOLOGY EDUCATION TEACHER: Rakel Schneider RN Operative findings: djd Intra and immediate post-operative complications: none Type of anesthesia used: Spinal Estimated blood loss: 100 mL Estimated urine output: Refer to surgical log Specimen(s): ID Type Source Tests Collected by Time Destination A : Left Femoral Head Bone Femoral Head, Left TISSUE EXAM Issac Bray MD 11/14/2018 [id number] Implant(s): Implant Name Type Inv. Item Serial No. Remelter Lot No. LRB No. Used Action CUP 46MM CLUSTER ABREU TRIDENT PSL - [id number] CUP 46MM CLUSTER ABREU TRIDENT PSL KRISTEN OR [id number] Left 1 Implanted INSERT 32MM SZD 10DEG TRIDENT X3 - [id number] INSERT 32MM SZD 10DEG TRIDENT X3 KRISTEN OR [id number] Left 1 Implanted STEM 127DEG SZ2 FEM ACCOLADE II - [id number] STEM 127DEG SZ2 FEM ACCOLADE II KRISTEN OR [id number] Left 1 Implanted HEAD 32MM/-4 FEM V40 BIOLOX DELTA - [id number] HEAD 32MM/-4 FEM V40 BIOLOX DELTA KRISTEN OR [id number] Left 1 Implanted Drain(s): * No LDAs found * Wound(s): Incision 11/14/18 Hip Left (Active) Issac Bray MD 11/14/2018 8:40 AM documented in this encounter Tresa Valdovinos RN - 04/20/2020 5:07 PM Colton Bazzi MD - 04/20/2020 4:37 PM Tresa Arroyo RN - 04/20/2020 4:05 PM EST ED Notes (unrecognized secti on and content) Patient has verbalized understanding of follow up, home care instructions, and pain management. Has no further questions or concerns. No signs of distress or discomfort noted upon departure. ED PROVIDER NOTE [facility] NAME: Sandy Pradhan AGE: 70 y.o. : 1950 VISIT DATE: 04/20/2020 CSN: [id number] PCP: Brandon Lowery DO Chief Complaint Patient presents with Ankle Pain slipped on ice around noon, no other injuries. ambulatory after fall Patient is a 70-year-old female presents to emergency complaining of left ankle pain after she took a fall. Patient reports that she accidentally slipped on ice and fell. Denies any head injury, no neck pain, no other injuries. Denies being on any blood thinners. No loss of consciousness. Past Medical History: Diagnosis Date Bleeding gums Bone spur C3-C6 posterior decompression and fusion 08/24/15 Bronchitis Bursitis of left hip [address] Bray last shot 09/2017 Constipation Degenerative disc disease, cervical C3-C6 posterior decompression and fusion 08/24/15 Depression meds Difficulty walking Fibroids SANTY / BSO GERD (gastroesophageal reflux disease) Glaucoma History of burning pain in leg burning in legs/knees giving out, s/p MRI 03/2015 Hypertension Hypothyroid Impaired vision Insomnia meds Kidney stone Leg weakness Osteoarthritis of knees, bilateral to have b/l knee replacement Psoriasis 12/2013 Trillium Creeck on Ozella Teeth problem Tooth infection Weakness of both arms Past Surgical History: Procedure Laterality Date APPENDECTOMY ARTHROPLASTY HIP ROBOTIC DINO Left 11/14/2018 Procedure: Left Total Hip Replacement Robotic; Surgeon: Issac Bray MD; Location: [facility] OR; Service: Ortho-Robotics BREAST REDUCTION CARPAL TUNNEL RELEASE Left 04/14/2014 Alex COLONOSCOPY 11/18/2013 normal....Donell COLONOSCOPY N/A 12/31/2018 Procedure: COLONOSCOPY; Surgeon: Cori Marquez MD; Location: [facility] [place] [facility] OR; Service: General Surgery EGD N/A 12/31/2018 Procedure: ESOPHAGOGASTRODUODENOSCOPY; Surgeon: Cori Marquez MD; Location: [facility] [place] [facility] OR; Service: General Surgery KNEE REPLACEMENT PARTIAL (UNICOMPARTMENTAL KNEE) bilateral knees LAMINECTOMY DECOMPRESSION POSTERIOR CERVICAL WITH FUSION 2-3 LEVELS 08/24/2015 C3-C6 TOTAL ABDOMINAL HYSTERECTOMY 04/13/2003 SANTY-BSO for uterine fibroids. TOTAL HIP ARTHROPLASTY Left TUBAL LIGATION Bilateral 1982 Family History Problem Relation Age of Onset Stroke Mother Cancer Father colon Arthritis Father Other Father C DIFF Colorectal cancer Father Heart disease Paternal Uncle Social History Socioeconomic History Marital status: Spouse name: Not on file Number of children: Not on file Years of education: Not on file Highest education level: Not on file Occupational History Not on file Social Needs Financial resource strain: Not on file Food insecurity Worry: Never true Inability: Never true Transportation needs Medical: Not on file Non-medical: Not on file Tobacco Use Smoking status: Former Smoker Packs/day: 1.00 Years: 30.00 Pack years: 30.00 Types: Cigarettes Quit date: 02/02/1999 Years since quittin.2 Smokeless tobacco: Never Used Substance and Sexual Activity Alcohol use: No Alcohol/week: 0.0 standard drinks Drug use: Never Sexual activity: Not Currently Lifestyle Physical activity Days per week: Not on file Minutes per session: Not on file Stress: Not on file Relationships Social connections Talks on phone: Not on file Gets together: Once a week Attends pentecostal service: Not on file Active member of club or organization: Not on file Attends meetings of clubs or organizations: Not on file Relationship status: Not on file Other Topics Concern Not on file Social History Narrative Not on file Previous Medications Medication Sig hydroCHLOROthiazide (HYDRODIURIL) 12.5 MG tablet TAKE 1 TABLET DAILY latanoprost (XALATAN) 0.005 % ophthalmic solution Administer 1 drop to both eyes nightly . levothyroxine (SYNTHROID, LEVOTHROID) 100 MCG tablet Take 1 (one) tablet (100 mcg total) by mouth every morning . LORATADINE (CLARITIN ORAL) Take by mouth as needed multivitamin (THERAGRAN) per tablet Take 1 tablet by mouth daily naproxen (NAPROSYN) 375 MG tablet Take 375 mg by mouth 2 (two) times a day as needed . sertraline (ZOLOFT) 50 MG tablet Take 50 mg by mouth daily Allergies Allergen Reactions Hydrocodone GI Intolerance Review of Systems All other systems reviewed and are negative. Patient Vitals for the past 24 hrs: BP Temp Temp src Pulse Resp SpO2 Height Weight 04/20/20 1603 (!) 160/77 97.7 F (36.5 C) Oral 80 16 95 % 5' 1" 69.9 kg (154 lb) Physical Exam Vitals signs and nursing note reviewed. Constitutional: General: She is not in acute distress. Appearance: Normal appearance. She is not ill-appearing, toxic-appearing or diaphoretic. HENT: Head: Normocephalic and atraumatic. Eyes: General: No scleral icterus. Right eye: No discharge. Left eye: No discharge. Conjunctiva/sclera: Conjunctivae normal. Pulmonary: Effort: No respiratory distress. Breath sounds: No stridor. No wheezing. Musculoskeletal: Comments: Left lower extremity exam: Swelling and tenderness over left lateral malleolus. Range of motion limited due to pain. Neurovascular intact. No injuries over her left foot. No tenderness left knee joint. Range of motion normal. Right lower extremity: No injuries, no deformities. Neurological: General: No focal deficit present. Mental Status: She is alert and oriented to person, place, and time. Psychiatric: Mood and Affect: Mood normal. Behavior: Behavior normal. Laboratory & Radiographic Imaging (if done): No results found for this visit on 04/20/20. XR Ankle Left 3+ Views (Standard) Final Result Acute minimally displaced oblique fractures of the distal left fibula with significant adjacent soft tissue swelling. Workstation ID: [id number] Procedures MDM Number of Diagnoses or Management Options Closed torus fracture of distal end of left fibula, initial encounter Diagnosis management comments: Left ankle x-ray reviewed, acute minimally displaced distal fibula fracture noted. Results discussed with patient. Patient was given a splint, crutches and referred to an assistance specialist. Patient agrees with the plan. Left ankle splint applied by staff nurse, post splint exam performed. Neurovascularly intact. . Clinical Impression: 1. Closed torus fracture of distal end of left fibula, initial encounter ED Disposition ED Disposition Condition Comment Discharge Stable Sandy Pradhan discharged to home/self care in stable condition. Follow-up Information 1. Issac Bray MD. Specialty: Orthopedic Surgery Why: Call for an appointment. Return to emergency for any worsening of the symptoms. [address] [facility] [address] Contact information for after-discharge care Follow-up information has not been specified. Colton Umaña MD 04/20/20 0634 Patient provides she was using the management analyst, and was walking backwards when she stepped on ice. Patient slipped and fell, injuring her left ankle in the process. Denies any other injuries or areas of tenderness. Left ankle is swollen, no obvious deformities, minimal bruising. documented in this encounter Anny Terry MSW LSW - 11/14/2018 2:57 PM Sheridan Walden OT - 11/14/2018 2:41 PM Bettina Fountain - 11/14/2018 2:18 PM EDT Consult Notes (unrecognized section and content) Associated Order(s): IP CONSULT TO CARE MANAGEMENT COMPLEX DISCHARGE Date: 11/14/2018 Time: 2:57 PM Patient Name: Sandy Pradhan Date of : 1950 Sex: Female Patient attended joint camp and established her preferred plan for discharge. Patient confirms that she still plans to return home with [facility]. Jessi at [facility] notified of admission. Patient lives in a split level home with zero steps to enter. The main living area is 9 steps up and then another 4 to the bedroom and bathroom, which are on the top floor. The laundry is on the main floor. The bathroom has a walk-in shower, with a seat, but without grab bars. The commode is a standard height. Patient denies any additional questions or concerns at this time. 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 Discharge Plan Shared UM/CC and RN Source of Information: Patient Living Arrangements: Spouse/significant other Support Systems: Spouse/significant other, Children Functional Status: Independent Type of Residence: Private residence Prior to Admission Home Care Services: No Current Home Equipment: Cane Insurance Coverage for Prescriptions: Yes [facility] Disposition D/C Disposition: Home Health Care Services Related to Current Admission?: Yes Agency/Destination: [facility] Home Care Needs : Home health care Transportation Type: Auto Options Reviewed: List provided, Explained services/benefits Reason for Choice: Patient/Family prefernce Occupational Therapy OCCUPATIONAL THERAPY EVALUATION NOTE Skilled Therapy Needs After Discharge Anticipate Resolution of Current Assessment Limitations Including: Pain Are Skilled Therapy Services Needed After Discharge: No Rehab Potential: Excellent Outcomes Measures Prior Function Daily Activity: Raw Score: 24 Prior Function Daily Activity % Impaired: 0% functionally impaired AM-PAC Daily Activity: Raw Score: 19 AM-PAC Daily Activity % Impaired: 42.80% functionally impaired Occupational Therapy Assessment The patient presents with musculoskeletal impairment(s) in left lower extremity which create performance deficits including balance, activity tolerance and pain, safety, and knowledge deficit. These performance impairments limit participation in LE dressing, bathing, toileting, home management, job duties and functional mobility in the chosen occupational roles of spouse, employee and community member. The patient's co morbidities do not affect patient performance in the above activities and roles. 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 The patient's compliance is a power generation plant operator and awareness of own capacity and performance is a power generation plant operator to return to prior level of function. During the assessment, minimal to moderate modification of task was required and several treatment options were identified in the plan of care. This consultation required expanded review of the medical and therapy history. Activity Tolerance Activity Tolerance: Tolerates 10 - 20 min activity with multiple rests Therapy Precautions Orthotic Devices: No Weight Bearing Status: WFL LLE: Wt bearing as tolerated General Rehab Precautions: Fall risk Ambulate with assist Cognition Overall Cognitive Status: Within Functional Limits Arousal/Alertness: Appropriate responses to stimuli Orientation Level: Oriented X4 Executive functioning: WFL Safety Judgment: Good awareness of safety precautions Problem Solving: Able to problem solve independently Attention: Attends to distracted environment Hearing Status: WFL Social Interaction: WFL ADL/IADL Feeding: Modified independence Grooming : Modified independence(per clinical reasoning; declined at this time.) LE Dressing: Mod Toileting : Contact guard Skilled Intervention: Patient reports to have, but has not used AE for LB dressing. Interested in AE training. Bed Mobility Skilled Intervention: NT: up in chair. Functional Transfers Sit to Stand: Contact guard Toilet Transfers: Contact Guard Skilled Intervention: Foot support provided for LLE d/t higher ht. of toilet and foot not touch the floor surface. Home Living Type of Home: House Home Layout: Multi-level, Bed/bath upstairs(1/2 bath in basement.) Bathroom Shower/Tub: Walk-in shower Bathroom Toilet: Standard Bathroom Equipment: Toilet raiser, Shower chair, Hand-held shower(long handeld bath sponge) Bathroom Accessibility: Accessible Home Equipment: Wheeled Walker, Cane, Commodities Manager, Sock aid, Long-handled shoehorn(dressing sticlk) Additional Comments: Enters at lower level with not steps, then 9 up to living area and 4 additional up to bed/bath level. 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 Past Medical History: Diagnosis Date Bleeding gums Bone spur C3-C6 posterior decompression and fusion 08/24/15 Bronchitis Bursitis of left hip [address] Bray last shot 09/2017 Constipation Degenerative disc disease, cervical C3-C6 posterior decompression and fusion 08/24/15 Depression meds Difficulty walking Fibroids SANTY / BSO Glaucoma History of burning pain in leg burning in legs/knees giving out, s/p MRI 03/2015 Hypertension Hypothyroid Impaired vision Insomnia meds Kidney stone Leg weakness Osteoarthritis of knees, bilateral to have b/l knee replacement Psoriasis 12/2013 Tr[place]ium [place] on Ozella Teeth problem Tooth infection Weakness of both arms Past Surgical History: Procedure Laterality Date APPENDECTOMY ARTHROPLASTY HIP ROBOTIC DINO Left 11/14/2018 Procedure: Left Total Hip Replacement Robotic; Surgeon: Issac Bray MD; Location: [facility] OR; Service: Ortho-Robotics BREAST REDUCTION CARPAL TUNNEL RELEASE Left KNEE REPLACEMENT PARTIAL (UNICOMPARTMENTAL KNEE) bilateral knees LAMINECTOMY DECOMPRESSION POSTERIOR CERVICAL WITH FUSION 2-3 LEVELS 08/24/2015 C3-C6 TOTAL ABDOMINAL HYSTERECTOMY SANTY-BSO for uterine fibroids. TUBAL LIGATION Bilateral 1982 For complete objective data, detailed plan of care and patient education refer to: OT EVALUATION flow sheet, OT TREATMENT flow sheet, patient Plan of Care, Plan of Care progress note, and Patient Education. This note stands as the current Discharge Summary upon patient discharge from the hospital or completion of Occupational Therapy Plan of Care. Physical Therapy PHYSICAL THERAPY EVALUATION NOTE Dx: s/p L WILIAM (11-14-18), hx depression, HTN, hypothyroidism Skilled Therapy Needs After Discharge Are Skilled Therapy Services Needed After Discharge: Yes Intensity of Skilled Therapy: 2-3 days per week Anticipated Duration of Skilled Therapy: Duration 7 - 10 days DME Recommendation: Wheeled walker DME Rationale: Patient's condition creates an increased risk of safety hazard without recommended equipment Rehab Potential: Good Outcomes Measures Prior Function - Basic Mobility % Impaired: AM-PAC - Basic Mobility Raw Score: 18 Points AM-PAC - Basic Mobility % Impaired: 40.47% functionally impaired Physical Therapy Assessment History: The following factors influence the patient's participation in the PT plan of care: Personal factors: apprehension toward mobility Environmental factors: multi-level home and bedroom/bathroom on 2nd floor Number of History elements affecting this patient's PT plan of care: 1-2 Examination of Body Systems: The patient presents with impairments of strength, ROM, pain, functional endurance. These impairments result in limitations of gait, functional transfers, stair-climbing, safety, safety awareness, activity tolerance and insight. These impairments result in restrictions of household mobility and community mobility. Number of Body Systems elements affecting this patient's PT plan of care: 3 or more Clinical Presentation: The patient's clinical presentation for this PT evaluation is evolving as evidenced by current PT documentation. Activity Tolerance Activity Tolerance: Tolerates 10 - 20 min activity with multiple rests Therapy Precautions Orthotic Devices: No Weight Bearing Status: WFL LLE: Wt bearing as tolerated General Rehab Precautions: Fall risk Balance Sitting Balance - Static: Supports self with one upper extremity Sitting Balance - Dynamic: Moves / returns trunkal midpoint 1-2 inches in multiple planes Standing Balance - Static: Supports self independantly with both upper extremities Standing Balance - Dynamic: Moves / returns trunkal midpoint 1-2 inches in multiple planes Bed Mobility Rolling: Min(Pt required assist with moving B LE) Supine to Sit: Contact guard Transfers Sit to Stand: Contact guard Gait/Locomotion Gait Assistance: Stand by assistance Assistive Device: Wheeled walker Distance: 100 Feet Pattern: Step through, L Decreased stance time, L decreased step length, R decreased step length Weight Bearing Status: Able to maintain Skilled Intervention: Pt ambulated with proper heel toe gait pattern. Pt reports having less pain than before surgery. Pt does have decreased stance time on the LLE. Exercise Ankle Pumps: 15 B Quad Sets: 15 L Seated Exercises: LAQ 15 L Short Arc Quad: 15 L Skilled Intervention: Pt tolerated all exercises well. Home Living Type of Home: House Home Layout: Multi-level, Bed/bath upstairs(1/2 bath in basement.) Bathroom Shower/Tub: Walk-in shower Bathroom Toilet: Standard Bathroom Equipment: Toilet raiser, Shower chair, Hand-held shower(long handeld bath sponge) Bathroom Accessibility: Accessible Home Equipment: Wheeled Walker, Cane, Commodities Manager, Sock aid, Long-handled shoehorn(dressing sticlk) Additional Comments: Pt has a split level home with 9 steps up to the living room with 1 HR, and another 4 steps up to the bed and bathroom with a HR on 1 side. 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 Past Medical History: Diagnosis Date Bleeding gums Bone spur C3-C6 posterior decompression and fusion 08/24/15 Bronchitis Bursitis of left hip [address] Bray last shot 09/2017 Constipation Degenerative disc disease, cervical C3-C6 posterior decompression and fusion 08/24/15 Depression meds Difficulty walking Fibroids SANTY / BSO Glaucoma History of burning pain in leg burning in legs/knees giving out, s/p MRI 03/2015 Hypertension Hypothyroid Impaired vision Insomnia meds Kidney stone Leg weakness Osteoarthritis of knees, bilateral to have b/l knee replacement Psoriasis 12/2013 Tr[place]ium [place] on Ozella Teeth problem Tooth infection Weakness of both arms Past Surgical History: Procedure Laterality Date APPENDECTOMY ARTHROPLASTY HIP ROBOTIC DINO Left 11/14/2018 Procedure: Left Total Hip Replacement Robotic; Surgeon: Issac Bray MD; Location: [facility] OR; Service: Ortho-Robotics BREAST REDUCTION CARPAL TUNNEL RELEASE Left KNEE REPLACEMENT PARTIAL (UNICOMPARTMENTAL KNEE) bilateral knees LAMINECTOMY DECOMPRESSION POSTERIOR CERVICAL WITH FUSION 2-3 LEVELS 08/24/2015 C3-C6 TOTAL ABDOMINAL HYSTERECTOMY SANTY-BSO for uterine fibroids. TUBAL LIGATION Bilateral 1982 For complete objective data, detailed plan of care and patient education refer to: PT EVALUATION flow sheet, PT TREATMENT flow sheet, patient Plan of Care, Plan of Care progress note, and Patient Education. This note stands as the current Discharge Summary upon patient discharge from the hospital or completion of Physical Therapy Plan of Care. documented in this encounter Care Teams (unrecognized sec tion and content) Sports Official Relationship Specialty Start Date End Date Brandon Lowery, DO [address] [place] [address] PCP - General Family Medicine 01/07/15 Man Brady II, MD [address] [place] [address] Consulting Physician Ophthalmology 06/03/18 Issac Bray MD [address] [place] [address] Consulting Physician Orthopedic Surgery 11/15/18 Tiffani Chisholm MD [address] [place] [address] Orthopedic Surgery 12/07/20 Sports Official Relationship Specialty Start Date End Date Brandon Lowery, DO [address] [place] [address] PCP - General Family Medicine 01/07/15 Man Brady II, MD [address] [facility] [place] [address] Consulting Physician Ophthalmology 06/03/18 Issac Bray MD [address] [place] [address] Consulting Physician Orthopedic Surgery 11/15/18 Tiffani Chisholm MD Orthopedic Surgery 12/07/20 Sports Official Relationship Specialty Start Date End Date Brandon Lowery, DO [address] [place] [address] PCP - General Family Medicine 01/07/15 Man Brady II, MD [address] [place] [address] Consulting Physician Ophthalmology 06/03/18 Issac Bray MD [address] [place] [address] Consulting Physician Orthopedic Surgery 11/15/18 Tiffani Chisholm MD Orthopedic Surgery 12/07/20 Sports Official Relationship Specialty Start Date End Date Brandon Lowery, DO [address] [place] [address] PCP - General Family Medicine 01/07/15 Man Brady II, MD [address] [place] [address] Consulting Physician Ophthalmology 06/03/18 Rubio Leon PA-C [address] [address] Physician Pony Edger 08/11/21 Nini Meza, MANAGER STRATEGIC SOURCING [address] [place] [address] Nurse Practitioner Obstetrics/Gynecology 08/11/21 Sports Official Relationship Specialty Start Date End Date Brandon Lowery, DO [address] [place] [address] PCP - General Family Medicine 01/07/15 Man Brady II, MD [address] [place] [address] Consulting Physician Ophthalmology 06/03/18 Rubio Leon PA-C [address] [facility] [address] [place] [address] Physician Pony Edger 08/11/21 Nini Meza, MANAGER STRATEGIC SOURCING [address] [place] [address] Nurse Practitioner Obstetrics/Gynecology 08/11/21 Sports Official Relationship Specialty Start Date End Date Brandon Lowery, DO [address] [place] [address] PCP - General Family Medicine 01/07/15 Man Brady II, MD [address] [facility] [place] [address] Consulting Physician Ophthalmology 06/03/18 Rubio Leon PA-C [address] [facility] [address] [place] [address] Physician Pony Edger 08/11/21 Nini Meza MANAGER STRATEGIC SOURCING [address] [place] [address] Nurse Practitioner Obstetrics/Gynecology 08/11/21 Sports Official Relationship Specialty Start Date End Date Brandon Lowery, DO [address] [place] [address] PCP - General Family Medicine 01/07/15 Man Brady II, MD [address] [facility] [place] [address] Consulting Physician Ophthalmology 06/03/18 Rubio Leon PA-C [address] [place] [address] Physician Pony Edger 08/11/21 Nini Meza, MANAGER STRATEGIC SOURCING [address] [place] [address] Nurse Practitioner Obstetrics/Gynecology 08/11/21 Sports Official Relationship Specialty Start Date End Date Brandon Lowery, DO [address] [place] [address] PCP - General Family Medicine 01/07/15 Man Brady II, MD [address] [place] [address] Consulting Physician Ophthalmology 06/03/18 Issac Bray MD [address] [place] [address] Consulting Physician Orthopedic Surgery 11/15/18 Tiffani Poole MD [address] [place] [address] Orthopedic Surgery 12/07/20 08/10/21 Rubio Leon PA-C [address] [facility] [address] [place] [address] Physician Pony Edger 08/11/21 Nini Meza, MANAGER STRATEGIC SOURCING [address] [place] [facility] [place] [address] Nurse Practitioner Obstetrics/Gynecology 08/11/21 Sports Official Relationship Specialty Start Date End Date Brandon Lowery, DO [address] [place] [address] PCP - General Family Medicine 01/07/15 Man Brady II, MD [address] [facility] [place] [address] Consulting Physician Ophthalmology 06/03/18 Rubio Leon PA-C [address] [place] [address] Physician Pony Edger 08/11/21 Nini Meza, MANAGER STRATEGIC SOURCING [address] [place] [facility] [place] [address] Nurse Practitioner Obstetrics/Gynecology 08/11/21 Sports Official Relationship Specialty Start Date End Date Brandon Lowery, DO [address] [place] [address] PCP - General Family Medicine 01/07/15 Man Brady II, MD [address] [facility] [place] [address] Consulting Physician Ophthalmology 06/03/18 Rubio Leon PA-C [address] [place] [address] Physician Pony Edger 08/11/21 Nini Meza, MANAGER STRATEGIC SOURCING [address] [place] [facility] [place] [address] Nurse Practitioner Obstetrics/Gynecology 08/11/21 Sports Official Relationship Specialty Start Date End Date Brandon Lowery, DO [address] [facility] [place] [address] PCP - General Family Medicine 01/07/15 Man Brady II, MD [address] [facility] [place] [address] Consulting Physician Ophthalmology 06/03/18 Rubio Leon PA-C [address] [place] [address] Physician Pony Edger 08/11/21 Nini Meza, KENDELL [address] [place] [address] Nurse Practitioner Obstetrics/Gynecology 08/11/21 Brandon Lowery DO [address] [place] [address] Referring Physician Family Medicine 04/20/22 Sports Official Relationship Specialty Start Date End Date Brandon Lowery DO [address] [place] [address] PCP - General Family Medicine 01/07/15 Man Brady II, MD [address] [place] [address] Consulting Physician Ophthalmology 06/03/18 Rubio Leon PA-C [address] [facility] [facility] [address] [place] [address] Physician Pony Edger 08/11/21 Nini Meza, KENDELL [address] [place] [address] Nurse Practitioner Obstetrics/Gynecology 08/11/21 Brandon Lowery DO [address] [place] [address] Referring Physician Family Medicine 04/20/22 Sports Official Relationship Specialty Start Date End Date Brandon Lowery DO [address] [place] [address] PCP - General Family Medicine 01/07/15 Man Brady II, MD [address] [place] [address] Consulting Physician Ophthalmology 06/03/18 Rubio Leon PA-C [address] [place] [address] Physician Pony Edger 08/11/21 Nini Meza, MANAGER [employer] [address] [place] [address] Nurse Practitioner Obstetrics/Gynecology 08/11/21 Brandon Lowery DO [address] [place] [address] Referring Physician Family Medicine 04/20/22 Sports Official Relationship Specialty Start Date End Date Brandon Lowery DO [address] [place] [address] PCP - General Family Medicine 01/07/15 Man Brady II, MD [address] [place] [address] Consulting Physician Ophthalmology 06/03/18 Rubio Leon PA-C [address] [place] [address] Physician Pony Edger 08/11/21 Nini Meza CNP [address] [place] [address] Nurse Practitioner Obstetrics/Gynecology 08/11/21 Brandon Lowery DO [address] [place] [address] Referring Physician Family Medicine 04/20/22 Sports Official Relationship Specialty Start Date End Date SebastiánRadhames vasquezel KevinDO [address] [place] [address] PCP - General Family Medicine 01/07/15 Man Brady II, MD [address] [place] [address] Consulting Physician Ophthalmology 06/03/18 Rubio Leon PA-C [address] [place], [place] [address] Physician Pony Edger 08/11/21 Nini Meza CNP [address] [place] [address] Nurse Practitioner Obstetrics/Gynecology 08/11/21 Brandon Lowery DO [address] [place] [address] Referring Physician Family Medicine 04/20/22 Sports Official Relationship Specialty Start Date End Date Brandon Lowery DO [address] [place] [address] PCP - General Family Medicine 01/07/15 Man Brady II, MD [address] [place] [address] Consulting Physician Ophthalmology 06/03/18 Rubio Leon PA-C [address] [place] [address] Physician Pony Edger 08/11/21 Nini Meza CNP [address] [place] [address] Nurse Practitioner Obstetrics/Gynecology 08/11/21 Kimani Simon MD [address] [address] Consulting Physician General Surgery 08/07/22 Sports Official Relationship Specialty Start Date End Date Brandon Lowery DO [address] [place] [address] PCP - General Family Medicine 01/07/15 Man Brady II, MD [address] [place] [address] Consulting Physician Ophthalmology 06/03/18 Rubio Leon PA-C [address] [place] [address] Physician Pony Edger 08/11/21 Nini Meza [employer] [address] [place] [address] Nurse Practitioner Obstetrics/Gynecology 08/11/21 Kimani Simon MD [address] [address] Consulting Physician General Surgery 08/07/22 Sports Official Relationship Specialty Start Date End Date Brandon Lowery DO [address] [place] [address] PCP - General Family Medicine 01/07/15 Man Brady II, MD [address] [place] [address] Consulting Physician Ophthalmology 06/03/18 Rubio Leon PA-C [address] [facility] [address] [place], [place] [address] Physician Pony Edger 08/11/21 Nini Meza, MANAGER [employer] [address] [place] [address] Nurse Practitioner Obstetrics/Gynecology 08/11/21 Kimani Simon MD [facility] Robertliziván Argueta [address] [address] Consulting Physician General Surgery 08/07/22 Sports Official Relationship Specialty Start Date End Date Brandon Lowery DO [address] [place] [address] PCP - General Family Medicine 01/07/15 Man Brady II, MD [address] [place] [address] Consulting Physician Ophthalmology 06/03/18 Rubio Leon PA-C [address] [facility] [address] [place], [place] [address] Physician Pony Edger 08/11/21 Nini Meza [employer] [address] [place] [address] Nurse Practitioner Obstetrics/Gynecology 08/11/21 Kimani Simon MD [address] [facility] [address] [place] [address] Consulting Physician General Surgery 08/07/22 Sports Official Relationship Specialty Start Date End Date Brandon Lowery DO [address] [place] [address] PCP - General Family Medicine 01/07/15 Man Brady II, MD [address] [place] [address] Consulting Physician Ophthalmology 06/03/18 Rubio Leon PA-C [address] [address] Physician Pony Edger 08/11/21 Nini Meza CNP [address] [place] [address] Nurse Practitioner Obstetrics/Gynecology 08/11/21 Kmiani Simon MD [address] [facility] [address] [place] [address] Consulting Physician General Surgery 08/07/22 Sports Official Relationship Specialty Start Date End Date Brandon Lowery DO [address] [place] [address] PCP - General Family Medicine 01/07/15 Man Brady II, MD [address] [place] [address] Consulting Physician Ophthalmology 06/03/18 Rubio Leon PA-C [address] [facility] [address] [place] [address] Physician Pony Edger 08/11/21 Nini Meza CNP [address] [place] [address] Nurse Practitioner Obstetrics/Gynecology 08/11/21 Kimani Simon MD [address] [address] Consulting Physician General Surgery 08/07/22 Sports Official Relationship Specialty Start Date End Date Brandon Lowery DO [address] [place] [address] PCP - General Family Medicine 01/07/15 Man Brady II, MD [address] [place] [address] Consulting Physician Ophthalmology 06/03/18 Rubio Leon PA-C [address] [facility] [address] [place] [address] Physician Pony Edger 08/11/21 Nini Meza [employer] [address] [place] [address] Nurse Practitioner Obstetrics/Gynecology 08/11/21 Kimani Simon MD [address] [address] Consulting Physician General Surgery 08/07/22 Sports Official Relationship Specialty Start Date End Date Brandon Lowery DO [address] [place] [address] PCP - General Family Medicine 01/07/15 Man Brady II, MD [address] [place] [address] Consulting Physician Ophthalmology 06/03/18 Rubio Leon PA-C [address] [facility] [address] [place] [address] Physician Pony Edger 08/11/21 Nini Meza, MANAGER [employer] [address] [place] [address] Nurse Practitioner Obstetrics/Gynecology 08/11/21 Kimani Simon MD [facility] Robertstef[address] [address] Consulting Physician General Surgery 08/07/22 Sports Official Relationship Specialty Start Date End Date Brandon Lowery DO [address] [place] [address] PCP - General Family Medicine 01/07/15 Man Brady II, MD [address] [place] [address] Consulting Physician Ophthalmology 06/03/18 Rubio Leon PA-C [address] [facility] [address] [place], [place] [address] Physician Pony Edger 08/11/21 Nini Meza [employer] [address] [place] [address] Nurse Practitioner Obstetrics/Gynecology 08/11/21 Kimani Simon MD [address] [address] Consulting Physician General Surgery 08/07/22 Sports Official Relationship Specialty Start Date End Date Radhames Loweryel KevinDO [address] [place] [address] PCP - General Family Medicine 01/07/15 Man Brady II, MD [address] [place] [address] Consulting Physician Ophthalmology 06/03/18 Rubio Leon PA-C [address] [facility] [address] [place] [address] Physician Pony Edger 08/11/21 Nini Meza CNP [address] [place] [address] Nurse Practitioner Obstetrics/Gynecology 08/11/21 Kimani Simon MD [address] [address] Consulting Physician General Surgery 08/07/22 Sports Official Relationship Specialty Start Date End Date Brandon Lowery DO [address] [place] [address] PCP - General Family Medicine 01/07/15 Man Brady II, MD [address] [place] [address] Consulting Physician Ophthalmology 06/03/18 Rubio Leon PA-C [address] [facility] [address] [place] [address] Physician Pony Edger 08/11/21 Nini Meza CNP [address] [place] [address] Nurse Practitioner Obstetrics/Gynecology 08/11/21 Kimani Simon MD [address] [facility] [address] [place] [address] Consulting Physician General Surgery 08/07/22 Sports Official Relationship Specialty Start Date End Date Brandon Lowery DO [address] [place] [address] PCP - General Family Medicine 01/07/15 Man Brady II, MD [address] [place] [address] Consulting Physician Ophthalmology 06/03/18 Rubio Leon PA-C [address] [facility] [address] [place] [address] Physician Pony Edger 08/11/21 Nini Meza [employer]NA[employer] [address] [place] [address] Nurse Practitioner Obstetrics/Gynecology 08/11/21 Kimani Simon MD [address] [facility] [address] [place] [address] Consulting Physician General Surgery 08/07/22 Sports Official Relationship Specialty Start Date End Date Brandon Lowery DO [address] [place] [address] PCP - General Family Medicine 01/07/15 Man Brady II, MD [address] [place] [address] Consulting Physician Ophthalmology 06/03/18 Rubio Leon PA-C [address] [place] [address] Physician Pony Edger 08/11/21 Nini Meza CNP [address] [place] [address] Nurse Practitioner Obstetrics/Gynecology 08/11/21 Kimani Simon MD [address] [address] Consulting Physician General Surgery 08/07/22 FOR RECORDS PERTAINING TO PATIENTS WHO ARE OR HAVE BEEN ENROLLED IN A CHEMICAL DEPENDENCY/SUBSTANCEABUSE PROGRAM, SOME INFORMATION MAY BE OMITTED. This clinical summary was aggregated from multiple sources. Caution should be exercised in using it in the provision of clinical care. This summary normalizes information from multiple sources, and as a consequence, information in this document may materially change the coding, format and clinical context of patient data. In addition, data may be omitted in some cases. CLINICAL DECISIONS SHOULD BE BASED ON THE PRIMARY CLINICAL RECORDS. [employer] provides no warranty or guarantee of the accuracy or completeness of information in this document.
[2024-09-26 21:07] LABS: QNTFERON TB Mitogen Value > 10.00 IU/mL (.); QNTFERON TB Nil Value 0.08 IU/mL (.); QNTFERON TB1+ Ag Value 0.10 IU/mL (.); QNTFERON TB2+ Ag Value 0.08 IU/mL (.); QNTIFERON TB Positive Criteria Negative (Negative)
== END | disposition home or self-care (01) ==
LOC: MTLAB 13:43
PROVIDERS: PCP Family Medicine; Referring Provider Physician Assistant Medical; Visit Provider Physician Assistant Medical
DX: L40.0 Psoriasis vulgaris (principal)
CPT/HCPCS: 36415; 86480